=== PATIENT | female | born 1935 | race Caucasian/White ===

== ENCOUNTER 2020-01-06 08:08 | Inpatient (IN) | payer MEDICARE, SELFPAY ==
[2020-01-06] VITALS (49 sets, daily range): BP systolic 150–255; BP diastolic 37–85; PULSE 66–108; RESP 14–32; TEMP 36.5–36.7; O2SAT 84–100; BMI 30.9
--- NOTE | ~2020-01-06 | XR_ITS ---
EXAMINATION: XR chest 1V portable DATE: 01/07/2020 05:57 INDICATION: Congestive heart failure. TECHNIQUE: A single frontal view of the chest was obtained. COMPARISON: Chest single view 01/06/2020, CT abdomen and pelvis 01/06/2020 FINDINGS: There is a diffuse interstitial pattern in the lungs, consistent with mild pulmonary edema. There is mild atelectasis at the lung bases. There are small pleural effusions. No pneumothorax. Car diomegaly is noted. There is an old healed fracture deformity of proximal right humerus. IMPRESSION: 1. Mild pulmonary edema. 2. Stable small pleural effusions. 3. Cardiomegaly. Reviewed, dictated and finalized at location A. LE CUTTER
--- NOTE | ~2020-01-06 | CT_ITS ---
EXAMINATION: CT abdomen pelvis w con EXAM DATE: 01/06/2020 09:34 INDICATION: Generalized abdominal pain for 3 days. Headache. TECHNIQUE: Spiral CT of the abdomen and pelvis was performed following intravenous injection of 100 m L Omnipaque 350. Axial, coronal and sagittal images were reviewed. The dose-length product (DLP) fo r this examination was 765.71 mGy-cm. The exposure was tailored according to patient size (auto mA e xposure control), and iterative reconstruction (ASIR) was used as additional dose reduction technique . 2009 FINDINGS: The liver, spleen, adrenal glands and pancreas are unremarkable. There are cholecystectomy clips. Portal and splenic veins are patent. Kidneys enhance symmetrically. There is no hydronephr osis. Probable small renal cysts. The uterus is unremarkable. The bladder is unremarkable. There is no retroperitoneal or pelvic lymphadenopathy. There is mild scattered arteriosclerotic disease. The appendix is not positively visualized. There is no pericecal inflammatory change to suggest appe ndicitis. The stomach and small bowel are unremarkable. There is mild to moderate sigmoid colonic d iverticulosis. There is no adjacent inflammatory change to suggest diverticulitis. No free intraper itoneal gas. Moderate right, small to moderate left pleural effusions. There is subsegmental bibasi lar atelectasis, with some decreased attenuation in the left lower lobe medial airspace disease, poss ible superimposed infection. Mild cardiomegaly. There is a sclerotic focus in the T10 vertebral body measuring 10 mm in diameter, possible osteoblastic disease. Much smaller right femoral head bone isl and which is unchanged compared to prior study. There is left hip gamma nail. IMPRESSION: 1. Moderate right, small to moderate left pleural effusions with adjacent subsegmental atelectasis a nd possible right lower lobe pneumonia. 2. Mild to moderate sigmoid diverticulosis. 3. T10 sclerotic focus, may be new compared to 2009. Could be bone island or osteoblastic disease. 4. No acute intra-abdominal findings. Reviewed, dictated and finalized at location A. PLATER IMPRESSION: 1. Moderate right, small to moderate left pleural effusions with adjacent subs egmental atelectasis and possible right lower lobe pneumonia. 2. Mild to moderate sigmoid diverticulosis. 3. T10 sclerotic focus, may be new compared to 2009. Could be bone island or o steoblastic disease. 4. No acute intra-abdominal findings.
--- NOTE | ~2020-01-06 | XR_ITS ---
EXAMINATION: XR chest 1V EXAM DATE: 01/06/2020 09:41 INDICATION: Shortness of breath and wheezing. TECHNIQUE: Portable AP frontal chest x-ray was obtained. There is no prior study for comparison. FINDINGS: There is cardiomegaly and pulmonary vascular congestion. Small to moderate subpulmonic pleu ral effusions. There is indistinct reticulation with a bibasal predominance which may indicate pulmon theo edema. . There is no pneumothorax suspected. There is aortic arteriosclerosis. There are bony de generative changes. Right humeral neck fracture. IMPRESSION: Findings consistent with CHF exacerbation. Infection not excludable. Reviewed, dictated and finalized at location A. GENCY VEHICLE OPERATIONS INSTRUCTOR IMPRESSION: Findings consistent with CHF exacerbation. Infection not excludable .
--- NOTE | ~2020-01-06 | XR_ITS ---
EXAMINATION: XR chest 2V EXAM DATE: 01/09/2020 10:52 INDICATION: CHF, shortness of breath. TECHNIQUE: Frontal and lateral projections of the chest obtained and reviewed. Comparison is made to prior examination from 12/28/2019. FINDINGS: Moderate left, mild right pleural effusions. Adjacent left basilar segmental atelectasis. Lungs are otherwise clear. Mild cardiomegaly. There is no pneumothorax suspected. There is aortic art eriosclerosis. Old right humeral neck fractures. IMPRESSION: 1. Moderate left, small right pleural effusions. 2. Left lower lobe segmental atelectasis. 3. Cardiomegaly. Reviewed, dictated and finalized at location A. OR DEVOPS ENGINEER
--- NOTE | 2020-01-06 08:45 | PC.NURSE ---
Pt. O2 saturations drops below 90% upon exertion into the 80s. ERP notified. Pt. placed on 2L O2 via nasal cannula. O2 saturations improved. Pt. tolerates room air without exertion/ when patient is resting.
--- NOTE | 2020-01-06 08:54 | ECG_ITS ---
Measurements Intervals [place] Rate: 85 P: 60 NE: 175 QRS: -19 QRSD: 152 T: 81 QT: 408 QTc: 486 Interpretive Statements SINUS RHYTHM LEFT BUNDLE BRANCH BLOCK BASELINE ARTIFACT- I, II, III, AVR, AVF, V4-V6 ABNORMAL ECG Electronically Signed On 01-06-2020 11:18:52 [employer] by Aaron Valverde D.O.
[2020-01-06 09:03] LABS: Basophils Percent Auto 0.2 % (0.2-1.2); Eosinophils Absolute Auto 0.1 K/mm3 (0-0.3); Eosinophils Percent Auto 0.9 % (0-4.4); Hematocrit 36.1 % (37.0-47.0); Hemoglobin 12.3 g/dL (12.0-15.0); Immature Granulocyte Absolute 0.03 K/mm3 (0.00-0.031); Immature Granulocyte Percent A 0.3 % (0-0.5); Lymphocytes Percent Auto 14.3 % (18.3-44.2); Mean Corpuscular HGB Conc 34.1 g/dl (32-36); Mean Corpuscular Hemoglobin 32.7 pg (26-34); Mean Platelet Volume 9.1 fl (7.4-10.4); Monocytes Absolute Auto 0.8 K/mm3 (0.1-0.6); Monocytes Percent Auto 8.4 % (2.6-8.5); Neutrophils Absolute Auto 7.5 K/mm3 (1.3-6.7); Neutrophils Percent Auto 75.9 % (45.5-73.1); Platelet Count Result 304 k/mm3 (150-375); Red Blood Count 3.76 M/mm3 (4.2-5.4); Red Cell Distribution Width 13.2 % (11.5-14.5); White Blood Count 9.8 K/mm3 (4.5-10.0)
--- NOTE | 2020-01-06 09:03 | ED.GENADULT ---
HPI - General Adult General Chief complaint: Abdominal Pain Stated complaint: abd pain Time Seen by Provider: 01/06/20 08:17 Source: patient and family History of Present Illness HPI narrative: Patient is a 84 y/o female complaining of moderate generalized abdominal pain starting 3 days. She describes the pain as aching and it radiates to her chest. She is unable to rate the pain on a scale. There is no alleviating or exacerbating factor. She also has diarrhea, cough and SOB. She has no fever. Her son states that her new doctor took her off Lasix recently due to concern for kidney function. Related Data Home Medications Medication Instructions Recorded Confirmed calcium carbonate 500 mg (1,250 1 tablet PO DAILY 03/05/19 12/26/19 mg)-vitamin D3 200 unit tablet acetaminophen 650 mg 1,300 mg PO Q12H tablet 07/03/19 12/26/19 tablet,extended release multivitamin 2 tablet PO DAILY tablet 08/30/19 12/26/19 Allergies Allergy/AdvReac Type Severity Reaction Status Date / Time Sulfa (Sulfonamide Allergy Unknown unknown Verified 12/26/19 14:18 Antibiotics) sulfanilamide Allergy Unknown unknown Verified 08/30/19 08:16 Review of Systems Constitutional: Constitutional: Denies chills, Denies fever(s), Denies headache(s) and Denies weakness Eyes: Eyes: Denies blurry vision ENT: Denies headache(s) and Denies neck pain Cardiovascular: Cardiovascular: Reports chest pain and Reports dyspnea Respiratory: Respiratory: Reports cough and Reports dyspnea Gastrointestinal: Gastrointestinal: Reports abdominal pain, Reports diarrhea, Denies nausea and Denies vomiting Genitourinary: Genitourinary: Denies hematuria and Denies dysuria Musculoskeletal: Musculoskeletal: Denies back pain and Denies neck pain Neurologic: Denies headache(s) and Denies weakness [facility] Past Medical History Medical History Arthritis CKD (chronic kidney disease), stage III Depression Edema of both lower legs due to peripheral venous insufficiency GERD (gastroesophageal reflux disease) Hypertension Obesity Osteoarthritis Osteopenia Pre-diabetes Surgical History Surgical History H/O arthroscopy knee H/O total hysterectomy H/O tubal ligation History of arthroplasty of left hip History of breast biopsy (~1997) left History of cardiac cath History of tonsillectomy Hx of cholecystectomy Status post arthroscopy of hip Family History Family History Father Diabetes mellitus, Onset Age: 89 Hypertension, Onset Age: 89 Cerebrovascular accident, Onset Age: 89 Sibling Diabetes mellitus, Onset Age: 74 Family history of hypercholesterolemia, Onset Age: 74 Hypertension Acute myocardial infarction, Onset Age: 83 Family history of arthritis Family history of malignant neoplasm of urinary bladder, Onset Age: 74 Mother Hypertension, Onset Age: 85 Cerebrovascular accident, Onset Age: 85 Family history of arthritis, Onset Age: 85 Family history of congestive heart failure, Onset Age: 85 Social History Social History Smoking status: Never smoker Second hand tobacco smoke exposure: No Alcohol intake: never Additional living arrangements comments: lives with son Gender identity (if verbalized by the patient): Female Spiritual care concerns: No ([place]) Agree to blood products: Yes Exam Const: General: no acute distress and well developed Orientation/consciousness: oriented to person, oriented to place, oriented to time and patient oriented x3 HENMT: Head: normocephalic Ears: external ears normal General nose exam: Normal external nose present Eyes: General: appearance normal, both eyes and all related structures Conjunctivae: conjunctivae normal Neck: Neck: normal vi
[2020-01-06 09:19] LABS: Alanine Aminotransferase 27 U/L (4-35); Albumin Level 3.9 g/dL (3.5-5.1); Alkaline Phosphatase 80 U/L (38-126); Anion Gap 9 mmol/L (8-16); Aspartate Amino Transferase 33 U/L (14-36); Bilirubin,Total 1.1 mg/dL (0.2-1.3); Blood Urea Nitrogen 20 mg/dL (7-17); Carbon Dioxide 28 mmol/L (22-30); Chloride 97 mmol/L (98-107); Estimated CRCL calculation 41 ml/min; Estimated Glomerular Filt Rate 53; Glucose 161 mg/dL (65-105); Lipase 117 U/L (23-300); Potassium 3.9 mmol/L (3.4-5.0); Sodium 134 mmol/L (137-145)
[2020-01-06] MEDS: FUROSEMIDE INJ 40 MG/4 ML VIAL IV PUSH ×2 (09:23→17:43)
[2020-01-06 09:28] LABS: NT Pro B Type Natriuretic Pept 3780 PG/ML (5-100)
[2020-01-06 09:33] LABS: Add Urine Microscopic? YES; Appearance Urine Clear (Clear); Bilirubin Urine Negative (Negative); Blood Urine Negative (Negative); Color Urine Yellow (Yellow); Glucose Urine UA Negative (Negative); Ketones Urine Negative (Negative); Leukocyte Esterase Ur Negative LEU/UL (Negative); Mucus Urine Rare /lpf; Nitrate Urine Negative (Negative); Protein Urine 3+ mg/dL (Negative); Specific Grav Ur 1.015 (1.001-1.035); Squamous Epithelial Cell Urine Moderate /hpf (Few); Urobilinogen Urine Negative mg/dL (<2.0); WBC Urine 0-3 /hpf
[2020-01-06 09:34] LABS: Troponin I 0.094 ng/mL (0.000-0.034)
[2020-01-06] MEDS: amLODIPine BESYLATE 5 MG TABLET 10 MG PO (10:28)
[2020-01-06 12:51] LABS: INR 0.9; Prothrombin Time 12.8 Seconds (11.1-14.7)
[2020-01-06 12:52] LABS: Partial Thromboplastin Time 34.6 SECONDS (22.3-36.8)
[2020-01-06] MEDS: ASPIRIN 81 MG CHEWABLE TABLET 324 MG PO (12:57)
[2020-01-06] MEDS: HEPARIN SODIUM 5,000 UNITS/ML VIAL 4000 UNITS IV PUSH (13:32)
[2020-01-06] MEDS: HEPARIN SOD/D5W 100 UNITS/ML 25,000 UNITS/250 ML BAG 8 UNITS IV CONT (13:33)
--- NOTE | 2020-01-06 14:56 | ADMGEN ---
This patient, Azucena Mcdonald, was admitted to IMU Room 200-01. Patient/family oriented to hospital policies and general routines including ID bracelet, bed and alarms, visiting hours, pain management, procedures, bathroom and other care routines, personal items, smoking policy, room service/diet, and visiting hours. Information on how to activate the Rapid Response Team has been discussed. Patient/Family are encouraged to report perceived risks to care and to ask questions if they do not understand what they are told or what they should do.
--- NOTE | 2020-01-06 15:28 | PM.IMHP ---
H&P: HPI History of Present Illness Date/Time: 01/06/20 15:28 Chief complaint: CHF Narrative: Azucena Mcdonald is a 84 year old female with history of hypertension, CKD and severe hearing loss who presents with complaints of abdominal or chest pain. Obtaining a history is challenging due to her hearing loss. History is supplemented by the chart and by family members by phone. On December 24 patient was taken off of her ASA, Lasix and potassium. Her blood pressures were monitored closely at home with systolic BP running in the 140s. Since stopping these medications, patient's blood pressure has been climbing into the 170-180 range. Patient states over the past 3-4 days she has been feeling tired and weak. She has been having trouble sleeping with what sounds like orthopnea symptoms which have been going on for about 2 weeks. She also had been having abdominal swelling as well as a upper abdominal pain. She has been having chest pain over the past few days and it has been hard to breathe . The pain comes and goes. Seems to be worse with activity. No radiation of the pain. The pain is pleuritic in nature. Pain usually lasts about an hour. No nausea or vomiting. She did have a loose stool this morning and noted bright red blood on the toilet paper but she does have hemorrhoids. She also complains urinary frequency with some improvement being off the Lasix. No diabetes history. She voids small volumes. No dysuria or hematuria. No fever or chills but does state that she has episodes where she has diaphoresis and then cold; this is been going on for about a month. No palpitations. No history of seizures or strokes. She has had weight gain but unclear on how long it has been going on. She also has chronic pedal edema that has increased recently since being off the Lasix. She wears Anibal hose daily and they have noted that it has been hard to put the Anibal hose on. Because of the abdominal pain and chest pain, patient presented to the emergency room for evaluation. In the emergency room her blood pressure was 225/85. First troponin elevated and has climbed to 2.6. EKG reviewed showing normal sinus rhythm and left bundle branch block. Old EKGs from 2016 show that the bundle branch block is new. BNP was 3780. CT of the abdomen pelvis showed bilateral pleural effusions and possible right lower lobe pneumonia. Patient has a chronic cough at night. No acute intra-abdominal findings. Chest x-ray findings consistent with CHF. She was given aspirin, Norvasc and IV Lasix. She was started on heparin drip. She was admitted for further care. Cardiology consulted. Review of Systems Review of Systems: All systems reviewed & are unremarkable except as noted in HPI and below PMFSH Past Medical History Medical History (Updated 01/06/20 @ 17:41 by Navi Peters MD) Arthritis CKD (chronic kidney disease), stage III [place] Depression Edema of both lower legs due to peripheral venous insufficiency GERD (gastroesophageal reflux disease) Hypertension Obesity Osteoarthritis Osteopenia Pre-diabetes Pulmonary hypertension Surgical History Surgical History (Updated 01/06/20 @ 15:37 by Navi Peters MD) H/O arthroscopy knee H/O total hysterectomy H/O tubal ligation History of arthroplasty of left hip History of breast biopsy (~1997) left History of cardiac cath History of tonsillectomy Hx of cholecystectomy Hx of colonoscopy with IH and polypectomy Status post arthroscopy of hip Family History Family History Father Diabetes mellitus, Onset Age: 89 Hypertension, Onset Age: 89 Cerebrovascular accident, Onset Age: 89 Sibling Diabetes mellitus, Onset Age: 74 Family history of hypercholesterolemia, Onset Age: 74 Hypertension Acute myocardial infarction, Onset Age: 83 Family history of arthritis Family history of malignant neoplasm of uri
--- NOTE | 2020-01-06 16:35 | PM.CNCAR ---
Assessment and Plan Additional Plan 84-year-old lady with a somewhat complex presentation. She has symptoms of shortness of breath and evidence of bilateral pleural effusions appears to have an element of congestive heart failure. In addition to this there is some pain this morning which on the surface is very unusual for myocardial ischemia since it started with low in the mid abdomen and then progressed up into the chest with some shortness of breath. She is no longer having any active chest pain she does have a left bundle branch block with no recent electrocardiograms in the chart available for comparison. I do not believe she needs to be brought emergently to the cardiac analytical lab analyst today in this setting but she does need to be treated for volume overload and I will ask for an echocardiogram as well to assess if there has been any change in left ventricular systolic function in this setting. I will continue the beta-godfrey that she normally takes as well as lisinopril in place of her home dose of benazepril. Oral nitrates will be added to the regimen as well. We will follow her progress with you during this hospitalization and thank you for allowing me to see her in consultation Irving Hdz MD [facility] History of Present Illness History of Present Illness Consult date/time: 01/06/20 16:35 Consult reason: chest pain and congestive heart failure Reason For Visit: CHF Narrative: This is an 84-year-old woman who is unknown to me prior to the consulting on her case this afternoon. She is a reasonable historian but is hard of hearing and has a difficult time expressing her responses to questions. I am seeing her at the request of the ER staff/hospitalist because of findings of some abdominal/chest pain, left bundle branch block and elevated troponin. The patient states that she has been feeling poorly for 2 or 3 days with symptoms of increasing shortness of breath. She states that the symptoms began several days ago. She does recall having seen her PCP about 10 days ago at which time she was taken off of diuretic treatment. There is a note in the chart that corroborates this. Presumably there was some concern about chronic kidney disease and the need to be on chronic loop diuretics. According to the chart she is not known to have significant coronary artery disease in the past. This morning she told her son she was feeling unwell with some pain as well she describes a pain syndrome that is very unusual starting in the low mid abdomen tip periumbilical region then radiating up into the epigastric region and then up into the center of the chest. She stated is this got worse she had a harder time breathing and eventually did is directed her son to bring her to the emergency department. In the ED her electrocardiogram shows a sinus mechanism with a left bundle branch block. There are no recent electrocardiograms in the chart for comparison. The last 1 that I could find was about 10 years ago at which time she had a negative stress test being performed in the office. She did not have a left bundle branch block at that time. She has couple of echocardiograms in the record that were done in the last 2 years or so that were interpreted as showing normal left ventricular systolic function and no significant valvular disease. Upon entering the room to see her in the IMU she seems to be relatively comfortable she does not appear to be in any distress she is no longer reporting chest pain. After being seen in the emergency room she was placed on intravenous heparin she was a given an injection of furosemide and admitted to IMU. She is rather hypertensive she normally takes metoprolol as well as benazepril for this neither of those have been ordered. Her chest x-ray shows enlargement of the cardiac silhouette as well as bilateral pleural effusions. She does have chronic lower extremity edema which in the chart has been attributed to chronic venous insufficiency. She
[2020-01-06] MEDS: METOPROLOL SUCCINATE EXT REL 100 MG TABCR PO (17:42)
[2020-01-06] MEDS: ISOSORBIDE MONONITRATE 60 MG TAB.ER.24H PO (17:43)
[2020-01-06 17:56] LABS: Partial Thromboplastin Time 122.8 SECONDS (22.3-36.8)
[2020-01-07] VITALS (17 sets, daily range): BP systolic 144–202; BP diastolic 40–70; PULSE 64–96; RESP 14–20; TEMP 36.5–37.1; O2SAT 93–98
--- NOTE | 2020-01-07 | ECHO_ITS ---
Patient Info Name: Azucena Mcdonald Age: 84 years : 1935 Gender: Female Ht: 62 in Wt: 169 lbs BSA: 1.86 m2 HR: 65 bpm BP: 177 / 45 mmHg Heart Rhythm: Left Bundle Branch Block, Sinus Rhythm Technical Quality: Good Exam Date: 01/07/2020 9:50 AM Exam Location: [facility] Patient Status: Inpatient Admit Date: 01/07/2020 Staff Ordering Physician: Irving Hdz MD Insurance Claim Auditor: Lazaro Martinez RDCS Attending Provider: Navi Peters MD Referring Physician: Wilder BAPTISTE; Exam Type: CA echo dop color flow w con Study Info Indications I50.9 - Heart failure, unspecified I44.7 - Left bundle-branch block, unspecified Complete two-dimensional, color flow and Doppler transthoracic echocardiogram is performed with contrast to opacify the left ventricle and to improve the deliniation of the left ventricle endocardial borders. Contrast/Agitated Saline Contrast/Ag. Saline: Definity Amount: 2.00 ml Administered By: Isis Michaels RN Existing IV Access: Yes History/Risk Factors CHF; LBBB, CKD3, edema, HTN, pHTN, DM. Summary 1. Normal left ventricular size with mild concentric hypertrophy. Good overall systolic function, estimated ejection fraction 65-70%. Hypokinesis of the basal inferolateral wall. Grade 2 diastolic dysfunction is present. 2. Left atrial chamber dimension is moderately enlarged. 3. There is mild mitral valve regurgitation. 4. There is mild tricuspid valve regurgitation. 5. Severe pulmonary hypertension, estimated pulmonary arterial systolic pressure is 71 mmHg. 6. Atrial fibrillation with bundle branch block. Left Ventricle Left ventricular chamber dimension is normal. Left ventricular systolic function is normal, estimated at 65-70%. There is mildly increased left ventricular wall thickness. Left ventricular septal wall motion is normal. The left ventricular diastolic function is grade II diastolic dysfunction. Right Ventricle Right ventricular chamber dimension is normal. Right ventricular systolic function is normal. Left Atria Left atrial chamber dimension is moderately enlarged. Right Atria Right atrial chamber dimension is normal. Aortic Valve The aortic valve is trileaflet. There is no aortic valve sclerosis. There is no aortic valve stenosis. There is no aortic valve regurgitation. Pulmonic Valve The pulmonic valve is normal. There is no pulmonic valve stenosis. There is trace pulmonic regurgitation. Mitral Valve The mitral valve has normal leaflets. There is no mitral valve stenosis. There is mild mitral valve regurgitation. The mitral valve annulus is moderately calcified. Tricuspid Valve The tricuspid valve leaflets are normal. There is no significant tricuspid valve stenosis. There is mild tricuspid valve regurgitation. Severe pulmonary hypertension, estimated pulmonary arterial systolic pressure is 71 mmHg. Pericardium/Pleural The pericardium appears normal. There is no pericardial effusion. Inferior Vena Cava Normal inferior vena cava with >50% collapse upon inspiration consistent with Empty right atrial pressure, 10 mmHg. Aorta The aortic root size at the sinus of Valsalva is normal. The prox ascending aorta size is normal. Left Ventricular Outflow Tract Name Value Normal -
[2020-01-07 00:51] LABS: Partial Thromboplastin Time 60.5 SECONDS (22.3-36.8)
[2020-01-07] MEDS: HEPARIN SODIUM 5,000 UNITS/ML VIAL 2500 UNITS IV PUSH (01:43)
[2020-01-07 06:36] LABS: Basophils Percent Auto 0.2 % (0.2-1.2); Eosinophils Percent Auto 0.2 % (0-4.4); Hematocrit 31.8 % (37.0-47.0); Hemoglobin 10.8 g/dL (12.0-15.0); Immature Granulocyte Absolute 0.04 K/mm3 (0.00-0.031); Immature Granulocyte Percent A 0.4 % (0-0.5); Lymphocytes Absolute Auto 0.97 K/mm3 (0.9-3.2); Lymphocytes Percent Auto 8.9 % (18.3-44.2); Mean Corpuscular Hemoglobin 31.8 pg (26-34); Mean Corpuscular Volume 93.5 fl (80-100); Mean Platelet Volume 8.8 fl (7.4-10.4); Monocytes Absolute Auto 0.9 K/mm3 (0.1-0.6); Monocytes Percent Auto 8.4 % (2.6-8.5); Neutrophils Absolute Auto 8.9 K/mm3 (1.3-6.7); Neutrophils Percent Auto 81.9 % (45.5-73.1); Platelet Count Result 281 k/mm3 (150-375); White Blood Count 10.9 K/mm3 (4.5-10.0)
[2020-01-07 06:58] LABS: Alanine Aminotransferase 23 U/L (4-35); Albumin Level 3.4 g/dL (3.5-5.1); Alkaline Phosphatase 72 U/L (38-126); Anion Gap 5 mmol/L (8-16); Aspartate Amino Transferase 27 U/L (14-36); Bilirubin,Total 1.2 mg/dL (0.2-1.3); Blood Urea Nitrogen 21 mg/dL (7-17); Calcium 8.6 mg/dL (8.4-10.2); Carbon Dioxide 35 mmol/L (22-30); Chloride 94 mmol/L (98-107); Cholesterol 130 mg/dL (0-200); Estimated CRCL calculation 30 ml/min; Estimated Glomerular Filt Rate 43; Glucose 137 mg/dL (65-105); HDL Direct 41 mg/dL; Lipase 113 U/L (23-300); Magnesium 1.6 mg/dL (1.6-2.3); Partial Thromboplastin Time 59.2 SECONDS (22.3-36.8); Potassium 3.3 mmol/L (3.4-5.0); Sodium 134 mmol/L (137-145); Triglycerides 85 mg/dL (<150)
[2020-01-07 07:08] LABS: LDL Cholesterol Direct 68 mg/dL
[2020-01-07 07:10] LABS: Troponin I 0.971 ng/mL (0.000-0.034)
--- NOTE | 2020-01-07 08:00 | ECG_ITS ---
Measurements Intervals [place] Rate: 71 P: 80 ND: 168 QRS: 1 QRSD: 152 T: 67 QT: 459 QTc: 502 Interpretive Statements SINUS RHYTHM LEFT BUNDLE BRANCH BLOCK BASELINE ARTIFACT- I, II, III, V6 ABNORMAL ECG Electronically Signed On 01-07-2020 9:52:18 MARINE ENGINE MACHINIST APPRENTICE by Aaron Valverde D.O.
[2020-01-07] MEDS: ATORVASTATIN 40 MG TABLET PO (08:09)
[2020-01-07] MEDS: ASPIRIN 81 MG CHEWABLE TABLET PO (08:09)
[2020-01-07] MEDS: lisinopriL 20 MG TABLET 40 MG PO (08:10)
[2020-01-07] MEDS: FUROSEMIDE INJ 40 MG/4 ML VIAL IV PUSH (08:10)
[2020-01-07] MEDS: ISOSORBIDE MONONITRATE 60 MG TAB.ER.24H PO (08:10)
[2020-01-07] MEDS: METOPROLOL SUCCINATE EXT REL 100 MG TABCR PO (08:10)
[2020-01-07 08:17] LABS: Partial Thromboplastin Time 59.2 SECONDS (22.3-36.8)
[2020-01-07 08:34] LABS: Glucose Point of Care 131 (65-105)
--- NOTE | 2020-01-07 10:02 | PM.PNCARD ---
Progress Note: A&P Assessment and Plan (1) Non-ST elevation [place] (NSTEMI): Code(s): I21.4 - Non-ST elevation (NSTEMI) myocardial infarction Status: Acute Assessment and Plan: Admitted with NSTEMI, atypical abdominal/chest discomfort, troponin of 2.6. EKG today on my personal review shows NSR, LBBB. The slight ST depression in V6 has resolved. No further chest discomfort on heparin drip, aspirin, metoprolol, lisinopril, statin and isosorbide. Planning cardiac catheterization later this week ( or Monday?) if patient is agreeable, once her CHF has resolved, if renal function stable. Will provide pt w/ some written information re: CAD, CHF and cardiac cath. (2) CHF (congestive heart failure): Qualifiers: Heart failure chronicity: acute on chronic Heart failure type: unspecified Qualified Code(s): I50.9 - Heart failure, unspecified Code(s): I50.9 - Heart failure, unspecified Status: Acute Assessment and Plan: Diuresing. Echo completed this morning. Cont IV Lasix, BP control. Supplement Kcl for hypokalemia. (3) Hypertension: Qualifiers: Hypertension type: unspecified Qualified Code(s): I10 - Essential (primary) hypertension Code(s): I10 - Essential (primary) hypertension Status: Acute Assessment and Plan: Continuing her home doses of BB and ACEI. Add amlodipine. (4) Left bundle branch block: Code(s): I44.7 - Left bundle-branch block, unspecified Status: Acute Assessment and Plan: New since 2015. (5) Hypokalemia: Code(s): E87.6 - Hypokalemia Status: Acute Assessment and Plan: Supplement. (6) CKD (chronic kidney disease), stage III: Code(s): N18.30 - Chronic kidney disease, stage 3 unspecified Status: Acute Assessment and Plan: Remains stable. Cont to follow w/ daily BMP. Subjective Date/time seen: 01/07/20 10:02 follow-up for non-STEMI, new onset CHF and LBBB. Atypical presentation with abdominal pain which radiated to the chest. Peak trop 2.66. Extremely hard of hearing. Date of service: 01/07/2020 Denies further abdominal or CP. Some OLVERA w/ activity. RN says pt had a good night, no problems. Remains on a heparin drip. Diuresed 550 cc overnight, furosemide 40 mg IV push daily. Blood pressure still high, 170-190's/40-70 mmHg. Echo done this morning. Hypokalemia, K+ 3.3. Chest x-ray personally reviewed: cardiomegaly, CHF, small bilateral effusions. Small improvement compared to admission. Tele: NSR, occ PVCs Review of Systems Review of Systems: Narrative: Some of ROS obtained fr pt's nurse since she is so CHICK[place]. Constitutional: Constitutional: Reports weakness ENT: Denies epistaxis Cardiovascular: Cardiovascular: Denies chest pain, Reports pedal edema, Denies lightheadedness and Denies palpitations Respiratory: Respiratory: Reports dyspnea on exertion Gastrointestinal: Gastrointestinal: Denies abdominal pain Genitourinary: Genitourinary: Denies hematuria Musculoskeletal: Musculoskeletal: Denies back pain Neurologic: Reports system reviewed and no additional complaints, except as documented Psychiatric: Psychiatric: Reports no additional psychiatric complaints Exam Narrative: Exam Narrative: Pleasant older WF who is extremely [id number]. A lot of our conversation was written. Const: General: comfortable and no acute distress Eyes: EOM: EOMs intact bilaterally Neck: Neck: No no JVD (small amt JVD) Resp: Effort & Inspection: normal respiratory effort Auscultation: clear to auscultation bilaterally, rales (1/3 up bilat) and diminished lung sounds Cardio: Rate: regular rate Rhythm: regular rhythm Heart sounds: Murmur heart sound present (02/25 DALIA LS
[2020-01-07] MEDS: POTASSIUM CHLORIDE 20 MEQ TABLET 40 MEQ PO ×2 (13:31→20:01)
[2020-01-07] MEDS: amLODIPine BESYLATE 2.5 MG TABLET PO (13:32)
[2020-01-07 14:15] LABS: Partial Thromboplastin Time 53.6 SECONDS (22.3-36.8)
[2020-01-07] MEDS: HEPARIN SODIUM 5,000 UNITS/ML VIAL 4000 UNITS IV PUSH (15:06)
[2020-01-07] MEDS: HEPARIN SOD/D5W 100 UNITS/ML 25,000 UNITS/250 ML BAG 12 UNITS IV CONT (15:09)
--- NOTE | 2020-01-07 16:56 | PM.IMPN ---
Progress Note: A&P Assessment and Plan (1) Non-ST elevation NJ (NSTEMI): Code(s): I21.4 - Non-ST elevation (NSTEMI) myocardial infarction Status: Acute Assessment and Plan: Troponin elevated on admission and has climbed to 2.66. CXR consistent with CHF exacerbation. EKG showing Left BBB on unknown duration. She has been started on ASA. She has been started on Heparin drip. She has been continued on her Lisinopril, Metoprolol and Imdur. Will need ischemic evaluation once she is euvolemic. (2) CHF (congestive heart failure): Qualifiers: Heart failure chronicity: acute on chronic Heart failure type: unspecified Qualified Code(s): I50.9 - Heart failure, unspecified Code(s): I50.9 - Heart failure, unspecified Status: Acute Assessment and Plan: Patient does not have hx of CHF but does have chronic pedal edema related to venous insufficiency. Suspect patient now with new diagnosis of CHF with bilateral pleural effusions, generalized fluid overload, pulmonary edema and BNP 3780. Could be acute related to her NSTEMI but more likely chronic and unrecognized given that she was on lasix and only became uncovered when the Lasix was stopped. Echo EF 65% but grade 2 diastolic dysfunction and severe pulmonary hypertension at 70. Continue IV Lasix. Monitor renal function closely. Strict I/Os and daily weights. Fluid restriction with low sodium diet. (3) Left bundle branch block: Code(s): I44.7 - Left bundle-branch block, unspecified Status: Acute Assessment and Plan: Unclear if this is new or old since last EKG is 4 years old. Could be acute related to her NSTEMI. (4) Abdominal pain: Qualifiers: Abdominal location: generalized Qualified Code(s): R10.84 - Generalized abdominal pain Code(s): R10.9 - Unspecified abdominal pain Status: Acute Assessment and Plan: Patient with upper abdominal pain but CT scan showing no significant findings. LFTs and Lipase normal. Suspect this is related to her chest pain. Follow. (5) Hypertension: Qualifiers: Hypertension type: unspecified Qualified Code(s): I10 - Essential (primary) hypertension Code(s): I10 - Essential (primary) hypertension Status: Acute Assessment and Plan: BP well controlled on 12/26/19. BP elevated now and amlodipine had a daily. . Continue IV Lasix. Adjust medications to improve BP. (6) CKD (chronic kidney disease), stage III: Code(s): N18.30 - Chronic kidney disease, stage 3 unspecified Status: Acute Assessment and Plan: Renal function in November consistent with CKD III. She was taken off her Lasix for this reason. Her Cr better today but probably Cr is improved due to fluid overload and not improved renal function. Hold HCTZ. Continue TRAMAINE inhibitor today. Follow closely on IV Lasix. Creatinine 1.2 (7) Pre-diabetes: Code(s): R73.03 - Prediabetes Status: Acute Assessment and Plan: Patient has vague hx of pre-DM. Glucose on presentation elevated to 161. Last A1c 5.9 in November. Not on steroids so will just monitor with BMP values for now and hold off on AcuCheks. (8) DVT prophylaxis: Code(s): Z29.9 - Encounter for prophylactic measures, unspecified Status: Acute Assessment and Plan: Heparin drip Subjective Date/time seen: 01/07/20 16:56 Interval history: Date of visit 01/06. 84-year-old hypertensive female with known congestive failure and coronary artery disease presented with abdominal pain which progressed to chest pain with elevated troponin. Thought to have non ST elevation [place] with failure. Feels better this a.m. less short of breath. No pain Exam Narrative: Exam Narrative: Blood pressure 144/50 pulse is 80 afebrile saturating 96% on 2 L nasal cannula respirations 18 per minute Pupil equal reactive light sclera anicteric Lung
[2020-01-07] MEDS: hydrALAZINE HCL 20 MG/ML VIAL 10 MG IV PUSH (23:33)
[2020-01-08] VITALS (16 sets, daily range): BP systolic 132–180; BP diastolic 52–95; PULSE 67–88; RESP 18–24; TEMP 36.1–36.7; O2SAT 94–98
[2020-01-08 06:43] LABS: Basophils Percent Auto 0.3 % (0.2-1.2); Eosinophils Percent Auto 0.2 % (0-4.4); Hematocrit 32.5 % (37.0-47.0); Immature Granulocyte Absolute 0.03 K/mm3 (0.00-0.031); Immature Granulocyte Percent A 0.3 % (0-0.5); Lymphocytes Absolute Auto 0.93 K/mm3 (0.9-3.2); Lymphocytes Percent Auto 8.9 % (18.3-44.2); Mean Corpuscular HGB Conc 33.8 g/dl (32-36); Mean Corpuscular Hemoglobin 32.7 pg (26-34); Mean Corpuscular Volume 96.7 fl (80-100); Mean Platelet Volume 8.8 fl (7.4-10.4); Monocytes Percent Auto 9.8 % (2.6-8.5); Neutrophils Absolute Auto 8.4 K/mm3 (1.3-6.7); Neutrophils Percent Auto 80.5 % (45.5-73.1); Platelet Count Result 254 k/mm3 (150-375); Red Blood Count 3.36 M/mm3 (4.2-5.4); Red Cell Distribution Width 13.4 % (11.5-14.5); White Blood Count 10.4 K/mm3 (4.5-10.0)
[2020-01-08 06:58] LABS: Anion Gap 4 mmol/L (8-16); Blood Urea Nitrogen 25 mg/dL (7-17); Calcium 8.4 mg/dL (8.4-10.2); Carbon Dioxide 36 mmol/L (22-30); Chloride 91 mmol/L (98-107); Estimated CRCL calculation 30 ml/min; Estimated Glomerular Filt Rate 43; Glucose 142 mg/dL (65-105); Potassium 3.6 mmol/L (3.4-5.0); Sodium 131 mmol/L (137-145)
[2020-01-08 07:03] LABS: Partial Thromboplastin Time 104.2 SECONDS (22.3-36.8)
--- NOTE | 2020-01-08 08:04 | P.CDI_ITS ---
CDI Query Clarification Request -Acute on chronic CHF has been documented - Echo EF 65% but grade 2 diastolic dysfunction and severe pulmonary hypertension at 70 documented. -Coders cannot code type of CHF from echo report Please clarify type of CHF: * Systolic * Diastolic * Both systolic and diastolic * Unable to determine <Azucena Ramirez RN - Last Filed: 01/08/20 08:06>
[2020-01-08] MEDS: POTASSIUM CHLORIDE 20 MEQ TABLET 40 MEQ PO (08:29)
[2020-01-08] MEDS: amLODIPine BESYLATE 2.5 MG TABLET PO (08:30)
[2020-01-08] MEDS: ATORVASTATIN 40 MG TABLET PO (08:30)
[2020-01-08] MEDS: FUROSEMIDE INJ 40 MG/4 ML VIAL IV PUSH (08:30)
[2020-01-08] MEDS: ASPIRIN 81 MG CHEWABLE TABLET PO (08:30)
[2020-01-08] MEDS: METOPROLOL SUCCINATE EXT REL 100 MG TABCR PO (08:31)
[2020-01-08] MEDS: ISOSORBIDE MONONITRATE 60 MG TAB.ER.24H PO (08:31)
[2020-01-08] MEDS: lisinopriL 20 MG TABLET 40 MG PO (08:31)
--- NOTE | 2020-01-08 10:18 | PM.PNCARD ---
Progress Note: A&P Additional Plan 84-year-old lady presenting with AMI very atypical symptomatology in the emergency room. No longer having any chest pain. Echocardiogram demonstrates wall motion abnormalities suggesting an event in the distribution of the circumflex. No significant valvular pathology. Because of concerning wrecked rectal bleeding recently we will try to avoid bringing this lady to the [facility] unless she has recurrent ischemic chest pain. Continue metoprolol high-dose lisinopril. Continue furosemide. Will increase her amlodipine dosage today as she is still rather hypertensive. Irving Hdz MD [facility] Subjective Date/time seen: Date of service: 01/08/20 10:18 Interval history: Follow-up visit for this 84-year-old lady with recent myocardial infarction with atypical presentation and modest troponin rise. Echocardiogram demonstrated posterolateral wall motion abnormality suggesting an event in the distribution of the circumflex. Patient has a left bundle branch block of unknown chronicity. Family history yesterday of recent concerning lower GI bleeding. Patient reports generalized weakness and shortness of breath with modest activity in the room. No further chest pain. Exam Const: General: no acute distress Eyes: Sclera: sclerae normal Pupils: Equal, round and reactive pupils present Neck: Neck: no JVD Thyroid: thyroid normal Resp: Effort & Inspection: normal respiratory effort Other: Scant bibasilar crackles persist Cardio: Rate: regular rate Rhythm: regular rhythm GI: GI Palp: Yes Soft to palpation Auscultation: normal bowel sounds Skin: General skin exam: normal color Neuro: Cognition (Neuro): normal cognition Extrem: General: normal to inspection Other: Very mild peripheral edema Objective Data Vital Signs Vital Signs: Vital Signs - 24 hr 01/07/20 12:00 01/07/20 14:00 01/07/20 15:40 Temperature 36.9 C 37.1 C Pulse Rate 68 73 81 Respiratory Rate 14 16 Blood Pressure 144/40 H 176/57 H Pulse Oximetry 93 96 01/07/20 16:00 01/07/20 18:00 01/07/20 20:00 Temperature 36.5 C Pulse Rate 81 75 83 Respiratory Rate 16 18 Blood Pressure 176/51 H Pulse Oximetry 96 97 01/07/20 22:00 01/07/20 23:39 01/08/20 00:00 Temperature 36.6 C Pulse Rate 72 72 75 Respiratory Rate 20 18 Blood Pressure 202/62 H Pulse Oximetry 97 98 11/18/20 02:00 01/08/20 04:00 01/08/20 06:00 Temperature 36.6 C Pulse Rate 82 87 81 Respiratory Rate 22 H Blood Pressure 180/95 H Pulse Oximetry 96 01/08/20 08:00 01/08/20 08:31 01/08/20 08:35 Temperature 36.4 C Pulse Rate 82 78 80 Respiratory Rate 24 H Blood Pressure 169/73 H Pulse Oximetry 97 98 Intake/Output Intake/Output: Intake & Output 01/05/20 01/06/20 01/07/20 01/08/20 23:59 23:59 23:59 23:59 Intake Total 600 970 500 Output Total 1150 1000 1000 Balance -550 -30 -500 Meds/Results Medications: Active Medications Generic Name Dose Route Start Last Admin Trade Name Freq PRN Reason Stop Dose Admin Amlodipine Besylate 10 mg 01/09/20 09:00 Amlodipine Besylate 5 Mg Tablet PO QAM [facility] Aspirin 81 mg 01/07/20 08:00 01/08/20 08:30 Aspirin 81 Mg Chewable Tablet PO 81 mg DAILY@0800 ERYN Administration Atorvastatin Calcium 40 mg 01/07/20 09:00 01/08/20 08:30 Atorvastatin 40 Mg Tablet PO 40 mg DAILY ERYN Administration Furosemide 40 mg 01/07/20 09:00 01/08/20 08:30 Furosemide Inj 40 Mg/4 Ml Vial IV PUSH 40 mg DAILY ERYN Administration Heparin Sodium (Porcine) 4,000 units 01/06/20 13:05 01/07/20 15:06 Heparin Sodium 5,000 Units/Ml Vial IV PUSH 4,000 units PRN PRN Administration aPTT less than 55 seconds Heparin Sodium (Porcine) 2,500 units 01/06/20 13:05 01/07/20 01:43 Heparin Sodium 5,000 Units/Ml Vial IV PUSH 2,500 units PRN PRN Administration aPTT 55 - 70 seconds Hydralazine HCl 10 mg 01/06/20 15:27 01/07/20 23:
[2020-01-08] MEDS: amLODIPine BESYLATE 5 MG TABLET PO (11:20)
[2020-01-08 15:25] LABS: Partial Thromboplastin Time 84.3 SECONDS (22.3-36.8)
[2020-01-08] MEDS: HEPARIN SOD/D5W 100 UNITS/ML 25,000 UNITS/250 ML BAG 10 UNITS IV CONT (15:44)
--- NOTE | 2020-01-08 17:22 | PM.IMPN ---
Progress Note: A&P Assessment and Plan (1) Non-ST elevation [place] (NSTEMI): Code(s): I21.4 - Non-ST elevation (NSTEMI) myocardial infarction Status: Acute Assessment and Plan: Troponin elevated on admission and has climbed to 2.66. CXR consistent with CHF exacerbation. EKG showing Left BBB on unknown duration. She has been started on ASA. She has been started on Heparin drip. She has been continued on her Lisinopril, Metoprolol and Imdur. . (2) CHF (congestive heart failure): Qualifiers: Heart failure chronicity: acute on chronic Heart failure type: unspecified Qualified Code(s): I50.9 - Heart failure, unspecified Code(s): I50.9 - Heart failure, unspecified Status: Acute Assessment and Plan: Patient does not have hx of CHF but does have chronic pedal edema related to venous insufficiency. Suspect patient now with new diagnosis of CHF with bilateral pleural effusions, generalized fluid overload, pulmonary edema and BNP 3780. Could be acute related to her NSTEMI but more likely chronic and unrecognized given that she was on lasix and only became uncovered when the Lasix was stopped. Echo EF 65% but grade 2 diastolic dysfunction and severe pulmonary hypertension at 70. Continue IV Lasix. Monitor renal function closely. Probable acute on chronic diastolic HF with pul htn with echo . (3) Left bundle branch block: Code(s): I44.7 - Left bundle-branch block, unspecified Status: Acute Assessment and Plan: Unclear if this is new or old since last EKG is 4 years old. Could be acute related to her NSTEMI. (4) Abdominal pain: Qualifiers: Abdominal location: generalized Qualified Code(s): R10.84 - Generalized abdominal pain Code(s): R10.9 - Unspecified abdominal pain Status: Acute Assessment and Plan: Patient with upper abdominal pain but CT scan showing no significant findings. LFTs and Lipase normal. Suspect this is related to her chest pain. Follow. (5) Hypertension: Qualifiers: Hypertension type: unspecified Qualified Code(s): I10 - Essential (primary) hypertension Code(s): I10 - Essential (primary) hypertension Status: Acute Assessment and Plan: BP well controlled on 12/26/19. BP elevated now and amlodipine added 01/06 but will accelerate dose.(10 mg qd) . Continue IV Lasix. (6) CKD (chronic kidney disease), stage III: Code(s): N18.30 - Chronic kidney disease, stage 3 unspecified Status: Acute Assessment and Plan: Renal function in November consistent with CKD III. She was taken off her Lasix for this reason. Her Cr better today but probably Cr is improved due to fluid overload and not improved renal function. Hold HCTZ. Continue TRAMAINE inhibitor . Follow closely on IV Lasix. Creatinine 1.2 still (7) Pre-diabetes: Code(s): R73.03 - Prediabetes Status: Acute Assessment and Plan: Patient has vague hx of pre-DM. Glucose on presentation elevated to 161. Last A1c 5.9 in November. Not on steroids so will just monitor with BMP values for now and hold off on AcuCheks. (8) DVT prophylaxis: Code(s): Z29.9 - Encounter for prophylactic measures, unspecified Status: Acute Assessment and Plan: Heparin drip Subjective Date/time seen: 01/08/20 17:22 Interval history: Date of visit 01/07. 84-year-old hypertensive female with known congestive failure and coronary artery disease presented with abdominal pain which progressed to chest pain with elevated troponin. Thought to have non ST elevation [place] with failure. Feels better this a.m. less short of breath. No pain and slept well Exam Narrative: Exam Narrative: Blood pressure 156/56 pulse is 78 afebrile saturating 94% on 1 L nasal cannula respirations 18 per minute Pupil equal reactive light sclera anicteric Lungs clear today CV regular rate rhythm Ab
[2020-01-09] VITALS (17 sets, daily range): BP systolic 125–216; BP diastolic 41–56; PULSE 68–90; RESP 16–22; TEMP 36.5–36.9; O2SAT 91–95
[2020-01-09] MEDS: hydrALAZINE HCL 20 MG/ML VIAL 10 MG IV PUSH (04:32)
[2020-01-09 05:01] LABS: Hematocrit 33.1 % (37.0-47.0); Hemoglobin 11.3 g/dL (12.0-15.0)
[2020-01-09 05:10] LABS: Partial Thromboplastin Time 78.7 SECONDS (22.3-36.8)
[2020-01-09 05:13] LABS: Anion Gap 7 mmol/L (8-16); Blood Urea Nitrogen 26 mg/dL (7-17); Calcium 8.7 mg/dL (8.4-10.2); Carbon Dioxide 34 mmol/L (22-30); Chloride 92 mmol/L (98-107); Estimated CRCL calculation 31 ml/min; Estimated Glomerular Filt Rate 43; Glucose 158 mg/dL (65-105); Sodium 133 mmol/L (137-145)
[2020-01-09] MEDS: METOPROLOL SUCCINATE EXT REL 100 MG TABCR PO (08:26)
[2020-01-09] MEDS: ISOSORBIDE MONONITRATE 60 MG TAB.ER.24H PO (08:26)
[2020-01-09] MEDS: ASPIRIN 81 MG CHEWABLE TABLET PO (08:26)
[2020-01-09] MEDS: amLODIPine BESYLATE 5 MG TABLET 10 MG PO (08:27)
[2020-01-09] MEDS: ATORVASTATIN 40 MG TABLET PO (08:27)
[2020-01-09] MEDS: lisinopriL 20 MG TABLET 40 MG PO (08:28)
[2020-01-09] MEDS: FUROSEMIDE INJ 40 MG/4 ML VIAL IV PUSH (08:30)
[2020-01-09 08:35] LABS: Glucose Point of Care 139 (65-105)
--- NOTE | 2020-01-09 09:51 | PM.PNCARD ---
Progress Note: A&P Assessment and Plan (1) Non-ST elevation [place] (NSTEMI): Code(s): I21.4 - Non-ST elevation (NSTEMI) myocardial infarction Status: Acute Assessment and Plan: Admitted with NSTEMI, atypical abdominal/chest discomfort, troponin of 2.6. EKG showed NSR, LBBB. The slight ST depression in V6 present on 01/06/2020 resolved on 01/07/2020 No further chest discomfort. Heparin drip has been on for greater than 48 hours. Will DC to heparin drip. Continue aspirin, metoprolol succinate 100 mg daily. Lisinopril 40 mg daily. Atorvastatin 40 mg daily. Isosorbide mononitrate 60 mg daily. Amlodipine increased to 10 mg daily for better blood pressure control. First dose 01/09/2020. Will monitor response to therapy. Dr. Hdz does not plan on taking her to the [facility] unless she has recurrence ischemic chest pain. Will check stool for occult blood. If negative will start her on clopidogrel 75 mg daily. (2) CHF (congestive heart failure): Qualifiers: Heart failure chronicity: acute on chronic Heart failure type: unspecified Qualified Code(s): I50.9 - Heart failure, unspecified Code(s): I50.9 - Heart failure, unspecified Status: Acute Assessment and Plan: Diuresing. Echocardiogram 01/07/2020: 1. Normal left ventricular size with mild concentric hypertrophy. Good overall systolic function, estimated ejection fraction 65-70% Hypokinesis of the basal inferolateral wall. Grade 2 diastolic dysfunction is present. 2. Left atrial chamber dimension is moderately enlarged. 3. There is mild mitral valve regurgitation. 4. There is mild tricuspid valve regurgitation. 5. Severe pulmonary hypertension, estimated pulmonary arterial systolic pressure is 71 mmHg. Continue IV Lasix, BP control. Supplement Kcl for hypokalemia. Chest x-ray PA and lateral. (3) Hypertension: Qualifiers: Hypertension type: unspecified Qualified Code(s): I10 - Essential (primary) hypertension Code(s): I10 - Essential (primary) hypertension Status: Acute Assessment and Plan: Medications as above. (4) Left bundle branch block: Code(s): I44.7 - Left bundle-branch block, unspecified Status: Acute Assessment and Plan: New since 2015. (5) Hypokalemia: Code(s): E87.6 - Hypokalemia Status: Acute Assessment and Plan: Supplement. (6) CKD (chronic kidney disease), stage III: Code(s): N18.30 - Chronic kidney disease, stage 3 unspecified Status: Acute Assessment and Plan: Remains stable. Cont to follow w/ daily BMP. Additional Plan Increase activity. Plan discussed with Dr Lisy Beasley 01/09/2020. Subjective Date/time seen: 01/09/20 09:51 Interval history: Follow-up for: recent myocardial infarction with atypical presentation and modest troponin rise. Echocardiogram demonstrated posterolateral wall motion abnormality suggesting an event in the distribution of the circumflex. Left bundle branch block of unknown chronicity. Family gives history of recent concerning lower GI bleeding. Date of service: 01/09/2020 Subjective: Extremely hard of hearing. Communicated through writing. Denied chest discomfort. Short of breath with exertional activity such as walking to the bathroom. Becomes extremely fatigued and lightheaded. No abdominal bloating. Review of Systems Constitutional: Constitutional: Reports fatigue, Reports weakness and Reports other (Not sleeping well. Bed is not comfortable.) Eyes: Eyes: Denies blind spots and Reports loss of vision ENT: Reports hearing loss (Normally would be reading lips.) and Denies epistaxis Cardiovascular: Cardiovascular: Denies chest pain, Reports
[2020-01-09 11:31] LABS: IFOB Positive Control Positive; Immunochemical Fecal Occult Bl Positive (N)
--- NOTE | 2020-01-09 15:26 | PM.IMPN ---
Progress Note: A&P Assessment and Plan (1) Non-ST elevation [place] (NSTEMI): Code(s): I21.4 - Non-ST elevation (NSTEMI) myocardial infarction Status: Acute Assessment and Plan: Troponin elevated on admission and has climbed to 2.66. CXR consistent with CHF exacerbation. EKG showing Left BBB on unknown duration. She has been started on ASA. She has been started on Heparin drip. She has been continued on her Lisinopril, Metoprolol and Imdur. . (2) CHF (congestive heart failure): Qualifiers: Heart failure chronicity: acute on chronic Heart failure type: unspecified Qualified Code(s): I50.9 - Heart failure, unspecified Code(s): I50.9 - Heart failure, unspecified Status: Acute Assessment and Plan: Patient does not have hx of CHF but does have chronic pedal edema related to venous insufficiency. Suspect patient now with new diagnosis of CHF with bilateral pleural effusions, generalized fluid overload, pulmonary edema and BNP 3780. Could be acute related to her NSTEMI but more likely chronic and unrecognized given that she was on lasix and only became uncovered when the Lasix was stopped. Echo EF 65% but grade 2 diastolic dysfunction and severe pulmonary hypertension at 70. Continue IV Lasix. Monitor renal function closely. Probable acute on chronic diastolic HF with pul htn with echo . (3) Left bundle branch block: Code(s): I44.7 - Left bundle-branch block, unspecified Status: Acute Assessment and Plan: Unclear if this is new or old since last EKG is 4 years old. Could be acute related to her NSTEMI. (4) Abdominal pain: Qualifiers: Abdominal location: generalized Qualified Code(s): R10.84 - Generalized abdominal pain Code(s): R10.9 - Unspecified abdominal pain Status: Acute Assessment and Plan: Patient with upper abdominal pain but CT scan showing no significant findings. LFTs and Lipase normal. Suspect this is related to her chest pain. Follow. (5) Hypertension: Qualifiers: Hypertension type: unspecified Qualified Code(s): I10 - Essential (primary) hypertension Code(s): I10 - Essential (primary) hypertension Status: Acute Assessment and Plan: BP well controlled on 12/26/19. BP elevated now and amlodipine added 01/06 but will accelerate dose.(10 mg qd) . Continue IV Lasix. (6) CKD (chronic kidney disease), stage III: Code(s): N18.30 - Chronic kidney disease, stage 3 unspecified Status: Acute Assessment and Plan: Renal function in November consistent with CKD III. She was taken off her Lasix for this reason. Her Cr better today but probably Cr is improved due to fluid overload and not improved renal function. Hold HCTZ. Continue TRAMAINE inhibitor . Follow closely on IV Lasix. Creatinine 1.2 still (7) Pre-diabetes: Code(s): R73.03 - Prediabetes Status: Acute Assessment and Plan: Patient has vague hx of pre-DM. Glucose on presentation elevated to 161. Last A1c 5.9 in November. Not on steroids so will just monitor with BMP values for now and hold off on AcuCheks. (8) DVT prophylaxis: Code(s): Z29.9 - Encounter for prophylactic measures, unspecified Status: Acute Assessment and Plan: Heparin stopped and will use lovenox Subjective Date/time seen: 01/09/20 15:26 Interval history: Date of visit 01/08. 84-year-old hypertensive female with known congestive failure and coronary artery disease presented with abdominal pain which progressed to chest pain with elevated troponin. Thought to have non ST elevation [place] with failure. Feels better this a.m. less short of breath. No pain and slept well, sitting up in chair Exam Narrative: Exam Narrative: Blood pressure 128/48 pulse is 70 afebrile saturating 93% on RA Pupil equal reactive light sclera anicteric Lungs clear today CV regular rate rhythm
[2020-01-09 15:43] LABS: Glucose Point of Care 126 (65-105)
[2020-01-09 16:42] LABS: Glucose Point of Care 113 (65-105)
--- NOTE | 2020-01-09 19:00 | PC.NURSE ---
Transfer received from IMU. Report received from DICKSON Ely.
--- NOTE | 2020-01-09 19:11 | PC.NURSE ---
Transfer to [address] [place] [address] /tele- report given Rosalina FORMAN- transferred via bed accompanied by staff to room 343- Son called and notified of transfer
[2020-01-09] MEDS: ENOXAPARIN 40 MG/0.4 ML SYRINGE SUB-Q (20:06)
[2020-01-10] VITALS: PULSE 72
[2020-01-10 04:52] VITALS: PULSE 86
[2020-01-10 05:37] VITALS: BP 188/53; PULSE 84; RESP 24; TEMP 36.7; O2SAT 94
[2020-01-10 06:05] LABS: Anion Gap 6 mmol/L (8-16); Blood Urea Nitrogen 27 mg/dL (7-17); Calcium 8.7 mg/dL (8.4-10.2); Carbon Dioxide 33 mmol/L (22-30); Chloride 91 mmol/L (98-107); Estimated CRCL calculation 34 ml/min; Estimated Glomerular Filt Rate 47; Glucose 132 mg/dL (65-105); Potassium 3.6 mmol/L (3.4-5.0); Sodium 130 mmol/L (137-145)
[2020-01-10 06:19] LABS: Basophils Percent Auto 0.4 % (0.2-1.2); Eosinophils Absolute Auto 0.1 K/mm3 (0-0.3); Eosinophils Percent Auto 1.1 % (0-4.4); Hematocrit 34.5 % (37.0-47.0); Hemoglobin 11.7 g/dL (12.0-15.0); Immature Granulocyte Absolute 0.04 K/mm3 (0.00-0.031); Immature Granulocyte Percent A 0.5 % (0-0.5); Lymphocytes Absolute Auto 1.29 K/mm3 (0.9-3.2); Lymphocytes Percent Auto 15.2 % (18.3-44.2); Mean Corpuscular HGB Conc 33.9 g/dl (32-36); Mean Corpuscular Hemoglobin 32.2 pg (26-34); Mean Platelet Volume 9.1 fl (7.4-10.4); Monocytes Absolute Auto 0.8 K/mm3 (0.1-0.6); Monocytes Percent Auto 9.2 % (2.6-8.5); Neutrophils Absolute Auto 6.3 K/mm3 (1.3-6.7); Neutrophils Percent Auto 73.6 % (45.5-73.1); Platelet Count Result 316 k/mm3 (150-375); Red Blood Count 3.63 M/mm3 (4.2-5.4); Red Cell Distribution Width 13.5 % (11.5-14.5); White Blood Count 8.5 K/mm3 (4.5-10.0)
[2020-01-10 08:00] VITALS: PULSE 75; PULSE 95; RESP 18; O2SAT 95
[2020-01-10] MEDS: ASPIRIN 81 MG CHEWABLE TABLET PO (08:58)
[2020-01-10] MEDS: ISOSORBIDE MONONITRATE 60 MG TAB.ER.24H PO (08:59)
[2020-01-10] MEDS: ATORVASTATIN 40 MG TABLET PO (08:59)
[2020-01-10] MEDS: lisinopriL 20 MG TABLET 40 MG PO (08:59)
[2020-01-10] MEDS: FUROSEMIDE INJ 40 MG/4 ML VIAL IV PUSH (09:07)
[2020-01-10] MEDS: amLODIPine BESYLATE 5 MG TABLET 10 MG PO (09:07)
[2020-01-10 09:08] VITALS: PULSE 75
[2020-01-10] MEDS: METOPROLOL SUCCINATE EXT REL 100 MG TABCR PO (09:08)
--- NOTE | 2020-01-10 11:09 | PM.PNCARD ---
Progress Note: A&P Assessment and Plan (1) Non-ST elevation [place] (NSTEMI): Code(s): I21.4 - Non-ST elevation (NSTEMI) myocardial infarction Status: Acute Assessment and Plan: Admitted with NSTEMI, atypical abdominal/chest discomfort, troponin of 2.6. EKG showed NSR, LBBB. The slight ST depression in V6 present on 01/06/2020 resolved on 01/07/2020 No further chest discomfort. Continue aspirin, metoprolol succinate 100 mg daily. Lisinopril 40 mg daily. Atorvastatin 40 mg daily. Isosorbide mononitrate 60 mg daily. Amlodipine 10 mg daily for better blood pressure control. Dr. 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 Stool checked for occult blood which was positive. Continue aspirin only. Follow CBC an outpatient. She will need to follow-up with her primary care provider for further workup of the blood in her stool. (2) CHF (congestive heart failure): Qualifiers: Heart failure chronicity: acute on chronic Heart failure type: unspecified Qualified Code(s): I50.9 - Heart failure, unspecified Code(s): I50.9 - Heart failure, unspecified Status: Acute Assessment and Plan: Kush. Echocardiogram 01/07/2020: 1. Normal left ventricular size with mild concentric hypertrophy. Good overall systolic function, estimated ejection fraction 65-70% Hypokinesis of the basal inferolateral wall. Grade 2 diastolic dysfunction is present. 2. Left atrial chamber dimension is moderately enlarged. 3. There is mild mitral valve regurgitation. 4. There is mild tricuspid valve regurgitation. 5. Severe pulmonary hypertension, estimated pulmonary arterial systolic pressure is 71 mmHg. Discharge on furosemide 20 mg daily. She has compression hose at home. She will apply those in the morning and take them off in the evening. (3) Hypertension: Qualifiers: Hypertension type: unspecified Qualified Code(s): I10 - Essential (primary) hypertension Code(s): I10 - Essential (primary) hypertension Status: Acute Assessment and Plan: Better controlled. Medications as above. (4) Left bundle branch block: Code(s): I44.7 - Left bundle-branch block, unspecified Status: Acute Assessment and Plan: New since 2015. (5) Hypokalemia: Code(s): E87.6 - Hypokalemia Status: Acute Assessment and Plan: Supplemented. (6) CKD (chronic kidney disease), stage III: Code(s): N18.30 - Chronic kidney disease, stage 3 unspecified Status: Acute Assessment and Plan: Remains stable. Will follow as an outpatient. Additional Plan OK to discharge from cardiac standpoint. See discharge instructions for follow-up. Plan discussed with Dr. Hdz [id number] 01/10/2020 Subjective Date/time seen: 01/10/20 11:09 Interval history: Follow-up for: recent myocardial infarction with atypical presentation and modest troponin rise. Echocardiogram demonstrated posterolateral wall motion abnormality suggesting an event in the distribution of the circumflex. Left bundle branch block of unknown chronicity. Family gives history of recent concerning lower GI bleeding. Stool is positive for occult blood. Date of service: 01/10/2020 Subjective: Denied chest discomfort. Lightheaded when gets up first thing in the morning but denied lightheadedness ambulating in the stauffer with physical therapy. No palpitations. Shortness of breath has improved. Review of Systems Constitutional: Constitutional: Reports weakness Eyes: Eyes: Denies blind spots and Reports loss of vision ENT: Reports hearing loss (Normally would be reading lips.), Denies epistaxis, Denies throat swelling an
[2020-01-10 12:00] VITALS: PULSE 74
--- NOTE | 2020-01-10 14:05 | PC.NURSE ---
Spoke at length with pt son Sonu. Went over DC packet with him. Son is aware that pt needs to be doing less strenuous activity for 2 weeks.
[2020-01-10 16:14] LABS: Alpha 1 Globulin 0.4 g/dL (0.2-0.3); Alpha 2 Globulin 0.8 g/dL (0.5-0.9); Beta 1 Globulin 0.4 g/dL (0.4-0.6); Gamma Globulin 0.7 g/dL (0.8-1.7); Protein, Total 5.4 g/dL (6.1-8.1)
--- NOTE | 2020-01-10 17:49 | PM.DS ---
DS: Admitting Diagnosis Admitting Diagnosis Admitting Diagnosis: CHF DS: Discharge Diagnosis Discharge Diagnosis (1) Non-ST elevation [place] (NSTEMI): Code(s): I21.4 - Non-ST elevation (NSTEMI) myocardial infarction Status: Acute Assessment and Plan: Troponin elevated on admission and has climbed to 2.66. CXR consistent with CHF exacerbation. EKG showing Left BBB on unknown duration. She was started on ASA. She was started on heparin drip while here until 24 hours prior to discharge. She has been continued on her Lisinopril, Metoprolol and Imdur. Follow-up with cardiology for possible ischemic evaluation later. (2) CHF (congestive heart failure): Qualifiers: Heart failure chronicity: acute on chronic Heart failure type: unspecified Qualified Code(s): I50.9 - Heart failure, unspecified Code(s): I50.9 - Heart failure, unspecified Status: Acute Assessment and Plan: Patient does not have hx of CHF but does have chronic pedal edema related to venous insufficiency. Suspect patient now with new diagnosis of CHF with bilateral pleural effusions, generalized fluid overload, pulmonary edema and BNP 3780. Could be acute related to her NSTEMI but more likely chronic and unrecognized given that she was on lasix and only became uncovered when the Lasix was stopped. Echo EF 65% but grade 2 diastolic dysfunction and severe pulmonary hypertension at 70. Continue Lasix 20 mg daily on discharge. Probable acute on chronic diastolic HF with pul htn with echo . (3) Left bundle branch block: Code(s): I44.7 - Left bundle-branch block, unspecified Status: Acute Assessment and Plan: Unclear if this is new or old since last EKG is 4 years old. Could be acute related to her NSTEMI. (4) Abdominal pain: Qualifiers: Abdominal location: generalized Qualified Code(s): R10.84 - Generalized abdominal pain Code(s): R10.9 - Unspecified abdominal pain Status: Acute Assessment and Plan: Patient with upper abdominal pain but CT scan showing no significant findings. LFTs and Lipase normal. Suspect this is related to her chest pain. Resulted did not recur (5) Hypertension: Qualifiers: Hypertension type: unspecified Qualified Code(s): I10 - Essential (primary) hypertension Code(s): I10 - Essential (primary) hypertension Status: Acute Assessment and Plan: BP well controlled on 12/26/19. BP elevated now and amlodipine added 01/06 but will accelerate dose.(10 mg qd) 01/08. On discharge will go back to her benazepril 40 b.i.d. with the amlodipine and Lasix (6) CKD (chronic kidney disease), stage III: Code(s): N18.30 - Chronic kidney disease, stage 3 unspecified Status: Acute Assessment and Plan: Renal function in November consistent with CKD III. She was taken off her Lasix for this reason. Her Cr better today but probably Cr is improved due to fluid overload and not improved renal function. Stopped hydrochlorothiazide in substituted Lasix on discharge. Continue TRAMAINE inhibitor . Creatinine 1.1 and discharge. Creatinine 1.2 still (7) Pre-diabetes: Code(s): R73.03 - Prediabetes Status: Acute Assessment and Plan: Patient has vague hx of pre-DM. Glucose on presentation elevated to 161. Last A1c 5.9 in November. FBS day of discharge 132 DS: Summary Hospital Course Hospital Course: 84-year-old white female admitted with abdominal pain and lower chest discomfort found to have non ST elevation myocardial infarction. Treated conservatively with nitrates, beta-blockers, statin, and aspirin. Given IV heparin initially also. Symptoms all resolved. While on heparin she did have a guaiac-positive stool but hemoglobin remained stable and 11.7 at discharge. She was encouraged to follow-up with primary care for possible repeat colonoscopy because it been some 8-9 years
[2020-01-11 23:40] LABS: Creatinine, Random Urine 57 mg/dL (20-275); Total Protein/Creatinine Ratio 649 mg/g creat (21-161)
== END 2020-01-10 14:15 | disposition home health service (06) | DRG 280 ==
LOC: ANHED 11:33 → ANHIMU 14:22 → ANH3MED 01-10 11:37 → ANHIMU 01-14 12:37
PROVIDERS: Family Medicine; Internal Medicine Cardiovascular Disease; Nurse Practitioner Adult Health; Specialist; Admitting Provider Internal Medicine; Emergency Provider Emergency Medicine; PCP Family Medicine; Visit Provider Internal Medicine
DX: I13.0 Hypertensive heart and chronic kidney disease with heart failure and stage 1 through stage 4 chronic kidney disease, or unspecified chronic kidney disease (principal); I21.4 Non-ST elevation (NSTEMI) myocardial infarction; I50.33 Acute on chronic diastolic (congestive) heart failure; N18.30 Chronic kidney disease, stage 3 unspecified; I44.7 Left bundle-branch block, unspecified; H91.90 Unspecified hearing loss, unspecified ear; E87.6 Hypokalemia; I27.20 Pulmonary hypertension, unspecified
CPT/HCPCS: 36415; 71045; 71046; 74177; 80048; 80053; 80061; 81001; 82274; 82570; 83690; 83735; 83880; 84100; 84155; 84156; 84165; 84166; 84443; 84484; 85014; 85018; 85025; 85610; 85730; 93005; 96365; 96366; 96375; 96376; 97110; 97116; 97161; 97165; 97530; 97535; 99285; A9270; C8929; G0378; J0360; J1644; J1650; J1940; Q9957; Q9967

== ENCOUNTER 2020-01-18 10:58 | Outpatient (CLI) | payer MEDICARE, SELFPAY ==
--- NOTE | ~2020-01-18 | XR_ITS ---
XR chest 2V DATE: 01/18/2020 11:27 INDICATION: Cough, shortness of breath. History of myocardial infarction 2 weeks ago. TECHNIQUE: PA and lateral views COMPARISON: 01/09/2020 AP and lateral chest FINDINGS: There is cardiomegaly and aortic arch calcification. There is pulmonary vascular congestion and redistribution. There are bibasilar infiltrates and/atelectasis, left greater than right and mild pleural effusions, also apparently larger on the left. No pneumothorax. Diffuse osteopenia. Old healed right humeral surgical neck fracture deformity. There is mild dorsal scoliosis and degenerative spurring of the thoracic spine. IMPRESSION: Cardiomegaly, congestive heart failure Bilateral lower lung infiltrates and pleural effusions, greater on the left Little interval change since 01/09/2020 Reviewed, dictated and finalized at location A. OR TECHNICAL SUPPORT ANALYST
== END 2020-01-18 10:59 | disposition home or self-care (01) ==
LOC: ANHIMG 11:01
PROVIDERS: PCP Family Medicine; Visit Provider Nurse Practitioner
DX: R05 Cough (principal); I51.7 Cardiomegaly; I50.9 Heart failure, unspecified; I70.0 Atherosclerosis of aorta; J90 Pleural effusion, not elsewhere classified; M41.80 Other forms of scoliosis, site unspecified; M47.894 Other spondylosis, thoracic region
CPT/HCPCS: 71046

== ENCOUNTER → 2020-03-28 00:22 | Outpatient (CLI) | payer MEDICARE, SELFPAY ==
[2020-03-28 20:39] LABS: SARS-CoV-2 RNA PCR Negative
== END ==
PROVIDERS: Family Provider Internal Medicine; PCP Family Medicine; Visit Provider Internal Medicine Gastroenterology
DX: Z01.812 Encounter for preprocedural laboratory examination (principal); Z20.822 Contact with and (suspected) exposure to COVID-19
CPT/HCPCS: C9803; U0003; U0005

== ENCOUNTER 2020-04-01 00:44 | Day surgery (SDC) | payer MEDICARE, SELFPAY ==
[2020-03-18 09:21] VITALS: BMI 32.0
[2020-04-01 11:12] VITALS: BP 156/59; PULSE 86; RESP 18; TEMP 36.6; O2SAT 97; BMI 32.2
[2020-04-01] MEDS: LACTATED RINGERS 1,000 ML 150 ML IV CONT (11:16)
--- NOTE | 2020-04-01 12:04 | WPDANESEPPF ---
Anes - Initial Pre Proc Eval Procedure: Operation Date: 04/01/20 11:30 Proposed Procedures p Colonoscopy, Possible Esophagogastroduodenoscopy - Roddy Huff MD Date/Time: 04/01/20 12:04 Surgeon: Roddy Huff MD Pre Op Diagnosis: occult GI bleeding Patient Data Age: 85 Gender: F Height: 5 ft 3 in Weight: 82.5 kg Last Vital Signs Temp 36.6 C 04/01/20 11:12 Pulse 86 04/01/20 11:12 Resp 18 04/01/20 11:12 BP 156/59 H 04/01/20 11:12 Pulse Ox 97 04/01/20 11:12 Allergies Allergy/AdvReac Type Severity Reaction Status Date / Time Sulfa (Sulfonamide Allergy Unknown unknown Verified 04/01/20 11:11 Antibiotics) Home Medications Medication Instructions Recorded Confirmed Type acetaminophen 650 mg 650 mg PO Q12H tablet 07/03/19 03/18/20 History tablet,extended release metoprolol succinate 100 mg 100 mg PO DAILY #90 tablet 07/03/19 04/01/20 Rx tablet,extended release 24 hr multivitamin 2 tablet PO DAILY tablet 08/30/19 03/18/20 History omeprazole 20 mg capsule,delayed 20 mg PO DAILY #90 cap 08/30/19 03/18/20 Rx release aspirin [Children's Aspirin] 81 mg PO DAILY@0800 #30 tablet 01/10/20 03/18/20 Rx atorvastatin 40 mg PO DAILY #30 tablet 01/10/20 03/18/20 Rx amlodipine 10 mg tablet 10 mg PO DAILY #90 tablet 02/03/20 03/18/20 Rx potassium chloride 10 mEq See Rx Instructions .ROUTE 02/10/20 03/18/20 Rx tablet,extended release .COMPLEX #90 tablet sodium,potassium,mag sulfates 17.5 See Rx Instructions PO .COMPLEX 03/17/20 Rx gram-3.13 gram-1.6 gram oral soln #354 ml furosemide 20 mg PO BID 03/18/20 03/18/20 History benazepril 40 mg tablet See Rx Instructions .ROUTE 03/30/20 Rx .COMPLEX #180 tablet Patient hx anesthesia problems: none Family hx anesthesia problems: none PMFSH Past Medical History Medical History Arthritis CKD (chronic kidney disease), stage III Deaf Depression Edema of both lower legs due to peripheral venous insufficiency GERD (gastroesophageal reflux disease) Hypertension Obesity Osteoarthritis Osteopenia Pre-diabetes Pulmonary hypertension Surgical History Surgical History H/O arthroscopy knee H/O total hysterectomy H/O tubal ligation History of arthroplasty of left hip History of breast biopsy (~1997) left History of cardiac cath History of tonsillectomy Hx of cholecystectomy Hx of colonoscopy with IH and polypectomy Status post arthroscopy of hip Family History Family History Father Diabetes mellitus, Onset Age: 89 Hypertension, Onset Age: 89 Cerebrovascular accident, Onset Age: 89 Sibling Diabetes mellitus, Onset Age: 74 Family history of hypercholesterolemia, Onset Age: 74 Hypertension Acute myocardial infarction, Onset Age: 83 Family history of arthritis Family history of malignant neoplasm of urinary bladder, Onset Age: 74 Mother Hypertension, Onset Age: 85 Cerebrovascular accident, Onset Age: 85 Family history of arthritis, Onset Age: 85 Family history of congestive heart failure, Onset Age: 85 Social History Social History Social History: Patient is . She denies tobacco alcohol or drug use. She lives with her son. She is a DNI. She nominated her son to be the individual would make medical decisions for her if she is not able. Smoking status: Never smoker Second hand tobacco smoke exposure: No Alcohol intake: never Substance use: never Substance use type: does not use Living arrangements: with family Additional living arrangements comments: lives with son Gender identity (if verbalized by the patient): Female Spiritual care concerns: No Agree to blood products: Yes Anes - Eval Final PreP
--- NOTE | 2020-04-01 12:07 | PM.HPGS ---
History of Present Illness History of Present Illness Consent: Risks, benefits, and alternatives have been discussed and questions answered. Patient agrees to proceed with procedure. Chief complaint: occult GI bleeding Narrative: Azucena Mcdonald is a 85 year old female with previous hospitalization 12/2019 after nstemi, abdominal pain that resolved and occult blood in stool, denies overt gib. she is hard of hearing. Review of Systems Constitutional: Constitutional: Denies headache(s) and Denies weakness Eyes: Eyes: Denies blurry vision ENT: Denies Normal hearing present, Denies headache(s) and Denies neck pain Cardiovascular: Cardiovascular: Denies chest pain and Denies dyspnea Respiratory: Respiratory: Denies dyspnea Gastrointestinal: Gastrointestinal: Reports no additional gastrointestinal complaints Genitourinary: Genitourinary: Denies dysuria Musculoskeletal: Musculoskeletal: Denies neck pain Integumentary/Breasts: Skin/Breast: Denies dry skin Neurologic: Reports Normal hearing present, Denies headache(s) and Denies weakness Psychiatric: Psychiatric: Denies anxiety Endocrine: Endocrine: Denies change in body appearance Hematologic/Lymphatic: Hematologic/Lymphatic: Denies easy bleeding Allergic/Immunologic: Allergic/Immunologic: Denies urticaria PMFSH Past Medical History Medical History Arthritis CKD (chronic kidney disease), stage III Deaf Depression Edema of both lower legs due to peripheral venous insufficiency GERD (gastroesophageal reflux disease) Hypertension Obesity Osteoarthritis Osteopenia Pre-diabetes Pulmonary hypertension Surgical History Surgical History H/O arthroscopy knee H/O total hysterectomy H/O tubal ligation History of arthroplasty of left hip History of breast biopsy (~1997) left History of cardiac cath History of tonsillectomy Hx of cholecystectomy Hx of colonoscopy with IH and polypectomy Status post arthroscopy of hip Family History Family History Father Diabetes mellitus, Onset Age: 89 Hypertension, Onset Age: 89 Cerebrovascular accident, Onset Age: 89 Sibling Diabetes mellitus, Onset Age: 74 Family history of hypercholesterolemia, Onset Age: 74 Hypertension Acute myocardial infarction, Onset Age: 83 Family history of arthritis Family history of malignant neoplasm of urinary bladder, Onset Age: 74 Mother Hypertension, Onset Age: 85 Cerebrovascular accident, Onset Age: 85 Family history of arthritis, Onset Age: 85 Family history of congestive heart failure, Onset Age: 85 Social History Social History Social History: Patient is . She denies tobacco alcohol or drug use. She lives with her son. She is a DNI. She nominated her son to be the individual would make medical decisions for her if she is not able. Smoking status: Never smoker Second hand tobacco smoke exposure: No Alcohol intake: never Substance use: never Substance use type: does not use Living arrangements: with family Additional living arrangements comments: lives with son Gender identity (if verbalized by the patient): Female Spiritual care concerns: No Agree to blood products: Yes Meds Home Medications and Allergies Home Medications Medication Instructions Recorded Confirmed Type acetaminophen 650 mg 650 mg PO Q12H tablet 07/03/19 03/18/20 History tablet,extended release metoprolol succinate 100 mg 100 mg PO DAILY #90 tablet 07/03/19 04/01/20 Rx tablet,extended release 24 hr multivitamin 2 tablet PO DAILY tablet 08/30/19 03/18/20 History omeprazole 20 mg capsule,delayed 20 mg PO DAILY #90 cap 08/30/19 03/18/20 Rx release aspirin [Children's Aspirin] 81 mg PO DAILY@0800 #3
[2020-04-01] MEDS: BENZOCAINE (*SP) 60 ML SPRAY CAN (HURRICAINE) 1 SPRAY MUCOUS MEM (12:17)
--- NOTE | 2020-04-01 12:21 | SUR.OPER ---
EGD COMPLETED AT 1221, COLONOSCOPY STARTED AT 1227
[2020-04-01 12:50] VITALS: BP 159/59; PULSE 76; RESP 27; O2SAT 96
[2020-04-01 13:00] VITALS: BP 163/64; PULSE 72; RESP 20; O2SAT 94
[2020-04-01 13:10] VITALS: BP 173/69; PULSE 80; RESP 21; O2SAT 95
== END 2020-04-01 13:31 | disposition home or self-care (01) ==
PROVIDERS: Family Provider Internal Medicine; PCP Family Medicine; Visit Provider Internal Medicine Gastroenterology
PROC: 0DJ08ZZ Inspection of Upper Intestinal Tract, Via Natural or Artificial Opening Endoscopic (ICD-10-PCS; CPT 43235; principal; 2020-04-01 11:30)
DX: R19.5 Other fecal abnormalities (principal); K57.30 Diverticulosis of large intestine without perforation or abscess without bleeding; D12.0 Benign neoplasm of cecum; K63.5 Polyp of colon; K64.4 Residual hemorrhoidal skin tags; K64.8 Other hemorrhoids; K29.50 Unspecified chronic gastritis without bleeding; K31.7 Polyp of stomach and duodenum; I12.9 Hypertensive chronic kidney disease with stage 1 through stage 4 chronic kidney disease, or unspecified chronic kidney disease; N18.30 Chronic kidney disease, stage 3 unspecified; I25.2 Old myocardial infarction; R73.03 Prediabetes; I87.2 Venous insufficiency (chronic) (peripheral); K21.9 Gastro-esophageal reflux disease without esophagitis; F32.9 Major depressive disorder, single episode, unspecified; I27.20 Pulmonary hypertension, unspecified; Z79.82 Long term (current) use of aspirin; E66.9 Obesity, unspecified; Z68.32 Body mass index [BMI] 32.0-32.9, adult
CPT/HCPCS: 45380; 45385; 43239; 88305; J2704; J7120

== ENCOUNTER → 2020-05-14 09:04 | Outpatient (CLI) | payer MEDICARE, SELFPAY ==
--- NOTE | ~2020-05-14 | XR_ITS ---
XR chest 2V 05/14/2020 09:33 Indication: Cough Procedure: 2 view chest Comparison: Comparison to multiple prior studies sequentially, with oldest reviewed study dated 12/21. Findings: There is pulmonary edema. Bilateral pleural effusions, left greater than right. No pneumoth orax. No acute osseous abnormality. Impression: 1: Mild interstitial edema with bilateral pleural effusions, left greater than right. Reviewed, dictated and finalized at location A. Impression: 1: Mild interstitial edema with bilateral pleural effusions, left greater than right.
== END ==
PROVIDERS: PCP Family Medicine; Visit Provider Nurse Practitioner
DX: J90 Pleural effusion, not elsewhere classified (principal); J81.1 Chronic pulmonary edema; R05 Cough
CPT/HCPCS: 71046

== ENCOUNTER → 2020-05-26 04:20 | Outpatient (CLI) | payer MEDICARE, SELFPAY ==
[2020-05-26 19:03] LABS: SARS-CoV-2 RNA PCR Negative
== END ==
PROVIDERS: PCP Family Medicine; Visit Provider Specialist
DX: Z01.812 Encounter for preprocedural laboratory examination (principal); Z20.822 Contact with and (suspected) exposure to COVID-19
CPT/HCPCS: C9803; U0003; U0005

== ENCOUNTER 2020-05-29 02:18 | Day surgery (SDC) | payer MEDICARE, SELFPAY ==
[2020-05-28 11:19] VITALS: BMI 33.5
[2020-05-29] VITALS (13 sets, daily range): BP systolic 134–178; BP diastolic 45–59; PULSE 57–67; RESP 12–22; TEMP 36.4; O2SAT 90–94
[2020-05-29 10:41] LABS: Basophils Percent Auto 0.4 % (0.2-1.2); Eosinophils Absolute Auto 0.2 K/mm3 (0-0.3); Eosinophils Percent Auto 2.4 % (0-4.4); Hematocrit 40.8 % (37.0-47.0); Hemoglobin 13.3 g/dL (12.0-15.0); Immature Granulocyte Absolute 0.01 K/mm3 (0.00-0.031); Immature Granulocyte Percent A 0.1 % (0-0.5); Lymphocytes Absolute Auto 1.35 K/mm3 (0.9-3.2); Lymphocytes Percent Auto 18.7 % (18.3-44.2); Mean Corpuscular HGB Conc 32.6 g/dl (32-36); Mean Corpuscular Hemoglobin 31.3 pg (26-34); Monocytes Absolute Auto 0.6 K/mm3 (0.1-0.6); Monocytes Percent Auto 7.8 % (2.6-8.5); Neutrophils Absolute Auto 5.1 K/mm3 (1.3-6.7); Neutrophils Percent Auto 70.6 % (45.5-73.1); Platelet Count Result 259 k/mm3 (150-375); Red Blood Count 4.25 M/mm3 (4.2-5.4); White Blood Count 7.2 K/mm3 (4.5-10.0)
[2020-05-29 10:52] LABS: Anion Gap 4 mmol/L (8-16); Blood Urea Nitrogen 33 mg/dL (7-17); Calcium 9.2 mg/dL (8.4-10.2); Carbon Dioxide 33 mmol/L (22-30); Chloride 103 mmol/L (98-107); Estimated CRCL calculation 29 ml/min; Estimated Glomerular Filt Rate 39; Glucose 116 mg/dL (65-105); Potassium 4.5 mmol/L (3.4-5.0); Sodium 140 mmol/L (137-145)
[2020-05-29 10:55] LABS: INR 0.8
--- NOTE | 2020-05-29 12:09 | WPDMODSED ---
Moderate Sedation Note-Pt Data Patient Data Diagnosis: Reason clinical diagnosis of non ST-elevation MO Left bundle branch block Recent GI bleed, endoscopic workup negative for malignancy Present Complaint: This is an 85-year-old woman who was seen recently in the hospital because of some chest pain and a modest troponin elevation. She was given the clinical diagnosis of non ST elevation MO. ECG demonstrated a left bundle branch block of unknown chronicity. Left ventricular systolic function was preserved. At the same time there was GI bleeding going on so she was treated conservatively with good results. She was seen in the office recently reporting some symptoms of OLVERA questioning ischemic equivalent. As a result of this angiography has now been recommended. Procedure to be performed/Plan: Left heart catheterization Allergies Allergy/AdvReac Type Severity Reaction Status Date / Time Sulfa (Sulfonamide Allergy Unknown unknown Verified 05/18/20 11:32 Antibiotics) tomato Allergy Hives Verified 05/28/20 11:16 Home Medications Medication Instructions Recorded Confirmed Type acetaminophen 650 mg 650 mg PO Q12H PRN tablet 07/03/19 05/28/20 History tablet,extended release metoprolol succinate 100 mg 100 mg PO DAILY #90 tablet 07/03/19 05/28/20 Rx tablet,extended release 24 hr multivitamin 2 tablet PO DAILY tablet 08/30/19 05/28/20 History aspirin [Children's Aspirin] 81 mg PO DAILY@0800 #30 tablet 01/10/20 05/28/20 Rx atorvastatin 40 mg PO DAILY #30 tablet 01/10/20 05/28/20 Rx amlodipine 10 mg tablet 10 mg PO DAILY #90 tablet 02/03/20 05/28/20 Rx potassium chloride 10 mEq See Rx Instructions .ROUTE 02/10/20 05/28/20 Rx tablet,extended release .COMPLEX #90 tablet benazepril 40 mg tablet See Rx Instructions .ROUTE 03/30/20 05/28/20 Rx .COMPLEX #180 tablet omeprazole 20 mg capsule,delayed 20 mg PO DAILY #90 cap 04/21/20 05/28/20 Rx release albuterol sulfate 90 mcg/actuation 1 inh INHALATION Q4H PRN #6.7 g 05/13/20 05/28/20 Rx aerosol inhaler furosemide 40 mg tablet 40 mg PO DAILY 05/13/20 05/28/20 History isosorbide mononitrate 60 mg PO DAILY 05/28/20 05/28/20 History Current Medications: Active Medications Sodium Chloride (Normal Saline Iv) 500 mls @ 100 mls/hr IV CONT .Q5H [facility] Sedation/Anesthesia: No previous sedation/anesthesia problems (including family history). [facility] Past Medical History Medical History Arthritis CKD (chronic kidney disease), stage III Deaf Depression Edema of both lower legs due to peripheral venous insufficiency GERD (gastroesophageal reflux disease) Hypertension Obesity Osteoarthritis Osteopenia Pre-diabetes Pulmonary hypertension Surgical History Surgical History H/O arthroscopy knee H/O total hysterectomy H/O tubal ligation History of arthroplasty of left hip History of breast biopsy (~1997) left History of cardiac cath History of tonsillectomy Hx of cholecystectomy Hx of colonoscopy with IH and polypectomy Status post arthroscopy of hip Family History Family History Father Diabetes mellitus, Onset Age: 89 Hypertension, Onset Age: 89 Cerebrovascular accident, Onset Age: 89 Sibling Diabetes mellitus, Onset Age: 74 Family history of hypercholesterolemia, Onset Age: 74 Hypertension Acute myocardial infarction, Onset Age: 83 Family history of arthritis Family history of malignant neoplasm of urinary bladder, Onset Age: 74 Mother Hypertension, Onset Age: 85 Cerebrovascular accident, Onset Age: 85 Family history of arthritis, Onset Age: 85 Family history of congestive heart failure, Onset Age: 85 Social History Social History Social History: Patient is . She denies tobacco alcohol or
--- NOTE | 2020-05-29 13:46 | WPDCARDPROC ---
Cardiac Cath Procedure Note Date of procedure:: 05/29/20 Performing physician:: Irving Hdz MD Indication:: recent hospitalization clinically felt to have non ST elevation SC by troponin criteria left bundle branch block recent GI bleeding with largely unrevealing endoscopic workup Brief clinical history:: this is an 85-year-old woman with no previous documented history of coronary disease. She was in the hospital recently and after having had some chest pain had a modest troponin rise and was diagnosed clinically with non ST elevation SC. Because of GI bleeding and advanced age she was treated medically and has done well. Endoscopic evaluation has been carried out and does not demonstrate any malignant pathology. Following this she was admitted today for elective left heart catheterization to assess suspected coronary artery disease. Procedure Procedure performed:: Left ventriculography coronary angiography Sedation/Medication given:: fentanyl 50 mg Versed 2 mg case start time 1:22 p.m. case end time 1:37 p.m. sedation provided by Ashli Clay RN, trained observer Access site:: right femoral artery Estimated blood loss:: 10-15 cc Procedure note:: patient was brought to the cardiac catheterization lab in the postabsorptive state where the right femoral triangle was prepared in the normal fashion. Anesthesia was provided with 1% lidocaine infiltrated locally. Using the modified Seldinger technique a 5 Marshallese sheath was placed into femoral artery after which left heart catheterization was carried out. I used a 5 Marshallese angled pigtail catheter to measure left-sided hemodynamics and to injected LV g in the DURBIN projection. After this I utilized standard 5 Marshallese FL4 catheter to engage inject the left coronary artery. The right coronary was injected using a standard 5 Marshallese JR4 catheter. The cine angiograms were then reviewed and the case was terminated. After performing an angiogram of the femoral artery I elected to have the sheath removed manually. She left the catheterization lab to the holding area for sheath removal with no evident procedural complications and there was no sign of groin hematoma upon leaving the slab depiler operator. Findings:: Hemodynamics: Central aortic pressure is 128/32 left ventricle 130/0 end-diastolic pressure of 6 there is no gradient upon pullback across the aortic valve. Left ventricle: The LV is normal in dimension all segments contract very well the global ejection fraction is visually estimated to be 60-65%. There were no regional wall motion abnormalities. Left main coronary artery is nicely patent the left anterior descending is a large caliber vessel extending down to around the apex providing a significant portion of the inferior wall as well. The LAD is smooth and angiographically free of disease. Circumflex is a moderate to large caliber vessel giving rise to the marginal branches is smooth and angiographically normal in appearance right coronary artery is medium in caliber and dominant to the posterior circulation the right coronary artery is angiographically free of disease. Conclusion:: 1. Right coronary dominant circulation with no evidence of coronary disease 2. normal left ventricular systolic contractility Irving Hdz MD FACC
--- NOTE | 2020-05-29 18:43 | SUR.PHASEII ---
1820 Patient ambulated to bathroom and then the recliner, no signs of bleeding or hematoma noted, will continue to monitor.
== END 2020-05-29 19:39 | disposition home or self-care (01) ==
PROVIDERS: PCP Family Medicine; Visit Provider Specialist
PROC: 4A023N7 Measurement of Cardiac Sampling and Pressure, Left Heart, Percutaneous Approach (ICD-10-PCS; CPT 93452; principal; 2020-05-29 11:30)
DX: R07.89 Other chest pain (principal); I44.7 Left bundle-branch block, unspecified; I25.2 Old myocardial infarction; Z87.19 Personal history of other diseases of the digestive system; Z79.82 Long term (current) use of aspirin; Z79.51 Long term (current) use of inhaled steroids
CPT/HCPCS: 36415; 80048; 85025; 85610; 93458; C1887; C1894; J0461; J1644; J2250; J3010; J7040

== ENCOUNTER 2020-06-15 08:21 | Outpatient (CLI) | payer MEDICARE, SELFPAY | END 2020-06-15 08:22 | disposition home or self-care (01) | LOC: ANHCOVIDVC 08:23 | PROVIDERS: PCP Family Medicine | DX: Z23 Encounter for immunization (principal) | CPT/HCPCS: 0001A; 91300 ==

== ENCOUNTER 2020-07-06 08:24 | Outpatient (CLI) | payer MEDICARE, SELFPAY | END 2020-07-06 08:25 | disposition home or self-care (01) | LOC: ANHCOVIDVC 08:24 | PROVIDERS: PCP Family Medicine | DX: Z23 Encounter for immunization (principal) | CPT/HCPCS: 0002A; 91300 ==

== ENCOUNTER 2020-10-27 02:40 | Inpatient (IN) | payer MEDICARE, SELFPAY ==
[2020-10-27] VITALS (54 sets, daily range): BP systolic 126–193; BP diastolic 35–85; PULSE 58–99; RESP 16–27; TEMP 36.6–36.8; O2SAT 91–98; BMI 35.4
--- NOTE | 2020-10-27 | ECG_ITS ---
Measurements Intervals [place] Rate: 81 P: 69 ND: 188 QRS: -26 QRSD: 163 T: 90 QT: 422 QTc: 492 Interpretive Statements SINUS RHYTHM LEFT BUNDLE BRANCH BLOCK BASELINE ARTIFACT- I, II, III, AVR, AVL, AVF, V2, V5-V6 ABNORMAL ECG Electronically Signed On 10-27-2020 7:09:11 CDT by Aaron Valverde D.O.
--- NOTE | ~2020-10-27 | XR_ITS ---
EXAMINATION: XR chest 1V portable DATE: 10/27/2020 03:20 INDICATION: Cough. TECHNIQUE: A single frontal view of the chest was obtained. COMPARISON: Chest 2 views 05/14/2020, CT abdomen and pelvis 01/06/2020 FINDINGS: There is small right and moderate-sized left pleural effusions. There is a diffuse intersti tial pattern in the lungs. There are airspace opacities in the perihilar regions and at the lung base s. No pneumothorax. Cardiomegaly is noted. IMPRESSION: 1. Diffuse lung disease, likely moderate pulmonary edema and basilar atelectasis. 2. Small right and moderate-sized left pleural effusions. 3. Cardiomegaly. Reviewed, dictated and finalized at location A. IMPRESSION: 1. Diffuse lung disease, likely moderate pulmonary edema and basilar atelectasi s. 2. Small right and moderate-sized left pleural effusions. 3. Cardiomegaly.
--- NOTE | ~2020-10-27 | XR_ITS ---
EXAMINATION: XR chest 2V DATE: 10/29/2020 08:18 INDICATION: Pleural effusion TECHNIQUE: AP and lateral views of the chest are obtained. COMPARISON: 10/27/2020 FINDINGS: Small pleural effusions persist without significant change. There is no pneumothorax. There are stable bibasilar airspace opacities. Previously described perihilar opacities have resolved. Car diomegaly is noted. There are bridging osteophytes at multiple levels in the spine, consistent with d iffuse idiopathic skeletal hyperostosis (DISH). There is calcified atherosclerosis. IMPRESSION: 1. Small pleural effusions, stable. 2. Cardiomegaly with improving pulmonary edema. 3. Stable bibasilar airspace opacities, likely atelectasis. Reviewed, dictated and finalized at location B.
--- NOTE | 2020-10-27 02:45 | ED.GENADULT ---
HPI - General Adult General Chief complaint: Shortness of Breath/Dyspnea Stated complaint: difficulty breathing Source: RN notes reviewed History of Present Illness HPI narrative: Patient presents emergency department from home via EMS for shortness of breath. History is per the patient and patient has a history of congestive heart failure and is followed by Dr. Hdz she woke up this evening feeling very short of breath and told her she come the emergency department when EMS arrived and noted oxygen saturation of 87% on room air and she is placed on a nonrebreather. Patient states she has been having intermittent shortness of breath the past couple days she has chronic swelling her bilateral lower extremities she is on Lasix she denies any fevers or chills chest pain or abdominal pain Related Data Home Medications Medication Instructions Recorded Confirmed acetaminophen 650 mg 650 mg PO Q12H PRN tablet 07/03/19 09/16/20 tablet,extended release multivitamin 2 tablet PO DAILY tablet 08/30/19 09/16/20 Allergies Allergy/AdvReac Type Severity Reaction Status Date / Time Sulfa (Sulfonamide Allergy Unknown unknown Verified 09/16/20 08:55 Antibiotics) tomato Allergy Hives Verified 09/16/20 08:55 Review of Systems Review of Systems: Gen.: Denies fevers or chills ENT: Denies congestion Respiratory: Reports shortness of breath CV: Denies chest pain or palpitations GI: Denies abdominal pain nausea, emesis or diarrhea Musculoskeletal: Denies back pain or muscle pain Neuro: Denies numbness, tingling, weakness or focal weakness Skin: Denies rash Except as documented, all other systems reviewed and negative [facility] Past Medical History Medical History CHF (congestive heart failure) CKD (chronic kidney disease), stage III Deaf Depression Edema of both lower legs due to peripheral venous insufficiency GERD (gastroesophageal reflux disease) Hypertension Left bundle branch block Obesity Osteoarthritis Osteopenia Pre-diabetes Pulmonary hypertension Surgical History Surgical History H/O arthroscopy (Unknown) knee H/O total hysterectomy (~1977) H/O tubal ligation (~1977) History of arthroplasty of left hip (Unknown) History of breast biopsy (~1997) left History of cardiac cath (~05/2020) History of cataract surgery 2016 - b/l History of tonsillectomy (Unknown) Hx of cholecystectomy (~1990) Hx of colonoscopy (Unknown) with IH and polypectomy Status post arthroscopy of hip (Unknown) Family History Family History Father Diabetes mellitus, Onset Age: 89 Hypertension, Onset Age: 89 Cerebrovascular accident, Onset Age: 89 Sibling Diabetes mellitus, Onset Age: 74 Family history of hypercholesterolemia, Onset Age: 74 Hypertension Acute myocardial infarction, Onset Age: 83 Family history of arthritis Family history of malignant neoplasm of urinary bladder, Onset Age: 74 Mother Hypertension, Onset Age: 85 Cerebrovascular accident, Onset Age: 85 Family history of arthritis, Onset Age: 85 Family history of congestive heart failure, Onset Age: 85 Social History Social History Social History: Patient is . She denies tobacco alcohol or drug use. She lives with her son. She is a DNI. She nominated her son to be the individual would make medical decisions for her if she is not able. Smoking status: Never smoker Second hand tobacco smoke exposure: No Alcohol intake: never Substance use: never Substance use type: does not use Additional living arrangements comments: lives with son Gender identity (if verbalized by the patient): Female Spiritual care concerns: No Agree to blood products: Yes
[2020-10-27] MEDS: ALBUTEROL SULFATE (*SP) INHALER 1 PUFF (02:50)
[2020-10-27] MEDS: FUROSEMIDE INJ 40 MG/4 ML VIAL IV PUSH ×3 (02:53→18:05)
[2020-10-27 03:14] LABS: Basophils Absolute Auto 0.1 K/mm3 (0.0-0.1); Basophils Percent Auto 0.5 % (0.2-1.2); Eosinophils Absolute Auto 0.3 K/mm3 (0-0.3); Hematocrit 41.8 % (37.0-47.0); Hemoglobin 13.6 g/dL (12.0-15.0); Immature Granulocyte Absolute 0.06 K/mm3 (0.00-0.031); Immature Granulocyte Percent A 0.5 % (0-0.5); Lymphocytes Absolute Auto 1.93 K/mm3 (0.9-3.2); Lymphocytes Percent Auto 14.7 % (18.3-44.2); Mean Corpuscular HGB Conc 32.5 g/dl (32-36); Mean Corpuscular Volume 98.4 fl (80-100); Mean Platelet Volume 9.3 fl (7.4-10.4); Monocytes Percent Auto 7.2 % (2.6-8.5); Neutrophils Absolute Auto 9.9 K/mm3 (1.3-6.7); Neutrophils Percent Auto 75.1 % (45.5-73.1); Platelet Count Result 280 k/mm3 (150-375); Red Blood Count 4.25 M/mm3 (4.2-5.4); Red Cell Distribution Width 13.7 % (11.5-14.5); White Blood Count 13.2 K/mm3 (4.5-10.0)
[2020-10-27] MEDS: NITROGLYCERIN OINTMENT 1 INCH DOSE 0.5 INCH TRANSDERM (03:17)
[2020-10-27 03:18] LABS: Device NASAL CANNULA; Fractional Inspired Oxygen 36 %; HCO3 ABG 28.8 mEq/l (22.0-26.0); Modified Allen's Test Pass; Oxyhemoglobin 92.2 % THb (90.0-100.0); PCO2 ABG 53.9 mmHg (35.0-45.0); PO2 ABG 70.2 mmHg (80.0-100.0); PO2 FiO2 Ratio Arterial Blood 1.95 %; Site Drawn RIGHT RADIAL; Total Hemoglobin 13.9 g/dL (12.0-18.0); pH ABG 7.346 (7.350-7.450)
[2020-10-27 03:25] LABS: Anion Gap 9 mmol/L (8-16); Blood Urea Nitrogen 30 mg/dL (7-17); Calcium 8.9 mg/dL (8.4-10.2); Carbon Dioxide 26 mmol/L (22-30); Chloride 104 mmol/L (98-107); Estimated CRCL calculation 31 ml/min; Estimated Glomerular Filt Rate 39; Glucose 172 mg/dL (65-110); INR 0.9; Potassium 3.5 mmol/L (3.4-5.0); Prothrombin Time 11.7 Seconds (11.1-14.7); Sodium 139 mmol/L (137-145)
[2020-10-27 03:26] LABS: Lactic Acid Reflex 0.8 mmol/L (0.7-2.1); Partial Thromboplastin Time 34.3 SECONDS (22.3-36.8)
[2020-10-27 03:37] LABS: NT Pro B Type Natriuretic Pept 2000 pg/mL (5-100); Troponin I < 0.012 ng/mL (0.000-0.034)
[2020-10-27 04:12] LABS: Add Urine Microscopic? YES; Appearance Urine Clear (Clear); Bacteria Urine Trace /hpf; Bilirubin Urine Negative (Negative); Blood Urine Negative (Negative); Color Urine Straw (Yellow); Glucose Urine UA Negative (Negative); Ketones Urine Negative (Negative); Leukocyte Esterase Ur Negative LEU/UL (Negative); Nitrate Urine Negative (Negative); Protein Urine 2+ mg/dL (Negative); Squamous Epithelial Cell Urine Rare /hpf (Few); Urobilinogen Urine Negative mg/dL (<2.0); WBC Urine 0-3 /hpf
--- NOTE | 2020-10-27 09:09 | PM.CNCAR ---
Assessment and Plan Assessment and plan (1) CHF (congestive heart failure): Code(s): I50.9 - Heart failure, unspecified <ARINA Donohue - Last Filed: 10/27/20 18:29> Status: Acute <ARINA Donohue - Last Filed: 10/27/20 18:29> Assessment and Plan: Presents with respiratory failure with reports of worsening orthopnea, dyspnea with exertion, and leg swelling over the past several weeks. Grade 2 diastolic dysfunction demonstrated by echo in December of 2019. Normal left ventricular systolic function at that time with ejection fraction of 65-70%. Presenting now with acute on chronic congestive heart chest x-ray demonstrated pulmonary edema and bilateral pleural effusions. Will start furosemide 40 mg IV b.i.d. Daily weights Strict I&O Compression stockings Trend BMP daily <ARINA Donohue - Last Filed: 10/27/20 18:29> (2) Acute respiratory failure with hypoxia: Code(s): J96.01 - Acute respiratory failure with hypoxia <ARINA Donohue - Last Filed: 10/27/20 18:29> Status: Acute <ARINA Donohue - Last Filed: 10/27/20 18:29> Assessment and Plan: Presented with acute respiratory failure with SpO2 noted to be 87% in he field and was placed on nonrebreather. Respiratory status now improved with supplemental oxygen and IV furosemide. <ARINA Donohue - Last Filed: 10/27/20 18:29> (3) Left bundle branch block: Code(s): I44.7 - Left bundle-branch block, unspecified <ARINA Donohue - Last Filed: 10/27/20 18:29> Status: Acute <ARINA Donohue - Last Filed: 10/27/20 18:29> Assessment and Plan: Chronic left bundle branch block. Left heart catheterization performed in May of this year not show any evidence of coronary disease. No anginal symptoms. <ARINA Donohue - Last Filed: 10/27/20 18:29> (4) Hypokalemia: Code(s): E87.6 - Hypokalemia <ARINA Donohue - Last Filed: 10/27/20 18:29> Status: Acute <ARINA Donohue - Last Filed: 10/27/20 18:29> Assessment and Plan: Potassium 3.5 on admission. Will give 20 mEq KCL now. <ARINA Donohue - Last Filed: 10/27/20 18:29> (5) Acute renal insufficiency: Code(s): N28.9 - Disorder of kidney and ureter, unspecified <ARINA Donohue - Last Filed: 10/27/20 18:29> Status: Acute <ARINA Donohue - Last Filed: 10/27/20 18:29> Assessment and Plan: BUN/Cr 30/1.30 which appears near her baseline. Diurese cautiously. Trend BMP daily. <ARINA Donohue - Last Filed: 10/27/20 18:29> Additional Plan Pt seen and examined, chart reviewed. Has been compliant w/ her furosemide 40 mg daily (not on home med list) and BP meds but has developed new onset diastolic CHF. BP high today but pt says she did not get her usual a.m. meds. Exam shows moderate CHF and LE edema, and CXR shows moderate effusions and moderte CHF. Agree w/ FISH PROCESSING SUPERVISOR Kena Kingsley's assessment and plan. <Kaela Tello MD - Last Filed: 10/27/20 19:10> History of Present Illness History of Present Illness Consult date/time: 10/27/20 09:09 <ARINA Donohue - Last Filed: 10/27/20 18:29> Requesting physician: Kai Cueva DO <ARINA Donohue - Last Filed: 10/27/20 18:29> Consult reason: congestive heart failure <ARINA Donohue - Last Filed: 10/27/20 18:29> Reason For Visit: Acute Respiratory Failure w/Hypoxia, CHF <ARINA Donohue - Last Filed: 10/27/20 18:29> Narrative: This a patient who I am seeing at the request of Dr. Cueva for congestive heart failure. She is a pleasant 85-year-old who is followed by Dr. Hdz for coronary disease. She is also known to have grade 2 diastolic dysfunction. She presented to the emergency department early this morning with complaints severe shortness of breat
[2020-10-27] MEDS: POTASSIUM CHLORIDE 20 MEQ TABLET PO (09:54)
[2020-10-27 13:04] LABS: Troponin I 0.059 ng/mL (0.000-0.034)
--- NOTE | 2020-10-27 16:00 | PC.NURSE ---
This patient, Azucena Mcdonald, was admitted to IMU Room 205-01. Patient/family oriented to hospital policies and general routines including ID bracelet, bed and alarms, visiting hours, pain management, procedures, bathroom and other care routines, personal items, smoking policy, room service/diet, and visiting hours. Information on how to activate the Rapid Response Team has been discussed. Patient/Family are encouraged to report perceived risks to care and to ask questions if they do not understand what they are told or what they should do.
--- NOTE | 2020-10-27 16:46 | PM.IMHP ---
H&P: HPI History of Present Illness Date/Time: 10/27/20 16:46 Chief Complaint: shortness of breath Narrative: Patient presents emergency department from home via EMS for shortness of breath. History is per the patient and patient has a history of congestive heart failure and is followed by Dr. Hdz. she woke up this evening feeling very short of breath and told her she come the emergency department when EMS arrived and noted oxygen saturation of 87% on room air and she is placed on a nonrebreather Mask. Patient states she has been having intermittent shortness of breath the past couple days she has chronic swelling her bilateral lower extremities she is on Lasix she denies any fevers or chills chest pain or abdominal pain. She had been started on Lasix and nitro paste in the ER her chest x-ray was consistent with congestive heart failure and was admitted for further evaluation and management. Review of Systems Review of Systems: - CONSTITUTIONAL: Denies weight loss, fever and chills. - HEENT: Denies changes in vision and hearing - RESPIRATORY: Reports SOB and cough. - CV: Denies palpitations and CP. - GI: Denies abdominal pain, nausea, vomiting and diarrhea. - : Denies dysuria and urinary frequency. - MSK: Denies myalgia and joint pain. - SKIN: Denies rash and pruritus. - NEUROLOGICAL: Denies headache and syncope. - PSYCHIATRIC: Denies recent changes in mood. Denies anxiety and depression. All systems reviewed & are unremarkable except as noted in HPI and below Constitutional: Constitutional: Reports fatigue and Reports weakness Neurologic: Reports weakness Endocrine: Endocrine: Reports fatigue [facility] Past Medical History Medical History CHF (congestive heart failure) CKD (chronic kidney disease), stage III Deaf Depression Edema of both lower legs due to peripheral venous insufficiency GERD (gastroesophageal reflux disease) Hypertension Left bundle branch block Obesity Osteoarthritis Osteopenia Pre-diabetes Pulmonary hypertension Surgical History Surgical History H/O arthroscopy (Unknown) knee H/O total hysterectomy (~1977) H/O tubal ligation (~1977) History of arthroplasty of left hip (Unknown) History of breast biopsy (~1997) left History of cardiac cath (~05/2020) History of cataract surgery 2016 - b/l History of tonsillectomy (Unknown) Hx of cholecystectomy (~1990) Hx of colonoscopy (Unknown) with IH and polypectomy Status post arthroscopy of hip (Unknown) Family History Family History Father Diabetes mellitus, Onset Age: 89 Hypertension, Onset Age: 89 Cerebrovascular accident, Onset Age: 89 Sibling Diabetes mellitus, Onset Age: 74 Family history of hypercholesterolemia, Onset Age: 74 Hypertension Acute myocardial infarction, Onset Age: 83 Family history of arthritis Family history of malignant neoplasm of urinary bladder, Onset Age: 74 Mother Hypertension, Onset Age: 85 Cerebrovascular accident, Onset Age: 85 Family history of arthritis, Onset Age: 85 Family history of congestive heart failure, Onset Age: 85 Social History Social History Social History: Patient is . She denies tobacco alcohol or drug use. She lives with her son. She is a DNI. She nominated her son to be the individual would make medical decisions for her if she is not able. Smoking status: Never smoker Second hand tobacco smoke exposure: No Alcohol intake: never Substance use: never Substance use type: does not use Additional living arrangements comments: lives with son Gender identity (if verbalized by the patient): Female Spiritual care concerns: No Agree to blood products: Yes
[2020-10-27] MEDS: ENOXAPARIN 30 MG/0.3 ML SYRINGE SUB-Q (18:05)
[2020-10-27 18:59] LABS: Anion Gap 5 mmol/L (8-16); Blood Urea Nitrogen 27 mg/dL (7-17); Calcium 9.2 mg/dL (8.4-10.2); Carbon Dioxide 33 mmol/L (22-30); Chloride 102 mmol/L (98-107); Estimated CRCL calculation 26 ml/min; Estimated Glomerular Filt Rate 33; Glucose 142 mg/dL (65-110); Potassium 3.9 mmol/L (3.4-5.0); Sodium 140 mmol/L (137-145)
[2020-10-27] MEDS: hydrALAZINE HCL 20 MG/ML VIAL 10 MG IV PUSH (20:37)
[2020-10-27] MEDS: lisinopriL 20 MG TABLET 40 MG PO (20:37)
[2020-10-28] VITALS (17 sets, daily range): BP systolic 139–179; BP diastolic 41–58; PULSE 67–107; RESP 16–24; TEMP 36.1–37; O2SAT 93–99
[2020-10-28 05:39] LABS: Anion Gap 5 mmol/L (8-16); Blood Urea Nitrogen 27 mg/dL (7-17); Calcium 8.7 mg/dL (8.4-10.2); Carbon Dioxide 31 mmol/L (22-30); Chloride 100 mmol/L (98-107); Estimated CRCL calculation 32 ml/min; Estimated Glomerular Filt Rate 43; Glucose 115 mg/dL (65-110); Potassium 3.5 mmol/L (3.4-5.0); Sodium 136 mmol/L (137-145)
[2020-10-28 06:07] LABS: Basophils Percent Auto 0.2 % (0.2-1.2); Eosinophils Percent Auto 0.1 % (0-4.4); Hematocrit 36.6 % (37.0-47.0); Hemoglobin 11.9 g/dL (12.0-15.0); Immature Granulocyte Absolute 0.02 K/mm3 (0.00-0.031); Immature Granulocyte Percent A 0.2 % (0-0.5); Lymphocytes Absolute Auto 1.13 K/mm3 (0.9-3.2); Lymphocytes Percent Auto 12.9 % (18.3-44.2); Mean Corpuscular HGB Conc 32.5 g/dl (32-36); Mean Corpuscular Volume 95.3 fl (80-100); Mean Platelet Volume 9.9 fl (7.4-10.4); Monocytes Absolute Auto 0.7 K/mm3 (0.1-0.6); Monocytes Percent Auto 7.7 % (2.6-8.5); Neutrophils Absolute Auto 6.9 K/mm3 (1.3-6.7); Neutrophils Percent Auto 78.9 % (45.5-73.1); Platelet Count Result 262 k/mm3 (150-375); Red Blood Count 3.84 M/mm3 (4.2-5.4); Red Cell Distribution Width 13.6 % (11.5-14.5); White Blood Count 8.7 K/mm3 (4.5-10.0)
[2020-10-28] MEDS: MULTIVITS W-FE,MIN CHEWABLE TABLET 2 TABLET PO (09:05)
[2020-10-28] MEDS: amLODIPine BESYLATE 5 MG TABLET 10 MG PO (09:05)
[2020-10-28] MEDS: ASPIRIN 81 MG CHEWABLE TABLET PO (09:05)
[2020-10-28] MEDS: lisinopriL 20 MG TABLET 40 MG PO ×2 (09:05→20:57)
[2020-10-28] MEDS: METOPROLOL SUCCINATE EXT REL 100 MG TABCR PO (09:05)
[2020-10-28] MEDS: PANTOPRAZOLE 40 MG TABLET PO (09:05)
[2020-10-28] MEDS: FUROSEMIDE INJ 40 MG/4 ML VIAL IV PUSH ×2 (09:06→17:50)
--- NOTE | 2020-10-28 09:33 | PM.IMPN ---
Progress Note: A&P Assessment and Plan (1) Acute respiratory failure with hypoxia: Code(s): J96.01 - Acute respiratory failure with hypoxia Status: Acute (2) CHF (congestive heart failure): Qualifiers: Heart failure type: diastolic Heart failure chronicity: acute on chronic Qualified Code(s): I50.33 - Acute on chronic diastolic (congestive) heart failure Code(s): I50.9 - Heart failure, unspecified Status: Acute (3) Acute renal insufficiency: Code(s): N28.9 - Disorder of kidney and ureter, unspecified Status: Acute (4) CHF (congestive heart failure): Qualifiers: Heart failure chronicity: acute on chronic Heart failure type: unspecified Qualified Code(s): I50.9 - Heart failure, unspecified Code(s): I50.9 - Heart failure, unspecified Status: Acute (5) CKD (chronic kidney disease), stage III: Qualifiers: Chronic kidney disease stage 3 subtype: stage 3a (GFR 45-59) Qualified Code(s): N18.31 - Chronic kidney disease, stage 3a Code(s): N18.30 - Chronic kidney disease, stage 3 unspecified Status: Acute (6) Edema of both lower legs due to peripheral venous insufficiency: Code(s): I87.2 - Venous insufficiency (chronic) (peripheral); R60.9 - Edema, unspecified Status: Acute (7) Hypokalemia: Code(s): E87.6 - Hypokalemia Status: Acute (8) Left bundle branch block: Code(s): I44.7 - Left bundle-branch block, unspecified Status: Acute (9) GERD (gastroesophageal reflux disease): Qualifiers: Esophagitis presence: without esophagitis Qualified Code(s): K21.9 - Gastro-esophageal reflux disease without esophagitis Code(s): K21.9 - Gastro-esophageal reflux disease without esophagitis Status: Acute Additional Plan 10/27/20 acute hypoxic respiratory failure continue oxygen supplementation . SpO2 noted to be 87% in the field and was placed on oxygen Acute on chronic congestive heart failure diastolic heart failure ejection fraction 65-70% in December of 2019. Continue diuresis as ordered strict I's and O's daily weights recheck echo. chronic left bundle branch block No history of coronary artery disease in the past CKD stage 3 continue to monitor with diuresis hypertension resume home medication DVT prophylaxis Lovenox Full code 10/28/20 Patient admitted with acute exacerbation of diastolic heart failure Patient diuresing well -2.8 L Creatinine actually improving There has been a rise of troponin since admission secondary to demand ischemia related to hypoxia will order 3rd troponin Continue current medical management Continue supportive care Recommendations from Cardiology appreciated Subjective Date/time seen: 10/28/20 09:33 Patient doing okay states that she has a hard time hearing and prefers to read lips. With by mask lowered we discussed congestive heart failure, fluid consumption, daily weights, compliance with medical therapy. Patient will continue to follow-up with cardiology and is overall feeling better. She would like to go home today but she is advised she remains O2 dependent on 2 L and is not ready to go home yet. Exam Narrative: APPEARANCE: no acute distress elderly frail, hard of hearing reads lips EYES: EOMI HEENT: Normocephalic, atraumatic, RESPIRATORY: No wheezes no rhonchi crackles throughout the bilateral lung rey not in acute respiratory distress CARDIOVASCULAR: Regular rate and rhythm without murmurs rubs or gallops. ABDOMINAL: Soft, nontender, nondistended, no rebound or guarding MUSCULOSKELETAL: Moves all extremities. No clubbing, cyanosis 2+ edema the bilateral lower extremities NEURO: Awake and alert. Following commands, speech normal, no focal deficits SKIN:: Warm, dry. No rashes lesions or abrasions PSYCHIATRIC: Normal affect/mood, Objective Data Vital Signs Vital Signs: Vital Signs - 24 hr 10/27/20 12:02 10/27/20 14:02 10/27/20 16:0
[2020-10-28 10:54] LABS: Troponin I 0.085 ng/mL (0.000-0.034)
--- NOTE | 2020-10-28 11:48 | PM.PNCARD ---
Progress Note: A&P Additional Plan 85-year-old lady with: Decompensated diastolic heart failure patient has picture of biventricular failure both peripheral edema and pleural effusions. She is responding reasonably well to IV furosemide. Patient has had extensive cardiac workup earlier this year does not need any additional evaluation at this time in my opinion. Patient is having more difficulty with volume overload than I would anticipate. As she is responding well to and will keep her on IV furosemide for another day or 2. Irving Hdz MD [facility] Subjective Date/time seen: 10/28/20 11:48 Interval history: Follow-up visit in this 85-year-old woman with: Diastolic congestive heart failure with peripheral edema and pleural effusions. Patient is well known to our practice and is known not to have coronary artery disease and has no significant valvular disease she also has well preserved left ventricular systolic contractility. This was observed by cardiac catheterization and by echocardiography earlier this year. She is having a good response to intravenous furosemide. She remains on a high dose of metoprolol, benazepril and amlodipine. Reports that her shortness of breath is noticeably improved compared with admission. Exam Const: General: comfortable and no acute distress Other: Pleasant elderly lady seated in the chair wearing nasal cannula oxygen HENMT: Mouth: Yes moist mucous membranes Eyes: Sclera: sclerae normal Pupils: Equal, round and reactive pupils present Neck: Neck: supple Other: JVD difficult to assess with her obese body habitus Resp: Effort & Inspection: normal respiratory effort Other: Dullness at the bases bilaterally Cardio: Rate: regular rate Rhythm: regular rhythm GI: GI Palp: Yes Soft to palpation Auscultation: normal bowel sounds Skin: General skin exam: normal color Neuro: Cognition (Neuro): normal cognition Extrem: Other: Patient continues with moderate symmetrical lower extremity edema. Objective Data Vital Signs Vital Signs: Vital Signs - 24 hr 10/27/20 12:02 10/27/20 14:02 10/27/20 16:00 Temperature 36.6 C Pulse Rate 77 71 91 Respiratory Rate 21 H 18 20 Blood Pressure 167/74 H 176/52 H 191/57 H Pulse Oximetry 97 98 91 10/27/20 16:05 10/27/20 18:00 10/27/20 20:00 Temperature 36.8 C 36.8 C Pulse Rate 58 L 95 73 Respiratory Rate 24 H 24 H Blood Pressure 136/55 L 193/57 H Pulse Oximetry 97 94 10/27/20 22:00 10/28/20 00:00 10/28/20 02:00 Temperature 36.4 C L Pulse Rate 73 88 85 Respiratory Rate 16 Blood Pressure 169/58 H Pulse Oximetry 98 10/28/20 04:00 10/28/20 06:00 10/28/20 08:00 Temperature 36.6 C 36.2 C L Pulse Rate 97 96 106 H Respiratory Rate 20 24 H Blood Pressure 159/54 H 177/56 H Pulse Oximetry 93 95 10/28/20 10:00 Temperature Pulse Rate 73 Respiratory Rate Blood Pressure Pulse Oximetry Intake/Output Intake/Output: Intake & Output 10/25/20 10/26/20 10/27/20 10/28/20 23:59 23:59 23:59 23:59 Intake Total 670 440 Output Total 2350 1550 Balance -1030 -3340 Meds/Results Medications: Active Medications Generic Name Dose Route Start Last Admin Trade Name Freq PRN Reason Stop Dose Admin Acetaminophen 650 mg 10/27/20 16:52 Acetaminophen 325 Mg Tablet PO Q12H PRN Pain (Scale Score 4-6) Amlodipine Besylate 10 mg 10/28/20 09:00 10/28/20 09:05 Amlodipine Besylate 5 Mg Tablet PO 10 mg DAILY ERYN Administration Aspirin 81 mg 10/28/20 08:00 10/28/20 09:05 Aspirin 81 Mg Chewable Tablet PO 81 mg DAILY@0800 ERYN Administration Enoxaparin Sodium 30 mg 10/27/20 18:00 10/27/20 18:05 Enoxaparin 30 Mg/0.3 Ml Syringe SUB-Q 30 mg QPM ERYN Administration Furosemide 40 mg 10/27/20 09:35 10/28/20 09:06 Furosemide Inj 40 Mg/4 Ml Vial IV PUSH 40 mg BID ERYN Administration Hydralazine HCl 10 mg 10/27/20 16:53 10/27/20 20:37 Hydralazine Hcl 20 Mg/Ml
[2020-10-28] MEDS: ENOXAPARIN 30 MG/0.3 ML SYRINGE SUB-Q (17:50)
[2020-10-28] MEDS: hydrALAZINE HCL 20 MG/ML VIAL 10 MG IV PUSH (17:50)
[2020-10-29] VITALS (12 sets, daily range): BP systolic 130–185; BP diastolic 44–59; PULSE 56–82; RESP 12–20; TEMP 36.1–37.2; O2SAT 94–100
[2020-10-29 05:24] LABS: Basophils Percent Auto 0.4 % (0.2-1.2); Eosinophils Absolute Auto 0.2 K/mm3 (0-0.3); Eosinophils Percent Auto 2.7 % (0-4.4); Hematocrit 38.6 % (37.0-47.0); Hemoglobin 12.7 g/dL (12.0-15.0); Immature Granulocyte Absolute 0.02 K/mm3 (0.00-0.031); Immature Granulocyte Percent A 0.3 % (0-0.5); Lymphocytes Absolute Auto 1.11 K/mm3 (0.9-3.2); Lymphocytes Percent Auto 15.5 % (18.3-44.2); Mean Corpuscular HGB Conc 32.9 g/dl (32-36); Mean Corpuscular Hemoglobin 31.3 pg (26-34); Mean Corpuscular Volume 95.1 fl (80-100); Mean Platelet Volume 9.4 fl (7.4-10.4); Monocytes Absolute Auto 0.8 K/mm3 (0.1-0.6); Monocytes Percent Auto 10.9 % (2.6-8.5); Neutrophils Percent Auto 70.2 % (45.5-73.1); Platelet Count Result 240 k/mm3 (150-375); Red Blood Count 4.06 M/mm3 (4.2-5.4); Red Cell Distribution Width 13.4 % (11.5-14.5); White Blood Count 7.2 K/mm3 (4.5-10.0)
[2020-10-29 05:37] LABS: Anion Gap 5 mmol/L (8-16); Blood Urea Nitrogen 29 mg/dL (7-17); Carbon Dioxide 34 mmol/L (22-30); Chloride 98 mmol/L (98-107); Estimated CRCL calculation 28 ml/min; Estimated Glomerular Filt Rate 36; Glucose 110 mg/dL (65-110); Magnesium 1.7 mg/dL (1.6-2.3); Potassium 3.5 mmol/L (3.4-5.0); Sodium 137 mmol/L (137-145)
[2020-10-29] MEDS: amLODIPine BESYLATE 5 MG TABLET 10 MG PO (10:17)
[2020-10-29] MEDS: lisinopriL 20 MG TABLET 40 MG PO ×2 (10:18→20:51)
[2020-10-29] MEDS: FUROSEMIDE INJ 40 MG/4 ML VIAL IV PUSH (10:18)
[2020-10-29] MEDS: MULTIVITS W-FE,MIN CHEWABLE TABLET 2 TABLET PO (10:18)
[2020-10-29] MEDS: ASPIRIN 81 MG CHEWABLE TABLET PO (10:18)
[2020-10-29] MEDS: PANTOPRAZOLE 40 MG TABLET PO (12:51)
[2020-10-29] MEDS: METOPROLOL SUCCINATE EXT REL 100 MG TABCR PO (12:51)
--- NOTE | 2020-10-29 14:08 | PM.PNCARD ---
Progress Note: A&P Assessment and Plan (1) CHF (congestive heart failure): Qualifiers: Heart failure chronicity: acute on chronic Heart failure type: diastolic Qualified Code(s): I50.33 - Acute on chronic diastolic (congestive) heart failure Code(s): I50.9 - Heart failure, unspecified Status: Acute Assessment and Plan: Presents with respiratory failure with reports of worsening orthopnea, dyspnea with exertion, and leg swelling over the past several weeks. Grade 2 diastolic dysfunction demonstrated by echo in December of 2019. Normal left ventricular systolic function at that time with ejection fraction of 65-70%. Presenting now with acute on chronic congestive heart chest x-ray demonstrated pulmonary edema and bilateral pleural effusions. Continue furosemide 40 mg IV b.i.d. Pulmonary edema improving by CXR Daily weights Strict I&O Compression stockings Trend BMP daily (2) Acute respiratory failure with hypoxia: Code(s): J96.01 - Acute respiratory failure with hypoxia Status: Acute Assessment and Plan: Presented with acute respiratory failure with SpO2 noted to be 87% in he field and was placed on nonrebreather. Respiratory status now improved with supplemental oxygen and IV furosemide. (3) Left bundle branch block: Code(s): I44.7 - Left bundle-branch block, unspecified Status: Acute Assessment and Plan: Chronic left bundle branch block. Left heart catheterization performed in May of this year not show any evidence of coronary disease. No anginal symptoms. (4) Hypokalemia: Code(s): E87.6 - Hypokalemia Status: Acute Assessment and Plan: Check BMP daily while on IV diuretic. K+ goal 4.0 (5) Acute renal insufficiency: Code(s): N28.9 - Disorder of kidney and ureter, unspecified Status: Acute Assessment and Plan: BUN/Cr 30/1.30 which appears near her baseline. Kidney function stable with diuresis. Continue to trend BMP daily Subjective Date/time seen: 10/29/20 14:08 Interval history: Follow-up visit in this 85-year-old woman with: Diastolic congestive heart failure with peripheral edema and pleural effusions. Patient is well known to our practice and is known not to have coronary artery disease and has no significant valvular disease she also has well preserved left ventricular systolic contractility. This was observed by cardiac catheterization and by echocardiography earlier this year. She is having a good response to intravenous furosemide. She remains on a high dose of metoprolol, benazepril and amlodipine. Reports that her shortness of breath is noticeably improved compared with admission. Date of service 10/29/2020: Reports that her breathing is better today. Lower extremity edema is resolving. Denies chest pain, palpitations. PVCs and bigeminy noted on telemetry over the last 24 hours. Okay to downgrade to [employer] status. Review of Systems Review of Systems: All systems reviewed & are unremarkable except as noted in HPI and below Constitutional: Constitutional: Denies excessive sweating, Denies fatigue, Denies headache(s) and Denies weakness Eyes: Eyes: Denies change in vision ENT: Denies Normal hearing present, Denies headache(s) and Reports sore throat Cardiovascular: Cardiovascular: Denies diaphoresis, Reports pedal edema, Reports leg edema, Denies lightheadedness, Denies palpitations, Reports dyspnea and Reports dyspnea on exertion Respiratory: Respiratory: Reports dyspnea and Reports dyspnea on exertion Gastrointestinal: Gastrointestinal: Denies abdominal pain, Denies diarrhea, Denies nausea and Denies vomiting Genitourinary: Genitourinary: Reports no additional female genitourinary complaints Musculoskeletal: Musculoskeletal: Reports back pain and Reports arthralgias Integumentary/Breasts: Skin/Breast: Denies unusual bruising Neurologic: Denies Normal hearing present,
[2020-10-29] MEDS: POTASSIUM CHLORIDE 20 MEQ TABLET PO (15:52)
--- NOTE | 2020-10-29 18:03 | PM.IMPN ---
Progress Note: A&P Assessment and Plan (1) Acute respiratory failure with hypoxia: Code(s): J96.01 - Acute respiratory failure with hypoxia Status: Acute (2) CHF (congestive heart failure): Qualifiers: Heart failure chronicity: acute on chronic Heart failure type: diastolic Qualified Code(s): I50.33 - Acute on chronic diastolic (congestive) heart failure Code(s): I50.9 - Heart failure, unspecified Status: Acute (3) Acute renal insufficiency: Code(s): N28.9 - Disorder of kidney and ureter, unspecified Status: Acute (4) CKD (chronic kidney disease), stage III: Qualifiers: Chronic kidney disease stage 3 subtype: stage 3a (GFR 45-59) Qualified Code(s): N18.31 - Chronic kidney disease, stage 3a Code(s): N18.30 - Chronic kidney disease, stage 3 unspecified Status: Acute (5) Edema of both lower legs due to peripheral venous insufficiency: Code(s): I87.2 - Venous insufficiency (chronic) (peripheral); R60.9 - Edema, unspecified Status: Acute (6) Hypokalemia: Code(s): E87.6 - Hypokalemia Status: Acute (7) Left bundle branch block: Code(s): I44.7 - Left bundle-branch block, unspecified Status: Acute (8) GERD (gastroesophageal reflux disease): Qualifiers: Esophagitis presence: without esophagitis Qualified Code(s): K21.9 - Gastro-esophageal reflux disease without esophagitis Code(s): K21.9 - Gastro-esophageal reflux disease without esophagitis Status: Acute Additional Plan 10/27/20 acute hypoxic respiratory failure continue oxygen supplementation . SpO2 noted to be 87% in the field and was placed on oxygen Acute on chronic congestive heart failure diastolic heart failure ejection fraction 65-70% in December of 2019. Continue diuresis as ordered strict I's and O's daily weights recheck echo. chronic left bundle branch block No history of coronary artery disease in the past CKD stage 3 continue to monitor with diuresis hypertension resume home medication DVT prophylaxis Lovenox Full code 10/28/20 Patient admitted with acute exacerbation of diastolic heart failure Patient diuresing well -2.8 L Creatinine actually improving There has been a rise of troponin since admission secondary to demand ischemia related to hypoxia will order 3rd troponin Continue current medical management Continue supportive care Recommendations from Cardiology appreciated 10/29/2020 CHF exacerbation abating with appropriate response to diuresis and medical therapy Continue current care Weaning from oxygen as tolerated Transfer to [facility] Anticipate discharge in 24-48 hours Subjective Date/time seen: 10/29/20 18:03 Seen by cardiology doing very well. She remains on 2 L of oxygen patient is not oxygen dependent at home. RN notified will wean oxygen as tolerated for possible discharge tomorrow Exam Narrative: GEN: NAD, AAOx3, cooperative hard of hearing HEENT: NCAT, MMM, EOMI Neck: no JVD Heart: S1S2 RRR Lungs: CTA B/l Abd: soft, NT, ND, bowel sounds normoactive Ext: moves all, no cyanosis, no clubbing, no edema Neuro: Normal cognition, moves all extremities equally Psych: Mood and affect congruent Objective Data Vital Signs Vital Signs: Vital Signs - 24 hr 10/28/20 20:00 10/28/20 22:00 10/28/20 23:13 Temperature 98.1 F Pulse Rate 73 73 Respiratory Rate 22 H Blood Pressure 139/41 L Pulse Oximetry 98 97 10/28/20 23:49 10/29/20 00:00 10/29/20 02:00 Temperature 98.6 F Pulse Rate 83 80 77 Respiratory Rate 20 Blood Pressure 150/46 H Pulse Oximetry 96 10/29/20 04:00 10/29/20 06:00 10/29/20 08:00 Temperature 97.7 F 99 F Pulse Rate 81 80 75 Respiratory Rate 20 12 Blood Pressure 134/59 L 185/52 H Pulse Oximetry 98 97 10/29/20 10:00 10/29/20 12:00 10/29/20 12:51 Temperature 98.8 F Pulse Rate 76 73 70 Respiratory Rate 12 Blood Pressure 142/44 H P
[2020-10-29] MEDS: ENOXAPARIN 30 MG/0.3 ML SYRINGE SUB-Q (18:17)
--- NOTE | 2020-10-29 18:45 | PC.NURSE ---
This patient, Azucena Mcdonald, was transferred to [facility] on 10/29/20 at 1845. Personal belongings sent with patient. Report given to DICKSON Beltrán. Appropriate documentation sent with patient.
--- NOTE | 2020-10-29 19:03 | PC.NURSE ---
1846 patient received from IMU. Patient oriented to the room.
[2020-10-30] VITALS (11 sets, daily range): BP systolic 132–179; BP diastolic 42–50; PULSE 66–83; RESP 16–20; TEMP 36.3–36.8; O2SAT 93–97
[2020-10-30 05:38] LABS: Basophils Percent Auto 0.2 % (0.2-1.2); Eosinophils Absolute Auto 0.2 K/mm3 (0-0.3); Hematocrit 37.3 % (37.0-47.0); Hemoglobin 12.2 g/dL (12.0-15.0); Immature Granulocyte Absolute 0.02 K/mm3 (0.00-0.031); Immature Granulocyte Percent A 0.2 % (0-0.5); Lymphocytes Absolute Auto 1.37 K/mm3 (0.9-3.2); Mean Corpuscular HGB Conc 32.7 g/dl (32-36); Mean Corpuscular Hemoglobin 31.4 pg (26-34); Mean Corpuscular Volume 95.9 fl (80-100); Mean Platelet Volume 9.5 fl (7.4-10.4); Monocytes Absolute Auto 0.9 K/mm3 (0.1-0.6); Monocytes Percent Auto 11.3 % (2.6-8.5); Neutrophils Absolute Auto 5.5 K/mm3 (1.3-6.7); Neutrophils Percent Auto 68.3 % (45.5-73.1); Platelet Count Result 242 k/mm3 (150-375); Red Blood Count 3.89 M/mm3 (4.2-5.4); Red Cell Distribution Width 13.3 % (11.5-14.5)
[2020-10-30 05:48] LABS: Anion Gap 2 mmol/L (8-16); Blood Urea Nitrogen 37 mg/dL (7-17); Calcium 8.8 mg/dL (8.4-10.2); Carbon Dioxide 34 mmol/L (22-30); Chloride 100 mmol/L (98-107); Estimated CRCL calculation 28 ml/min; Estimated Glomerular Filt Rate 36; Glucose 118 mg/dL (65-110); Magnesium 1.9 mg/dL (1.6-2.3); Potassium 4.5 mmol/L (3.4-5.0); Sodium 136 mmol/L (137-145)
--- NOTE | 2020-10-30 08:05 | PM.IMPN ---
Progress Note: A&P Assessment and Plan (1) Acute respiratory failure with hypoxia: Code(s): J96.01 - Acute respiratory failure with hypoxia Status: Acute (2) CHF (congestive heart failure): Qualifiers: Heart failure chronicity: acute on chronic Heart failure type: diastolic Qualified Code(s): I50.33 - Acute on chronic diastolic (congestive) heart failure Code(s): I50.9 - Heart failure, unspecified Status: Acute (3) Acute renal insufficiency: Code(s): N28.9 - Disorder of kidney and ureter, unspecified Status: Acute (4) CKD (chronic kidney disease), stage III: Qualifiers: Chronic kidney disease stage 3 subtype: stage 3a (GFR 45-59) Qualified Code(s): N18.31 - Chronic kidney disease, stage 3a Code(s): N18.30 - Chronic kidney disease, stage 3 unspecified Status: Acute (5) Edema of both lower legs due to peripheral venous insufficiency: Code(s): I87.2 - Venous insufficiency (chronic) (peripheral); R60.9 - Edema, unspecified Status: Acute (6) Hypokalemia: Code(s): E87.6 - Hypokalemia Status: Acute (7) Left bundle branch block: Code(s): I44.7 - Left bundle-branch block, unspecified Status: Acute (8) GERD (gastroesophageal reflux disease): Qualifiers: Esophagitis presence: without esophagitis Qualified Code(s): K21.9 - Gastro-esophageal reflux disease without esophagitis Code(s): K21.9 - Gastro-esophageal reflux disease without esophagitis Status: Acute Additional Plan 10/27/20 acute hypoxic respiratory failure continue oxygen supplementation . SpO2 noted to be 87% in the field and was placed on oxygen Acute on chronic congestive heart failure diastolic heart failure ejection fraction 65-70% in December of 2019. Continue diuresis as ordered strict I's and O's daily weights recheck echo. chronic left bundle branch block No history of coronary artery disease in the past CKD stage 3 continue to monitor with diuresis hypertension resume home medication DVT prophylaxis Lovenox Full code 10/28/20 Patient admitted with acute exacerbation of diastolic heart failure Patient diuresing well -2.8 L Creatinine actually improving There has been a rise of troponin since admission secondary to demand ischemia related to hypoxia will order 3rd troponin Continue current medical management Continue supportive care Recommendations from Cardiology appreciated 10/29/2020 CHF exacerbation abating with appropriate response to diuresis and medical therapy Continue current care Weaning from oxygen as tolerated Transfer to [facility] Anticipate discharge in 24-48 hours 10/30/20 Blood pressure not at goal Discontinue amlodipine initiate 30 mg of nifedipine and decrease lisinopril by 50% hydralazine 25mg PO TID anticipate dc tomorrow home Subjective Date/time seen: 10/30/20 08:05 Patient doing better would like to go home blood pressure noted still be elevated. This has been discussed with RN at bedside. Additional adjustments blood pressure medications have been made in anticipate patient discharging home tomorrow. Exam Narrative: GEN: NAD, AAOx3, cooperative hard of hearing HEENT: NCAT, MMM, EOMI Neck: no JVD Heart: S1S2 RRR Lungs: CTA B/l Abd: soft, NT, ND, bowel sounds normoactive Ext: moves all, no cyanosis, no clubbing, no edema Neuro: Normal cognition, moves all extremities equally, CN intact Psych: Mood and affect congruent Objective Data Vital Signs Vital Signs: Vital Signs - 24 hr 10/29/20 10:00 10/29/20 12:00 10/29/20 12:51 Temperature 98.8 F Pulse Rate 76 73 70 Respiratory Rate 12 Blood Pressure 142/44 H Pulse Oximetry 100 10/29/20 14:00 10/29/20 16:00 10/29/20 20:00 Temperature 98.7 F Pulse Rate 63 64 70 Respiratory Rate 12 Blood Pressure 130/51 L Pulse Oximetry 98 94 10/29/20 21:05 10/30/20 00:00 10/30/20 02:00 Temperature 96.9 F L
[2020-10-30] MEDS: PANTOPRAZOLE 40 MG TABLET PO (08:12)
[2020-10-30] MEDS: MULTIVITS W-FE,MIN CHEWABLE TABLET 2 TABLET PO (08:12)
[2020-10-30] MEDS: FUROSEMIDE 40 MG TABLET PO (08:13)
[2020-10-30] MEDS: lisinopriL 20 MG TABLET 40 MG PO (08:13)
[2020-10-30] MEDS: ASPIRIN 81 MG CHEWABLE TABLET PO (08:13)
[2020-10-30] MEDS: METOPROLOL SUCCINATE EXT REL 100 MG TABCR PO (10:10)
[2020-10-30] MEDS: NIFEdipine 30 MG TAB.ER.24 PO (10:10)
--- NOTE | 2020-10-30 11:39 | PM.PNCARD ---
Progress Note: A&P Assessment and Plan (1) CHF (congestive heart failure): Qualifiers: Heart failure chronicity: acute on chronic Heart failure type: diastolic Qualified Code(s): I50.33 - Acute on chronic diastolic (congestive) heart failure Code(s): I50.9 - Heart failure, unspecified Status: Acute Assessment and Plan: Presents with respiratory failure with reports of worsening orthopnea, dyspnea with exertion, and leg swelling over the past several weeks. Grade 2 diastolic dysfunction demonstrated by echo in December of 2019. Normal left ventricular systolic function at that time with ejection fraction of 65-70%. Presenting now with acute on chronic congestive heart chest x-ray demonstrated pulmonary edema and bilateral pleural effusions. Continue furosemide 40 mg p.o. b.i.d. Pulmonary edema improving by CXR Daily weights Strict I&O Compression stockings Trend BMP daily (2) Acute respiratory failure with hypoxia: Code(s): J96.01 - Acute respiratory failure with hypoxia Status: Acute Assessment and Plan: Presented with acute respiratory failure with SpO2 noted to be 87% in he field and was placed on nonrebreather. Respiratory status now improved with supplemental oxygen and IV furosemide. (3) Left bundle branch block: Code(s): I44.7 - Left bundle-branch block, unspecified Status: Acute Assessment and Plan: Chronic left bundle branch block. Left heart catheterization performed in May of this year not show any evidence of coronary disease. No anginal symptoms. (4) Hypokalemia: Code(s): E87.6 - Hypokalemia Status: Acute Assessment and Plan: Check BMP daily while on IV diuretic. K+ goal 4.0 (5) Acute renal insufficiency: Code(s): N28.9 - Disorder of kidney and ureter, unspecified Status: Acute Assessment and Plan: BUN/Cr 30/1.30 which appears near her baseline. Kidney function stable with diuresis. Continue to trend BMP daily Subjective Date/time seen: 10/30/20 11:39 Interval history: Follow-up visit in this 85-year-old woman with: Diastolic congestive heart failure with peripheral edema and pleural effusions. Patient is well known to our practice and is known not to have coronary artery disease and has no significant valvular disease she also has well preserved left ventricular systolic contractility. This was observed by cardiac catheterization and by echocardiography earlier this year. She is having a good response to intravenous furosemide. She remains on a high dose of metoprolol, benazepril and amlodipine. Reports that her shortness of breath is noticeably improved compared with admission. Date of service 10/29/2020: Reports that her breathing is better today. Lower extremity edema is resolving. Denies chest pain, palpitations. PVCs and bigeminy noted on telemetry over the last 24 hours. Okay to downgrade to med tele status. Date of service 10/30/2020: Doing well today. Her O2 has been weaned off and she is on room air. No shortness of breath, no chest pain. Still has some lower extremity edema. Review of Systems Review of Systems: All systems reviewed & are unremarkable except as noted in HPI and below Constitutional: Constitutional: Denies excessive sweating, Denies fatigue, Denies headache(s) and Denies weakness Eyes: Eyes: Denies change in vision ENT: Denies Normal hearing present, Denies headache(s) and Reports sore throat Cardiovascular: Cardiovascular: Denies diaphoresis, Reports pedal edema, Reports leg edema, Denies lightheadedness, Denies palpitations, Reports dyspnea and Reports dyspnea on exertion Respiratory: Respiratory: Reports dyspnea and Reports dyspnea on exertion Gastrointestinal: Gastrointestinal: Denies abdominal pain, Denies diarrhea, Denies nausea and Denies vomiting Genitourinary: Genitourinary: Reports no additional female genitourinary complaints Musc
[2020-10-30] MEDS: polyethylene glycoL 3350 17 GM POWD.PACK PO (16:30)
[2020-10-30] MEDS: hydrALAZINE HCL 25 MG TABLET PO (16:30)
[2020-10-30] MEDS: ENOXAPARIN 30 MG/0.3 ML SYRINGE SUB-Q (17:15)
[2020-10-31] VITALS (8 sets, daily range): BP systolic 139–155; BP diastolic 42–64; PULSE 66–104; RESP 16–20; TEMP 36.1–37; O2SAT 93–97
[2020-10-31] MEDS: ASPIRIN 81 MG CHEWABLE TABLET PO (08:56)
[2020-10-31] MEDS: lisinopriL 20 MG TABLET 40 MG PO (08:56)
[2020-10-31] MEDS: MULTIVITS W-FE,MIN CHEWABLE TABLET 2 TABLET PO (08:56)
[2020-10-31] MEDS: NIFEdipine 30 MG TAB.ER.24 PO ×2 (08:57→11:01)
[2020-10-31] MEDS: polyethylene glycoL 3350 17 GM POWD.PACK PO (08:57)
[2020-10-31] MEDS: PANTOPRAZOLE 40 MG TABLET PO (08:57)
[2020-10-31] MEDS: METOPROLOL SUCCINATE EXT REL 100 MG TABCR PO (08:58)
[2020-10-31] MEDS: hydrALAZINE HCL 25 MG TABLET PO (08:58)
[2020-10-31] MEDS: FUROSEMIDE 40 MG TABLET PO (08:58)
--- NOTE | 2020-10-31 09:54 | PM.DS ---
DS: Admitting Diagnosis Discharge Date 10/31/20 Admitting Diagnosis (1) Acute respiratory failure with hypoxia: Code(s): J96.01 - Acute respiratory failure with hypoxia Status: Acute (2) CHF (congestive heart failure): Code(s): I50.9 - Heart failure, unspecified Status: Acute (3) Left bundle branch block: Code(s): I44.7 - Left bundle-branch block, unspecified Status: Acute (4) CKD (chronic kidney disease), stage III: Qualifiers: Chronic kidney disease stage 3 subtype: stage 3a (GFR 45-59) Qualified Code(s): N18.31 - Chronic kidney disease, stage 3a Code(s): N18.30 - Chronic kidney disease, stage 3 unspecified Status: Acute (5) Pre-diabetes: Code(s): R73.03 - Prediabetes Status: Acute (6) Hypertension: Qualifiers: Hypertension type: essential hypertension Qualified Code(s): I10 - Essential (primary) hypertension Code(s): I10 - Essential (primary) hypertension Status: Acute (7) GERD (gastroesophageal reflux disease): Qualifiers: Esophagitis presence: without esophagitis Qualified Code(s): K21.9 - Gastro-esophageal reflux disease without esophagitis Code(s): K21.9 - Gastro-esophageal reflux disease without esophagitis Status: Acute DS: Discharge Diagnosis Discharge Diagnosis (1) Acute respiratory failure with hypoxia: Code(s): J96.01 - Acute respiratory failure with hypoxia Status: Acute (2) Acute renal insufficiency: Code(s): N28.9 - Disorder of kidney and ureter, unspecified Status: Acute (3) Chronic knee pain: Qualifiers: Laterality: bilateral Qualified Code(s): M25.561 - Pain in right knee; M25.562 - Pain in left knee; G89.29 - Other chronic pain Code(s): M25.569 - Pain in unspecified knee; G89.29 - Other chronic pain Status: Acute (4) Left bundle branch block: Code(s): I44.7 - Left bundle-branch block, unspecified Status: Acute (5) CKD (chronic kidney disease), stage III: Qualifiers: Chronic kidney disease stage 3 subtype: stage 3a (GFR 45-59) Qualified Code(s): N18.31 - Chronic kidney disease, stage 3a Code(s): N18.30 - Chronic kidney disease, stage 3 unspecified Status: Acute (6) GERD (gastroesophageal reflux disease): Qualifiers: Esophagitis presence: without esophagitis Qualified Code(s): K21.9 - Gastro-esophageal reflux disease without esophagitis Code(s): K21.9 - Gastro-esophageal reflux disease without esophagitis Status: Acute (7) Acute on chronic diastolic (congestive) heart failure: Code(s): I50.33 - Acute on chronic diastolic (congestive) heart failure Status: Acute (8) Hypertension: Qualifiers: Hypertension type: essential hypertension Qualified Code(s): I10 - Essential (primary) hypertension Code(s): I10 - Essential (primary) hypertension Status: Acute DS: Summary Hospital Course Reason for hospitalization: acute resp failure Hospital Course: 85-year-old female admitted to the hospital with acute hypoxemic respiratory failure requiring supplemental oxygen. Her O2 was noted to be 87% prior to administration of oxygen. She was found to be volume overloaded in acute exacerbation of congestive heart failure and was started with strict I's and O's, diuresis with Lasix, daily weights, were ordered and again demonstrated diastolic heart failure, patient's home medications were continued for her hypertension, GERD, and heart failure. Cardiology was consulted for her heart failure felt that this was biventricular failure in light of her pleural effusions and peripheral edema she responded reasonably well to Lasix and IV. Overall she had a benign clinical course and was successfully weaned from oxygen back to room air prior to her discharge home in stable condition with indications to follow up with her primary care physician and with
== END 2020-10-31 13:35 | disposition home or self-care (01) | DRG 291 ==
LOC: ANHED 02:50 → ANHICU 04:30 → ANH2MED 10-31 09:53 → ANHICU 11-02 13:21 → ANHIMU 11-02 13:21
PROVIDERS: Nurse Practitioner; Admitting Provider Internal Medicine; Emergency Provider Emergency Medicine; PCP Family Medicine; Visit Provider Hospitalist
DX: I13.0 Hypertensive heart and chronic kidney disease with heart failure and stage 1 through stage 4 chronic kidney disease, or unspecified chronic kidney disease (principal); J96.01 Acute respiratory failure with hypoxia; I50.33 Acute on chronic diastolic (congestive) heart failure; I24.8 Other forms of acute ischemic heart disease; N18.31 Chronic kidney disease, stage 3a; K21.9 Gastro-esophageal reflux disease without esophagitis; M19.90 Unspecified osteoarthritis, unspecified site; M85.80 Other specified disorders of bone density and structure, unspecified site; F32.9 Major depressive disorder, single episode, unspecified; I44.7 Left bundle-branch block, unspecified; R73.03 Prediabetes; I87.2 Venous insufficiency (chronic) (peripheral); E66.9 Obesity, unspecified; Z96.642 Presence of left artificial hip joint; Z68.35 Body mass index [BMI] 35.0-35.9, adult; Z90.710 Acquired absence of both cervix and uterus; Z90.49 Acquired absence of other specified parts of digestive tract
CPT/HCPCS: 36415; 36600; 71045; 71046; 80048; 81001; 82805; 83605; 83735; 83880; 84484; 85025; 85610; 85730; 87040; 93005; 94640; 96374; 97110; 97116; 97161; 97165; 97535; 99285; A9270; G0378; J0360; J1650; J1940

== ENCOUNTER 2022-01-14 11:04 | Outpatient (CLI) | payer MEDICARE, SELFPAY ==
--- NOTE | ~2022-01-14 | US_ITS ---
US renal BI 01/14/2022 11:32 Procedure: Realtime transabdominal ultrasound of the kidneys and bladder. Indication: Chronic kidney disease stage III B Comparison: No prior studies for comparison. Findings: Renal echotexture is normal bilaterally without hydronephrosis, contour deforming mass or r enal calculus. The right kidney measures 10 cm and left kidney measures 9.9 cm. Bladder within ximena l limits. Impression: 1: Unremarkable renal ultrasound. No stones, masses or hydronephrosis. Reviewed, dictated and finalized at location A. ONNEL TECHNICIAN Impression: 1: Unremarkable renal ultrasound. No stones, masses or hydronephrosis.
== END 2022-01-14 11:05 | disposition home or self-care (01) ==
PROVIDERS: PCP Family Medicine; Visit Provider Internal Medicine Nephrology
DX: N18.32 Chronic kidney disease, stage 3b (principal); I12.9 Hypertensive chronic kidney disease with stage 1 through stage 4 chronic kidney disease, or unspecified chronic kidney disease
CPT/HCPCS: 76775

== ENCOUNTER 2022-04-07 09:59 | Outpatient (CLI) | payer MEDICARE, SELFPAY ==
[2022-04-07 20:00] LABS: Alanine Aminotransferase 18 U/L (6-35); Albumin Level 4.2 g/dL (3.5-5.1); Alkaline Phosphatase 84 U/L (38-126); Anion Gap 3 mmol/L (8-16); Aspartate Amino Transferase 25 U/L (14-36); Bilirubin,Total 0.6 mg/dL (0.2-1.3); Blood Urea Nitrogen 36 mg/dL (7-17); Calcium 8.8 mg/dL (8.4-10.2); Carbon Dioxide 34 mmol/L (22-30); Chloride 102 mmol/L (98-107); Estimated Glomerular Filt Rate 39; Glucose 101 mg/dL (65-110); Potassium 4.3 mmol/L (3.4-5.0); Sodium 139 mmol/L (137-145)
[2022-04-07 21:29] LABS: Hemoglobin A1C 5.4 % (<5.7)
== END 2022-04-07 10:00 | disposition home or self-care (01) ==
LOC: ANHGOSHLAB 10:01
PROVIDERS: PCP Family Medicine; Visit Provider Family Medicine
DX: R73.03 Prediabetes (principal); I10 Essential (primary) hypertension
CPT/HCPCS: 36415; 80053; 83036

== ENCOUNTER 2023-03-30 10:11 | Outpatient (CLI) | payer MEDICARE, SELFPAY ==
[2023-03-30 19:45] LABS: NT Pro B Type Natriuretic Pept 5570 pg/mL (19.9-100)
[2023-03-30 19:46] LABS: Alanine Aminotransferase 43 U/L (6-35); Albumin Level 3.6 g/dL (3.5-5.1); Alkaline Phosphatase 86 U/L (38-126); Anion Gap 6 mmol/L (8-16); Aspartate Amino Transferase 32 U/L (14-36); Bilirubin,Total 1.2 mg/dL (0.2-1.3); Blood Urea Nitrogen 34 mg/dL (7-17); Calcium 8.7 mg/dL (8.4-10.2); Carbon Dioxide 30 mmol/L (22-30); Chloride 105 mmol/L (98-107); Estimated Glomerular Filt Rate 36; Glucose 114 mg/dL (65-110); Potassium 3.3 mmol/L (3.4-5.0); Sodium 141 mmol/L (137-145)
[2023-03-30 22:37] LABS: Hemoglobin A1C 5.7 % (<5.7)
== END 2023-03-30 10:12 | disposition home or self-care (01) ==
LOC: ANHGOSHLAB 10:12
PROVIDERS: PCP Family Medicine; Visit Provider Family Medicine
DX: I50.9 Heart failure, unspecified (principal); I10 Essential (primary) hypertension; R73.03 Prediabetes
CPT/HCPCS: 36415; 80053; 83036; 83880

== ENCOUNTER 2023-04-06 10:00 | Inpatient (IN) | payer MEDICARE, SELFPAY ==
[2023-04-06] VITALS (14 sets, daily range): BP systolic 135–180; BP diastolic 44–93; PULSE 60–98; RESP 20–30; TEMP 35.9–36.8; O2SAT 89–98; BMI 38.0
--- NOTE | ~2023-04-06 | XR_ITS ---
EXAMINATION: XR chest 1V portable INDICATION: Pleural effusion TECHNIQUE: Portable AP chest at 1401 hours COMPARISON: 04/09/2023 FINDINGS: There is a small right pleural effusion with interval decrease in size. A small stable left pleural effusion is noted. There are stable bibasilar airspace opacities. No pneumothorax is identif ied. There is an old healed fracture of the proximal right humerus. Cardiomegaly is noted. IMPRESSION: 1. Small pleural effusions with improvement on the right. 2. Bibasilar airspace opacities, consistent with atelectasis versus pneumonia. 3. Cardiomegaly. Reviewed, dictated and finalized at location L. ER COSMETOLOGIST
--- NOTE | ~2023-04-06 | XR_ITS ---
Portable chest x-ray Comparison: 04/11/2023 Clinical History: Seizure Findings: Moderate left pleural effusion and small right pleural effusion present. There is probable central congestive change and mild bibasilar pulmonary edema. Cardiomediastinal silhouette is stabl e. Bones and soft tissues are unremarkable. Impression: Moderate left pleural effusion, increased from prior exam. Small right pleural effusion, essentially unchanged. Central congestive change and bibasilar pulmonary edema. Reviewed, dictated and finalized at location M. RONMENTAL ADVISER Impression: Moderate left pleural effusion, increased from prior exam. Small right pleural effusion, essentially unchanged. Central congestive change and bibasilar pulmonary edema.
--- NOTE | ~2023-04-06 | XR_ITS ---
EXAMINATION: XR_[id number]_CR DATE: 04/13/2023 15:32 INDICATION: Left pleural effusion post thoracentesis TECHNIQUE: frontal view of the chest was obtained. COMPARISON: Chest radiograph dated 04/13/2023 FINDINGS: Improved aeration at the left mid and lower lung zone with decrease in size of a now minimal left ple ural effusion. Horizontal region of increased opacity at the cephalad to the left hemidiaphragm which could represent residual atelectasis and/or pneumonia. Gradient of hazy airspace opacities at the ri ght lower lung zone consistent with small right pleural effusion and associated atelectasis and/or pn eumonia. No pneumothorax. Cardiomegaly. Old healed fracture deformity right humeral head. IMPRESSION: 1. Decrease in size of a now minimal left pleural effusion and no pneumothorax post thoracentesis. 2. Opacities in the bilateral lower lung zones consistent with atelectasis and/or pneumonia and likel y associated small right pleural effusion. Reviewed, dictated and finalized at location A. T FITTER IMPRESSION: 1. Decrease in size of a now minimal left pleural effusion and no pneumothorax post thoracentesis. 2. Opacities in the bilateral lower lung zones consistent with atelectasis and/ or pneumonia and likely associated small right pleural effusion.
--- NOTE | ~2023-04-06 | US_ITS ---
EXAMINATION: US thoracentesis DATE: 04/13/2023 15:32 INDICATION: Left pleural effusion TECHNIQUE: The procedure and its risks and benefits were discussed with the patient. Potential risks discussed included bleeding, infection, and pneumothorax. The patient understood the risks and agreed to proceed. The skin was prepped and draped in sterile fashion. 1% lidocaine was used for local anes thesia. Under ultrasound guidance, a 5 Fr catheter with trochar was advanced into the left pleural ef fusion. Fluid was aspirated. The catheter was removed, and a dressing was applied. There were no imme diate complications. FINDINGS: Ultrasound images demonstrate a small left pleural effusion and the catheter within the fluid. IMPRESSION: 1. Successful ultrasound-guided thoracentesis yielding 500 mL of reddish eloy-colored fluid. Reviewed, dictated and finalized at location A. ARE VISITOR IMPRESSION: 1. Successful ultrasound-guided thoracentesis yielding 500 mL of reddish eloy -colored fluid.
--- NOTE | ~2023-04-06 | US_ITS ---
EXAMINATION: US thoracentesis DATE: 04/09/2023 12:32 INDICATION: Bilateral pleural effusions TECHNIQUE: The procedure and its risks and benefits were discussed with the patient. Potential risks discussed included bleeding, infection, and pneumothorax. Prior CT imaging was reviewed which demonst rate relatively equivalent sized bilateral pleural effusion. There did however appear to be a greater degree of atelectasis in the left lung with partial collapse of the left lower lobe and was therefor e elected to proceed with a left-sided thoracentesis. The patient understood the risks and agreed to proceed. The skin was prepped and draped in sterile fashion. 1% lidocaine was used for local anesthes ia. Under ultrasound guidance, a 5 Fr catheter with trochar was advanced into the left pleural effusi on. Fluid was aspirated. The catheter was removed, and a dressing was applied. There were no immediat e complications. FINDINGS: Ultrasound images demonstrate a small left pleural effusion and the catheter within the fluid. IMPRESSION: 1. Successful ultrasound-guided thoracentesis yielding 650 mL of reddish eloy-colored fluid. Reviewed, dictated and finalized at location A. INSPECTOR IMPRESSION: 1. Successful ultrasound-guided thoracentesis yielding 650 mL of reddish eloy -colored fluid.
--- NOTE | ~2023-04-06 | XR_ITS ---
EXAMINATION: XR chest 1V portable DATE: 04/06/2023 10:46 INDICATION: Shortness of breath. Congestive heart failure. TECHNIQUE: A single frontal view of the chest was obtained. COMPARISON: Chest 2 views 10/29/2020, CT abdomen and pelvis 01/06/2020 FINDINGS: There are small right and moderate-sized left pleural effusions. There is a diffuse interst itial pattern in the lungs, consistent with pulmonary edema. No pneumothorax. Cardiomegaly is noted. There is an old healed fracture of proximal right humerus. IMPRESSION: 1. Mild pulmonary edema. 2. Small right and moderate-sized left pleural effusions. 3. Cardiomegaly. Reviewed, dictated and finalized at location A. ER SAMPLE MAKER
--- NOTE | ~2023-04-06 | XR_ITS ---
EXAMINATION: XR_CXR1VTHORA_CR DATE: 04/09/2023 12:12 INDICATION: Status post left thoracentesis TECHNIQUE: frontal view of the chest was obtained. COMPARISON: 04/08/[address] dated 04/06/2023 FINDINGS: Interval complete or near complete resolution of the prior left pleural effusion. There is a persiste nt small to moderate-sized right pleural effusion. Bandlike opacity projecting over the heart in the left mid to lower lung zone which could represent atelectasis, pneumonia. No pneumothorax. Cardiomega ly. Old healed proximal humeral fracture deformity. Cholecystectomy clips in right upper quadrant. IMPRESSION: 1. Interval complete or near complete resolution of a prior left pleural effusion with no pneumothora x. 2. Residual bandlike opacity in the left mid to lower lung zone consistent with residual atelectasis or pneumonia. 3. Unchanged small to moderate right pleural effusion with associated basilar atelectasis and/or pneu monia. 4. Cardiomegaly. Reviewed, dictated and finalized at location A. KER BOSS IMPRESSION: 1. Interval complete or near complete resolution of a prior left pleural effusi on with no pneumothorax. 2. Residual bandlike opacity in the left mid to lower lung zone consistent with residual atelectasis or pneumonia. 3. Unchanged small to moderate right pleural effusion with associated basilar a telectasis and/or pneumonia. 4. Cardiomegaly.
--- NOTE | ~2023-04-06 | XR_ITS ---
EXAMINATION: XR chest 1V portable INDICATION: Pleural effusion TECHNIQUE: Portable AP chest at 1425 hours COMPARISON: 04/13/2023 FINDINGS: There are small to moderate-sized pleural effusions with slight increase on the left since the comparison examination. Bibasilar airspace opacities are stable. There is no pneumothorax. The ca rdiomediastinal silhouette is unchanged. Cardiomegaly is noted. An old healed fracture deformity of t he right humeral head is again noted. IMPRESSION: 1. Lndbb-ap-laammkvc size pleural effusions with slight increase on the left. 2. Stable bibasilar airspace opacities, consistent with atelectasis versus pneumonia. Reviewed, dictated and finalized at location B. MOBILE BODY CUSTOMIZER IMPRESSION: 1. Homdb-bu-chfdyhpm size pleural effusions with slight increase on the left. 2. Stable bibasilar airspace opacities, consistent with atelectasis versus pneu monia.
--- NOTE | ~2023-04-06 | CT_ITS ---
EXAMINATION: CTA chest PE protocol DATE: 04/06/2023 15:18 INDICATION: Shortness of breath. Atrial fibrillation. Elevated d-dimer. TECHNIQUE: Computed tomography (CT) pulmonary angiogram of the chest was performed with 100 mL Omnipa que-350 intravenous contrast. Additional 3D reconstructions utilizing coronal maximum intensity proje ction (MIP) were performed. Automated exposure control and iterative reconstruction technique were em ployed. The dose-length product was 844.26 mGy-cm. COMPARISON: None FINDINGS: There is mild respiratory motion which decreases sensitivity in some of the smaller subsegmental pulm onary arteries at the lung bases. No pulmonary embolism. There are diffuse groundglass opacities and some smooth septal line thickening consistent with mild pulmonary edema. Small bilateral pleural effu sions with collapse of the basilar segments of the left lower lobe and dependent passive atelectasis in the bilateral upper lobes, lingula and right lower lobe. Cardiomegaly with biatrial enlargement. N o pericardial effusion. There is reflux of contrast into the inferior vena cava and hepatic veins con sistent with tricuspid regurgitation. Thoracic aorta is normal in caliber with no dissection. Atheros clerotic calcific a cyst along the aortic arch and the great vessels arising from the arch. No pathol ogically enlarged thoracic lymphadenopathy. Cholecystectomy clips at the gallbladder fossa. There are bridging osteophytes at multiple levels consistent with diffuse idiopathic skeletal hyperostosis (DI SH). Sclerotic likely bone island at T10. IMPRESSION: 1. No pulmonary embolism with sensitivity decreased in some of the smaller basilar subsegmental pulmo nary arteries due to some motion artifact. 2. Cardiomegaly with biatrial enlargement. 3. Mild pulmonary edema and small to moderate-sized posterior layering bilateral pleural effusions wi th associated compressive atelectasis in the dependent lungs. Reviewed, dictated and finalized at location A. ULATOR OPERATOR IMPRESSION: 1. No pulmonary embolism with sensitivity decreased in some of the smaller basi lar subsegmental pulmonary arteries due to some motion artifact. 2. Cardiomegaly with biatrial enlargement. 3. Mild pulmonary edema and small to moderate-sized posterior layering bilatera l pleural effusions with associated compressive atelectasis in the dependent clementina ngs.
--- NOTE | ~2023-04-06 | XR_ITS ---
EXAMINATION: XR chest 1V portable DATE: 04/08/2023 10:24 INDICATION: Bilateral pleural effusions TECHNIQUE: frontal view of the chest was obtained. COMPARISON: Chest radiograph and CT dated 04/06/2023 FINDINGS: No significant interval change accounting for positioning in opacities in the bilateral mid and lower lung zones consistent with moderate-sized bilateral pleural effusions and associated atelectasis and /or pneumonia. No pneumothorax or evident pleural effusion. Cardiomegaly. Old healed proximal right h umeral fracture deformity. IMPRESSION: 1. No significant change in a moderate-sized bilateral pleural effusions with associated atelectasis and/or pneumonia. 2. Cardiomegaly. Reviewed, dictated and finalized at location A. LIFTER BACON IMPRESSION: 1. No significant change in a moderate-sized bilateral pleural effusions with a ssociated atelectasis and/or pneumonia. 2. Cardiomegaly.
--- NOTE | 2023-04-06 09:57 | ED.SOB ---
HPI - SOB/Dyspnea General Chief Complaint: Shortness of Breath/Dyspnea <Leonel Galeana APRN - Last Filed: 04/06/23 17:48> Stated Complaint: diff breathing, chronic AFib <Leonel Galeana APRN - Last Filed: 04/06/23 17:48> Time Seen by Provider: 04/06/23 10:00 <Leonel Galeana APRN - Last Filed: 04/06/23 17:48> Source: patient and EMS <Leonel Galeana APRN - Last Filed: 04/06/23 17:48> Mode of arrival: ambulatory <Leonel Galeana APRN - Last Filed: 04/06/23 17:48> Limitations: no limitations <Leonel Galeana APRN - Last Filed: 04/06/23 17:48> History of Present Illness HPI Narrative: Azucena is an 88-year-old female patient presenting to the clinic today with complaints of shortness of breath and history of chronic AFib per EMS. She reports that her symptoms have been going on approximately 1 week. She saw her primary care provider on March 30 and her BN peptide was 5570 at that time. She takes 40 mg of Lasix b.i.d.. Also takes apixaban, nifedipine, lisinopril, and metoprolol for AFib/hypertension. History of stage III kidney disease. States shortness of breath is increasingly getting worse so she was sent here by residential staff. SpO2 was initially 89% on room air upon arrival. Patient was placed on 4 L of O2. Patient does not wear home oxygen. <Leonel Galeana APRN - Last Filed: 04/06/23 17:48> Related Data Home Medications: Home Medications Medication Instructions Recorded Confirmed acetaminophen 500 mg tablet 500 mg PO Q6H PRN Breakthrough Pain 12/11/20 04/06/23 apixaban 5 mg tablet (Eliquis) 5 mg PO BID 03/30/23 04/06/23 <Leonel Galeana APRN - Last Filed: 04/06/23 17:48> Allergies/Adverse Reactions: Allergies Allergy/AdvReac Type Severity Reaction Status Date / Time Sulfa (Sulfonamide Allergy Unknown unknown Verified 04/06/23 10:18 Antibiotics) tomato Allergy Hives Verified 04/06/23 10:18 <Leonel Galeana APRN - Last Filed: 04/06/23 17:48> Review of Systems Review of Systems: Pertinent positives per HPI. Patient denies any fever, chills, rash, headache, visual changes, dizziness, runny nose, sore throat, chest pain, palpitations, nausea, vomiting, diarrhea, constipation, abdominal pain, or any urinary issues. <Leonel Galeana APRN - Last Filed: 04/06/23 17:48> [facility] Past Medical History Medical History: Medical History Atrial fibrillation CKD (chronic kidney disease), stage III Deaf Depression Edema of both lower legs due to peripheral venous insufficiency GERD (gastroesophageal reflux disease) Hypertension Left bundle branch block Left knee DJD Lymphedema of both lower extremities Obesity Osteoarthritis Osteopenia Paroxysmal atrial fibrillation Pre-diabetes Pulmonary hypertension Right knee DJD <Leonel Galeana APRN - Last Filed: 04/06/23 17:48> Surgical History Surgical History: Surgical History H/O arthroscopy (Unknown) knee H/O total hysterectomy (~1977) H/O tubal ligation (~1977) History of arthroplasty of left hip (Unknown) History of breast biopsy (~1997) left History of cardiac cath (~05/2020) History of cataract surgery 2016 - b/l History of tonsillectomy (Unknown) Hx of cholecystectomy (~1990) Hx of colonoscopy (Unknown) with IH and polypectomy Status post arthroscopy of hip (Unknown) <Leonel Galeana APRN - Last Filed: 04/06/23 17:48> Family History Family History: Family History Father Diabetes mellitus, Onset Age: 89 Hypertension, Onset Age: 89 Cerebrovascular accident, Onset Age: 89 Sibling Diabetes mellitus, Onset Age: 74 Family history of hypercholesterolemia, Onset Age: 74 Hypertension Acute myocardial infarction, Onset Age:
--- NOTE | 2023-04-06 10:03 | ECG_ITS ---
Measurements Intervals [place] Rate: 84 P: NH: 0 QRS: 65 QRSD: 94 T: -31 QT: 380 QTc: 450 Interpretive Statements ATRIAL FIBRILLATION NONSPECIFIC ST & T-WAVE ABNORMALITY ABNORMAL ECG COMPARED TO ECG 10/27/2020 02:44:47 ATRIAL FIBRILLATION NOW PRESENT T-WAVE ABNORMALITY NOW PRESENT Electronically Signed On 04-06-2023 12:41:59 HANDYMAN by Pepe Phillip M.D.
[2023-04-06 11:10] LABS: Add Urine Microscopic? YES; Appearance Urine Clear (Clear); Bacteria Urine None Seen /hpf; Bilirubin Urine Negative (Negative); Blood Urine 2+ (Negative); Color Urine Yellow (Yellow); Glucose Urine UA Negative (Negative); Hyaline Casts Urine Present /lpf; Ketones Urine Negative (Negative); Leukocyte Esterase Ur Negative LEU/UL (Negative); Need Manual Microscopic Reviewed; Nitrate Urine Negative (Negative); Protein Urine Negative (Negative); Specific Grav Ur 1.015 (1.001-1.035); Squamous Epithelial Cell Urine None seen /hpf (Few); Urobilinogen Urine 0.2 mg/dL (<2.0); WBC Urine 0-5 /hpf
[2023-04-06 11:35] LABS: Basophils Percent Auto 0.3 % (0.2-1.2); Eosinophils Percent Auto 0.6 % (0-4.4); Hematocrit 39.5 % (37.0-47.0); Hemoglobin 12.1 g/dL (12.0-15.0); Immature Granulocyte Absolute 0.02 K/mm3 (0.00-0.031); Immature Granulocyte Percent A 0.3 % (0-0.5); Lymphocytes Absolute Auto 0.86 K/mm3 (0.9-3.2); Lymphocytes Percent Auto 12.2 % (18.3-44.2); Mean Corpuscular HGB Conc 30.6 g/dl (32-36); Mean Corpuscular Hemoglobin 31.4 pg (26-34); Mean Corpuscular Volume 102.6 fl (80-100); Mean Platelet Volume 9.7 fl (7.4-10.4); Monocytes Absolute Auto 0.6 K/mm3 (0.1-0.6); Monocytes Percent Auto 8.5 % (2.6-8.5); Neutrophils Absolute Auto 5.5 K/mm3 (1.3-6.7); Neutrophils Percent Auto 78.1 % (45.5-73.1); Platelet Count Result 251 k/mm3 (150-375); Red Blood Count 3.85 M/mm3 (4.2-5.4); Red Cell Distribution Width 15.4 % (11.5-14.5)
[2023-04-06 11:49] LABS: INR 1.4; Prothrombin Time 17.7 Seconds (11.1-14.7)
[2023-04-06 12:00] LABS: D Dimer 1.51 ug/mL (<0.48)
[2023-04-06 12:11] LABS: NT Pro B Type Natriuretic Pept 5740 pg/mL (19.9-100); Troponin I < 0.012 ng/mL (0.000-0.034)
[2023-04-06 12:18] LABS: Influenza A QL RT-PCR Negative (Negative); Influenza B QL RT-PCR Negative (Negative); RSV RNA, RT-PCR Negative (Negative); SARS-CoV-2 RNA PCR Negative (Negative)
[2023-04-06 12:32] LABS: Alanine Aminotransferase 59 U/L (6-35); Albumin Level 3.6 g/dL (3.5-5.1); Alkaline Phosphatase 96 U/L (38-126); Anion Gap 3 mmol/L (8-16); Aspartate Amino Transferase 38 U/L (14-36); Bilirubin,Total 1.1 mg/dL (0.2-1.3); Blood Urea Nitrogen 35 mg/dL (7-17); Calcium 9.3 mg/dL (8.4-10.2); Carbon Dioxide 30 mmol/L (22-30); Chloride 107 mmol/L (98-107); Estimated CRCL calculation 29 ml/min; Estimated Glomerular Filt Rate 39; Glucose 123 mg/dL (65-110); Sodium 140 mmol/L (137-145)
[2023-04-06] MEDS: FUROSEMIDE INJ 40 MG/4 ML VIAL IV PUSH (14:22)
[2023-04-06] MEDS: FUROSEMIDE INJ 40 MG/4 ML VIAL 20 MG IV PUSH (14:22)
--- NOTE | 2023-04-06 16:10 | ADMGEN ---
This patient, Azucena Mcdonald, was admitted to Medical Room 249-01. Patient/family oriented to hospital policies and general routines including ID bracelet, bed and alarms, visiting hours, pain management, procedures, bathroom and other care routines, personal items, smoking policy, room service/diet, and visiting hours. Information on how to activate the Rapid Response Team has been discussed. Patient/Family are encouraged to report perceived risks to care and to ask questions if they do not understand what they are told or what they should do.
--- NOTE | 2023-04-06 19:11 | PM.IMHP ---
H&P: HPI History of Present Illness Date/Time: 04/06/23 18:00 Chief Complaint: Shortness of breath. Narrative: This is a very pleasant 88-year-old female with hypertension, chronic kidney disease stage 3, paroxysmal atrial fibrillation, pulmonary hypertension, and heart failure with preserved ejection fraction presented to the emergency department for evaluation of shortness of breath. The patient provides the following history. She gives a 1 week history of progressive shortness of breath for which she was evaluated by her primary care provider. Labs drawn on 03/30/2023 showed that her BNP was 5570 in her furosemide dose was increased although her symptoms have not been any better. In fact she is becoming increasingly short of breath on lesser and lesser exertion. She endorses mild lower extremity edema and significant orthopnea, she has been getting up and down quite a bit at nighttime and seems to favor sleeping in the recliner the last several days. She denies fever, chest pain, pleuritic pain, nausea, cough, vomiting, and sweats. Upon arrival to triage her SpO2 was 89% on room air and she is currently on 4 L nasal cannula with an SpO2 in the mid 90s. She was afebrile on arrival. D-dimer was mildly elevated and a chest CTA was negative for pulmonary embolism but did show mild pulmonary edema and small to moderate size bilateral pleural effusions with associated compressive atelectasis. ProBNP was 5740. Troponin level was normal. She was given 60 mg IV furosemide and she is being admitted in this setting for further diuresis. Review of Systems Review of Systems: Twelve systems were reviewed and are negative except for as per HPI. [facility] Past Medical History Medical History Chronic anticoagulation Chronic kidney disease, stage 3 Deaf Depression Gastroesophageal reflux disease Heart failure with preserved ejection fraction Echocardiogram in December 2019 showed normal LV size, mild concentric hypertrophy, EF estimated at 65 to 70%, hypokinesis of basal inferolateral wall, and grade 2 diastolic dysfunction as well severe pulmonary hypertension. Hypertension Left bundle branch block Lymphedema of both lower extremities Obesity Osteoarthritis Osteopenia Paroxysmal atrial fibrillation Pre-diabetes Pulmonary hypertension Surgical History Surgical History History of arthroplasty of left hip History of arthroscopic knee surgery History of arthroscopy of hip History of bilateral cataract extraction (2015) History of cardiac cath (05/2020) History of cholecystectomy (1990) History of hysterectomy (1977) History of left breast biopsy (1997) History of tonsillectomy History of tubal ligation (1977) Hx of cholecystectomy (~1990) Hx of colonoscopy Internal hemorrhoids and benign polyp. Family History Family History Father Diabetes mellitus, Onset Age: 89 Hypertension, Onset Age: 89 Cerebrovascular accident, Onset Age: 89 Sibling Diabetes mellitus, Onset Age: 74 Family history of hypercholesterolemia, Onset Age: 74 Hypertension Acute myocardial infarction, Onset Age: 83 Family history of arthritis Family history of malignant neoplasm of urinary bladder, Onset Age: 74 Mother Hypertension, Onset Age: 85 Cerebrovascular accident, Onset Age: 85 Family history of arthritis, Onset Age: 85 Family history of congestive heart failure, Onset Age: 85 Social History Social History Social History: Cdisl-fu-jylbxter: Sonu Mcdonald, son. Code status: Modified code, no intubation. Smoking status: Never smoker Second hand tobacco smoke exposure: No Alcohol intake: never Substance use: never Substance use type: does not use Do You Feel Safe in your Home?
[2023-04-06] MEDS: ALBUTEROL SULFATE (*SP) AEROSOL 1 PUFF INHALATION (22:47)
[2023-04-07] VITALS (15 sets, daily range): BP systolic 144–177; BP diastolic 54–82; PULSE 76–107; RESP 14–26; TEMP 36.4–36.7; O2SAT 90–93
--- NOTE | 2023-04-07 | ECHO_ITS ---
Patient Info Name: Azucena Mcdonald Age: 88 years : 1935 Gender: Female Ht: 62 in Wt: 207 lbs BSA: 2.07 m2 HR: 88 bpm BP: 146 / 60 mmHg Heart Rhythm: Atrial Fibrillation Technical Quality: Fair Exam Date: 04/07/2023 3:55 PM Exam Location: Echo Lab Exam Room: 249 Patient Status: Inpatient Admit Date: 04/07/2023 Staff Ordering Physician: Shaila Kam APRN Milk Wagon Driver: Neena Juarez RDCS Attending Provider: Sole Mckay MD Referring Physician: Eddy GALLEGOS; Exam Type: CA echo dop color flow w con Study Info Indications - chf Complete two-dimensional, color flow and Doppler transthoracic echocardiogram is performed with contrast to opacify the left ventricle and to improve the deliniation of the left ventricle endocardial borders. Contrast/Agitated Saline Contrast/Ag. Saline: Definity Amount: 2.00 ml Administered By: Neena Juarez [facility] Existing IV Access: Yes IV Access Condition: patent with no signs of infiltration New IV Access: Antecubital Space Summary 1. Normal left ventricular size and systolic contractility. 2. Right ventricular enlargement. 3. Biatrial dilation. 4. Sclerotic aortic valve with good leaflet separation. 5. Mild mitral regurgitation. 6. Moderate tricuspid regurgitation, velocity suggests PA pressures are severely elevated, 78 mm Hg. Left Ventricle Left ventricular chamber dimension is normal. Left ventricular systolic function is normal, estimated at 55-60%. There is mild concentric increased left ventricular wall thickness. Right Ventricle Right ventricular chamber dimension is mildly enlarged. Left Atria Left atrial chamber dimension is moderately enlarged. Right Atria Right atrial chamber dimension is moderately enlarged. Aortic Valve The aortic valve is trileaflet. There is mild aortic valve sclerosis. Pulmonic Valve The pulmonic valve is not well visualized. Mitral Valve The mitral valve has normal leaflets. There is mild mitral valve regurgitation. The mitral valve annulus is severely calcified. Tricuspid Valve The tricuspid valve leaflets are normal. There is mild to moderate tricuspid valve regurgitation. Severe pulmonary hypertension, estimated pulmonary arterial systolic pressure is 79 mmHg. Pericardium/Pleural The pericardium appears normal. Aorta The aortic root size at the sinus of Valsalva is normal. Left Ventricular Outflow Tract Name Value Normal LVOT 2D LVOT Diameter 2.03 cm LVOT Doppler LVOT Peak Gradient 6 mmHg LVOT Mean Gradient 3 mmHg LVOT VTI 23.31 cm LVOT VTI/AV VTI Ratio 0.89 LVOT Stroke Volume 75.48 ml LVOT CO 17.37 l/min LVOT CI 8.38 L/min/m2 Pulmonic Valve Name Value Normal PV Doppler PV
[2023-04-07 05:58] LABS: Hematocrit 39.6 % (37.0-47.0); Hemoglobin 12.5 g/dL (12.0-15.0); Mean Corpuscular HGB Conc 31.6 g/dl (32-36); Mean Corpuscular Hemoglobin 32.1 pg (26-34); Mean Corpuscular Volume 101.8 fl (80-100); Mean Platelet Volume 9.8 fl (7.4-10.4); Platelet Count Result 270 k/mm3 (150-375); Red Blood Count 3.89 M/mm3 (4.2-5.4); Red Cell Distribution Width 15.3 % (11.5-14.5)
[2023-04-07 06:11] LABS: Anion Gap 5 mmol/L (8-16); Blood Urea Nitrogen 36 mg/dL (7-17); Calcium 9.2 mg/dL (8.4-10.2); Carbon Dioxide 31 mmol/L (22-30); Chloride 103 mmol/L (98-107); Estimated CRCL calculation 29 ml/min; Estimated Glomerular Filt Rate 39; Glucose 127 mg/dL (65-110); Magnesium 2.1 mg/dL (1.6-2.3); Potassium 4.1 mmol/L (3.4-5.0); Sodium 139 mmol/L (137-145)
[2023-04-07] MEDS: FUROSEMIDE INJ 40 MG/4 ML VIAL IV PUSH ×2 (09:41→17:38)
[2023-04-07] MEDS: METOPROLOL SUCCINATE EXT REL 100 MG TABCR PO (09:42)
[2023-04-07] MEDS: lisinopriL 20 MG TABLET 40 MG PO (09:42)
[2023-04-07] MEDS: APIXABAN 5 MG TABLET PO ×2 (09:42→20:27)
[2023-04-07] MEDS: NIFEdipine 30 MG TAB.ER.24 60 MG PO (09:42)
[2023-04-07] MEDS: PANTOPRAZOLE 40 MG TABLET PO (09:42)
[2023-04-07 10:10] LABS: Cholesterol 125 mg/dL (0-200); HDL Direct 43 mg/dL; Triglycerides 89 mg/dL (<150)
[2023-04-07 10:21] LABS: LDL Cholesterol Direct 66 mg/dL
--- NOTE | 2023-04-07 12:49 | PM.IMPN ---
Progress Note: A&P Assessment and Plan (1) Acute exacerbation of congestive heart failure: Code(s): I50.9 - Heart failure, unspecified Status: Acute (2) Pleural effusion: Code(s): J90 - Pleural effusion, not elsewhere classified Status: Acute (3) Chronic kidney disease, stage 3: Code(s): N18.30 - Chronic kidney disease, stage 3 unspecified Status: Acute (4) Acute respiratory failure with hypoxia: Code(s): J96.01 - Acute respiratory failure with hypoxia Status: Inactive (5) Hypertension: Qualifiers: Hypertension type: unspecified Qualified Code(s): I10 - Essential (primary) hypertension Code(s): I10 - Essential (primary) hypertension Status: Inactive (6) Paroxysmal atrial fibrillation: Code(s): I48.0 - Paroxysmal atrial fibrillation Status: Acute (7) Chronic anticoagulation: Code(s): Z79.01 - terminal gauger (current) use of anticoagulants Status: Acute Plan Acute respiratory failure with hypoxia -secondary to CHF exacerbation -Supplemental O2 wean as tolerated -BL small RT to moderate LT pleural effusion -pulmonary edema -Diuretics -May need Thoracentesis if no improvement CHF -BNP -cardiology consulted -IV Lasix b.i.d. -monitor renal function during diuresis -echocardiogram pending -EKG AFIB -chest x-ray Pulmonary edema -Lipid panel, TSH, liver function test. -Optimize Andrew inhibitors, beta-blockers, ARNI -Daily weights. -fluid restriction -Strict I&O's -elevate/Andrew wrap legs if needed -Antiplatelet therapy, statin therapy, loop diuretics as indicated,. -Optimize blood pressure less than 130/80. -Fall risk assessment. Pleural effusion -Small RT and moderate LT -IV diuretics -incentive spirometer -May need thoracentesis if no improvement chronic renal failure -Stage 3 -monitor closely during diuresis -Avoid nephrotoxic drugs. -Monitor antihypertensive drug therapy. -Avoid NSAIDs. -Routine CMP monitoring GFR. -Monitor electrolytes especially potassium. -Antibiotic doses depending on creatinine clearance. -Pharmacy does medications. -Cr stable 1.3 appears at baseline -Routine follow-up with Nephrology as an outpatient. 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 Continue with IV diuresis may require thoracentesis with no improvement. PT/OT pending however son at bedside who reports patient will return home with him but would like home health. Time Spent With Patient Time with patient: 25 - 35 minutes Subjective Date/time seen: 04/07/23 12:49 Interval history: H&P (Medical Record) This is a very pleasant 88-year-old female with hypertension, chronic kidney disease stage 3, paroxysmal atrial fibrillation, pulmonary hypertension, and heart failure with preserved ejection fraction presented to the emergency department for evaluation of shortness of breath. The patient provides the following history. She gives a 1 week history of progressive shortness of breath for which she was evaluated by her primary care provider. Labs drawn on 03/30/2023 showed that her BNP was 5570 in her furosemide dose was increased although her symptoms have not been any better. In fact she is becoming increasingly short of breath on lesser and lesser exertion. She endorses mild lower extremity edema and significant orthopnea, she has been getting up and down quite a bit at nighttime and seems to favor sleeping in the recliner the last several days. She denies fever, chest pain, pleuritic pain, nausea, cough, vomiting, and sweats
--- NOTE | 2023-04-07 13:53 | PM.CNCAR ---
Assessment and Plan Assessment and plan (1) Heart failure with preserved ejection fraction: Code(s): I50.30 - Unspecified diastolic (congestive) heart failure Status: Acute Assessment and Plan: Acute on chronic diastolic heart failure presenting with progressive dyspnea, orthopnea, and edema. CXR showing mild pulmonary edema and bilateral pleural effusions. Continue diuresis with IV furosemide 40mg b.i.d. Strict I&O Daily weights Compression stockings BP control Will add spironolactone to her regimen Can also consider adding jardiance At some point could consider shifting lisinopril to Entresto Echo has been ordered and is pending (2) Pleural effusion: Code(s): J90 - Pleural effusion, not elsewhere classified Status: Acute Assessment and Plan: Secondary to above. Continue diuresis. (3) Atrial fibrillation: Code(s): I48.91 - Unspecified atrial fibrillation Status: Acute Assessment and Plan: Recent diagnosis. Rate control an anticoagulation with apixaban 5mg b.i.d. Hx GI bleed -monitor for s/s bleeding History of Present Illness History of Present Illness Consult date/time: 04/07/23 13:53 Requesting physician: Shaila Kam, POLY OPERATOR Consult reason: congestive heart failure Reason For Visit: chf/hypoxia Narrative: Azucena Mcdonald is an 88 year old female with chronic diastolic heart failure atrial fibrillation, and chronic left bundle branch block. This is a patient who is followed in our office by Dr. Hdz. She was just seen in the office a couple of weeks ago where she was found to be in atrial fibrillation and she was placed on anticoagulation at that time. She had also been experiencing some progressive dyspnea and an echocardiogram had been ordered but was not yet performed. She presents to the hospital now with worsening dyspnea, orthopnea, and lower extremity edema. She does have chronic bilateral lower extremity edema but she reports worsening of this in recent weeks. She denies chest pain, palpitations. At the time of my evaluation she is sitting comfortably in the chair with nasal cannula oxygen in place and does have some conversational dyspnea but is not in any distress. Review of Systems Review of Systems: All systems reviewed & are unremarkable except as noted in HPI and below PMFSH Past Medical History Medical History Chronic anticoagulation Chronic kidney disease, stage 3 Deaf Depression Gastroesophageal reflux disease Heart failure with preserved ejection fraction Echocardiogram in December 2019 showed normal LV size, mild concentric hypertrophy, EF estimated at 65 to 70%, hypokinesis of basal inferolateral wall, and grade 2 diastolic dysfunction as well severe pulmonary hypertension. Hypertension Left bundle branch block Lymphedema of both lower extremities Obesity Osteoarthritis Osteopenia Paroxysmal atrial fibrillation Pre-diabetes Pulmonary hypertension Surgical History Surgical History History of arthroplasty of left hip History of arthroscopic knee surgery History of arthroscopy of hip History of bilateral cataract extraction (2015) History of cardiac cath (05/2020) History of cholecystectomy (1990) History of hysterectomy (1977) History of left breast biopsy (1997) History of tonsillectomy History of tubal ligation (1977) Hx of cholecystectomy (~1990) Hx of colonoscopy Internal hemorrhoids and benign polyp. Family History Family History Father Diabetes mellitus, Onset Age: 89 Hypertension, Onset Age: 89 Cerebrovascular accident, Onset Age: 89 Sibling Diabetes mellitus, Onset Age: 74 Family history of hypercholesterolemia, Onset Age: 74 Hypertension Acute myocardial infarction, Onset Age: 83 Family history o
[2023-04-07] MEDS: PERFLUTREN LIPID MICROSPHERES 1.5 ML VIAL DILUTED TO 10 ML TOTAL VOLUME IV PUSH (16:15)
--- NOTE | 2023-04-07 16:41 | IVDEFINITY ---
Prior to administration of IV Definity the patient was educated on the risks and benefits of the imaging enhancing agent including potential adverse side effects. The patient verbalized understanding. Allergies were verified. No exclusion criteria were identified and at least one of the following inclusion criteria were met: 1) physician request, 2) patient technically difficult to image (per the [place] [employer] guidelines of two or more segments not discernable within the apical view), or 3) questionable left ventricular function. ?
[2023-04-08] VITALS (10 sets, daily range): BP systolic 123–164; BP diastolic 42–83; PULSE 60–94; RESP 18–22; TEMP 36.3–36.6; O2SAT 90–97
[2023-04-08 05:42] LABS: Hematocrit 42.5 % (37.0-47.0); Mean Corpuscular HGB Conc 30.6 g/dl (32-36); Mean Corpuscular Hemoglobin 31.7 pg (26-34); Mean Corpuscular Volume 103.7 fl (80-100); Mean Platelet Volume 9.8 fl (7.4-10.4); Platelet Count Result 300 k/mm3 (150-375); Red Cell Distribution Width 15.1 % (11.5-14.5); White Blood Count 12.8 K/mm3 (4.5-10.0)
[2023-04-08 05:50] LABS: Alanine Aminotransferase 48 U/L (6-35); Albumin Level 3.9 g/dL (3.5-5.1); Alkaline Phosphatase 89 U/L (38-126); Anion Gap 10 mmol/L (8-16); Aspartate Amino Transferase 32 U/L (14-36); Blood Urea Nitrogen 40 mg/dL (7-17); Calcium 9.5 mg/dL (8.4-10.2); Carbon Dioxide 29 mmol/L (22-30); Chloride 102 mmol/L (98-107); Estimated CRCL calculation 26 ml/min; Estimated Glomerular Filt Rate 33; Glucose 139 mg/dL (65-110); Potassium 4.5 mmol/L (3.4-5.0); Sodium 141 mmol/L (137-145)
[2023-04-08] MEDS: METOPROLOL SUCCINATE EXT REL 100 MG TABCR PO (08:43)
[2023-04-08] MEDS: PANTOPRAZOLE 40 MG TABLET PO (08:43)
[2023-04-08] MEDS: APIXABAN 5 MG TABLET PO (08:43)
[2023-04-08] MEDS: FUROSEMIDE INJ 40 MG/4 ML VIAL IV PUSH (08:43)
[2023-04-08] MEDS: NIFEdipine 30 MG TAB.ER.24 60 MG PO (08:43)
[2023-04-08] MEDS: SPIRONOLACTONE 25 MG TABLET PO (08:43)
[2023-04-08] MEDS: lisinopriL 20 MG TABLET 40 MG PO (08:43)
--- NOTE | 2023-04-08 10:22 | PCOTNOTE ---
Pt with MEDICINE TECH then radiology, pt reports she is too tired to participate in therapy right now. Will check back this afternoon.
--- NOTE | 2023-04-08 12:14 | PM.IMPN ---
Progress Note: A&P Assessment and Plan (1) Acute exacerbation of congestive heart failure: Code(s): I50.9 - Heart failure, unspecified Status: Acute (2) Pleural effusion: Code(s): J90 - Pleural effusion, not elsewhere classified Status: Acute (3) Chronic kidney disease, stage 3: Code(s): N18.30 - Chronic kidney disease, stage 3 unspecified Status: Acute (4) Acute respiratory failure with hypoxia: Code(s): J96.01 - Acute respiratory failure with hypoxia Status: Inactive (5) Hypertension: Qualifiers: Hypertension type: unspecified Qualified Code(s): I10 - Essential (primary) hypertension Code(s): I10 - Essential (primary) hypertension Status: Inactive (6) Paroxysmal atrial fibrillation: Code(s): I48.0 - Paroxysmal atrial fibrillation Status: Acute (7) Chronic anticoagulation: 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 -monitor renal function during diuresis -echocardiogram pending -EKG AFIB -chest x-ray Pulmonary edema -Lipid panel, TSH, liver function test. -Optimize Andrew inhibitors, beta-blockers, ARNI -Daily weights. -fluid restriction -Strict I&O's -elevate/Andrew wrap legs if needed -Antiplatelet therapy, statin therapy, loop diuretics as indicated,. -Optimize blood pressure less than 130/80. -Fall risk assessment. Pleural effusion -Small RT and moderate LT -IV diuretics -spironolactone -incentive spirometer -F/U CXR 04/08 no improvement bilateral moderate pleural effusions -thoracentesis ordered chronic renal failure -Stage 3 -monitor closely during diuresis -Avoid nephrotoxic drugs. -Monitor antihypertensive drug therapy. -Avoid NSAIDs. -Routine CMP monitoring GFR. -Monitor electrolytes especially potassium. -Antibiotic doses depending on creatinine clearance. -Pharmacy does medications. -Cr stable 1.3/1.5 appears at baseline -Routine follow-up with Nephrology as an outpatient. Atrial fibrillation -resumed BB and Apixaban -Controlled -continues color television console monitor HTN -mildly elevated -resumed home medications -BP per unit protocol Code status: Modified Code DVT prophylaxis: eliquis Stress ulcer prophylaxis: Protonix 40 daily PT/OT notes: PT/OT Pending Disposition: Patient continues admission to medical-surgical unit on continuous cardiac monitoring for CHF exacerbation. Continue with IV diuresis no improvement Thoracentesis ordered. PT/OT pending however son at bedside who reports patient will return home with him but would like home health. Time Spent With Patient Time with patient: 25 - 35 minutes Subjective Date/time seen: 04/08/23 12:14 Interval history: H&P (Medical Record) This is a very pleasant 88-year-old female with hypertension, chronic kidney disease stage 3, paroxysmal atrial fibrillation, pulmonary hypertension, and heart failure with preserved ejection fraction presented to the emergency department for evaluation of shortness of breath. The patient provides the following history. She gives a 1 week history of progressive shortness of breath for which she was evaluated by her primary care provider. Labs drawn on 03/30/2023 showed that her BNP was 5570 in her furosemide dose was increased although her symptoms have not been any better. In fact she is becoming increasingly short of breath on lesser and lesser exertion. She endorses mild lower extremity edema and significant orthopnea, she has been getting up and down quite a bit at nighttime and seems to favor sleeping in the recl
--- NOTE | 2023-04-08 12:34 | PCOTNOTE ---
Attempted OT eval at 11:31, pt refused stating she was tired and just got to the chair. Will follow.
[2023-04-08 13:35] LABS: INR 1.7; Prothrombin Time 20.6 Seconds (11.1-14.7)
--- NOTE | 2023-04-08 14:22 | PM.PNCARD ---
Progress Note: A&P Assessment and Plan (1) Atrial fibrillation: Code(s): I48.91 - Unspecified atrial fibrillation Status: Acute (2) Pleural effusion: Code(s): J90 - Pleural effusion, not elsewhere classified Status: Acute Plan 88-year-old lady with: Longstanding hypertension with diastolic noncompliance and left bundle branch block she recently was found to have atrial fibrillation. Admitted and is being treated with intravenous furosemide. So far clinically not much improvement. Echocardiogram demonstrates evidence of severe pulmonary hypertension as well. I will hopefully for the short term advance her furosemide to 80 mg twice daily at this point and continue to follow her clinically. It may be necessary to consider home oxygen requirements when it is time to discharge this lady given her severe PA hypertension. Undoubtedly this is secondary pulmonary hypertension due to hypertensive heart disease and atrial fibrillation. Explained to the patient and the family that will not be able to resolve her edema with diuretics as it has been a chronic problem for her and with her high PA pressures we have to balance her volume status, shortness of breath along with a desire not to result in excessive azotemia Irving Hdz MD [facility] Subjective Date/time seen: Date of service: 04/08/23 14:22 Interval history: Follow-up visit in this 88-year-old woman with: Longstanding hypertension with diastolic noncompliance and longstanding left bundle branch block. Patient was recently found in the office to have atrial fibrillation and was started on anticoagulation with apixaban. Presented to the hospital now with worsening shortness of breath and found to have bilateral pleural effusions. Patient's heart rate is well controlled as is her blood pressure. Now receiving IV furosemide with possibly some improvement in her dyspnea she is also receiving of course nasal cannula oxygen. Exam Const: General: comfortable, no acute distress, alert and awake Orientation/consciousness: patient oriented x3 HENMT: Head: normal to inspection Eyes: General: appearance normal, both eyes and all related structures Pupils: Equal, round and reactive pupils present Neck: Neck: normal visual inspection and supple Carotids: normal carotid upstroke Resp: Effort & Inspection: abnormal respiratory effort Auscultation: not clear to auscultation bilaterally and rales Cardio: Rate: regular rate Rhythm: abnormal rhythm irregularly irregular Heart sounds: S1 normal heart sound present, S2 normal heart sound present and no murmurs GI: Auscultation: normal bowel sounds Skin: General skin exam: normal color Neuro: General: patient oriented x3 Cranial nerves: Yes Equal, round and reactive pupils present Extrem: General: normal to inspection Other: 1-2+ bilateral pretibial and pedal edema Psych: Appearance: grossly normal Mental Status: mental status grossly normal Objective Data Vital Signs Vital Signs: Vital Signs - 24 hr 04/07/23 14:27 04/07/23 15:03 04/07/23 16:00 Temperature 36.5 C Pulse Rate 85 107 H Respiratory Rate 26 H Blood Pressure 153/54 H Pulse Oximetry 91 Oxygen Delivery Nasal Cannula Oxygen Flow Rate 5 04/07/23 17:37 04/07/23 19:47 04/07/23 20:36 Temperature 36.4 C Pulse Rate 91 93 Respiratory Rate 20 20 Blood Pressure 144/56 H 177/82 H Pulse Oximetry 91 90 93 Oxygen Delivery High Flow Nasal Cannula Oxygen Flow Rate 4 04/07/23 20:00 04/08/23 00:00 04/08/23 04:00 Temperature Pulse Rate 100 78 93 Respiratory Rate Blood Pressure Pulse Oximetry Oxygen Delivery Oxygen Flow Rate 04/08/23 04:32 04/08/23 09:11 04/08/23 08:50 Temperature 36.6 C Pulse Rate 60 83 Respiratory Rate 22 H Blood Pressure 164/83 H Pulse Oximetry 90 94 Oxygen Delivery Nasal Cannula Oxygen Flow Rate 4 04/08/23 08:50 04/08/23 12:00 04/08/23 13
[2023-04-08] MEDS: FUROSEMIDE INJ 40 MG/4 ML VIAL 80 MG IV PUSH (16:25)
[2023-04-09] VITALS (10 sets, daily range): BP systolic 115–151; BP diastolic 57–66; PULSE 70–95; RESP 18; TEMP 36.7–36.8; O2SAT 95–98
[2023-04-09 05:57] LABS: Mean Corpuscular HGB Conc 30.8 g/dl (32-36); Mean Corpuscular Hemoglobin 31.8 pg (26-34); Mean Corpuscular Volume 103.4 fl (80-100); Mean Platelet Volume 10.1 fl (7.4-10.4); Platelet Count Result 247 k/mm3 (150-375); Red Blood Count 3.77 M/mm3 (4.2-5.4); Red Cell Distribution Width 14.9 % (11.5-14.5); White Blood Count 8.7 K/mm3 (4.5-10.0)
[2023-04-09 06:43] LABS: Alanine Aminotransferase 39 U/L (6-35); Albumin Level 3.5 g/dL (3.5-5.1); Alkaline Phosphatase 82 U/L (38-126); Anion Gap 4 mmol/L (8-16); Aspartate Amino Transferase 31 U/L (14-36); Bilirubin,Total 2.1 mg/dL (0.2-1.3); Blood Urea Nitrogen 45 mg/dL (7-17); Calcium 9.2 mg/dL (8.4-10.2); Carbon Dioxide 34 mmol/L (22-30); Chloride 102 mmol/L (98-107); Estimated CRCL calculation 27 ml/min; Estimated Glomerular Filt Rate 36; Glucose 112 mg/dL (65-110); Potassium 3.7 mmol/L (3.4-5.0); Sodium 140 mmol/L (137-145)
[2023-04-09] MEDS: NIFEdipine 30 MG TAB.ER.24 60 MG PO (08:07)
[2023-04-09] MEDS: PANTOPRAZOLE 40 MG TABLET PO (08:07)
[2023-04-09] MEDS: FUROSEMIDE INJ 40 MG/4 ML VIAL 80 MG IV PUSH ×2 (08:07→16:44)
[2023-04-09] MEDS: METOPROLOL SUCCINATE EXT REL 100 MG TABCR PO (08:07)
[2023-04-09] MEDS: lisinopriL 20 MG TABLET 40 MG PO (08:07)
[2023-04-09] MEDS: TAMSULOSIN HCL 0.4 MG CAPSULE PO (08:08)
[2023-04-09] MEDS: SPIRONOLACTONE 25 MG TABLET PO (08:08)
--- NOTE | 2023-04-09 08:09 | PM.IMPN ---
Progress Note: A&P Assessment and Plan (1) Acute respiratory failure with hypoxia: Code(s): J96.01 - Acute respiratory failure with hypoxia Status: Inactive Assessment and Plan: 04/09/23: Currently on 9L NC post thoracentesis Continue IS 10/hr while awake Continue to wean for oxygen saturation of 92% (2) Acute exacerbation of congestive heart failure: Code(s): I50.9 - Heart failure, unspecified Status: Acute Assessment and Plan: 04/09/23: Cardiology following Echo resulted with normal LV systolic function with an EF of 55-60%, severe pulmonary hypertension with pulmonary arterial systolic pressure of 79mmHg. Lipid panel normal, TSH 1.330 Continue daily weights Continue IV lasix Continue fluid restriction (3) Pleural effusion: Code(s): J90 - Pleural effusion, not elsewhere classified Status: Acute Assessment and Plan: 04/09/23: Plan for thoracentesis today Pleural fluid sent for culture, gram stain, cytology and pathology Continue IV Lasix BID (4) Chronic kidney disease, stage 3: Code(s): N18.30 - Chronic kidney disease, stage 3 unspecified Status: Acute Assessment and Plan: 04/09/23: BUN 45, Creatinine 1.40 Continue to avoid nephrotoxic medications (5) Hypertension: Qualifiers: Hypertension type: unspecified Qualified Code(s): I10 - Essential (primary) hypertension Code(s): I10 - Essential (primary) hypertension Status: Chronic Assessment and Plan: 04/09/23: Blood pressure stable Continue with home medications (6) Paroxysmal atrial fibrillation: Code(s): I48.0 - Paroxysmal atrial fibrillation Status: Chronic Assessment and Plan: 04/09/23: Continue home medications of Metoprolol and Eliquis (7) Chronic anticoagulation: 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 Work up in the hospital included CXR showing mild pulmonary edema, small right and moderate sized left pleural effusions. Chest CTA was negative for PE, mild pulmonary edema, and small to moderate sized posterior layering bilateral pleural effusions. Labs initially reveled proBNP 5740, Troponin negative, BUN 35, Creatinine 1.30. Lipid panel was normal. Respiratory panel negative. UA shown 2+ urine blood, 11-20 urine RBC's. Patient was started on OV Lasix BID. On examination today patient is alert and oriented x3, sitting in the chair. VSS, she is afebrile, currently on 9L NC post thoracentesis. Patient denies any feet fever, chills, nausea, vomiting, abdominal pain, chest pain, shortness a breath. Lungs are slightly coarse and patient has 3+ bilateral lower extremity edema. Labs today reveal WBC 8.7, BUN 45, Creatinine 1.40, total Bili 2.1, ALT 39. Plan for thoracentesis today with culture, cytology, and pathology labs. Review of Systems Review of Systems: Twelve systems were reviewed and are negative except for as per HPI. All systems reviewed & are unremarkable except as noted in HPI and below Constitutional: Constitutional: Reports as per HPI and Reports no additional constitutional complaints Eyes: Eyes: Reports as per HPI and Reports no additional eye complaints ENT: Reports system reviewed and no additional complaints, except as documented and Reports as per HPI Cardiovascular: Cardiovascular: Reports as per HPI and Reports no additional cardiovascular complaints Respiratory: Respiratory: Reports as per HPI and Reports no additional respiratory complaints Gastrointestinal: Gastrointestinal: Reports as per HPI and Reports no additional gastrointestinal complaints Ge
--- NOTE | 2023-04-09 13:37 | PM.PNCARD ---
Progress Note: A&P Assessment and Plan (1) Atrial fibrillation: Code(s): I48.91 - Unspecified atrial fibrillation Status: Acute (2) Pleural effusion: Code(s): J90 - Pleural effusion, not elsewhere classified Status: Acute (3) Heart failure with preserved ejection fraction: Code(s): I50.30 - Unspecified diastolic (congestive) heart failure Status: Acute (4) Pulmonary hypertension: Code(s): I27.20 - Pulmonary hypertension, unspecified Status: Acute Plan 88-year-old lady with volume overload because of problems involving diastolic dysfunction, recent development of atrial fibrillation as well as significant pulmonary hypertension as noted by echo. We will continue intravenous furosemide as she seems to be benefiting from this clinically and thus far renal function seems to be tolerating this. Hopefully can discharge and another day or 2 as she is desiring discharge and otherwise appears to be stable. She and her family understand that given the reasons for the edema this will not be resolved with medical therapy. It is important following discharge that sodium restriction and lower extremity elevation are practiced regularly and continue a Irving Hdz MD [facility] Subjective Date/time seen: Date of service: 04/09/23 13:37 Interval history: Follow-up visit in this 88-year-old woman with: Longstanding hypertension with diastolic noncompliance and longstanding left bundle branch block. Patient was recently found in the office to have atrial fibrillation and was started on anticoagulation with apixaban. Presented to the hospital now with worsening shortness of breath and found to have bilateral pleural effusions. Patient's heart rate is well controlled as is her blood pressure. Now receiving IV furosemide with possibly some improvement in her dyspnea she is also receiving of course nasal cannula oxygen. Date of service 04/09/2023: The patient is clinically stable she a went for a thoracentesis this morning and had pleural fluid effusion tapped. She appears to be relatively comfortable in her room. Lab dated this morning demonstrates no increase in azotemia. High dose furosemide now being given for volume overload. Patient is asking how long she has to stay in the hospital she would like to go home sooner than later Exam Const: General: comfortable, no acute distress, alert and awake Orientation/consciousness: patient oriented x3 HENMT: Head: normal to inspection Eyes: General: appearance normal, both eyes and all related structures Pupils: Equal, round and reactive pupils present Neck: Neck: normal visual inspection and supple Carotids: normal carotid upstroke Resp: Effort & Inspection: abnormal respiratory effort Auscultation: not clear to auscultation bilaterally and rales Cardio: Rate: regular rate Rhythm: abnormal rhythm irregularly irregular Heart sounds: S1 normal heart sound present, S2 normal heart sound present and no murmurs GI: Auscultation: normal bowel sounds Skin: General skin exam: normal color Neuro: General: patient oriented x3 Cranial nerves: Yes Equal, round and reactive pupils present Extrem: General: normal to inspection Other: Lower extremities have compression hose on. Not unwrapped for exam but edema does appear to be notably improved Psych: Appearance: grossly normal Mental Status: mental status grossly normal Objective Data Vital Signs Vital Signs: Vital Signs - 24 hr 04/08/23 13:56 04/08/23 16:00 04/08/23 21:13 Temperature 36.4 C L 36.3 C L Pulse Rate 94 87 88 Respiratory Rate 20 18 Blood Pressure 123/55 L 149/42 H Pulse Oximetry 97 90 Oxygen Delivery Oxygen Flow Rate 04/08/23 20:00 04/08/23 20:00 04/09/23 00:00 Temperature Pulse Rate 89 83 Respiratory Rate Blood Pressure Pulse Oximetry 94 Oxygen Delivery Nasal Cannula Oxygen Flow Rate 4 04/09/23 04:00 04/09/23 06:00
[2023-04-09 13:50] LABS: pH Pleural Fluid > 7.500 (7.210-7.500)
[2023-04-09 18:51] LABS: Pleural fluid source Pleural fluid
[2023-04-09 18:52] LABS: Appearance Pleural Fluid Bloody (Clear); Color Pleural Fluid Red (Colorless)
[2023-04-09 18:54] LABS: Lymphocytes Pleural Fluid 60 %; Macrophages Pleural Fluid 14 %; Neutrophils Pleural Fluid 23 % (0-25); Nucleated Cell Pleural Fluid 871 /uL (0-1000); RBC Pleural Fluid 45000 /uL (0-0)
[2023-04-09 18:55] LABS: Mesothelial Cells Pleural Flui 3 %
[2023-04-10] VITALS (13 sets, daily range): BP systolic 92–136; BP diastolic 52–65; PULSE 59–86; RESP 16–18; TEMP 36.3–36.6; O2SAT 95–99
[2023-04-10 05:08] LABS: Hematocrit 38.9 % (37.0-47.0); Mean Corpuscular HGB Conc 30.8 g/dl (32-36); Mean Corpuscular Hemoglobin 31.3 pg (26-34); Mean Corpuscular Volume 101.3 fl (80-100); Mean Platelet Volume 9.9 fl (7.4-10.4); Platelet Count Result 231 k/mm3 (150-375); Red Blood Count 3.84 M/mm3 (4.2-5.4); Red Cell Distribution Width 14.6 % (11.5-14.5); White Blood Count 7.9 K/mm3 (4.5-10.0)
[2023-04-10 05:23] LABS: Alanine Aminotransferase 34 U/L (6-35); Albumin Level 3.3 g/dL (3.5-5.1); Alkaline Phosphatase 85 U/L (38-126); Anion Gap 2 mmol/L (8-16); Aspartate Amino Transferase 22 U/L (14-36); Bilirubin,Total 1.7 mg/dL (0.2-1.3); Blood Urea Nitrogen 48 mg/dL (7-17); Calcium 8.9 mg/dL (8.4-10.2); Carbon Dioxide 35 mmol/L (22-30); Chloride 99 mmol/L (98-107); Estimated CRCL calculation 24 ml/min; Estimated Glomerular Filt Rate 30; Glucose 115 mg/dL (65-110); Potassium 3.5 mmol/L (3.4-5.0); Sodium 136 mmol/L (137-145)
--- NOTE | 2023-04-10 07:50 | P.PNIM_ITS ---
Progress Note: A&P Assessment and Plan (1) Acute respiratory failure with hypoxia: Code(s): J96.01 - Acute respiratory failure with hypoxia Status: Inactive Assessment and Plan: 04/09/23: * Currently on 9L NC post thoracentesis * Continue IS 10/hr while awake * Continue to wean for oxygen saturation of 92% 04/10/23: * Currently on 3 L nasal cannula * Continue IS while awake * Continue to wean 4 and O2 sat greater than 92% (2) Acute exacerbation of congestive heart failure: Code(s): I50.9 - Heart failure, unspecified Status: Acute Assessment and Plan: 04/09/23: * Cardiology following * Echo resulted with normal LV systolic function with an EF of 55-60%, severe pulmonary hypertension with pulmonary arterial systolic pressure of 79mmHg. * Lipid panel normal, TSH 1.330 * Continue daily weights * Continue IV lasix * Continue fluid restriction 04/10/23: * No change to current treatment plan (3) Pleural effusion: Code(s): J90 - Pleural effusion, not elsewhere classified Status: Acute Assessment and Plan: 04/09/23: * Plan for thoracentesis today * Pleural fluid sent for culture, gram stain, cytology and pathology * Continue IV Lasix BID 04/10/23: * Patient had 650 mL removed with thoracentesis yesterday * Labs are still pending * Continue IV Lasix b.i.d. (4) Chronic kidney disease, stage 3: Code(s): N18.30 - Chronic kidney disease, stage 3 unspecified Status: Acute Assessment and Plan: 04/09/23: * BUN 45, Creatinine 1.40 * Continue to avoid nephrotoxic medications 04/10/23: * BUN 48, creatinine 1.6 * Continue to trend labs (5) Hypertension: Qualifiers: Hypertension type: unspecified Qualified Code(s): I10 - Essential (primary) hypertension Code(s): I10 - Essential (primary) hypertension Status: Chronic Assessment and Plan: 04/09/23: * Blood pressure stable * Continue with home medications 04/10/23: * No change to current treatment plan (6) Paroxysmal atrial fibrillation: Code(s): I48.0 - Paroxysmal atrial fibrillation Status: Chronic Assessment and Plan: 04/09/23: * Continue home medications of Metoprolol and Eliquis 04/10/23: * No change to current treatment plan (7) Chronic anticoagulation: 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 Work up in the hospital included CXR showing mild pulmonary edema, small right and moderate sized left pleural effusions. Chest CTA was negative for PE, mild pulmonary edema, and small to moderate sized posterior layering bilateral pleural effusions. Labs initially reveled proBNP 5740, Troponin negative, BUN 35, Creatinine 1.30. Lipid panel was normal. Respiratory panel negative. UA shown 2+ urine blood, 11-20 urine RBC's. Patient was started on OV Lasix BID. On examination today patient is alert and oriented x3, sitting in the chair. VSS, she is afebrile, currently on 9L NC post thoracentesis. Patient denies any feet fever, chills, nausea, vomiting, abdominal pain, chest pain, shortness a breath. Lungs are slightly coarse and pat
--- NOTE | 2023-04-10 07:50 | PM.IMPN ---
Progress Note: A&P Assessment and Plan (1) Acute respiratory failure with hypoxia: Code(s): J96.01 - Acute respiratory failure with hypoxia Status: Inactive Assessment and Plan: 04/09/23: Currently on 9L NC post thoracentesis Continue IS 10/hr while awake Continue to wean for oxygen saturation of 92% 04/10/23: Currently on 3 L nasal cannula Continue IS while awake Continue to wean 4 and O2 sat greater than 92% (2) Acute exacerbation of congestive heart failure: Code(s): I50.9 - Heart failure, unspecified Status: Acute Assessment and Plan: 04/09/23: Cardiology following Echo resulted with normal LV systolic function with an EF of 55-60%, severe pulmonary hypertension with pulmonary arterial systolic pressure of 79mmHg. Lipid panel normal, TSH 1.330 Continue daily weights Continue IV lasix Continue fluid restriction 04/10/23: No change to current treatment plan (3) Pleural effusion: Code(s): J90 - Pleural effusion, not elsewhere classified Status: Acute Assessment and Plan: 04/09/23: Plan for thoracentesis today Pleural fluid sent for culture, gram stain, cytology and pathology Continue IV Lasix BID 04/10/23: Patient had 650 mL removed with thoracentesis yesterday Labs are still pending Continue IV Lasix b.i.d. (4) Chronic kidney disease, stage 3: Code(s): N18.30 - Chronic kidney disease, stage 3 unspecified Status: Acute Assessment and Plan: 04/09/23: BUN 45, Creatinine 1.40 Continue to avoid nephrotoxic medications 04/10/23: BUN 48, creatinine 1.6 Continue to trend labs (5) Hypertension: Qualifiers: Hypertension type: unspecified Qualified Code(s): I10 - Essential (primary) hypertension Code(s): I10 - Essential (primary) hypertension Status: Chronic Assessment and Plan: 04/09/23: Blood pressure stable Continue with home medications 04/10/23: No change to current treatment plan (6) Paroxysmal atrial fibrillation: Code(s): I48.0 - Paroxysmal atrial fibrillation Status: Chronic Assessment and Plan: 04/09/23: Continue home medications of Metoprolol and Eliquis 04/10/23: No change to current treatment plan (7) Chronic anticoagulation: Code(s): 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 Work up in the hospital included CXR showing mild pulmonary edema, small right and moderate sized left pleural effusions. Chest CTA was negative for PE, mild pulmonary edema, and small to moderate sized posterior layering bilateral pleural effusions. Labs initially reveled proBNP 5740, Troponin negative, BUN 35, Creatinine 1.30. Lipid panel was normal. Respiratory panel negative. UA shown 2+ urine blood, 11-20 urine RBC's. Patient was started on OV Lasix BID. On examination today patient is alert and oriented x3, sitting in the chair. VSS, she is afebrile, currently on 9L NC post thoracentesis. Patient denies any feet fever, chills, nausea, vomiting, abdominal pain, chest pain, shortness a breath. Lungs are slightly coarse and patient has 3+ bilateral lower extremity edema. Labs today reveal WBC 8.7, BUN 45, Creatinine 1.40, total Bili 2.1, ALT 39. Plan for thoracentesis today with culture, cytology, and pathology labs. 04/10/23: Currently on 3L NC, VSS, she is afebrile. Labs today revealed sodium 136, BUN 48, creatinine 1.6, EGFR 30, total bili down to 1.7, liver enzymes are normal, total protein 6.0, albumin 3.3. Patient had 650 mL removed with ultrasound-guided thoracentesis yesterday.
[2023-04-10] MEDS: NIFEdipine 30 MG TAB.ER.24 60 MG PO (08:20)
[2023-04-10] MEDS: PANTOPRAZOLE 40 MG TABLET PO (08:20)
[2023-04-10] MEDS: FUROSEMIDE INJ 40 MG/4 ML VIAL 80 MG IV PUSH ×2 (08:20→16:43)
[2023-04-10] MEDS: TAMSULOSIN HCL 0.4 MG CAPSULE PO (08:20)
[2023-04-10] MEDS: METOPROLOL SUCCINATE EXT REL 100 MG TABCR PO (08:20)
[2023-04-10] MEDS: SPIRONOLACTONE 25 MG TABLET PO (08:20)
[2023-04-10] MEDS: lisinopriL 20 MG TABLET 40 MG PO (08:20)
[2023-04-10] MEDS: SENNOSIDES 8.6 MG TABLET PO (12:53)
--- NOTE | 2023-04-10 15:30 | PM.PNCARD ---
Progress Note: A&P Assessment and Plan (1) Atrial fibrillation: Code(s): I48.91 - Unspecified atrial fibrillation Status: Acute (2) Pleural effusion: Code(s): J90 - Pleural effusion, not elsewhere classified Status: Acute (3) Heart failure with preserved ejection fraction: Code(s): I50.30 - Unspecified diastolic (congestive) heart failure Status: Acute (4) Pulmonary hypertension: Code(s): I27.20 - Pulmonary hypertension, unspecified Status: Acute (5) CHF (congestive heart failure): Qualifiers: Heart failure chronicity: acute on chronic Heart failure type: diastolic Qualified Code(s): I50.33 - Acute on chronic diastolic (congestive) heart failure Code(s): I50.9 - Heart failure, unspecified Status: Deleted Assessment and Plan: Acute on chronic diastolic heart failure presenting with progressive dyspnea, orthopnea, and edema. CXR showing mild pulmonary edema and bilateral pleural effusions. Now s/p thoracentesis removing 1L fluid. Still has rales on exam. Continue diuresis with IV furosemide but will reduce to 40mg IV Daily BMP while diuresing Strict I&O Daily weights Compression stockings BP control Wean O2 as tolerated Continue spironolactone Can also consider adding jardiance At some point could consider shifting lisinopril to Entresto Echo shows preserved LV systolic function with severe pHTN (6) Acute respiratory failure with hypoxia: Code(s): J96.01 - Acute respiratory failure with hypoxia Status: Inactive Assessment and Plan: Secondary to above. Improving. (7) Left bundle branch block: Code(s): I44.7 - Left bundle-branch block, unspecified Status: Acute Assessment and Plan: Chronic left bundle branch block. Left heart catheterization performed in May of this year not show any evidence of coronary disease. No anginal symptoms. (8) Hypokalemia: Code(s): E87.6 - Hypokalemia Status: Resolved Assessment and Plan: Check BMP daily while on IV diuretic. K+ goal 4.0 (9) Acute renal insufficiency: Code(s): N28.9 - Disorder of kidney and ureter, unspecified Status: Resolved Assessment and Plan: BUN/Cr 30/1.30 which appears near her baseline. Kidney function stable with diuresis. Continue to trend BMP daily Subjective Date/time seen: 04/10/23 15:30 Interval history: Follow-up visit in this 88-year-old woman with: Longstanding hypertension with diastolic noncompliance and longstanding left bundle branch block. Patient was recently found in the office to have atrial fibrillation and was started on anticoagulation with apixaban. Presented to the hospital now with worsening shortness of breath and found to have bilateral pleural effusions. Patient's heart rate is well controlled as is her blood pressure. Now receiving IV furosemide with possibly some improvement in her dyspnea she is also receiving of course nasal cannula oxygen. Date of service 04/09/2023: The patient is clinically stable she a went for a thoracentesis this morning and had pleural fluid effusion tapped. She appears to be relatively comfortable in her room. Lab dated this morning demonstrates no increase in azotemia. High dose furosemide now being given for volume overload. Patient is asking how long she has to stay in the hospital she would like to go home sooner than later Date of service 04/10/2023: Feeling better following thoracentesis yesterday but she is still requiring oxygen. Edema persists but improving. Review of Systems Review of Systems: All systems reviewed & are unremarkable except as noted in HPI and below Exam Const: General: comfortable, no acute distress, alert and awake Orientation/consciousness: patient oriented x3 HENMT: Head: normal to inspection Eyes: General: appearance normal, both eyes and all related structures Pupils: Equal, roun
[2023-04-11] VITALS (14 sets, daily range): BP systolic 108–116; BP diastolic 48–56; PULSE 64–97; RESP 16; TEMP 36.2–36.6; O2SAT 91–99
[2023-04-11 06:03] LABS: Hematocrit 36.2 % (37.0-47.0); Hemoglobin 11.2 g/dL (12.0-15.0); Mean Corpuscular HGB Conc 30.9 g/dl (32-36); Mean Corpuscular Hemoglobin 31.6 pg (26-34); Mean Corpuscular Volume 102.3 fl (80-100); Mean Platelet Volume 10.1 fl (7.4-10.4); Platelet Count Result 210 k/mm3 (150-375); Red Blood Count 3.54 M/mm3 (4.2-5.4); Red Cell Distribution Width 14.4 % (11.5-14.5); White Blood Count 7.9 K/mm3 (4.5-10.0)
[2023-04-11 06:12] LABS: Alanine Aminotransferase 24 U/L (6-35); Albumin Level 3.1 g/dL (3.5-5.1); Alkaline Phosphatase 78 U/L (38-126); Anion Gap 2 mmol/L (8-16); Aspartate Amino Transferase 16 U/L (14-36); Bilirubin,Total 1.3 mg/dL (0.2-1.3); Blood Urea Nitrogen 58 mg/dL (7-17); Calcium 8.5 mg/dL (8.4-10.2); Carbon Dioxide 34 mmol/L (22-30); Chloride 99 mmol/L (98-107); Estimated CRCL calculation 19 ml/min; Estimated Glomerular Filt Rate 24; Glucose 117 mg/dL (65-110); Potassium 3.7 mmol/L (3.4-5.0); Sodium 135 mmol/L (137-145)
--- NOTE | 2023-04-11 08:46 | PM.PNCARD ---
Progress Note: A&P Assessment and Plan (1) Atrial fibrillation: Qualifiers: Atrial fibrillation type: paroxysmal Qualified Code(s): I48.0 - Paroxysmal atrial fibrillation Code(s): I48.91 - Unspecified atrial fibrillation Status: Acute Assessment and Plan: Recent diagnosis. Rate control an anticoagulation with apixaban 5mg b.i.d. Hx GI bleed -monitor for s/s bleeding (2) Pleural effusion: Code(s): J90 - Pleural effusion, not elsewhere classified Status: Acute Assessment and Plan: S/p thoracentesis on 04/09. Resume Xarelto. (3) Heart failure with preserved ejection fraction: Qualifiers: Heart failure chronicity: acute on chronic Qualified Code(s): I50.33 - Acute on chronic diastolic (congestive) heart failure Code(s): I50.30 - Unspecified diastolic (congestive) heart failure Status: Acute Assessment and Plan: Acute on chronic diastolic heart failure presenting with progressive dyspnea, orthopnea, and edema. CXR showing mild pulmonary edema and bilateral pleural effusions. Now s/p thoracentesis removing 1L fluid. Still has rales on exam. Echo shows preserved LV systolic function with severe pHTN Furosemide on hold today because of KAY. Hopefully can resume at lower dose tomorrow Daily BMP while diuresing Strict I&O Daily weights Compression stockings BP control Wean O2 as tolerated Continue spironolactone Can also consider adding jardiance At some point could consider shifting lisinopril to Entrest (4) Pulmonary hypertension: Code(s): I27.20 - Pulmonary hypertension, unspecified Status: Acute (5) CHF (congestive heart failure): Qualifiers: Heart failure chronicity: acute on chronic Heart failure type: diastolic Qualified Code(s): I50.33 - Acute on chronic diastolic (congestive) heart failure Code(s): I50.9 - Heart failure, unspecified Status: Deleted Assessment and Plan: Acute on chronic diastolic heart failure presenting with progressive dyspnea, orthopnea, and edema. CXR showing mild pulmonary edema and bilateral pleural effusions. Now s/p thoracentesis removing 1L fluid. Still has rales on exam. Continue diuresis with IV furosemide but will reduce to 40mg IV Daily BMP while diuresing Strict I&O Daily weights Compression stockings BP control Wean O2 as tolerated Continue spironolactone Can also consider adding jardiance At some point could consider shifting lisinopril to Entresto Echo shows preserved LV systolic function with severe pHTN (6) Acute respiratory failure with hypoxia: Code(s): J96.01 - Acute respiratory failure with hypoxia Status: Inactive Assessment and Plan: Secondary to above. Improving. (7) Left bundle branch block: Code(s): I44.7 - Left bundle-branch block, unspecified Status: Acute Assessment and Plan: Chronic left bundle branch block. Left heart catheterization performed in May of this year not show any evidence of coronary disease. No anginal symptoms. (8) Hypokalemia: Code(s): E87.6 - Hypokalemia Status: Resolved Assessment and Plan: Check BMP daily while on IV diuretic. K+ goal 4.0 (9) Acute renal insufficiency: Code(s): N28.9 - Disorder of kidney and ureter, unspecified Status: Resolved Assessment and Plan: BUN/Cr 30/1.30 which appears near her baseline. Kidney function stable with diuresis. Continue to trend BMP daily Subjective Date/time seen: 04/11/23 08:46 Interval history: Follow-up visit in this 88-year-old woman with: Longstanding hypertension with diastolic noncompliance and longstanding left bundle branch block. Patient was recently found in the office to have atrial fibrillation and was started on anticoagulation with apixaban. Presented to the hospital now with worsening shortness of breath and found to have bilateral pleural
[2023-04-11] MEDS: NIFEdipine 30 MG TAB.ER.24 60 MG PO (09:37)
[2023-04-11] MEDS: TAMSULOSIN HCL 0.4 MG CAPSULE PO (09:37)
[2023-04-11] MEDS: PANTOPRAZOLE 40 MG TABLET PO (09:38)
[2023-04-11] MEDS: SPIRONOLACTONE 25 MG TABLET PO (09:38)
[2023-04-11] MEDS: lisinopriL 20 MG TABLET 40 MG PO (09:38)
[2023-04-11] MEDS: SENNOSIDES 8.6 MG TABLET PO (09:38)
[2023-04-11] MEDS: METOPROLOL SUCCINATE EXT REL 100 MG TABCR PO (09:44)
--- NOTE | 2023-04-11 13:12 | P.PNIM_ITS ---
Progress Note: A&P Assessment and Plan (1) Acute respiratory failure with hypoxia: Code(s): J96.01 - Acute respiratory failure with hypoxia Status: Inactive Assessment and Plan: 04/09/23: * Currently on 9L NC post thoracentesis * Continue IS 10/hr while awake * Continue to wean for oxygen saturation of 92% 04/10/23: * Currently on 3 L nasal cannula * Continue IS while awake * Continue to wean 4 and O2 sat greater than 92% 04/11/2023: * currently on 2 L nasal cannula, nursing had patient down to room air when resting however requiring 2 L with exertion. * continue IS * wean O2 to keep oxygen saturation greater than 92% * will repeat chest x-ray today * May consider home O2 eval tomorrow (2) Acute exacerbation of congestive heart failure: Code(s): I50.9 - Heart failure, unspecified Status: Acute Assessment and Plan: 04/09/23: * Cardiology following * Echo resulted with normal LV systolic function with an EF of 55-60%, severe pulmonary hypertension with pulmonary arterial systolic pressure of 79mmHg. * Lipid panel normal, TSH 1.330 * Continue daily weights * Continue IV lasix * Continue fluid restriction 04/10/23: * No change to current treatment plan 04/11/2023: * cardiology following * Lasix on hold * patient was placed on spironolactone per Cardiology * continue daily weights * continue with fluid restriction (3) Pleural effusion: Code(s): J90 - Pleural effusion, not elsewhere classified Status: Acute Assessment and Plan: 04/09/23: * Plan for thoracentesis today * Pleural fluid sent for culture, gram stain, cytology and pathology * Continue IV Lasix BID 04/10/23: * Patient had 650 mL removed with thoracentesis yesterday * Labs are still pending * Continue IV Lasix b.i.d. 04/11/2023: * will check chest x-ray again today * Lasix currently on hold per Cardiology * spironolactone ordered per Cardiology * pleural fluid labs and cultures are still pending (4) Chronic kidney disease, stage 3: Code(s): N18.30 - Chronic kidney disease, stage 3 unspecified Status: Acute Assessment and Plan: 04/09/23: * BUN 45, Creatinine 1.40 * Continue to avoid nephrotoxic medications 04/10/23: * BUN 48, creatinine 1.6 * Continue to trend labs 04/11/2023: * BUN 58, creatinine 2.0 * Lasix currently on hold * continue to hold nephrotoxic medication * will defer to Cardiology team on whether not to hold spironolactone (5) Hypertension: Qualifiers: Hypertension type: unspecified Qualified Code(s): I10 - Essential (primary) hypertension Code(s): I10 - Essential (primary) hypertension Status: Chronic Assessment and Plan: 04/09/23: * Blood pressure stable * Continue with home medications 04/10/23: * No change to current treatment plan (6) Paroxysmal atrial fibrillation: Code(s): I48.0 - Paroxysmal atrial fibrillation Status: Chronic Assessment and Plan: 04/09/23: * Continue home medications of Metoprolol and Eliquis 04/10/23: * No change to current treatment plan (7) Chronic anticoagulation: Code(s): Z79.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
--- NOTE | 2023-04-11 13:12 | PM.IMPN ---
Progress Note: A&P Assessment and Plan (1) Acute respiratory failure with hypoxia: Code(s): J96.01 - Acute respiratory failure with hypoxia Status: Inactive Assessment and Plan: 04/09/23: Currently on 9L NC post thoracentesis Continue IS 10/hr while awake Continue to wean for oxygen saturation of 92% 04/10/23: Currently on 3 L nasal cannula Continue IS while awake Continue to wean 4 and O2 sat greater than 92% 04/11/2023: currently on 2 L nasal cannula, nursing had patient down to room air when resting however requiring 2 L with exertion. continue IS wean O2 to keep oxygen saturation greater than 92% will repeat chest x-ray today May consider home O2 eval tomorrow (2) Acute exacerbation of congestive heart failure: Code(s): I50.9 - Heart failure, unspecified Status: Acute Assessment and Plan: 04/09/23: Cardiology following Echo resulted with normal LV systolic function with an EF of 55-60%, severe pulmonary hypertension with pulmonary arterial systolic pressure of 79mmHg. Lipid panel normal, TSH 1.330 Continue daily weights Continue IV lasix Continue fluid restriction 04/10/23: No change to current treatment plan 04/11/2023: cardiology following Lasix on hold patient was placed on spironolactone per Cardiology continue daily weights continue with fluid restriction (3) Pleural effusion: Code(s): J90 - Pleural effusion, not elsewhere classified Status: Acute Assessment and Plan: 04/09/23: Plan for thoracentesis today Pleural fluid sent for culture, gram stain, cytology and pathology Continue IV Lasix BID 04/10/23: Patient had 650 mL removed with thoracentesis yesterday Labs are still pending Continue IV Lasix b.i.d. 04/11/2023: will check chest x-ray again today Lasix currently on hold per Cardiology spironolactone ordered per Cardiology pleural fluid labs and cultures are still pending (4) Chronic kidney disease, stage 3: Code(s): N18.30 - Chronic kidney disease, stage 3 unspecified Status: Acute Assessment and Plan: 04/09/23: BUN 45, Creatinine 1.40 Continue to avoid nephrotoxic medications 04/10/23: BUN 48, creatinine 1.6 Continue to trend labs 04/11/2023: BUN 58, creatinine 2.0 Lasix currently on hold continue to hold nephrotoxic medication will defer to Cardiology team on whether not to hold spironolactone (5) Hypertension: Qualifiers: Hypertension type: unspecified Qualified Code(s): I10 - Essential (primary) hypertension Code(s): I10 - Essential (primary) hypertension Status: Chronic Assessment and Plan: 04/09/23: Blood pressure stable Continue with home medications 04/10/23: No change to current treatment plan (6) Paroxysmal atrial fibrillation: Code(s): I48.0 - Paroxysmal atrial fibrillation Status: Chronic Assessment and Plan: 04/09/23: Continue home medications of Metoprolol and Eliquis 04/10/23: No change to current treatment plan (7) Chronic anticoagulation: Code(s): 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 Work up in the hospital included CXR showing mild pulmonary edema, small right and moderate sized left pleural effusions. Chest CTA was negative for PE, mild pulmonary edema, and small to moderate sized posterior layering bilateral pleural effusions. Labs initially reveled proBNP 5740, Troponin negative, BUN 35, Creatinine 1.30. Lipid panel was normal. Respiratory panel negative. UA shown 2+ urine blood, 11
[2023-04-12] VITALS (13 sets, daily range): BP systolic 97–127; BP diastolic 45–58; PULSE 75–104; RESP 18; TEMP 36.3–36.7; O2SAT 77–97
[2023-04-12 05:18] LABS: Hematocrit 38.2 % (37.0-47.0); Hemoglobin 11.8 g/dL (12.0-15.0); Mean Corpuscular HGB Conc 30.9 g/dl (32-36); Mean Corpuscular Hemoglobin 31.4 pg (26-34); Mean Corpuscular Volume 101.6 fl (80-100); Platelet Count Result 227 k/mm3 (150-375); Red Blood Count 3.76 M/mm3 (4.2-5.4); Red Cell Distribution Width 14.4 % (11.5-14.5); White Blood Count 7.6 K/mm3 (4.5-10.0)
[2023-04-12 05:38] LABS: Alanine Aminotransferase 23 U/L (6-35); Albumin Level 3.3 g/dL (3.5-5.1); Alkaline Phosphatase 82 U/L (38-126); Anion Gap 4 mmol/L (8-16); Aspartate Amino Transferase 20 U/L (14-36); Bilirubin,Total 1.3 mg/dL (0.2-1.3); Blood Urea Nitrogen 60 mg/dL (7-17); Calcium 8.8 mg/dL (8.4-10.2); Carbon Dioxide 32 mmol/L (22-30); Chloride 99 mmol/L (98-107); Estimated CRCL calculation 20 ml/min; Estimated Glomerular Filt Rate 25; Glucose 128 mg/dL (65-110); Sodium 135 mmol/L (137-145)
[2023-04-12 05:53] LABS: Potassium 3.6 mmol/L (3.4-5.0)
[2023-04-12] MEDS: TAMSULOSIN HCL 0.4 MG CAPSULE PO (08:47)
[2023-04-12] MEDS: SENNOSIDES 8.6 MG TABLET PO (08:48)
[2023-04-12] MEDS: METOPROLOL SUCCINATE EXT REL 100 MG TABCR PO (08:48)
[2023-04-12] MEDS: PANTOPRAZOLE 40 MG TABLET PO (08:48)
[2023-04-12] MEDS: NIFEdipine 30 MG TAB.ER.24 60 MG PO (08:48)
[2023-04-12] MEDS: SPIRONOLACTONE 25 MG TABLET PO (08:48)
[2023-04-12] MEDS: lisinopriL 20 MG TABLET 40 MG PO (08:48)
[2023-04-12 11:59] LABS: LDH Pleural Fluid 156 U/L; Total Protein Pleural Fluid <3.0 g/dL
[2023-04-12 11:59] LABS: Glucose Pleural Fluid 121 mg/dL
--- NOTE | 2023-04-12 14:51 | PM.PNCARD ---
Progress Note: A&P Assessment and Plan (1) Atrial fibrillation: Qualifiers: Atrial fibrillation type: paroxysmal Qualified Code(s): I48.0 - Paroxysmal atrial fibrillation Code(s): I48.91 - Unspecified atrial fibrillation Status: Acute Assessment and Plan: AFib with RVR is a recent diagnosis. Heart rate much better controlled on Toprol XL 100 mg daily. Resume systemic anticoagulation with apixaban 5mg b.i.d. for stroke risk reduction. Given history of GI bleed closely monitor for s/s bleeding and follow H&H daily. (2) Heart failure with preserved ejection fraction: Qualifiers: Heart failure chronicity: acute on chronic Qualified Code(s): I50.33 - Acute on chronic diastolic (congestive) heart failure Code(s): I50.30 - Unspecified diastolic (congestive) heart failure Status: Acute Assessment and Plan: Preserved LV systolic function, EF 55-60%. Acute on chronic diastolic heart failure presenting with progressive dyspnea, orthopnea, and edema. CXR showing mild pulmonary edema and bilateral pleural effusions. Now s/p thoracentesis removing 1L fluid. Still has rales on exam. Echo shows preserved LV systolic function with severe pHTN Resume furosemide 40 mg IV q.12 hours. Monitor blood pressure closely. Daily BMP while diuresing Strict I&O Daily weights Compression stockings Monitor BP. BP borderline low intermittently. Reduce lisinopril to 20 mg daily. Repeat BMP in a.m.. Resume Lasix if renal function and BP stable. Wean O2 as tolerated Continue spironolactone 25 mg daily. Consider adding jardiance (3) Acute renal insufficiency: Code(s): N28.9 - Disorder of kidney and ureter, unspecified Status: Resolved Assessment and Plan: BUN/Cr 30/1.30 which appears near her baseline. Kidney function stable with diuresis. Continue to trend BMP daily (4) Pulmonary hypertension: Code(s): I27.20 - Pulmonary hypertension, unspecified Status: Acute Assessment and Plan: Severe pulmonary hypertension RVSP 78 mm Hg with moderate TR. (5) Acute respiratory failure with hypoxia: Code(s): J96.01 - Acute respiratory failure with hypoxia Status: Inactive Assessment and Plan: Secondary to above, CHF. Improving. (6) Pleural effusion: Code(s): J90 - Pleural effusion, not elsewhere classified Status: Acute Assessment and Plan: S/p thoracentesis on 04/09. Resume systemic anticoagulation for stroke risk reduction with Eliquis.. (7) Left bundle branch block: Code(s): I44.7 - Left bundle-branch block, unspecified Status: Acute Assessment and Plan: Chronic left bundle branch block. Left heart catheterization performed in May of this year not show any evidence of coronary disease. No anginal symptoms. (8) Hypokalemia: Code(s): E87.6 - Hypokalemia Status: Resolved Assessment and Plan: Check BMP daily. K+ goal 4.0, stable at this time. Subjective Date/time seen: Date of service: 04/12/23 14:51 Interval history: Follow-up visit in this 88-year-old woman with: Longstanding hypertension with diastolic noncompliance and longstanding left bundle branch block. Patient was recently found in the office to have atrial fibrillation and was started on anticoagulation with apixaban. Presented to the hospital now with worsening shortness of breath and found to have bilateral pleural effusions. Patient's heart rate is well controlled as is her blood pressure. Now receiving IV furosemide with possibly some improvement in her dyspnea she is also receiving of course nasal cannula oxygen. Date of service 04/09/2023: The patient is clinically stable she a went for a thoracentesis this morning and had pleural fluid effusion tapped. She appears to be relatively comfortable in her room. Lab dated this morning demonstrates no increase in azotemia. High dose furosemide now
--- NOTE | 2023-04-12 15:54 | P.PNIM_ITS ---
Progress Note: A&P Assessment and Plan (1) Acute respiratory failure with hypoxia: Code(s): J96.01 - Acute respiratory failure with hypoxia Status: Inactive Assessment and Plan: 04/09/23: * Currently on 9L NC post thoracentesis * Continue IS 10/hr while awake * Continue to wean for oxygen saturation of 92% 04/10/23: * Currently on 3 L nasal cannula * Continue IS while awake * Continue to wean 4 and O2 sat greater than 92% 04/11/2023: * currently on 2 L nasal cannula, nursing had patient down to room air when resting however requiring 2 L with exertion. * continue IS * wean O2 to keep oxygen saturation greater than 92% * will repeat chest x-ray today * May consider home O2 eval tomorrow 04/12/2023: * Currently on 2 L nasal cannula * Continue IS * Start PAP therapy * Will get a home O2 eval tomorrow * Likely will discharge tomorrow (2) Acute exacerbation of congestive heart failure: Code(s): I50.9 - Heart failure, unspecified Status: Acute Assessment and Plan: 04/09/23: * Cardiology following * Echo resulted with normal LV systolic function with an EF of 55-60%, severe pulmonary hypertension with pulmonary arterial systolic pressure of 79mmHg. * Lipid panel normal, TSH 1.330 * Continue daily weights * Continue IV lasix * Continue fluid restriction 04/10/23: * No change to current treatment plan 04/11/2023: * cardiology following * Lasix on hold * patient was placed on spironolactone per Cardiology * continue daily weights * continue with fluid restriction 04/12/2023: * Cardiology following * Lasix is on hold * Continue spironolactone * Continue daily weights (3) Pleural effusion: Code(s): J90 - Pleural effusion, not elsewhere classified Status: Acute Assessment and Plan: 04/09/23: * Plan for thoracentesis today * Pleural fluid sent for culture, gram stain, cytology and pathology * Continue IV Lasix BID 04/10/23: * Patient had 650 mL removed with thoracentesis yesterday * Labs are still pending * Continue IV Lasix b.i.d. 04/11/2023: * will check chest x-ray again today * Lasix currently on hold per Cardiology * spironolactone ordered per Cardiology * pleural fluid labs and cultures are still pending 04/12/2023: * No change to current treatment plan (4) Chronic kidney disease, stage 3: Code(s): N18.30 - Chronic kidney disease, stage 3 unspecified Status: Acute Assessment and Plan: 04/09/23: * BUN 45, Creatinine 1.40 * Continue to avoid nephrotoxic medications 04/10/23: * BUN 48, creatinine 1.6 * Continue to trend labs 04/11/2023: * BUN 58, creatinine 2.0 * Lasix currently on hold * continue to hold nephrotoxic medication * will defer to Cardiology team on whether not to hold spironolactone 04/12/2023: * Lasix still on hold * Continue to hold nephrotoxic medication * Continue spironolactone * BUN 60, creatinine 1.9 * Continue to trend (5) Hypertension: Qualifiers: Hypertension type: unspecified Qualified Code(s): I10 - Essential (primary) hypertension Code(s): I10 - Essential (primary) hypertension Status: Chronic Assessment and Plan: 04/09/23: * Blood pressure stable * Continue with home medications 04/10/23: * No change to current treatment plan (6) Paroxysmal atrial fibrillation: Code(s): I48.0 - Paroxysmal atrial fibrillation Status: Chronic Assessmen
--- NOTE | 2023-04-12 15:54 | PM.IMPN ---
Progress Note: A&P Assessment and Plan (1) Acute respiratory failure with hypoxia: Code(s): J96.01 - Acute respiratory failure with hypoxia Status: Inactive Assessment and Plan: 04/09/23: Currently on 9L NC post thoracentesis Continue IS 10/hr while awake Continue to wean for oxygen saturation of 92% 04/10/23: Currently on 3 L nasal cannula Continue IS while awake Continue to wean 4 and O2 sat greater than 92% 04/11/2023: currently on 2 L nasal cannula, nursing had patient down to room air when resting however requiring 2 L with exertion. continue IS wean O2 to keep oxygen saturation greater than 92% will repeat chest x-ray today May consider home O2 eval tomorrow 04/12/2023: Currently on 2 L nasal cannula Continue IS Start PAP therapy Will get a home O2 eval tomorrow Likely will discharge tomorrow (2) Acute exacerbation of congestive heart failure: Code(s): I50.9 - Heart failure, unspecified Status: Acute Assessment and Plan: 04/09/23: Cardiology following Echo resulted with normal LV systolic function with an EF of 55-60%, severe pulmonary hypertension with pulmonary arterial systolic pressure of 79mmHg. Lipid panel normal, TSH 1.330 Continue daily weights Continue IV lasix Continue fluid restriction 04/10/23: No change to current treatment plan 04/11/2023: cardiology following Lasix on hold patient was placed on spironolactone per Cardiology continue daily weights continue with fluid restriction 04/12/2023: Cardiology following Lasix is on hold Continue spironolactone Continue daily weights (3) Pleural effusion: Code(s): J90 - Pleural effusion, not elsewhere classified Status: Acute Assessment and Plan: 04/09/23: Plan for thoracentesis today Pleural fluid sent for culture, gram stain, cytology and pathology Continue IV Lasix BID 04/10/23: Patient had 650 mL removed with thoracentesis yesterday Labs are still pending Continue IV Lasix b.i.d. 04/11/2023: will check chest x-ray again today Lasix currently on hold per Cardiology spironolactone ordered per Cardiology pleural fluid labs and cultures are still pending 04/12/2023: No change to current treatment plan (4) Chronic kidney disease, stage 3: Code(s): N18.30 - Chronic kidney disease, stage 3 unspecified Status: Acute Assessment and Plan: 04/09/23: BUN 45, Creatinine 1.40 Continue to avoid nephrotoxic medications 04/10/23: BUN 48, creatinine 1.6 Continue to trend labs 04/11/2023: BUN 58, creatinine 2.0 Lasix currently on hold continue to hold nephrotoxic medication will defer to Cardiology team on whether not to hold spironolactone 04/12/2023: Lasix still on hold Continue to hold nephrotoxic medication Continue spironolactone BUN 60, creatinine 1.9 Continue to trend (5) Hypertension: Qualifiers: Hypertension type: unspecified Qualified Code(s): I10 - Essential (primary) hypertension Code(s): I10 - Essential (primary) hypertension Status: Chronic Assessment and Plan: 04/09/23: Blood pressure stable Continue with home medications 04/10/23: No change to current treatment plan (6) Paroxysmal atrial fibrillation: Code(s): I48.0 - Paroxysmal atrial fibrillation Status: Chronic Assessment and Plan: 04/09/23: Continue home medications of Metoprolol and Eliquis 04/10/23: No change to current treatment plan (7) Chronic anticoagulation: Code(s): 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
--- NOTE | 2023-04-12 16:35 | PCRCNOTE ---
Pt was napping and asked to do 2 min walk later.
[2023-04-12] MEDS: ACETAMINOPHEN 500 MG TABLET PO (19:41)
[2023-04-12] MEDS: APIXABAN 5 MG TABLET PO (19:42)
[2023-04-13] VITALS (16 sets, daily range): BP systolic 117–153; BP diastolic 45–61; PULSE 66–102; RESP 18; TEMP 36.1–36.6; O2SAT 94–98
[2023-04-13 05:21] LABS: Hematocrit 37.3 % (37.0-47.0); Hemoglobin 11.8 g/dL (12.0-15.0); Mean Corpuscular HGB Conc 31.6 g/dl (32-36); Mean Corpuscular Hemoglobin 31.9 pg (26-34); Mean Corpuscular Volume 100.8 fl (80-100); Mean Platelet Volume 9.9 fl (7.4-10.4); Platelet Count Result 236 k/mm3 (150-375); White Blood Count 6.2 K/mm3 (4.5-10.0)
[2023-04-13 05:38] LABS: Alanine Aminotransferase 20 U/L (6-35); Albumin Level 3.2 g/dL (3.5-5.1); Alkaline Phosphatase 81 U/L (38-126); Anion Gap 3 mmol/L (8-16); Aspartate Amino Transferase 18 U/L (14-36); Blood Urea Nitrogen 55 mg/dL (7-17); Calcium 8.7 mg/dL (8.4-10.2); Carbon Dioxide 33 mmol/L (22-30); Chloride 99 mmol/L (98-107); Estimated CRCL calculation 23 ml/min; Estimated Glomerular Filt Rate 28; Glucose 118 mg/dL (65-110); Potassium 3.7 mmol/L (3.4-5.0); Sodium 135 mmol/L (137-145)
--- NOTE | 2023-04-13 07:18 | PM.DS ---
DS: Admitting Diagnosis Discharge Date 04/13/23 Admitting Diagnosis Acute exacerbation of congestive heart failure Pleural effusion CKD stage 3 Acute respiratory failure with hypoxia hypertension Paroxysmal atrial fibrillation Chronic anticoagulation DS: Discharge Diagnosis Discharge Diagnosis (1) Acute respiratory failure with hypoxia: Code(s): J96.01 - Acute respiratory failure with hypoxia Status: Inactive (2) Acute exacerbation of congestive heart failure: Code(s): I50.9 - Heart failure, unspecified Status: Acute (3) Pleural effusion: Code(s): J90 - Pleural effusion, not elsewhere classified Status: Acute (4) Chronic kidney disease, stage 3: Code(s): N18.30 - Chronic kidney disease, stage 3 unspecified Status: Acute (5) Hypertension: Qualifiers: Hypertension type: unspecified Qualified Code(s): I10 - Essential (primary) hypertension Code(s): I10 - Essential (primary) hypertension Status: Chronic (6) Paroxysmal atrial fibrillation: Code(s): I48.0 - Paroxysmal atrial fibrillation Status: Chronic (7) Chronic anticoagulation: Code(s): Z79.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 Work up in the hospital included CXR showing mild pulmonary edema, small right and moderate sized left pleural effusions. Chest CTA was negative for PE, mild pulmonary edema, and small to moderate sized posterior layering bilateral pleural effusions.? Labs initially reveled proBNP 5740, Troponin negative, BUN 35, Creatinine 1.30. Lipid panel was normal. Respiratory panel negative. UA shown 2+ urine blood, 11-20 urine RBC's. Patient was started on OV Lasix BID. On examination today patient is alert and oriented x3, sitting in the chair.? VSS, she is afebrile, currently on 9L NC post thoracentesis. Patient denies any feet fever, chills, nausea, vomiting, abdominal pain, chest pain, shortness a breath.? Lungs are slightly coarse and patient has 3+ bilateral lower extremity edema.? Labs today reveal WBC 8.7, BUN 45, Creatinine 1.40, total Bili 2.1, ALT 39. Plan for thoracentesis today with culture, cytology, and pathology labs. 04/10/23: Currently on 3L NC, VSS, she is afebrile. Labs today revealed sodium 136, BUN 48, creatinine 1.6, EGFR 30, total bili down to 1.7, liver enzymes are normal, total protein 6.0, albumin 3.3.? Patient had 650 mL removed with ultrasound-guided thoracentesis yesterday.? Patient reports that she has not had a bowel movement in 5 days otherwise no other complaints.? Encourage patient to continue with IS 10 times an hour while awake and work with PT and OT to wean oxygen. 04/11/23: ? Currently on 2 L nasal cannula, vital signs are stable, she is afebrile.? Labs today revealed hemoglobin 11.2, hematocrit 36.2, sodium 135, BUN 58, creatinine 2.0, blood sugars ranging 112-117, liver enzymes are normal, total bili is down to 1.3 today, albumin 3.1, total protein 6.0.? We will go ahead and repeat chest x-ray showing small pleural effusion with improvement on the right, bibasilar airspace opacities consistent with atelectasis versus pneumonia.? Patient currently on 2 L nasal cannula the nurse had her wean down to room air while resting however whenever she exerts herself she is requiring the 2 L still.? Continue with aggressive pulmonary toilet. 04/12/2023: Currently patient is remains on 2 L nasal cannula, vital signs are stable, she is afebrile.? Labs today reveal sodium of 135, BUN 60, creatinine 1.9, blood sugars ranging 117-128, albumin 3.3.? Will order
[2023-04-13] MEDS: PANTOPRAZOLE 40 MG TABLET PO (09:06)
[2023-04-13] MEDS: SENNOSIDES 8.6 MG TABLET PO (09:06)
[2023-04-13] MEDS: METOPROLOL SUCCINATE EXT REL 100 MG TABCR PO (09:06)
[2023-04-13] MEDS: lisinopriL 20 MG TABLET PO (09:06)
[2023-04-13] MEDS: NIFEdipine 30 MG TAB.ER.24 60 MG PO (09:06)
[2023-04-13] MEDS: TAMSULOSIN HCL 0.4 MG CAPSULE PO (09:06)
[2023-04-13] MEDS: SPIRONOLACTONE 25 MG TABLET PO (09:07)
[2023-04-13 09:10] LABS: INR 1.2; Prothrombin Time 15.7 Seconds (11.1-14.7)
[2023-04-13 09:12] LABS: Partial Thromboplastin Time 41.6 SECONDS (22.3-36.8)
--- NOTE | 2023-04-13 11:06 | PM.PNCARD ---
Progress Note: A&P Assessment and Plan (1) Heart failure with preserved ejection fraction: Qualifiers: Heart failure chronicity: acute on chronic Qualified Code(s): I50.33 - Acute on chronic diastolic (congestive) heart failure Code(s): I50.30 - Unspecified diastolic (congestive) heart failure Status: Acute Assessment and Plan: Preserved LV systolic function, EF 55-60%. Acute on chronic diastolic heart failure presenting with progressive dyspnea, orthopnea, and edema. CXR showing mild pulmonary edema and bilateral pleural effusions. Now s/p thoracentesis removing 1L fluid. Still has rales on exam. Echo shows preserved LV systolic function with severe pHTN Resume furosemide 40 mg IV q.12 hours. Monitor blood pressure closely. Daily BMP while diuresing Strict I&O Daily weights Compression stockings Monitor BP. BP borderline low intermittently. Reduce lisinopril to 20 mg daily. Renal function improving slowly, Lasix resumed as above. Wean O2 as tolerated Continue spironolactone 25 mg daily. Consider adding Jardiance as BP and renal function permit. (2) Atrial fibrillation: Qualifiers: Atrial fibrillation type: paroxysmal Qualified Code(s): I48.0 - Paroxysmal atrial fibrillation Code(s): I48.91 - Unspecified atrial fibrillation Status: Acute Assessment and Plan: AFib with RVR is a recent diagnosis. Heart rate much better controlled on Toprol XL 100 mg daily. Resume systemic anticoagulation with apixaban 5mg b.i.d. for stroke risk reduction depending on timing with thoracentesis. Given history of GI bleed closely monitor for s/s bleeding and follow H&H daily. Heart rate remains stable with infrequent elevations heart rate likely related to activity. (3) Acute renal insufficiency: Code(s): N28.9 - Disorder of kidney and ureter, unspecified Status: Resolved Assessment and Plan: Acute on chronic kidney injury, baseline 1.3, peak 1.9 improving to 1.7 this morning. Resume lower dose Lasix 40 mg IV q.12 hours. Continue to trend BMP daily (4) Pleural effusion: Code(s): J90 - Pleural effusion, not elsewhere classified Status: Acute Assessment and Plan: S/p thoracentesis on 04/09. Resume systemic anticoagulation for stroke risk reduction with Eliquis. However, Eliquis held this morning for possible left thoracentesis due to increased size of pleural effusion on x-ray from this morning. (5) Acute respiratory failure with hypoxia: Code(s): J96.01 - Acute respiratory failure with hypoxia Status: Inactive Assessment and Plan: Secondary to above, CHF. Improving. She remains on supplemental O2 however. (6) Left bundle branch block: Code(s): I44.7 - Left bundle-branch block, unspecified Status: Acute Assessment and Plan: Chronic left bundle branch block. Left heart catheterization performed in May of this year not show any evidence of coronary disease. No anginal symptoms. (7) Pulmonary hypertension: Code(s): I27.20 - Pulmonary hypertension, unspecified Status: Acute Assessment and Plan: Severe pulmonary hypertension RVSP 78 mm Hg with moderate TR. (8) Hypokalemia: Code(s): E87.6 - Hypokalemia Status: Resolved Assessment and Plan: Check BMP daily. K+ goal 4.0, stable at this time. Subjective Date/time seen: Date of service: 04/13/23 11:06 Interval history: Follow-up visit in this 88-year-old woman with: Longstanding hypertension with diastolic noncompliance and longstanding left bundle branch block. Patient was recently found in the office to have atrial fibrillation and was started on anticoagulation with apixaban. Presented to the hospital now with worsening shortness of breath and found to have bilateral pleural effusions. Patient's heart rate is well controlled as is her blood pressure. Now receiving IV furosemide with possibly some
--- NOTE | 2023-04-13 13:39 | P.PNIM_ITS ---
Progress Note: A&P Assessment and Plan (1) Acute respiratory failure with hypoxia: Code(s): J96.01 - Acute respiratory failure with hypoxia Status: Inactive Assessment and Plan: 04/09/23: * Currently on 9L NC post thoracentesis * Continue IS 10/hr while awake * Continue to wean for oxygen saturation of 92% 04/10/23: * Currently on 3 L nasal cannula * Continue IS while awake * Continue to wean 4 and O2 sat greater than 92% 04/11/2023: * currently on 2 L nasal cannula, nursing had patient down to room air when resting however requiring 2 L with exertion. * continue IS * wean O2 to keep oxygen saturation greater than 92% * will repeat chest x-ray today * May consider home O2 eval tomorrow 04/12/2023: * Currently on 2 L nasal cannula * Continue IS * Start PAP therapy * Will get a home O2 eval tomorrow * Likely will discharge tomorrow 04/13/2023: * remains on 2 L nasal cannula * continue aggressive pulmonary toilet * chest x-ray today showing a moderate left pleural effusion which is changed from previous * patient was made NPO and Eliquis was held. We plan to get an ultrasound- guided thoracentesis today. * We will hold off on discharge. (2) Acute exacerbation of congestive heart failure: Code(s): I50.9 - Heart failure, unspecified Status: Acute Assessment and Plan: 04/09/23: * Cardiology following * Echo resulted with normal LV systolic function with an EF of 55-60%, severe pulmonary hypertension with pulmonary arterial systolic pressure of 79mmHg. * Lipid panel normal, TSH 1.330 * Continue daily weights * Continue IV lasix * Continue fluid restriction 04/10/23: * No change to current treatment plan 04/11/2023: * cardiology following * Lasix on hold * patient was placed on spironolactone per Cardiology * continue daily weights * continue with fluid restriction 04/12/2023: * Cardiology following * Lasix is on hold * Continue spironolactone * Continue daily weights 04/13/2023: * no change to current treatment plan (3) Pleural effusion: Code(s): J90 - Pleural effusion, not elsewhere classified Status: Acute Assessment and Plan: 04/09/23: * Plan for thoracentesis today * Pleural fluid sent for culture, gram stain, cytology and pathology * Continue IV Lasix BID 04/10/23: * Patient had 650 mL removed with thoracentesis yesterday * Labs are still pending * Continue IV Lasix b.i.d. 04/11/2023: * will check chest x-ray again today * Lasix currently on hold per Cardiology * spironolactone ordered per Cardiology * pleural fluid labs and cultures are still pending 04/12/2023: * No change to current treatment plan 04/13/2023: * see above treatment plan as she has a new developed left moderate pleural effusion on chest x-ray today, will get ultrasound guided thoracentesis today. (4) Chronic kidney disease, stage 3: Code(s): N18.30 - Chronic kidney disease, stage 3 unspecified Status: Acute Assessment and Plan: 04/09/23: * BUN 45, Creatinine 1.40 * Continue to avoid nephrotoxic medications 04/10/23: * BUN 48, creatinine 1.6 * Continue to trend labs 04/11/2023: * BUN 58, creatinine 2.0 * Lasix currently on hold * continue to hold nephrotoxic medication * will defer to Cardiology team on whether not to hold spironolactone 04/12/2023: * Lasix still on hold * Continue to hold nephrotoxic medication * Continue spironolactone
--- NOTE | 2023-04-13 13:39 | PM.IMPN ---
Progress Note: A&P Assessment and Plan (1) Acute respiratory failure with hypoxia: Code(s): J96.01 - Acute respiratory failure with hypoxia Status: Inactive Assessment and Plan: 04/09/23: Currently on 9L NC post thoracentesis Continue IS 10/hr while awake Continue to wean for oxygen saturation of 92% 04/10/23: Currently on 3 L nasal cannula Continue IS while awake Continue to wean 4 and O2 sat greater than 92% 04/11/2023: currently on 2 L nasal cannula, nursing had patient down to room air when resting however requiring 2 L with exertion. continue IS wean O2 to keep oxygen saturation greater than 92% will repeat chest x-ray today May consider home O2 eval tomorrow 04/12/2023: Currently on 2 L nasal cannula Continue IS Start PAP therapy Will get a home O2 eval tomorrow Likely will discharge tomorrow 04/13/2023: remains on 2 L nasal cannula continue aggressive pulmonary toilet chest x-ray today showing a moderate left pleural effusion which is changed from previous patient was made NPO and Eliquis was held. We plan to get an ultrasound-guided thoracentesis today. We will hold off on discharge. (2) Acute exacerbation of congestive heart failure: Code(s): I50.9 - Heart failure, unspecified Status: Acute Assessment and Plan: 04/09/23: Cardiology following Echo resulted with normal LV systolic function with an EF of 55-60%, severe pulmonary hypertension with pulmonary arterial systolic pressure of 79mmHg. Lipid panel normal, TSH 1.330 Continue daily weights Continue IV lasix Continue fluid restriction 04/10/23: No change to current treatment plan 04/11/2023: cardiology following Lasix on hold patient was placed on spironolactone per Cardiology continue daily weights continue with fluid restriction 04/12/2023: Cardiology following Lasix is on hold Continue spironolactone Continue daily weights 04/13/2023: no change to current treatment plan (3) Pleural effusion: Code(s): J90 - Pleural effusion, not elsewhere classified Status: Acute Assessment and Plan: 04/09/23: Plan for thoracentesis today Pleural fluid sent for culture, gram stain, cytology and pathology Continue IV Lasix BID 04/10/23: Patient had 650 mL removed with thoracentesis yesterday Labs are still pending Continue IV Lasix b.i.d. 04/11/2023: will check chest x-ray again today Lasix currently on hold per Cardiology spironolactone ordered per Cardiology pleural fluid labs and cultures are still pending 04/12/2023: No change to current treatment plan 04/13/2023: see above treatment plan as she has a new developed left moderate pleural effusion on chest x-ray today, will get ultrasound guided thoracentesis today. (4) Chronic kidney disease, stage 3: Code(s): N18.30 - Chronic kidney disease, stage 3 unspecified Status: Acute Assessment and Plan: 04/09/23: BUN 45, Creatinine 1.40 Continue to avoid nephrotoxic medications 04/10/23: BUN 48, creatinine 1.6 Continue to trend labs 04/11/2023: BUN 58, creatinine 2.0 Lasix currently on hold continue to hold nephrotoxic medication will defer to Cardiology team on whether not to hold spironolactone 04/12/2023: Lasix still on hold Continue to hold nephrotoxic medication Continue spironolactone BUN 60, creatinine 1.9 Continue to trend 04/13/2023: BUN 55, creatinine 1.7 slightly above baseline continue to trend continue with current treatment plan (5) Hypertension: Qualifiers: Hypertension type: unspecified Qualified Code(s): I10 - Essential (primary) hypertension Code(s): I10 - Essential (primary) hypertension Status: Chronic Assessment and Plan: 04/09/23: Blood pressure stable Continue with home medications 04/10/23: No change to current treatment plan (6) Paroxysmal atri
[2023-04-13 14:18] LABS: Amylase, Pleural Fluid 14 U/L
--- NOTE | 2023-04-13 14:59 | PC.NURSE ---
On 04/13/23, the student, [Rick Maier], provided care and completed [facility] documentation on this patient. I have reviewed the student's documentation and agree with the findings.
[2023-04-13] MEDS: APIXABAN 5 MG TABLET PO (20:40)
[2023-04-14] VITALS (12 sets, daily range): BP systolic 131–138; BP diastolic 42–58; PULSE 66–99; RESP 17–20; TEMP 36.3–36.4; O2SAT 87–97
[2023-04-14 05:12] LABS: Hematocrit 38.2 % (37.0-47.0); Hemoglobin 11.7 g/dL (12.0-15.0); Mean Corpuscular HGB Conc 30.6 g/dl (32-36); Mean Corpuscular Hemoglobin 31.3 pg (26-34); Mean Corpuscular Volume 102.1 fl (80-100); Mean Platelet Volume 10.1 fl (7.4-10.4); Platelet Count Result 240 k/mm3 (150-375); Red Blood Count 3.74 M/mm3 (4.2-5.4); White Blood Count 6.4 K/mm3 (4.5-10.0)
[2023-04-14 05:26] LABS: Alanine Aminotransferase 18 U/L (6-35); Albumin Level 3.3 g/dL (3.5-5.1); Alkaline Phosphatase 81 U/L (38-126); Anion Gap 3 mmol/L (8-16); Aspartate Amino Transferase 18 U/L (14-36); Bilirubin,Total 1.3 mg/dL (0.2-1.3); Blood Urea Nitrogen 49 mg/dL (7-17); Calcium 8.9 mg/dL (8.4-10.2); Carbon Dioxide 32 mmol/L (22-30); Chloride 100 mmol/L (98-107); Estimated CRCL calculation 23 ml/min; Estimated Glomerular Filt Rate 30; Glucose 113 mg/dL (65-110); Potassium 3.9 mmol/L (3.4-5.0); Sodium 135 mmol/L (137-145)
[2023-04-14] MEDS: NIFEdipine 30 MG TAB.ER.24 60 MG PO (08:24)
[2023-04-14] MEDS: PANTOPRAZOLE 40 MG TABLET PO (08:24)
[2023-04-14] MEDS: lisinopriL 20 MG TABLET PO (08:24)
[2023-04-14] MEDS: SPIRONOLACTONE 25 MG TABLET PO (08:24)
[2023-04-14] MEDS: SENNOSIDES 8.6 MG TABLET PO (08:24)
[2023-04-14] MEDS: METOPROLOL SUCCINATE EXT REL 100 MG TABCR PO (08:24)
[2023-04-14] MEDS: APIXABAN 5 MG TABLET PO (08:24)
[2023-04-14] MEDS: TAMSULOSIN HCL 0.4 MG CAPSULE PO (08:24)
--- NOTE | 2023-04-14 08:35 | PM.PNCARD ---
Progress Note: A&P Assessment and Plan (1) Atrial fibrillation: Qualifiers: Atrial fibrillation type: paroxysmal Qualified Code(s): I48.0 - Paroxysmal atrial fibrillation Code(s): I48.91 - Unspecified atrial fibrillation Status: Acute (2) Congestive heart failure: Qualifiers: Heart failure chronicity: acute on chronic Heart failure type: unspecified Qualified Code(s): I50.9 - Heart failure, unspecified Code(s): I50.9 - Heart failure, unspecified Status: Acute Plan 88-year-old lady with: Challenging and difficult situation with volume overload with comorbidities as described above. Because of the severity of her pulmonary hypertension the edema will not be able to be diuresed away completely. Earlier this week her furosemide had to be placed on hold because of the significant jump in her creatinine. That has now returned to baseline. I will resume oral furosemide 80 mg once daily as of this morning. We have diuresed away all of the edema that we can without causing too much harm in renal function. As such she has achieved maximum hospital benefit and will have to be recognized by the patient, family and her physicians that she is always going to have significant lower extremity edema however it is significantly improved compared to what we were seeing at the time of admission. She has follow-up with me in the office in about 3 weeks. I will see her at that time. Irving Hdz MD [facility] Subjective Date/time seen: Date of service: 04/14/23 08:35 Interval history: Follow-up visit in this 88-year-old lady with: Volume overload/CHF. Patient has significant edema primarily related to left-sided dysfunction and secondary pulmonary hypertension which by echo appears to be quite severe. In addition she has developed atrial fibrillation is rate controlled and anticoagulated. Today she is feeling well. Her edema is still present but she be believes it is significantly improved. Hoping to go home she would like to be discharged if possible Exam Const: General: comfortable and no acute distress Other: Pleasant elderly lady sitting in the bedside chair no distress HENMT: Mouth: Yes moist mucous membranes Eyes: Sclera: sclerae normal Neck: Neck: supple and no JVD Resp: Effort & Inspection: normal respiratory effort Auscultation: clear to auscultation bilaterally Cardio: Rate: regular rate Rhythm: abnormal rhythm irregularly irregular GI: GI Palp: Yes Soft to palpation Auscultation: normal bowel sounds Skin: General skin exam: normal color Neuro: Other: Alert and oriented x3 Extrem: Other: Continues to have moderate bilateral edema which is softer and pitting Objective Data Vital Signs Vital Signs: Vital Signs - 24 hr 04/13/23 09:06 04/13/23 09:10 04/13/23 10:10 Temperature Pulse Rate 76 Respiratory Rate Blood Pressure Pulse Oximetry 95 94 Oxygen Delivery Nasal Cannula Nasal Cannula Oxygen Flow Rate 2 2 04/13/23 13:45 04/13/23 09:00 04/13/23 12:00 Temperature 36.1 C L Pulse Rate 82 77 Respiratory Rate 18 Blood Pressure 130/53 L Pulse Oximetry 95 95 Oxygen Delivery Nasal Cannula Oxygen Flow Rate 2 04/13/23 15:27 04/13/23 15:05 04/13/23 16:00 Temperature Pulse Rate 88 94 84 Respiratory Rate Blood Pressure 131/46 L 153/61 H Pulse Oximetry 96 96 Oxygen Delivery Oxygen Flow Rate 04/13/23 20:15 04/13/23 20:00 04/13/23 20:00 Temperature Pulse Rate 73 Respiratory Rate Blood Pressure Pulse Oximetry 94 98 Oxygen Delivery Nasal Cannula Nasal Cannula Oxygen Flow Rate 2 2 04/13/23 21:49 04/14/23 00:00 04/14/23 03:38 Temperature 36.6 C 36.3 C L Pulse Rate 79 66 83 Respiratory Rate 18 20 Blood Pressure 117/60 131/58 L Pulse Oximetry 98 97 Oxygen Delivery Oxygen Flow Rate 04/14/23 04:00 Temperature Pulse Rate 76 Respiratory Rate B
[2023-04-14] MEDS: FUROSEMIDE 80 MG TABLET PO (08:45)
[2023-04-14 10:26] LABS: Albumin Pleural Fluid 1.2 g/dL
--- NOTE | 2023-04-14 10:39 | PCNWS ---
Weekly nutritional screen. Patient is tolerating current diet with adequate intake. No weight loss reported. No nutritional needs at this time.
--- NOTE | 2023-04-14 10:55 | HOMEO2EVAL ---
Evaluation was performed at [facility] Home Oxygen Evaluation RC: Home Oxygen (O2) Evaluation Start: 04/12/23 15:54 Freq: ONCE Status: Active Protocol: RPE Activity Type Activity Date Activity User E-sign Co-sign Detail Recorded Client Recorded Date Recorded By Document 04/14/23 10:15 DJO [email or web address] 04/14/23 10:55 DJO Document 04/14/23 10:20 [email or web address] [email or web address] 04/14/23 10:55 DJO Document 04/14/23 10:25 [email or web address] [email or web address] 04/14/23 10:55 DJO Document 04/14/23 10:30 [email or web address] [email or web address] 04/14/23 10:55 DJO Document 04/14/23 10:45 [email or web address] [email or web address] 04/14/23 10:55 DJO 04/14/23 04/14/23 04/14/23 10:15 10:20 10:25 Home O2 Evaluation [Oxygen] -Test Phase Resting Exercise Exercise -Oxygen Delivery Room Air Room Air Nasal Cannula -Oxygen Flow Rate (L/min) 1 [Pulse Oximetry] -Pulse Oximetry (90-100 %) 90 87 L 88 L [Pulse Rate] -Pulse Rate (60-100 beats/min) 82 96 97 [Evaluation] -Activity Tolerance [Charges] -Evaluation Charges O2 Evaluation by Pulmonary 04/14/23 04/14/23 10:30 10:45 Home O2 Evaluation [Oxygen] -Test Phase Exercise Resting -Oxygen Delivery Nasal Cannula Room Air -Oxygen Flow Rate (L/min) 2 [Pulse Oximetry] -Pulse Oximetry (90-100 %) 90 90 [Pulse Rate] -Pulse Rate (60-100 beats/min) 99 84 [Evaluation] -Activity Tolerance Fair [Charges] -Evaluation Charges
== END 2023-04-14 17:00 | disposition home or self-care (01) | DRG 291 ==
LOC: ANHED 14:13 → ANH2MED 15:08
PROVIDERS: Nurse Practitioner Family; Physician Assistant; Admitting Provider Hospitalist; Emergency Provider Nurse Practitioner Family; PCP Family Medicine; Visit Provider Nurse Practitioner Acute Care
DX: I13.0 Hypertensive heart and chronic kidney disease with heart failure and stage 1 through stage 4 chronic kidney disease, or unspecified chronic kidney disease (principal); I50.33 Acute on chronic diastolic (congestive) heart failure; J96.01 Acute respiratory failure with hypoxia; J91.8 Pleural effusion in other conditions classified elsewhere; N18.30 Chronic kidney disease, stage 3 unspecified; Z20.822 Contact with and (suspected) exposure to COVID-19; I48.0 Paroxysmal atrial fibrillation; M19.90 Unspecified osteoarthritis, unspecified site; M85.80 Other specified disorders of bone density and structure, unspecified site; I44.7 Left bundle-branch block, unspecified; E66.9 Obesity, unspecified; Z96.642 Presence of left artificial hip joint; Z68.36 Body mass index [BMI] 36.0-36.9, adult; Z79.01 Long term (current) use of anticoagulants; Z98.42 Cataract extraction status, left eye; Z98.41 Cataract extraction status, right eye; Z90.49 Acquired absence of other specified parts of digestive tract; Z90.710 Acquired absence of both cervix and uterus
CPT/HCPCS: 32555; 36415; 71045; 71275; 80048; 80053; 80061; 81001; 82042; 82150; 82945; 83615; 83735; 83880; 83986; 84157; 84311; 84443; 84478; 84484; 85025; 85027; 85380; 85610; 85730; 87015; 87070; 87075; 87102; 87116; 87205; 87206; 87637; 88108; 88184; 88305; 89051; 93005; 94618; 94640; 94667; 96374; 97110; 97116; 97162; 97165; 97530; 97535; 99285; A9270; C8929; G0378; J1940; Q9957; Q9967

== ENCOUNTER 2023-04-24 09:33 | Outpatient (CLI) | payer MEDICARE, SELFPAY ==
[2023-04-24 20:46] LABS: Anion Gap 6 mmol/L (8-16); Blood Urea Nitrogen 25 mg/dL (7-17); Calcium 9.6 mg/dL (8.4-10.2); Carbon Dioxide 33 mmol/L (22-30); Chloride 100 mmol/L (98-107); Estimated Glomerular Filt Rate 36; Glucose 112 mg/dL (65-110); Potassium 4.6 mmol/L (3.4-5.0); Sodium 139 mmol/L (137-145)
== END 2023-04-24 09:34 | disposition home or self-care (01) ==
LOC: ANHGOSHLAB 09:35
PROVIDERS: PCP Family Medicine; Visit Provider Nurse Practitioner
DX: I50.30 Unspecified diastolic (congestive) heart failure (principal)
CPT/HCPCS: 36415; 80048

== ENCOUNTER → 2023-04-24 09:43 | Outpatient (CLI) | payer MEDICARE, SELFPAY ==
--- NOTE | ~2023-04-24 | XR_ITS ---
EXAMINATION: XR chest 2V DATE: 04/24/2023 10:00 INDICATION: Pleural effusion TECHNIQUE: Frontal and lateral views of the chest are obtained COMPARISON: 04/14/2023 FINDINGS: There are stable moderate-sized left and small right pleural effusions. There are stable as sociated airspace opacities. No pneumothorax is identified. There is a mild diffuse interstitial tonio abigail. Cardiomegaly is noted. There are bridging osteophytes at multiple levels in the spine, consisten t with diffuse idiopathic skeletal hyperostosis (DISH). IMPRESSION: 1. Stable pleural effusions, moderate-sized on the left and small on the right. 2. Stable associated bibasilar airspace opacities, consistent with atelectasis versus pneumonia. 3. Mild diffuse interstitial opacities which could reflect pulmonary edema. Reviewed, dictated and finalized at location B. [facility]
== END ==
PROVIDERS: PCP Family Medicine; Visit Provider Family Medicine
DX: J90 Pleural effusion, not elsewhere classified (principal)
CPT/HCPCS: 71046

== ENCOUNTER 2023-05-26 01:06 | Day surgery (SDC) | payer MEDICARE, SELFPAY ==
[2023-05-25 12:19] VITALS: BMI 32.8
[2023-05-26 11:30] VITALS: BP 155/64; PULSE 96; RESP 15; TEMP 36.4; O2SAT 95; BMI 33.9
--- NOTE | 2023-05-26 11:30 | ECG_ITS ---
Measurements Intervals [place] Rate: 54 P: 63 IA: 183 QRS: 31 QRSD: 114 T: 36 QT: 424 QTc: 404 Interpretive Statements SINUS BRADYCARDIA WITH OCCASIONAL VENTRICULAR PREMATURE COMPLEXES LOW QRS VOLTAGE IN EXTREMITY LEADS [QRS DEFLECTION < 0.5 mV IN LIMB LEADS] LEFT BUNDLE BRANCH BLOCK COMPARED TO ECG 05/26/2023 11:48:53 SINUS BRADYCARDIA NOW PRESENT Electronically Signed On 05-27-2023 13:18:24 CDT by Santino Duff M.D.
--- NOTE | 2023-05-26 12:22 | WPDANESEPPF ---
Anes - Initial Pre Proc Eval Procedure: Operation Date: 05/26/23 13:00 Proposed Procedures p Electrical Cardioversion - Irving Hdz MD Date/Time: 05/26/23 12:22 Surgeon: Irving Hdz MD Pre Op Diagnosis: a-fib Patient Data Age: 88 Gender: F Height: 1.57 m Weight: 84.09 kg Last Vital Signs Temp 36.4 C 05/26/23 11:30 Pulse 96 05/26/23 11:30 Resp 15 05/26/23 11:30 BP 155/64 H 05/26/23 11:30 Pulse Ox 95 05/26/23 11:30 O2 Del Method Nasal Cannula 05/26/23 11:30 O2 Flow Rate 1 05/26/23 11:30 Allergies Allergy/AdvReac Type Severity Reaction Status Date / Time Sulfa (Sulfonamide Allergy Unknown unknown Verified 05/25/23 12:45 Antibiotics) tomato Allergy Hives Verified 05/25/23 12:45 Home Medications Medication Instructions Recorded Confirmed Type acetaminophen 500 mg tablet 500 mg PO Q6H PRN Breakthrough Pain 12/11/20 05/25/23 History albuterol sulfate 90 mcg/actuation 1 inh inhalation Q4H PRN shortness 03/17/22 05/25/23 Rx aerosol inhaler of breath or wheezing #6.7 grams metoprolol succinate 100 mg 100 mg PO DAILY #90 tabs 09/28/22 05/25/23 Rx tablet,extended release 24 hr apixaban 5 mg tablet (Eliquis) 5 mg PO BID 03/30/23 05/25/23 History furosemide 40 mg tablet 40 mg PO BID #60 tabs 04/03/23 05/25/23 Rx lisinopril 20 mg tablet 20 mg PO DAILY #30 tabs 04/13/23 05/25/23 Rx spironolactone 25 mg tablet 25 mg PO QAM #30 tabs 04/13/23 05/25/23 Rx nifedipine 60 mg tablet,extended 60 mg PO DAILY #90 tabs 05/24/23 05/25/23 Rx release 24 hr (Procardia XL) omeprazole 20 mg capsule,delayed 20 mg PO DAILY PRN Acid Reflux 05/25/23 05/25/23 History release amiodarone 200 mg tablet (Pacerone) 200 mg PO DAILY@0800 30 days #30 05/26/23 Rx tabs Laboratory Tests 05/26/23 05/26/23 11:54 11:54 Sodium Pending Potassium Pending Chloride Pending Carbon Dioxide Pending Anion Gap Pending BUN Pending Creatinine Pending Estim Creat Clear Calc Pending Estimated GFR Pending Glucose Pending Calcium Pending Magnesium Cancelled Pending Patient hx anesthesia problems: none Family hx anesthesia problems: none Results Review: All pre-operative results and documents have been reviewed as part of the pre-operative evaluation. [facility] Past Medical History Medical History Chronic anticoagulation Chronic kidney disease, stage 3 Deaf Depression Gastroesophageal reflux disease Heart failure with preserved ejection fraction Echocardiogram in December 2019 showed normal LV size, mild concentric hypertrophy, EF estimated at 65 to 70%, hypokinesis of basal inferolateral wall, and grade 2 diastolic dysfunction as well severe pulmonary hypertension. Hypertension Left bundle branch block Lymphedema of both lower extremities Obesity Osteoarthritis Osteopenia Paroxysmal atrial fibrillation Pre-diabetes Pulmonary hypertension Surgical History Surgical History History of arthroplasty of left hip History of arthroscopic knee surgery History of arthroscopy of hip History of bilateral cataract extraction (2015) History of cardiac cath (05/2020) History of cholecystectomy (1990) History of hysterectomy (1977) History of left breast biopsy (1997) History of tonsillectomy History of tubal ligation (1977) Hx of cholecystectomy (~1990) Hx of colonoscopy Internal hemorrhoids and benign polyp. Family History Family History Father Diabetes mellitus, Onset Age: 89 Hypertension, Onset Age: 89 Cerebrovascular accident, Onset Age: 89 Sibling Diabetes mellitus, Onset Age: 74 Family history of hypercholesterolemia, Onset Age: 74 Hypertension Acute myocardial infarction, Onset Age
[2023-05-26 12:23] LABS: Anion Gap 5 mmol/L (4-12); Blood Urea Nitrogen 48 mg/dL (7-17); Calcium 9.3 mg/dL (8.4-10.2); Carbon Dioxide 32 mmol/L (22-30); Chloride 104 mmol/L (98-107); Estimated CRCL calculation 23 ml/min; Estimated Glomerular Filt Rate 30; Glucose 121 mg/dL (65-110); Magnesium 2.1 mg/dL (1.6-2.3); Potassium 4.3 mmol/L (3.4-5.0); Sodium 141 mmol/L (137-145)
--- NOTE | 2023-05-26 13:02 | P.PCNCC_ITS ---
Cardiac Cath Procedure Note Date of procedure:: 05/26/23 Performing physician:: Irving Hdz MD Indication:: Persistent atrial fibrillation Brief clinical history:: This is an 88-year-old woman with chronic left bundle branch block, no coronary artery disease and intermittent atrial fibrillation. Her AFib has become persistent for approximately the last 2 months resulting in symptomatic shortness of breath. An attempt at restoring sinus rhythm electrically has been scheduled for today. The patient is systemically anticoagulated with apixaban. Procedure Procedure performed:: DC cardioversion Sedation/Medication given:: Per Anesthesia, see their dictated note Estimated blood loss:: 0 Procedure note:: Patient was brought to the postanesthesia care unit in the cardiac cathodic protection technician area where she was sedated by the anesthesia service. She had defibrillator patches placed in the AP position. When and she was appropriately sedated she received 1 countershock at 200 joules in a synchronized fashion which restored normal sinus rhythm. Findings:: As above Conclusion:: Successful uncomplicated DC cardioversion terminating atrial fib restoring sinus rhythm with 200 joules x1 shock Irving Hdz MD [facility]
[2023-05-26 13:10] VITALS: BP 107/45; PULSE 55; RESP 17; TEMP 36.1; O2SAT 99
[2023-05-26 13:15] VITALS: BP 117/46; PULSE 50; RESP 16; O2SAT 97
--- NOTE | 2023-05-26 13:15 | ECG_ITS ---
Measurements Intervals [place] Rate: 82 P: MO: 0 QRS: -49 QRSD: 147 T: 108 QT: 398 QTc: 466 Interpretive Statements ATRIAL FIBRILLATION LEFT BUNDLE BRANCH BLOCK ABNORMAL ECG COMPARED TO ECG 04/06/2023 10:13:35 LEFT BUNDLE BRANCH BLOCK IS NOW SEEN Electronically Signed On 05-26-2023 12:37:24 CDT by Irving Hdz M.D.
[2023-05-26 13:30] VITALS: BP 129/47; PULSE 57; RESP 15; O2SAT 94
[2023-05-26 13:45] VITALS: BP 121/47; PULSE 60; RESP 19; O2SAT 95
--- NOTE | 2023-05-26 13:56 | SUR.PHASEII ---
pt had short run of 7 beat, 3 beat, then two beat of accelerated ventricular rhythm. hr in 60-70s. pt asymptomatic and unaware of episode. Dr Hdz notified. no new orders received. will monitor.
[2023-05-26 14:00] VITALS: BP 137/48; PULSE 60; RESP 19; O2SAT 94
== END 2023-05-26 14:10 | disposition home or self-care (01) ==
PROVIDERS: PCP Family Medicine; Visit Provider Specialist
PROC: 5A2204Z Restoration of Cardiac Rhythm, Single (ICD-10-PCS; principal; 2023-05-26 13:00)
DX: I48.19 Other persistent atrial fibrillation (principal); I13.0 Hypertensive heart and chronic kidney disease with heart failure and stage 1 through stage 4 chronic kidney disease, or unspecified chronic kidney disease; I50.9 Heart failure, unspecified; N18.30 Chronic kidney disease, stage 3 unspecified; K21.9 Gastro-esophageal reflux disease without esophagitis; R73.03 Prediabetes; F32.A Depression, unspecified; E66.9 Obesity, unspecified; Z68.33 Body mass index [BMI] 33.0-33.9, adult; Z79.51 Long term (current) use of inhaled steroids; Z79.01 Long term (current) use of anticoagulants
CPT/HCPCS: 36415; 80048; 83735; 92960; J7030

== ENCOUNTER 2023-06-01 12:20 | Outpatient (CLI) | payer MEDICARE, SELFPAY ==
[2023-06-01 13:00] VITALS: PULSE 60; O2SAT 94
[2023-06-01 13:05] VITALS: PULSE 69; O2SAT 86
[2023-06-01 13:06] VITALS: O2SAT 87
[2023-06-01 13:07] VITALS: PULSE 72; O2SAT 92
[2023-06-01 13:15] VITALS: PULSE 63; O2SAT 93
--- NOTE | 2023-06-01 14:18 | PCRCNOTE ---
Home O2 eval done. Pt needs 2 L with activity only. Faxed eval to [facility] office.
--- NOTE | 2023-06-01 14:18 | HOMEO2EVAL ---
Evaluation was performed at [facility] Home Oxygen Evaluation RC: Home Oxygen (O2) Evaluation Start: 06/01/23 14:14 Freq: Status: Active Protocol: RPE Activity Type Activity Date Activity User E-sign Co-sign Detail Recorded Client Recorded Date Recorded By Document 06/01/23 13:00 KIKE [email or web address] 06/01/23 14:17 KIKE Document 06/01/23 13:05 KIKE [email or web address] 06/01/23 14:17 KIKE Document 06/01/23 13:06 KIKE [email or web address] 06/01/23 14:17 KIKE Document 06/01/23 13:07 KIKE [email or web address] 06/01/23 14:17 KIKE Document 06/01/23 13:15 KIKE [email or web address] 06/01/23 14:17 KIKE 06/01/23 06/01/23 06/01/23 13:00 13:05 13:06 Home O2 Evaluation [Oxygen] -Test Phase Resting Exercise Exercise -Oxygen Delivery Room Air Room Air Nasal Cannula -Oxygen Flow Rate (L/min) 1 [Pulse Oximetry] -Pulse Oximetry (90-100 %) 94 86 L 87 L [Pulse Rate] -Pulse Rate (60-100 beats/min) 60 69 [Comments] -Home Oxygen Evaluation Comments [Charges] -Evaluation Charges O2 Evaluation by Pulmonary 06/01/23 06/01/23 13:07 13:15 Home O2 Evaluation [Oxygen] -Test Phase Exercise Resting -Oxygen Delivery Nasal Cannula Room Air -Oxygen Flow Rate (L/min) 2 [Pulse Oximetry] -Pulse Oximetry (90-100 %) 92 93 [Pulse Rate] -Pulse Rate (60-100 beats/min) 72 63 [Comments] -Home Oxygen Evaluation Comments Home O2 needed at 2 liters with activity [Charges] -Evaluation Charges
== END 2023-06-01 12:21 | disposition home or self-care (01) ==
LOC: ANHPFT 12:21
PROVIDERS: PCP Family Medicine; Visit Provider Internal Medicine Critical Care Medicine
DX: R09.02 Hypoxemia (principal)
CPT/HCPCS: 94618

== ENCOUNTER 2023-10-10 11:14 | Outpatient (CLI) | payer MEDICARE, SELFPAY ==
--- NOTE | ~2023-10-10 | XR_ITS ---
XR finger 2nd RT min 2V Ordering provider: Ricky Adams MD History: . LACERATION WITH FOREIGN BODY OF RIGHT DISTAL INDEX FINGER . Comparison: Was FINDINGS: BONES: No acute fracture or dislocation. JOINT SPACES: Normal. SOFT TISSUES: Normal. IMPRESSION: No acute osseous abnormality. Reviewed, dictated and finalized at location A.
== END 2023-10-10 11:15 | disposition home or self-care (01) ==
LOC: ANHIMG 11:17
PROVIDERS: PCP Family Medicine; Visit Provider Plastic Surgery
DX: S61.220A Laceration with foreign body of right index finger without damage to nail, initial encounter (principal); X58.XXXA Exposure to other specified factors, initial encounter
CPT/HCPCS: 73140

== ENCOUNTER 2023-10-24 10:40 | Outpatient (CLI) | payer MEDICARE, SELFPAY ==
--- NOTE | ~2023-10-24 | US_ITS ---
EXAMINATION: US soft tissue UE RT DATE: 10/24/2023 11:07 INDICATION: Right index finger foreign body and swelling and erythema. TECHNIQUE: Multiple grayscale and Doppler ultrasound images of the right upper limb were obtained. COMPARISON: Radiographs 10/10/2023 FINDINGS: In the patient's area concern in the right index finger, there is a 3 mm echogenic shadowin g foreign body. IMPRESSION: 1. 3 mm foreign body in right index finger in the patient's area of concern. Reviewed, dictated and finalized at location A.
== END 2023-10-24 10:41 | disposition home or self-care (01) ==
LOC: MICIMG 10:41
PROVIDERS: PCP Family Medicine; Visit Provider Plastic Surgery
DX: M79.5 Residual foreign body in soft tissue (principal)
CPT/HCPCS: 76882

== ENCOUNTER → 2023-12-18 09:06 | Outpatient (REF) | payer MEDICARE, SELFPAY | LOC: ANHLAB 09:06 | PROVIDERS: PCP Family Medicine; Visit Provider Plastic Surgery | DX: R22.31 Localized swelling, mass and lump, right upper limb (principal) | CPT/HCPCS: 88305 ==

== ENCOUNTER 2024-01-28 19:36 | Inpatient (IN) | payer MEDICARE, SELFPAY ==
--- NOTE | ~2024-01-28 | XR_ITS ---
Portable chest x-ray Comparison: 01/31/2024 Clinical History: Wheezing Findings: Dvanm-ct-wshdyhsa left pleural effusion and small right pleural effusion present. There is moderate to severe pulmonary edema pattern. Cardiomediastinal silhouette is stable. Bones stable fr acture of the proximal right humerus. Impression: Moderate to severe pulmonary edema pattern with bilateral pleural effusions, as above. Fracture the proximal right humerus, unchanged. Reviewed, dictated and finalized at location . ER PLANT OPERATOR Impression: Moderate to severe pulmonary edema pattern with bilateral pleural effusions, as above. Fracture the proximal right humerus, unchanged.
--- NOTE | ~2024-01-28 | US_ITS ---
EXAMINATION: US thoracentesis DATE: 01/31/2024 15:19 INDICATION: Left pleural effusion TECHNIQUE: The procedure and its risks and benefits were discussed with the patient. Potential risks discussed included bleeding, infection, and pneumothorax. The patient understood the risks and agreed to proceed. The skin was prepped and draped in sterile fashion. 1% lidocaine was used for local anes thesia. Under ultrasound guidance, a 5 Fr catheter with trochar was advanced into the left pleural ef fusion. Fluid was aspirated. The catheter was removed, and a dressing was applied. There were no imme diate complications. FINDINGS: Ultrasound images demonstrate a small left pleural effusion and the catheter within the fluid. IMPRESSION: 1. Successful ultrasound-guided thoracentesis yielding 600 mL of dark reddish fluid. Reviewed, dictated and finalized at location A. MACEUTICAL ASSISTANT
--- NOTE | ~2024-01-28 | XR_ITS ---
XR chest 1V portable Ordering provider: Irving Green MD History: 88 years Female with . CHF, left effusion . Comparison: January 28, 2024 FINDINGS: MEDIASTINUM: The cardiac silhouette is moderately enlarged. Congestive navarro. LUNGS: No pneumothorax. Opacification in the left lower lobe is seen suggestive of atelectasis versus pneumonia with pleural effusion. Bilateral alveolar and interstitial opacification is seen suggestiv e of pulmonary edema. Superimposed pneumonia is not excluded. OTHER: No free air under the diaphragm. IMPRESSION: Left lower lobe atelectasis versus pneumonia with pleural effusion. Cardiac decompensation with pulmonary edema. Superimposed pneumonia is not excluded. Reviewed, dictated and finalized at location A. TOR HELPER IMPRESSION: Left lower lobe atelectasis versus pneumonia with pleural effusion. Cardiac decompensation with pulmonary edema. Superimposed pneumonia is not excl uded.
--- NOTE | ~2024-01-28 | XR_ITS ---
EXAMINATION: [id number] DATE: 01/31/2024 15:25 INDICATION: Left pleural effusion status post thoracentesis. TECHNIQUE: A single frontal view of the chest was obtained. COMPARISON: Chest single view at 8:04 AM, chest CT 01/29/2024 FINDINGS: The patient is rotated to her left. There is a diffuse interstitial pattern in the lungs. T here are patchy airspace opacities in all right lung zones and in left lower lung zone. There are sma ll pleural effusions. No pneumothorax. Cardiomegaly is noted. There is an old healed fracture proxima l right humerus. IMPRESSION: 1. Small bilateral pleural effusions with improvement on the left. 2. Diffuse lung disease with mild worsening on the right, likely a combination of pulmonary edema pne umonia. 3. Cardiomegaly. Reviewed, dictated and finalized at location A. D EDUCATION DIRECTOR IMPRESSION: 1. Small bilateral pleural effusions with improvement on the left. 2. Diffuse lung disease with mild worsening on the right, likely a combination of pulmonary edema pneumonia. 3. Cardiomegaly.
--- NOTE | ~2024-01-28 | CT_ITS ---
CT Scan of the Chest without Contrast: Clinical Indication: Shortness of breath, hypoxia Technique: Contiguous sections were acquired throughout the chest without intravenous contrast. Dose reduction technique was used on this scan by utilizing automated exposure control and iterative recon struction technique. The dose-length product (DLP) was 608.06 mGy-cm. COMPARISON: 04/06/2023 Findings: There is no evidence of any significant mediastinal, hilar or axillary lymphadenopathy. There are mil d atherosclerotic calcifications of the aorta and coronary arteries. There is cardiomegaly. No perica rdial effusion present. Moderate bilateral pleural effusions are present, with near complete left lower lobe atelectasis, and partial right lower lobe atelectasis. There is patchy groundglass opacity and slightly more confluen t areas of airspace consolidation aerated lungs, most compatible with pulmonary edema. There is addit ional partial lingular atelectasis. Images through the upper abdomen reveal no abnormalities. Impression: Moderate bilateral pleural effusions with moderate pulmonary edema pattern and extensive bibasilar at electasis, left worse than right, as detailed above. Correlate clinically for pneumonia. Reviewed, dictated and finalized at [facility]. SOMNOGRAPHY TECHNICIAN Impression: Moderate bilateral pleural effusions with moderate pulmonary edema pattern and extensive bibasilar atelectasis, left worse than right, as detailed above. Jeanne elate clinically for pneumonia.
--- NOTE | ~2024-01-28 | XR_ITS ---
EXAMINATION: XR chest 1V portable DATE: 02/03/2024 06:02 INDICATION: Left pleural effusion TECHNIQUE: frontal view of the chest was obtained. COMPARISON: Chest radiograph dated 02/02/2024 FINDINGS: No significant interval change in interstitial and patchy airspace opacities throughout the right savanna g and in the left mid and lower lung zones. Unchanged small right and vwfkb-zg-imnllift sized left pl eural effusions. Cardiomegaly with dense mitral annular calcification. Chronic impacted fracture of t he right humeral head. IMPRESSION: 1. No significant change in interstitial and airspace opacities throughout the right lung and in the left mid and lower lung zones which could represent pulmonary edema and/or pneumonia. 2. Unchanged small right and notjm-cd-euywjyob left pleural effusions. 3. Cardiomegaly. Reviewed, dictated and finalized at location A. GRADER IMPRESSION: 1. No significant change in interstitial and airspace opacities throughout the right lung and in the left mid and lower lung zones which could represent pulmo nary edema and/or pneumonia. 2. Unchanged small right and mkqbh-er-bmyfkhyn left pleural effusions. 3. Cardiomegaly.
--- NOTE | ~2024-01-28 | XR_ITS ---
EXAMINATION: XR chest 1V portable DATE: 02/02/2024 06:15 INDICATION: Left pleural effusion TECHNIQUE: frontal view of the chest was obtained. COMPARISON: Chest radiograph dated 02/01/2024 FINDINGS: Unchanged small to moderate left and small right pleural effusions. Interval increase in diffuse inte rstitial and airspace opacities most notably in the left midlung zone. No pneumothorax. Cardiomegaly with dense mitral annular calcification. Chronic impacted fracture of the right humeral head. IMPRESSION: 1. Increasing diffuse bilateral interstitial and airspace opacities consistent with worsening pulmona ry edema and/or pneumonia. 2. Unchanged small to moderate left and small right pleural effusions. 3. Cardiomegaly. Reviewed, dictated and finalized at location A. E PATCHER IMPRESSION: 1. Increasing diffuse bilateral interstitial and airspace opacities consistent with worsening pulmonary edema and/or pneumonia. 2. Unchanged small to moderate left and small right pleural effusions. 3. Cardiomegaly.
--- NOTE | ~2024-01-28 | XR_ITS ---
XR chest 1V portable DATE: 01/28/2024 20:54 INDICATION: Shortness of breath. Hypoxia. TECHNIQUE: Portable upright AP chest on 01/28/2024 2053 hours COMPARISON: 04/24/2023 2 view chest FINDINGS: Cardiac magna. Aortic arch calcification. There is pulmonary vascular congestion and redist ribution. There is prominent emphysematous and/or consolidation opacifying the lower half of the left hemithora x. There is patchy infiltrate throughout much of the right lung. There is blunting of the right costo phrenic angle and opacification of left costophrenic angle suggesting pleural effusions. Prominent diffuse osteopenia. Old right humeral surgical neck fracture. IMPRESSION: Cirrhosis and central consolidation in the left lower lung Patchy diffuse right lung infiltrate which may be due to pulmonary edema or pneumonia Cardiomegaly, congestive heart failure Reviewed, dictated and finalized at location A. TRICIAN THIRD IMPRESSION: Cirrhosis and central consolidation in the left lower lung Patchy diffuse right lung infiltrate which may be due to pulmonary edema or pne umonia Cardiomegaly, congestive heart failure
[2024-01-28 19:41] VITALS: BP 158/68; PULSE 68; RESP 30; O2SAT 96
--- NOTE | 2024-01-28 19:43 | ECG_ITS ---
Test Date: 2024-01-28 20:02:31 Measurements Intervals [place] Rate: 67 P: 52 NC: 186 QRS: -40 QRSD: 178 T: 106 QT: 477 QTc: 504 Interpretive Statements SINUS RHYTHM LEFT AXIS DEVIATION [QRS AXIS < -30] LEFT BUNDLE BRANCH BLOCK [120+ ms QRS DURATION, 80+ ms Q/S IN V1/V2, 85+ ms R IN I/aVL/V5/V6] No previous ECG available for comparison Electronically Signed On 01-29-2024 12:47:08 PHLEBOTOMY TECHNOLOGIST by Tenzin Rowan M.D.
[2024-01-28 20:15] LABS: Basophils Percent Auto 0.3 % (0.2-1.2); Eosinophils Absolute Auto 0.1 K/mm3 (0-0.3); Eosinophils Percent Auto 0.6 % (0-4.4); Hematocrit 34.3 % (37.0-47.0); Hemoglobin 10.9 g/dL (12.0-15.0); Immature Granulocyte Absolute 0.08 K/mm3 (0.00-0.031); Immature Granulocyte Percent A 0.6 % (0-0.5); Lymphocytes Absolute Auto 0.79 K/mm3 (0.9-3.2); Lymphocytes Percent Auto 6.3 % (18.3-44.2); Mean Corpuscular HGB Conc 31.8 g/dl (32-36); Mean Corpuscular Hemoglobin 31.6 pg (26-34); Mean Corpuscular Volume 99.4 fl (80-100); Mean Platelet Volume 9.6 fl (7.4-10.4); Monocytes Absolute Auto 0.9 K/mm3 (0.1-0.6); Monocytes Percent Auto 7.1 % (2.6-8.5); Neutrophils Absolute Auto 10.8 K/mm3 (1.3-6.7); Neutrophils Percent Auto 85.1 % (45.5-73.1); Platelet Count Result 330 k/mm3 (150-375); Red Blood Count 3.45 M/mm3 (4.2-5.4); Red Cell Distribution Width 14.1 % (11.5-14.5); White Blood Count 12.6 K/mm3 (4.5-10.0)
[2024-01-28 20:21] VITALS: O2SAT 97
[2024-01-28 20:25] LABS: Lactic Acid Reflex 1.3 mmol/L (0.7-2.0)
[2024-01-28 20:26] LABS: Alanine Aminotransferase 18 U/L (6-35); Albumin Level 3.7 g/dL (3.5-5.1); Alkaline Phosphatase 98 U/L (38-126); Anion Gap 8 mmol/L (4-12); Aspartate Amino Transferase 23 U/L (14-36); Bilirubin,Total 0.9 mg/dL (0.2-1.3); Blood Urea Nitrogen 57 mg/dL (7-17); Calcium 9.3 mg/dL (8.4-10.2); Carbon Dioxide 28 mmol/L (22-30); Chloride 103 mmol/L (98-107); Estimated CRCL calculation 15 ml/min; Estimated Glomerular Filt Rate 18; Glucose 131 mg/dL (65-110); Magnesium 2.1 mg/dL (1.6-2.3); Potassium 4.3 mmol/L (3.4-5.0); Sodium 139 mmol/L (137-145)
[2024-01-28 20:30] LABS: INR 2.2; Prothrombin Time 25.3 Seconds (11.1-14.7)
[2024-01-28 20:31] LABS: Partial Thromboplastin Time 55.6 Seconds (22.3-36.8)
--- NOTE | 2024-01-28 20:32 | ED.SOB ---
HPI - SOB/Dyspnea General Chief Complaint: Shortness of Breath/Dyspnea Stated Complaint: difficulty breathing Time Seen by Provider: 01/28/24 19:43 Source: patient and old records reviewed Mode of arrival: EMS Limitations: no limitations History of Present Illness HPI Narrative: Patient is an 88-year-old female, with past medical history of paroxysmal AFib on Eliquis, diastolic CHF, left bundle-branch block, pulmonary hypertension, GERD, chronic hypoxic respiratory failure on 4L NC at all times, who presents the ED via EMS from home with report of SOB. Patient reports having increased shortness breath over the last several days. EMS noted that patient was hypoxic on her 4 L down into the 70s upon arrival. She does also report having cough and congestion. Denies chest pain. Denies known fevers. Related Data Home Medications Medication Instructions Recorded Confirmed apixaban 5 mg tablet (Eliquis) 5 mg PO BID 03/30/23 01/29/24 Allergies Allergy/AdvReac Type Severity Reaction Status Date / Time Sulfa (Sulfonamide Allergy Unknown unknown Verified 01/29/24 00:16 Antibiotics) tomato Allergy Hives Verified 01/29/24 00:16 Review of Systems Review of Systems: All systems reviewed & are unremarkable except as noted in HPI. All systems reviewed & are unremarkable except as noted in HPI and below PMFSH Past Medical History Medical History Chronic anticoagulation Chronic kidney disease, stage 3 Deaf Depression Gastroesophageal reflux disease Heart failure with preserved ejection fraction Echocardiogram in December 2019 showed normal LV size, mild concentric hypertrophy, EF estimated at 65 to 70%, hypokinesis of basal inferolateral wall, and grade 2 diastolic dysfunction as well severe pulmonary hypertension. Hypertension Left bundle branch block Lymphedema of both lower extremities Obesity Osteoarthritis Osteopenia Paroxysmal atrial fibrillation Pre-diabetes Pulmonary hypertension Surgical History Surgical History History of arthroplasty of left hip History of arthroscopic knee surgery History of arthroscopy of hip History of bilateral cataract extraction (2015) History of cardiac cath (05/2020) History of cardioversion (~05/2023) History of cholecystectomy (1990) History of hysterectomy (1977) History of left breast biopsy (1997) History of tonsillectomy History of tubal ligation (1977) Hx of cholecystectomy (~1990) Hx of colonoscopy Internal hemorrhoids and benign polyp. Family History Family History Father Diabetes mellitus, Onset Age: 89 Hypertension, Onset Age: 89 Cerebrovascular accident, Onset Age: 89 Sibling Diabetes mellitus, Onset Age: 74 Family history of hypercholesterolemia, Onset Age: 74 Hypertension Acute myocardial infarction, Onset Age: 83 Family history of arthritis Family history of malignant neoplasm of urinary bladder, Onset Age: 74 Mother Hypertension, Onset Age: 85 Cerebrovascular accident, Onset Age: 85 Family history of arthritis, Onset Age: 85 Family history of congestive heart failure, Onset Age: 85 Social History Social History Social History: [id number]-[id number]-[id number]: Sonu Mcdonald, son. Code status: Modified code, no intubation. Smoking status: Never smoker Second hand tobacco smoke exposure: No Alcohol intake: never Substance use: unknown Substance use type: does not use Current Housing: Decline to Answer Concerned About Future Housing: Decline to Answer Difficulty Paying Gas/Electric Bills: Decline to Answer Difficulty Paying for Meds: Decline to Answer Currently Unemployed: Decline to Answer Education: Decline to Answer Difficulty w/ Childcare or Family Care: Decline to Answer Living arrangements: alone Additional living arrangements comments: . Lives with son in [place]. Gender identity (if verbalized by the patient): Female Spiritual care concerns: No Agree to blood products: Yes Exam Narrative: GENERAL: Elderly, mildly ill appearing, obese with BMI of 36.3, non-toxic, in no acute distress. HEAD: Normocephalic, atraumatic. RESPIRATORY: Airway patent, respirations labored with accessory muscle use, tachypnea, decreased air movement throughout. Occasional wheezing heard best throughout L lung. Decreased lung sounds in bases pancho CARDIOVASCULAR: Regular rate and rhythm without murmurs, rubs, or gallops. ABDOMINAL: Soft, nontender, nondistended. Normoactive BS. MUSCULOSKELETAL: Moves all extremities. No gross deformities. 1-2+ pitting edema BLE. No calf tenderness. SKIN: Warm, dry, normal color. NEURO: A&O X3. TULALIP. Speech clear. No ataxic movements. PSYCHIATRIC: Appropriate mood and affect. Normal interaction. Course Vital Signs Vital signs: Vital Signs Pulse Rate 68 01/28/24 19:41 Respiratory Rate 30 H 01/28/24 19:41 Blood Pressure 158/68 H 01/28/24 19:41 Pulse Oximetry 96 01/28/24 19:41 Oxygen Delivery Non-Rebreather Mask 01/28/24 19:41 Oxygen Flow Rate 10 01/28/24 19:41 Pulse Rate 63 01/29/24 00:52 Respiratory Rate 26 H 01/29/24 00:52 Blood Pressure 149/54 H 01/29/24 00:52 Pulse Oximetry 98 01/29/24 00:52 Oxygen Delivery BiPAP 01/28/24 22:38 Oxygen Flow Rate 10 01/28/24 20:21 MDM - SOB/Dyspnea MDM Narrative Medical decision making narrative: Patient presented to ED with acute on hypoxic respiratory failure, increased shortness of breath over the last few days, also reporting cough/congestion. Patient typically on 4 L nasal cannula. Was increased to 6 L by EMS. Placed on non-rebreather upon arrival into the ED with improvement of sats into the mid 90s. Will obtain ABG and order nebulizer Tx as patient with wheezing on exam. EKG showing sinus rhythm, left bundle-branch block, which is chronic. Appears consistent with previous records. Baseline troponin is 0.019. Will continue to trend. Patient denied chest pain to me. BNP is markedly elevated to 9000. Chest x-ray consistent with pulmonary edema, cardiomegaly, consolidation left lower lung. Possible pneumonia. Comparison to images of cxr earlier this year appear somewhat similar, commented on pleural effusions at that time. Patient does report recent productive cough. Will cover for PNA. Blood cx obtained. Rocephin and azithromycin started in the ED. CBC is with blood blood cell count of 12.6. Stable H& H. CMP with creatinine of 2.5. Consistent with KAY. Baseline around 1.4-1.6. Patient does appear somewhat fluid overloaded. Will need cautious hydration vs diuresis. Lactic acid is within normal limits at 1.3. Viral swabs are negative. Suspect majority of patient's current respiratory distress is related to fluid overload. Patient given dose of IV Lasix in the ED. patient was given hour long nebulizer treatment in the ED. On re-evaluation, she is still working fairly hard to breathe. Unable to get off nonrebreather. Decision was made to place patient on BiPAP. On secondary reeval, patient is doing much better. Work of breathing significantly improved. Patient will be admitted for further evaluation. Discussed case with Dr. Wyatt, hospitalist, accepted patient for admission. Recommended to d/c antibiotics for now, will obtain CT chest imaging to get better picture of lung findings, fluid vs consolidation. Procalcitonin was added on and minimally elevated at 0.4. Also recommended to increase BiPAP settings rate to 14. This was performed. Patient and family in agreement with plan and need for admission. Medical Records Attestation: I reviewed the patient's medical records. Lab Data Attestation: I reviewed the patient's lab results. 01/28/24 20:07 01/28/24 20:07 Labs: Lab Results 01/28/24 01/28/24 01/28/24 Range/Units 20:07 20:07 21:52 WBC 12.6 H (4.5-10.0) K/mm3 RBC 3.45 L (4.2-5.4) M/mm3 Hgb 10.9 L (12.0-15.0) g/dL Hct 34.3 L (37.0-47.0) % MCV 99.4 (80-100) fl MCH 31.6 (26-34) pg MCHC 31.8 L (32-36) g/dl RDW 14.1 (11.5-14.5) % Plt Count 330 (150-375) k/mm3 MPV 9.6 (7.4-10.4) fl Immature Gran % (Auto) 0.6 H (0-0.5) % Neut % (Auto) 85.1 H (45.5-73.1) % Lymph % (Auto) 6.3 L (18.3-44.2) % [place] % (Auto) 7.1 (2.6-8.5) % Eos % (Auto) 0.6 (0-4.4) % Baso % (Auto) 0.3 (0.2-1.2) % Lymph # (Auto) 0.79 L (0.9-3.2) K/mm3 [place] # (Auto) 0.9 H (0.1-0.6) K/mm3 Eos # (Auto) 0.1 (0-0.3) K/mm3 Baso # (Auto) 0.0 (0.0-0.1) K/mm3 Abs Immat Gran (auto) 0.08 H (0.00-0.031) K/mm3 Absolute Neuts (auto) 10.8 H (1.3-6.7) K/mm3 Absolute Nucleated RBC 0.000 (0.0-0.012) K/mm3 Nucleated RBC % 0.0 (0.0-0.2) % PT 25.3 H (11.1-14.7) Seconds INR 2.2 APTT 55.6 H (22.3-36.8) Seconds Sodium 139 (137-145) mmol/L Potassium 4.3 (3.4-5.0) mmol/L Chloride 103 (98-107) mmol/L Carbon Dioxide 28 (22-30) mmol/L Anion Gap 8 (4-12) mmol/L BUN 57 H (7-17) mg/dL Creatinine 2.50 H (0.7-1.0) mg/dL Estim Creat Clear Calc 15 ml/min Estimated GFR 18 L (59 - ) Glucose 131 H (65-110) mg/dL Lactic Acid 1.3 (0.7-2.0) mmol/L Calcium 9.3 (8.4-10.2) mg/dL Magnesium 2.1 (1.6-2.3) mg/dL Total Bilirubin 0.9 (0.2-1.3) mg/dL AST 23 (14-36) U/L ALT 18 (6-35) U/L Alkaline Phosphatase 98 (38-126) U/L Troponin I 0.019 (0.000-0.034) ng/mL NT-Pro-B Natriuret Pep Cancelled 9000 H Total Protein 8.0 (6.3-8.2) g/dL Albumin 3.7 (3.5-5.1) g/dL Influenza A (RT-PCR) Negative (Negative) Influenza B (RT-PCR) Negative (Negative) RSV (RT-PCR) Negative (Negative) SARS-CoV-2 RNA (RT-PCR) Negative (Negative) 01/28/24 Range/Units 23:09 WBC (4.5-10.0) K/mm3 RBC (4.2-5.4) M/mm3 Hgb (12.0-15.0) g/dL Hct (37.0-47.0) % MCV (80-100) fl MCH (26-34) pg MCHC (32-36) g/dl RDW (11.5-14.5) % Plt Count (150-375) k/mm3 MPV (7.4-10.4) fl Immature Gran % (Auto) (0-0.5) % Neut % (Auto) (45.5-73.1) % Lymph % (Auto) (18.3-44.2) % [place] % (Auto) (2.6-8.5) % Eos % (Auto) (0-4.4) % Baso % (Auto) (0.2-1.2) % Lymph # (Auto) (0.9-3.2) K/mm3 [place] # (Auto) (0.1-0.6) K/mm3 Eos # (Auto) (0-0.3) K/mm3 Baso # (Auto) (0.0-0.1) K/mm3 Abs Immat Gran (auto) (0.00-0.031) K/mm3 Absolute Neuts (auto) (1.3-6.7) K/mm3 Absolute Nucleated RBC (0.0-0.012) K/mm3 Nucleated RBC % (0.0-0.2) % PT (11.1-14.7) Seconds INR APTT (22.3-36.8) Seconds Sodium (137-145) mmol/L Potassium (3.4-5.0) mmol/L Chloride (98-107) mmol/L Carbon Dioxide (22-30) mmol/L Anion Gap (4-12) mmol/L BUN (7-17) mg/dL Creatinine (0.7-1.0) mg/dL Estim Creat Clear Calc ml/min Estimated GFR (59 - ) Glucose (65-110) mg/dL Lactic Acid (0.7-2.0) mmol/L Calcium (8.4-10.2) mg/dL Magnesium (1.6-2.3) mg/dL Total Bilirubin (0.2-1.3) mg/dL AST (14-36) U/L ALT (6-35) U/L Alkaline Phosphatase (38-126) U/L Troponin I 0.017 (0.000-0.034) ng/mL NT-Pro-B Natriuret Pep Total Protein (6.3-8.2) g/dL Albumin (3.5-5.1) g/dL Influenza A (RT-PCR) (Negative) Influenza B (RT-PCR) (Negative) RSV (RT-PCR) (Negative) SARS-CoV-2 RNA (RT-PCR) (Negative) ABG Data ABG results: 01/28/24 21:09 Puncture Site Right radial ABG pH 7.375 ABG pCO2 49.0 H ABG pO2 60.0 L ABG PO2/FiO2 Ratio 0.75 ABG HCO3 28.0 H ABG O2 Saturation 90.2 L ABG O2 Content 17.8 ABG Base Excess 2.0 A-a Gradient 459.0 Oxyhemoglobin 89.3 L Total Hemoglobin 14.2 O2 Delivery Device Non-rebreather mask O2 Liters/Min 10.0 FiO2 80 Attestation: I personally reviewed and interpreted this ABG as follows: Imaging Data Attestation: I personally reviewed and interpreted this imaging study as follows: Radiologist's impression: ITS Impressions Chest X-Ray 01/28/24 20:59 IMPRESSION: Cirrhosis and central consolidation in the left lower lung Patchy diffuse right lung infiltrate which may be due to pulmonary edema or pneumonia Cardiomegaly, congestive heart failure ECG Data EKG #1: Attestation: I personally reviewed and interpreted this ECG as follows: ECG completion date: 01/28/24 ECG completion time: 20:02 Prior ECG tracings: available for review (LBBB chronic) EKG Interpretation: normal rate (67), sinus rhythm, non-specific ST changes and LBBB Discharge Plan Discharge Clinical Impression: Acute on chronic hypoxic respiratory failure, KAY (acute kidney injury) Acute exacerbation of CHF (congestive heart failure) Qualifiers: Heart failure type: unspecified Qualified Code(s): I50.9 - Heart failure, unspecified Patient Disposition: Still a Patient Condition: Stable
[2024-01-28 20:37] LABS: NT Pro B Type Natriuretic Pept 9000 pg/mL (19.9-100); Troponin I 0.019 ng/mL (0.000-0.034)
[2024-01-28] MEDS: FUROSEMIDE INJ 40 MG/4 ML VIAL IV PUSH (21:00)
--- NOTE | 2024-01-28 21:10 | PC.NURSE ---
RN informed respiratory about this patient. they are in room at this time.
[2024-01-28] MEDS: LEVALBUTEROL NEB 1.25 MG/3 ML 2.5 MG INHALATION (21:19)
[2024-01-28] MEDS: IPRATROPIUM BR 0.02% INH SOLN 0.5 MG/2.5 ML VIAL 1.5 MG INHALATION (21:19)
[2024-01-28] MEDS: AZITHROMYCIN 500 MG/NS 250 ML 500 MG/250 ML BAG 250 MG IVPB (21:19)
[2024-01-28 21:20] VITALS: PULSE 64; RESP 25
[2024-01-28 21:24] LABS: Fractional Inspired Oxygen 80 %; Oxygen Content ABG 17.8 %vol (16.0-22.0); Oxygen Saturation ABG 90.2 % (95.0-100.0); Oxyhemoglobin 89.3 % THb (90.0-100.0); PO2 FiO2 Ratio Arterial Blood 0.75 %; Total Hemoglobin 14.2 g/dL (12.0-18.0); pH ABG 7.375 (7.350-7.450)
[2024-01-28 21:25] LABS: Modified Allen's Test Pass; Site Drawn RIGHT RADIAL
[2024-01-28 21:26] LABS: Device NON-REBREATHER MASK
[2024-01-28 22:17] VITALS: BP 156/70; PULSE 70; RESP 28; O2SAT 96
--- NOTE | 2024-01-28 22:19 | PC.NURSE ---
breathing treatment is complete.
--- NOTE | 2024-01-28 22:19 | PC.NURSE ---
patients saturations have improved.
[2024-01-28 22:38] VITALS: RESP 29; O2SAT 96
[2024-01-28 22:54] LABS: Influenza A QL RT-PCR Negative (Negative); Influenza B QL RT-PCR Negative (Negative); RSV RNA, RT-PCR Negative (Negative); SARS-CoV-2 RNA PCR Negative (Negative)
--- NOTE | 2024-01-28 23:12 | PC.NURSE ---
Trop sent at this time.
[2024-01-28 23:51] LABS: Troponin I 0.017 ng/mL (0.000-0.034)
[2024-01-29] VITALS (30 sets, daily range): BP systolic 131–158; BP diastolic 45–71; PULSE 60–76; RESP 20–33; TEMP 36.4–37; O2SAT 90–98; BMI 36.1
--- NOTE | 2024-01-29 | ECHO_ITS ---
Patient Info Name: Azucena Mcdonald Age: 88 years : 1935 Gender: Female Ht: 62 in Wt: 197 lbs BSA: 2.02 m2 HR: 61 bpm BP: 149 / 51 mmHg Heart Rhythm: Sinus Rhythm Technical Quality: Fair Exam Date: 01/29/2024 10:48 AM Exam Location: Echo Lab Patient Status: Inpatient Admit Date: 01/29/2024 Staff Ordering Physician: Sukhwinder Talamantes MD Guide Escort: Danay Sears RDCS Attending Provider: Leigh Ann Wyatt DO Exam Type: CA echo dop color flow w con Study Info Indications - chf Complete two-dimensional, color flow and Doppler transthoracic echocardiogram is performed with contrast to opacify the left ventricle and to improve the deliniation of the left ventricle endocardial borders. Contrast/Agitated Saline Contrast/Ag. Saline: Definity Amount: 2.00 ml Administered By: Danay Sears RDCS Existing IV Access: Yes IV Access Condition: patent with no signs of infiltration Summary 1. The left ventricle is moderately dilated with normal systolic function. There is severe eccentric left ventricular hypertrophy. The left ventricular ejection fraction is visually estimated to be 60-65%. 2. There is normal wall motion. 3. There is severe pulmonary hypertension. 4. Pulmonary arterial systolic pressure is estimated at 77 mmHg. 5. Large left pleural effusion. Left Ventricle The left ventricle is moderately dilated with normal systolic function. There is severe eccentric left ventricular hypertrophy. The left ventricular ejection fraction is visually estimated to be 60-65%. There is normal wall motion. Right Ventricle The right ventricle is normal in size and systolic function. Left Atria The left atrium is severely dilated. Right Atria The right atrium is dilated. Atrial Septum The atrial septum is not well visualized. Aortic Valve The aortic root is trileaflet and opens well. It is sclerotic with no stenosis. There is no aortic regurgitation. Pulmonic Valve The pulmonic valve is not well visualized. There is trace pulmonic valve regurgitation. Mitral Valve The mitral valve leaflets are normal. There is significant posterior mitral annular calcification. There is mild mitral regurgitation. Tricuspid Valve The tricuspid valve is normal. There is mild tricuspid regurgitation. Pulmonary Arteries Pulmonary arterial systolic pressure is estimated at 77 mmHg. Pericardium/Pleural Pericardium is normal in appearance with no evidence for significant pericardial effusion. Large left pleural effusion. Inferior Vena Cava Normal inferior vena cava with <50% collapse upon inspiration consistent with elevated right atrial pressure, 10 mmHg. Aorta The aortic root the level of the sinus of Valsalva measures 2.3 cm in diameter. Left Ventricular Outflow Tract Name Value Normal LVOT 2D LVOT Diameter 2.00 cm LVOT Doppler LVOT Peak Gradient 3 mmHg LVOT Mean Gradient 2 mmHg LVOT VTI 19.86 cm LVOT VTI/AV VTI Ratio 0.49 LVOT Stroke Volume 62.46 ml LVOT CO 3.75 l/min LVOT CI 1.86 L/min/m2 Pulmonic Valve Name Value Normal RVOT Doppler RVOT Peak Gradient 5 mmHg PV Doppler PV Peak Gradient 6 mmHg Mitral Valve Name Value Normal MV Doppler MV Peak Gradient 11 mmHg MV Mean Gradient 3 mmHg MV Decel Stone 1,008.78 cm/s2 MV PHT 0 s MV Area (PHT) 4.42 cm2 4.00-5.00 MV Area (Cont Eq VTI) 1.21 cm2 MV Regurgitation Doppler MR Peak Gradient 102 mmHg MV Diastolic Function MV E Peak Velocity 173.15 cm/s MV A Peak Velocity 93.03 cm/s MV E/A 1.86 MV Decel Time 0 s MV Annular TDI MV E/e' (Septal) 36.34 <=8.00 MV E/e' (Lateral) 29.67 <=8.00 MV E/e' (Average) 33.01 Tricuspid Valve Name Value Normal TV Regurgitation Doppler TR Peak Velocity 409.74 cm/s TR Peak Gradient 67 mmHg Estimated PAP/RSVP RA Pressure 10 mmHg <=5 PA Systolic Pressure 77 mmHg <36 RV Systolic Pressure 77 mmHg <36 Aorta Name Value Normal Ascending Aorta Ao Root Diameter (MM) 2.59 cm Ao Root Diam Index (MM) 1.28 cm/m2 Aortic Valve Name Value Normal AV Doppler AV Peak Velocity 172.53 cm/s AV Peak Gradient 12 mmHg AV Mean Gradient 5 mmHg AV VTI 40.66 cm AV Area (Cont Eq VTI) 1.54 cm2 >=3.00 AV Area (Cont Eq Justo) 1.68 cm2 AV Regurgitation 2D LVOT Area 3.14 cm2 Ventricles Name Value Normal LV Dimensions 2D/MM IVS Diastolic Thickness (2D) 1.11 cm 0.60-1.00 LVID Diastole (2D) 5.76 cm 3.80-5.20 LVIW Diastolic Thickness (2D) 0.99 cm 0.60-0.90 LVID Systole (2D) 3.32 cm 2.20-3.50 LVOT Diameter 2.00 cm LV Mass (2D Cubed) 245.85 g 67.00-162.00 LV Mass Index (2D Cubed) 0.01 g/cm2 0.00-0.01 Relative Wall Thickness (2D) 0.34 LV Fractional Shortening/Ejection Fraction 2D/MM LV Fractional Shortening (2D) 42 % 27-45 LV EF (2D Teicholz) 73 % 54-74 LV Diastolic Volume (4C MOD) 79.85 ml LV EF (4C MOD) 63 % LV Diastolic Volume (2C MOD) 85.09 ml LV EF (2C MOD) 70 % LV Diastolic Volume (BP MOD) 84.90 ml 46.00-106.00 LV Diastolic Volume Index (BP MOD) 0.04 l/m2 0.03-0.06 LV Systolic Volume (BP MOD) 27.95 ml 14.00-42.00 LV Systolic Volume Index (BP MOD) 0.01 l/m2 0.01-0.02 LV EF (BP MOD) 67 % 54-74 LV Diastolic Length (4C) 7.05 cm LV Systolic Length (4C) 6.33 cm LV Stroke Volume (4C MOD) 50.20 ml Atria Name Value Normal LA Dimensions LA Dimension (MM) 5.75 cm 2.70-3.80 LA Volume (4C A-L) 106.62 ml LA Volume (BP A-L) 116.93 ml RA Dimensions RA Area (4C) 25.78 cm2 <=18.00 Report Signatures
--- NOTE | 2024-01-29 00:39 | PC.NURSE ---
report called for this patient. respiratory called at this time to help transfer patient.
--- NOTE | 2024-01-29 00:51 | PC.NURSE ---
Admission report provided to DICKSON Siegel.
[2024-01-29 01:14] LABS: Procalcitonin 0.4 ng/mL
--- NOTE | 2024-01-29 01:33 | ADMGEN ---
This patient, Azucena Mcdonald, was admitted to IMU Room 231-01. Patient/family oriented to hospital policies and general routines including ID bracelet, bed and alarms, visiting hours, pain management, procedures, bathroom and other care routines, personal items, smoking policy, room service/diet, and visiting hours. Information on how to activate the Rapid Response Team has been discussed. Patient/Family are encouraged to report perceived risks to care and to ask questions if they do not understand what they are told or what they should do.
[2024-01-29 02:41] LABS: Troponin I 0.015 ng/mL (0.000-0.034)
--- NOTE | 2024-01-29 06:52 | PM.IMHP ---
H&P: HPI History of Present Illness Date/Time: 01/29/24 06:20 Chief Complaint: Shortness of breath Narrative: 88-year-old female with past medical history of paroxysmal AFib, status post cardioversion 05/2023, essential hypertension, chronic kidney disease stage 3, pulmonary hypertension and heart failure with preserved ejection fraction who presented ER from home via EMS with shortness of breath. Patient reports she has been short of breath for about 3 days. She wears 4 L of home O2 at all times. When EMS arrived the patient's home she was satting 78% on her home O2. They increased her oxygen is 6 L and oxygen saturations improved to 80 8/89. Patient received DuoNeb in route to the hospital and on arrival to the hospital she was still hypoxic. She was placed on 10 L non-rebreather and was satting 95%. She denies any fevers or chills. She has been having some cough productive of frothy liquid. She also noticed that her eyes were watering and her nose as well. She denies any ill contacts. She has been having some lower extremity swelling it is not been getting better with elevating her legs. She denies any chest pain or palpitations. She was in sinus rhythm on presentation the hospital. She has been compliant with her cardiac medications and her diuretics. According to review of records the patient's weight is up 4 kg compared to Healthcare recent visit. The patient reports that she does not like are BiPAP because it rubs her nose more than her machine at home. Review of Systems Review of Systems: Review of systems limited due to patient being on BiPAP in difficult to understand her speech. 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 Family History Family History Father Diabetes mellitus, Onset Age: 89 Hypertension, Onset Age: 89 Cerebrovascular accident, Onset Age: 89 Sibling Diabetes mellitus, Onset Age: 74 Family history of hypercholesterolemia, Onset Age: 74 Hypertension Acute myocardial infarction, Onset Age: 83 Family history of arthritis Family history of malignant neoplasm of urinary bladder, Onset Age: 74 Mother Hypertension, Onset Age: 85 Cerebrovascular accident, Onset Age: 85 Family history of arthritis, Onset Age: 85 Family history of congestive heart failure, Onset Age: 85 Social History Social History Social History: [id number]: Sonu Mcdonald, son. Code status: Modified code, no intubation. Smoking status: Never smoker Second hand tobacco smoke exposure: No Alcohol intake: never Substance use: unknown Substance use type: does not use Do You Feel Safe in your Home?: Yes Lack of Transportation: No Lack of Food: Never True Current Housing: I Have Housing Concerned About Future Housing: No Difficulty Paying Gas/Electric Bills: No Difficulty Paying for Meds: No Currently Unemployed: No Education: High School Diploma/GED Difficulty w/ Childcare or Family Care: No Living arrangements: alone Additional living arrangements comments: . Lives with son in [place]. Gender identity (if verbalized by the patient): Female Spiritual care concerns: No Agree to blood products: Yes Meds Home Medications and Allergies Home Medications Medication Instructions Recorded Confirmed Type albuterol sulfate 90 mcg/actuation 1 inh inhalation Q4H PRN shortness 03/17/22 01/29/24 Rx aerosol inhaler of breath or wheezing #6.7 grams apixaban 5 mg tablet (Eliquis) 5 mg PO BID 03/30/23 01/29/24 History lisinopril 20 mg tablet 20 mg PO DAILY #30 tabs 04/13/23 01/29/24 Rx spironolactone 25 mg tablet 25 mg PO QAM #30 tabs 04/13/23 01/29/24 Rx nifedipine 60 mg tablet,extended 60 mg PO DAILY #90 tabs 05/24/23 01/29/24 Rx release 24 hr (Procardia XL) amiodarone 200 mg tablet (Pacerone) 200 mg PO DAILY@0800 30 days #30 05/26/23 01/29/24 Rx tabs furosemide 40 mg tablet 40 mg PO BID #60 tabs 10/02/23 01/29/24 Rx cholecalciferol (vitamin D3) 50 50 mcg PO DAILY #90 tabs 10/24/23 01/29/24 Rx mcg (2,000 unit) tablet metoprolol succinate 100 mg 100 mg PO DAILY #90 tabs 01/01/24 01/29/24 Rx tablet,extended release 24 hr Allergies Allergy/AdvReac Type Severity Reaction Status Date / Time Sulfa (Sulfonamide Allergy Unknown unknown Verified 01/29/24 00:16 Antibiotics) tomato Allergy Hives Verified 01/29/24 00:16 Vital Signs Vital Signs - 24 hr 01/28/24 19:41 01/28/24 20:21 01/28/24 21:20 Temperature Pulse Rate 68 64 Respiratory Rate 30 H 25 H Blood Pressure 158/68 H Pulse Oximetry 96 97 Oxygen Delivery Non-Rebreather Mask Non-Rebreather Mask Oxygen Flow Rate 10 10 Fraction of Inspired Oxygen 01/28/24 22:17 01/28/24 22:38 01/29/24 00:52 Temperature Pulse Rate 70 63 Respiratory Rate 28 H 29 H 26 H Blood Pressure 156/70 H 149/54 H Pulse Oximetry 96 96 98 Oxygen Delivery BiPAP Oxygen Flow Rate Fraction of Inspired Oxygen 01/29/24 01:29 01/29/24 01:42 01/29/24 01:15 Temperature 98.1 F Pulse Rate 63 65 Respiratory Rate 29 H 29 H 31 H Blood Pressure 146/45 H Pulse Oximetry 95 95 97 Oxygen Delivery BiPAP BiPAP Oxygen Flow Rate Fraction of Inspired Oxygen 01/29/24 02:21 01/29/24 03:48 01/29/24 04:16 Temperature 98.6 F Pulse Rate 60 60 69 Respiratory Rate 29 H 28 H Blood Pressure 149/51 H Pulse Oximetry 95 95 Oxygen Delivery BiPAP Oxygen Flow Rate Fraction of Inspired Oxygen 60 01/29/24 04:00 01/29/24 04:52 01/29/24 06:00 Temperature Pulse Rate 61 61 Respiratory Rate 22 H Blood Pressure Pulse Oximetry 98 Oxygen Delivery BiPAP Oxygen Flow Rate Fraction of Inspired Oxygen Exam Narrative: Weight 89.5 kg BMI 36.1 Const: Other: BiPAP in place, lying in bed with head of bed at 40?, no acute distress, appears stated age HENMT: Other: Head is normocephalic atraumatic, pupils are equal and reactive, positive conjunctival pallor, mucous membranes are tacky, BiPAP in place which limits exam Eyes: Other: See above Neck: Other: No JVD, supple, no lymphadenopathy Resp: Other: Crackles at the bases bilaterally, no tachypnea or increased work of breathing on BiPAP Cardio: Other: Occasionally irregular rate, 2+ bilateral radial pedal pulses, mild JVD GI: Other: Soft, distended, nontender Back/Spine/Pelvis: Other: Moderate thoracic kyphosis Skin: Other: Chronic venous stasis changes of bilateral lower extremities, normal cap refill, marked varicose veins of lower extremities across the tops of the feet and calves Neuro: Other: Alert oriented person, place and month and day but confused as to the year she stated the year was 2024, patient is markedly hard of hearing and the BiPAP and ambient noise exam or difficult, patient was moving all extremities equally and had no obvious localizing neurologic deficits cranial nerve exam was further limited by presence of BiPAP mask Extrem: Other: non pitting edema to lower extremities, no cyanosis, no clubbing Psych: Other: Pleasant, cooperative H&P: Results Labs Labs: Laboratory Tests 01/28/24 20:07 01/28/24 20:07 01/28/24 01/28/24 01/28/24 20:07 20:07 21:09 WBC 12.6 H RBC 3.45 L Hgb 10.9 L Hct 34.3 L MCV 99.4 MCH 31.6 MCHC 31.8 L RDW 14.1 Plt Count 330 MPV 9.6 Immature Gran % (Auto) 0.6 H Neut % (Auto) 85.1 H Lymph % (Auto) 6.3 L Hill % (Auto) 7.1 Eos % (Auto) 0.6 Baso % (Auto) 0.3 Lymph # (Auto) 0.79 L Hill # (Auto) 0.9 H Eos # (Auto) 0.1 Baso # (Auto) 0.0 Abs Immat Gran (auto) 0.08 H Absolute Neuts (auto) 10.8 H Absolute Nucleated RBC 0.000 Nucleated RBC % 0.0 PT 25.3 H INR 2.2 APTT 55.6 H Puncture Site Right radial ABG pH 7.375 ABG pCO2 49.0 H ABG pO2 60.0 L ABG PO2/FiO2 Ratio 0.75 ABG HCO3 28.0 H ABG O2 Saturation 90.2 L ABG O2 Content 17.8 ABG Base Excess 2.0 A-a Gradient 459.0 Oxyhemoglobin 89.3 L Total Hemoglobin 14.2 O2 Delivery Device Non-rebreather mask O2 Liters/Min 10.0 FiO2 80 Sodium 139 Potassium 4.3 Chloride 103 Carbon Dioxide 28 Anion Gap 8 BUN 57 H Creatinine 2.50 H Estim Creat Clear Calc 15 Estimated GFR 18 L Glucose 131 H Lactic Acid 1.3 Calcium 9.3 Magnesium 2.1 Total Bilirubin 0.9 AST 23 ALT 18 Alkaline Phosphatase 98 Troponin I 0.019 NT-Pro-B Natriuret Pep Cancelled 9000 H Total Protein 8.0 Albumin 3.7 Procalcitonin Influenza A (RT-PCR) Influenza B (RT-PCR) RSV (RT-PCR) SARS-CoV-2 RNA (RT-PCR) 01/28/24 01/28/24 01/29/24 21:52 23:09 00:28 WBC RBC Hgb Hct MCV MCH MCHC RDW Plt Count MPV Immature Gran % (Auto) Neut % (Auto) Lymph % (Auto) Hill % (Auto) Eos % (Auto) Baso % (Auto) Lymph # (Auto) Hill # (Auto) Eos # (Auto) Baso # (Auto) Abs Immat Gran (auto) Absolute Neuts (auto) Absolute Nucleated RBC Nucleated RBC % PT INR APTT Puncture Site ABG pH ABG pCO2 ABG pO2 ABG PO2/FiO2 Ratio ABG HCO3 ABG O2 Saturation ABG O2 Content ABG Base Excess A-a Gradient Oxyhemoglobin Total Hemoglobin O2 Delivery Device O2 Liters/Min FiO2 Sodium Potassium Chloride Carbon Dioxide Anion Gap BUN Creatinine Estim Creat Clear Calc Estimated GFR Glucose Lactic Acid Calcium Magnesium Total Bilirubin AST ALT Alkaline Phosphatase Troponin I 0.017 NT-Pro-B Natriuret Pep Total Protein Albumin Procalcitonin 0.4 Influenza A (RT-PCR) Negative Influenza B (RT-PCR) Negative RSV (RT-PCR) Negative SARS-CoV-2 RNA (RT-PCR) Negative 01/29/24 02:11 WBC RBC Hgb Hct MCV MCH MCHC RDW Plt Count MPV Immature Gran % (Auto) Neut % (Auto) Lymph % (Auto) Hill % (Auto) Eos % (Auto) Baso % (Auto) Lymph # (Auto) Hill # (Auto) Eos # (Auto) Baso # (Auto) Abs Immat Gran (auto) Absolute Neuts (auto) Absolute Nucleated RBC Nucleated RBC % PT INR APTT Puncture Site ABG pH ABG pCO2 ABG pO2 ABG PO2/FiO2 Ratio ABG HCO3 ABG O2 Saturation ABG O2 Content ABG Base Excess A-a Gradient Oxyhemoglobin Total Hemoglobin O2 Delivery Device O2 Liters/Min FiO2 Sodium Potassium Chloride Carbon Dioxide Anion Gap BUN Creatinine Estim Creat Clear Calc Estimated GFR Glucose Lactic Acid Calcium Magnesium Total Bilirubin AST ALT Alkaline Phosphatase Troponin I 0.015 NT-Pro-B Natriuret Pep Total Protein Albumin Procalcitonin Influenza A (RT-PCR) Influenza B (RT-PCR) RSV (RT-PCR) SARS-CoV-2 RNA (RT-PCR) Impressions Chest X-Ray 01/28/24 20:59 (personally reviewed agree with radiologic interpretation) IMPRESSION: Cirrhosis and central consolidation in the left lower lung Patchy diffuse right lung infiltrate which may be due to pulmonary edema or pneumonia Cardiomegaly, congestive heart failure Chest CT 01/29/24 06:13 Impression: Moderate bilateral pleural effusions with moderate pulmonary edema pattern and extensive bibasilar atelectasis, left worse than right, as detailed above. Correlate clinically for pneumonia. EKG: Personally reviewed and interpreted cardiology interpretation pending sinus rhythm left axis deviation left bundle-branch block QTC 504 rate 67 Assessment and Plan Assessment and plan (1) Acute on chronic hypoxic respiratory failure: Code(s): J96.21 - Acute and chronic respiratory failure with hypoxia Status: Acute (2) Acute exacerbation of CHF (congestive heart failure): Qualifiers: Heart failure type: unspecified Qualified Code(s): I50.9 - Heart failure, unspecified Code(s): I50.9 - Heart failure, unspecified Status: Acute (3) GERD (gastroesophageal reflux disease): Qualifiers: Esophagitis presence: without esophagitis Qualified Code(s): K21.9 - Gastro-esophageal reflux disease without esophagitis Code(s): K21.9 - Gastro-esophageal reflux disease without esophagitis Status: Acute (4) Hypertension: Qualifiers: Hypertension type: essential hypertension Qualified Code(s): I10 - Essential (primary) hypertension Code(s): I10 - Essential (primary) hypertension Status: Acute (5) Pulmonary hypertension: Code(s): I27.20 - Pulmonary hypertension, unspecified Status: Acute (6) Chronic anticoagulation: Code(s): Z79.01 - 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 Patient has been admitted and placed on BiPAP settings of 10/5 with backup rate of 14 with 50% FiO2. Patient reports significant improvement in his symptoms on BiPAP and after Lasix. Nursing staff report they tried to give the patient a break from the BiPAP in place her on her home O2 of 4 L but she became hypoxic with sats down in to the mid 80s. Will continue diuresis with Lasix 40 mg IV b.i.d.. Will repeat electrolyte panel and monitor strict I&O's. The patient does have some mild leukocytosis but no evidence of pneumonia on CT scan and she has been afebrile. Leukocytosis likely due to acute stress reaction. Will repeat CBC and monitor. Will obtain echocardiogram to further evaluate cardiac structure and function. Will place patient on scheduled nebulizer treatments for history of COPD although acute exacerbation seems less likely given history. Patient does have acute kidney injury on chronic kidney disease. Will repeat electrolyte panel. Will monitor closely in the setting of acute diuresis. It may be that a part of the patient's fluid overloaded due to decreased renal function. Will monitor diuresis and renal function and re-evaluate. Due to patient's age and renal function will decrease patient's Eliquis dose to 2.5 mg twice daily. Quality VTE Prophylaxis VTE prophylaxis: pharmacologic ordered (Continue home Eliquis but will decrease dose due to patient's renal function and age) Hospitalist MIPS Advance Care Plan I have confirmed that the patient's Advanced Care Plan is present, code status is documented, or surrogate decision maker is listed in patient medical record.: Yes Medication Reconciliation I have utilized all available resources to obtain, update and review the patients current medications (includes all prescriptions, OTC, herbals, cannabis, and nutritional supplements).: Yes
--- NOTE | 2024-01-29 07:30 | PM.IMPN ---
Progress Note: A&P Assessment and Plan (1) Acute on chronic hypoxic respiratory failure: Code(s): J96.21 - Acute and chronic respiratory failure with hypoxia Status: Acute (2) Acute exacerbation of CHF (congestive heart failure): Qualifiers: Heart failure type: unspecified Qualified Code(s): I50.9 - Heart failure, unspecified Code(s): I50.9 - Heart failure, unspecified Status: Acute (3) GERD (gastroesophageal reflux disease): Qualifiers: Esophagitis presence: without esophagitis Qualified Code(s): K21.9 - Gastro-esophageal reflux disease without esophagitis Code(s): K21.9 - Gastro-esophageal reflux disease without esophagitis Status: Acute (4) Hypertension: Qualifiers: Hypertension type: essential hypertension Qualified Code(s): I10 - Essential (primary) hypertension Code(s): I10 - Essential (primary) hypertension Status: Acute (5) Pulmonary hypertension: Code(s): I27.20 - Pulmonary hypertension, unspecified Status: Acute (6) Chronic anticoagulation: Code(s): 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 -continue ceftriaxone and doxycycline -pulmonology consulted -May need Thoracentesis if no improvement CHF -BNP -cardiology consulted -IV Lasix 80 mg b.i.d. -monitor renal function during diuresis -Echocardiogram :The left ventricle is moderately dilated with normal systolic function. There is severe eccentric left ventricular hypertrophy. The left ventricular ejection fraction is visually estimated to be 60-65% -EKG sinus rhythm, LAD, LBB -chest x-ray Pulmonary edema -Daily weights. -Strict I&O's AFib -continue Eliquis 2.5 mg p.o. b.i.d. -amiodarone 200 mg p.o. q.d. -Toprol 100 mg p.o. q.d. Pleural effusion -bilateral pleural effusion -IV diuretics -incentive spirometer -May need thoracentesis if no improvement chronic renal failure Stage 4 -monitor closely during diuresis -Avoid nephrotoxic drugs. -holding lisinopril and spironolactone. -added hydralazine 12.5 q.i.d. and will increase as needed -Monitor antihypertensive drug therapy. -Avoid NSAIDs. -Routine CMP monitoring GFR. -Monitor electrolytes especially potassium. -Cr 2.50 ,base line 1.60 -possible cardiorenal syndrome -nephro consult HTN -holding home medication lisinopril and spironolactone due to KAY -ordered hydralazine 12.5 mg p.o. q.i.d. Code status: Modified Code DVT prophylaxis: eliquis Stress ulcer prophylaxis: Protonix 40 daily Subjective Date/time seen: 01/29/24 07:30 Interval history: 88-year-old female with past medical history of paroxysmal AFib, status post cardioversion 05/2023, essential hypertension, chronic kidney disease stage 3, pulmonary hypertension and heart failure with preserved ejection fraction who presented ER from home via EMS with shortness of breath. Patient reports she has been short of breath for about 3 days. She wears 4 L of home O2 at all times. When EMS arrived the patient's home she was satting 78% on her home O2. They increased her oxygen is 6 L and oxygen saturations improved to 80 8/89. Patient received DuoNeb in route to the hospital and on arrival to the hospital she was still hypoxic. She was placed on 10 L non-rebreather and was satting 95%. She denies any fevers or chills. She has been having some cough productive of frothy liquid. She also noticed that her eyes were watering and her nose as well. She denies any ill contacts. She has been having some lower extremity swelling it is not been getting better with elevating her legs. She denies any chest pain or palpitations. She was in sinus rhythm on presentation the hospital. She has been compliant with her cardiac medications and her diuretics. According to review of records the patient's weight is up 4 kg compared to Healthcare recent visit. The patient reports that she does not like are BiPAP because it rubs her nose more than her 1 at home. ED : WBC 12.6, hemoglobin 10.9, sodium 139, potassium 4.3, BUN 57, creatinine 2.5(baseline 1.6), GFR 18, lactic acid 1.3, BNP 9000 Negative for influenza, RSV, COVID CT chest:Moderate bilateral pleural effusions with moderate pulmonary edema pattern and extensive bibasilar atelectasis, left worse than right, as detailed above. Correlate clinically for pneumonia. CXR:Patchy diffuse right lung infiltrate which may be due to pulmonary edema or pneumonia Cardiomegaly, congestive heart failure UA: Ordered EKG: Sinus rhythm, left axis deviation, left bundle branch block, evidence of QTC prolongation Patient morning was saturating 94% on 10 L. Patient had episodes of desaturation and switch to trial of high-flow nasal cannula but unfortunately it was not successful. Patient currently on BiPAP. Patient reports of undergoing thoracentesis possibly in the month of April?. Review of Systems Review of Systems: Review of systems limited due to patient being on BiPAP in difficult to understand her speech. Exam Narrative: Weight 89.5 kg BMI 36.1 Const: Other: BiPAP in place, lying in bed with head of bed at 40?, no acute distress, appears stated age HENMT: Other: Head is normocephalic atraumatic, pupils are equal and reactive, positive conjunctival pallor, mucous membranes are tacky, BiPAP in place which limits exam Eyes: Other: See above Neck: Other: No JVD, supple, no lymphadenopathy Resp: Other: Crackles at the bases bilaterally, no tachypnea or increased work of breathing on BiPAP Cardio: Other: Occasionally irregular rate, 2+ bilateral radial pedal pulses, mild JVD GI: Other: Soft, distended, nontender Back/Spine/Pelvis: Other: Moderate thoracic kyphosis Skin: Other: Chronic venous stasis changes of bilateral lower extremities, normal cap refill, marked varicose veins of lower extremities across the tops of the feet and calves Neuro: Other: Alert oriented person, place and month and day but confused as to the year she stated the year was 2024, patient is markedly hard of hearing and the BiPAP and ambient noise exam or difficult, patient was moving all extremities equally and had no obvious localizing neurologic deficits cranial nerve exam was further limited by presence of BiPAP mask Extrem: Other: non pitting edema to lower extremities, no cyanosis, no clubbing Psych: Other: Pleasant, cooperative Objective Data Vital Signs Vital Signs: Vital Signs - 24 hr 01/28/24 19:41 01/28/24 20:21 01/28/24 21:20 Temperature Pulse Rate 68 64 Respiratory Rate 30 H 25 H Blood Pressure 158/68 H Pulse Oximetry 96 97 Oxygen Delivery Non-Rebreather Mask Non-Rebreather Mask Oxygen Flow Rate 10 10 Fraction of Inspired Oxygen 01/28/24 22:17 01/28/24 22:38 01/29/24 00:52 Temperature Pulse Rate 70 63 Respiratory Rate 28 H 29 H 26 H Blood Pressure 156/70 H 149/54 H Pulse Oximetry 96 96 98 Oxygen Delivery BiPAP Oxygen Flow Rate Fraction of Inspired Oxygen 01/29/24 01:29 01/29/24 01:42 01/29/24 01:15 Temperature 98.1 F Pulse Rate 63 65 Respiratory Rate 29 H 29 H 31 H Blood Pressure 146/45 H Pulse Oximetry 95 95 97 Oxygen Delivery BiPAP BiPAP Oxygen Flow Rate Fraction of Inspired Oxygen 01/29/24 02:21 01/29/24 03:48 01/29/24 04:16 Temperature 98.6 F Pulse Rate 60 60 69 Respiratory Rate 29 H 28 H Blood Pressure 149/51 H Pulse Oximetry 95 95 Oxygen Delivery BiPAP Oxygen Flow Rate Fraction of Inspired Oxygen 60 01/29/24 04:00 01/29/24 04:52 01/29/24 06:00 Temperature Pulse Rate 61 61 Respiratory Rate 22 H Blood Pressure Pulse Oximetry 98 Oxygen Delivery BiPAP Oxygen Flow Rate Fraction of Inspired Oxygen Intake/Output Intake/Output: Intake & Output 01/26/24 01/27/24 01/28/24 01/29/24 23:59 23:59 23:59 23:59 Intake Total 300 Output Total 250 Balance 300 -250 Meds/Results Medications: Active Medications Generic Name Dose Route Start Last Admin Trade Name Freq PRN Reason Stop Dose Admin Amiodarone HCl 200 mg 01/29/24 08:00 Amiodarone Hcl 200 Mg Tablet PO DAILY@0800 [facility] Apixaban 5 mg 01/29/24 09:00 Apixaban 5 Mg Tablet PO Q12HR [facility] Furosemide 40 mg 01/29/24 09:00 Furosemide Inj 40 Mg/4 Ml Vial IV PUSH Q12HR [facility] Lisinopril 20 mg 01/29/24 09:00 Lisinopril 20 Mg Tablet PO DAILY [facility] Metoprolol Succinate 100 mg 01/29/24 09:00 Metoprolol Succinate Ext Rel 100 Mg Tabcr PO DAILY [facility] Nifedipine 60 mg 01/29/24 09:00 Nifedipine 30 Mg Tab.Er.24 PO DAILY [facility] Spironolactone 25 mg 01/29/24 09:00 Spironolactone 25 Mg Tablet PO QAM [facility] Vitamin D 2,000 units 01/29/24 09:00 Cholecalciferol 1,000 Units Tablet PO DAILY [facility] Radiology Results: ITS Impressions Chest X-Ray 01/28/24 20:59 IMPRESSION: Cirrhosis and central consolidation in the left lower lung Patchy diffuse right lung infiltrate which may be due to pulmonary edema or pneumonia Cardiomegaly, congestive heart failure Chest CT 01/29/24 06:13 Impression: Moderate bilateral pleural effusions with moderate pulmonary edema pattern and extensive bibasilar atelectasis, left worse than right, as detailed above. Correlate clinically for pneumonia. Labs Labs: Laboratory Results - last 24 hr 01/28/24 01/28/24 01/28/24 20:07 20:07 21:09 WBC 12.6 H RBC 3.45 L Hgb 10.9 L Hct 34.3 L MCV 99.4 MCH 31.6 MCHC 31.8 L RDW 14.1 Plt Count 330 MPV 9.6 Immature Gran % (Auto) 0.6 H Neut % (Auto) 85.1 H Lymph % (Auto) 6.3 L [place] % (Auto) 7.1 Eos % (Auto) 0.6 Baso % (Auto) 0.3 Lymph # (Auto) 0.79 L [place] # (Auto) 0.9 H Eos # (Auto) 0.1 Baso # (Auto) 0.0 Abs Immat Gran (auto) 0.08 H Absolute Neuts (auto) 10.8 H Absolute Nucleated RBC 0.000 Nucleated RBC % 0.0 PT 25.3 H INR 2.2 APTT 55.6 H Puncture Site Right radial ABG pH 7.375 ABG pCO2 49.0 H ABG pO2 60.0 L ABG PO2/FiO2 Ratio 0.75 ABG HCO3 28.0 H ABG O2 Saturation 90.2 L ABG O2 Content 17.8 ABG Base Excess 2.0 A-a Gradient 459.0 Oxyhemoglobin 89.3 L Total Hemoglobin 14.2 O2 Delivery Device Non-rebreather mask O2 Liters/Min 10.0 FiO2 80 Sodium 139 Potassium 4.3 Chloride 103 Carbon Dioxide 28 Anion Gap 8 BUN 57 H Creatinine 2.50 H Estim Creat Clear Calc 15 Estimated GFR 18 L Glucose 131 H Lactic Acid 1.3 Calcium 9.3 Magnesium 2.1 Total Bilirubin 0.9 AST 23 ALT 18 Alkaline Phosphatase 98 Troponin I 0.019 NT-Pro-B Natriuret Pep Cancelled 9000 H Total Protein 8.0 Albumin 3.7 Procalcitonin Influenza A (RT-PCR) Influenza B (RT-PCR) RSV (RT-PCR) SARS-CoV-2 RNA (RT-PCR) 01/28/24 01/28/24 01/29/24 21:52 23:09 00:28 WBC RBC Hgb Hct MCV MCH MCHC RDW Plt Count MPV Immature Gran % (Auto) Neut % (Auto) Lymph % (Auto) [place] % (Auto) Eos % (Auto) Baso % (Auto) Lymph # (Auto) [place] # (Auto) Eos # (Auto) Baso # (Auto) Abs Immat Gran (auto) Absolute Neuts (auto) Absolute Nucleated RBC Nucleated RBC % PT INR APTT Puncture Site ABG pH ABG pCO2 ABG pO2 ABG PO2/FiO2 Ratio ABG HCO3 ABG O2 Saturation ABG O2 Content ABG Base Excess A-a Gradient Oxyhemoglobin Total Hemoglobin O2 Delivery Device O2 Liters/Min FiO2 Sodium Potassium Chloride Carbon Dioxide Anion Gap BUN Creatinine Estim Creat Clear Calc Estimated GFR Glucose Lactic Acid Calcium Magnesium Total Bilirubin AST ALT Alkaline Phosphatase Troponin I 0.017 NT-Pro-B Natriuret Pep Total Protein Albumin Procalcitonin 0.4 Influenza A (RT-PCR) Negative Influenza B (RT-PCR) Negative RSV (RT-PCR) Negative SARS-CoV-2 RNA (RT-PCR) Negative 01/29/24 02:11 WBC RBC Hgb Hct MCV MCH MCHC RDW Plt Count MPV Immature Gran % (Auto) Neut % (Auto) Lymph % (Auto) [place] % (Auto) Eos % (Auto) Baso % (Auto) Lymph # (Auto) [place] # (Auto) Eos # (Auto) Baso # (Auto) Abs Immat Gran (auto) Absolute Neuts (auto) Absolute Nucleated RBC Nucleated RBC % PT INR APTT Puncture Site ABG pH ABG pCO2 ABG pO2 ABG PO2/FiO2 Ratio ABG HCO3 ABG O2 Saturation ABG O2 Content ABG Base Excess A-a Gradient Oxyhemoglobin Total Hemoglobin O2 Delivery Device O2 Liters/Min FiO2 Sodium Potassium Chloride Carbon Dioxide Anion Gap BUN Creatinine Estim Creat Clear Calc Estimated GFR Glucose Lactic Acid Calcium Magnesium Total Bilirubin AST ALT Alkaline Phosphatase Troponin I 0.015 NT-Pro-B Natriuret Pep Total Protein Albumin Procalcitonin Influenza A (RT-PCR) Influenza B (RT-PCR) RSV (RT-PCR) SARS-CoV-2 RNA (RT-PCR) Hospitalist MIPS Advance Care Plan I have confirmed that the patient's Advanced Care Plan is present, code status is documented, or surrogate decision maker is listed in patient medical record.: Yes Medication Reconciliation I have utilized all available resources to obtain, update and review the patients current medications (includes all prescriptions, OTC, herbals, cannabis, and nutritional supplements).: Yes
[2024-01-29 08:18] LABS: Hematocrit 32.2 % (37.0-47.0); Hemoglobin 10.3 g/dL (12.0-15.0); Mean Corpuscular Hemoglobin 31.8 pg (26-34); Mean Corpuscular Volume 99.4 fl (80-100); Mean Platelet Volume 9.3 fl (7.4-10.4); Platelet Count Result 322 k/mm3 (150-375); Red Blood Count 3.24 M/mm3 (4.2-5.4); Red Cell Distribution Width 14.1 % (11.5-14.5); White Blood Count 11.8 K/mm3 (4.5-10.0)
[2024-01-29 08:19] LABS: Add Urine Microscopic? NO; Appearance Urine Clear (Clear); Bilirubin Urine Negative (Negative); Blood Urine Negative (Negative); Color Urine Yellow (Yellow); Glucose Urine UA Negative (Negative); Ketones Urine Negative (Negative); Leukocyte Esterase Ur Negative LEU/UL (Negative); Nitrate Urine Negative (Negative); Protein Urine Negative (Negative); Specific Grav Ur 1.012 (1.001-1.035); Urobilinogen Urine 0.2 mg/dL (<2.0)
[2024-01-29] MEDS: IPRATROPIUM 0.5 MG/ALBUTEROL SULFATE 2.5 MG AMPUL.NEB 3 ML INHALATION ×3 (08:21→20:27)
[2024-01-29 08:30] LABS: Anion Gap 7 mmol/L (4-12); Blood Urea Nitrogen 55 mg/dL (7-17); Calcium 9.2 mg/dL (8.4-10.2); Carbon Dioxide 28 mmol/L (22-30); Chloride 104 mmol/L (98-107); Estimated CRCL calculation 15 ml/min; Estimated Glomerular Filt Rate 18; Glucose 121 mg/dL (65-110); Magnesium 2.1 mg/dL (1.6-2.3); Potassium 4.4 mmol/L (3.4-5.0); Sodium 139 mmol/L (137-145)
[2024-01-29] MEDS: NIFEdipine 30 MG TAB.ER.24 60 MG PO (10:18)
[2024-01-29] MEDS: DOXYCYCLINE HYCLATE 100 MG TABLET PO ×2 (10:18→20:37)
[2024-01-29] MEDS: METOPROLOL SUCCINATE EXT REL 100 MG TABCR PO (10:18)
[2024-01-29] MEDS: CHOLECALCIFEROL 1,000 UNITS TABLET 2000 UNITS PO (10:19)
[2024-01-29] MEDS: cefTRIAXone 2 GM/NS 100 ML 2 GM/100 ML BAG IVPB (10:19)
[2024-01-29] MEDS: AMIODARONE HCL 200 MG TABLET PO (10:19)
[2024-01-29] MEDS: APIXABAN 2.5 MG TABLET PO (10:19)
[2024-01-29] MEDS: FUROSEMIDE INJ 40 MG/4 ML VIAL IV PUSH (10:22)
[2024-01-29] MEDS: PERFLUTREN LIPID MICROSPHERES 1.5 ML VIAL DILUTED TO 10 ML TOTAL VOLUME IV PUSH (11:24)
--- NOTE | 2024-01-29 11:37 | P.CONCA_ITS ---
Assessment and Plan Assessment and plan (1) Acute exacerbation of CHF (congestive heart failure): Qualifiers: Heart failure type: unspecified Qualified Code(s): I50.9 - Heart failure, unspecified Code(s): I50.9 - Heart failure, unspecified Status: Acute Plan 88-year-old woman with chronic diastolic heart failure, paroxysmal atrial fibrillation, pulmonary hypertension, hypertension, and chronic kidney disease stage 4 presents for shortness of breath whose presentation is consistent with acute on chronic diastolic heart failure Acute on chronic diastolic heart failure -Lasix 80 mg IV q.12h -spironolactone 25 mg p.o. daily Pleural effusion -left-sided pleural effusion may not diurese, consider thoracentesis Paroxysmal atrial fibrillation -Eliquis 2.5 mg q.12h, amiodarone 200 mg p.o. daily, and Toprol 100 mg p.o. daily Hypertension -currently on lisinopril 20 mg p.o. daily -would add hydralazine 25 mg p.o. t.i.d. -if renal function worsens, may need to stop TRAMAINE-inhibitor Save All Operator: Dr. Hdz History of Present Illness History of Present Illness Consult date/time: 01/29/24 11:37 Requesting physician: Leigh Ann Wyatt DO Reason For Visit: CHF, Acute on chronic hypoxic respiratory failure, Narrative: 88-year-old woman with chronic diastolic heart failure, paroxysmal atrial fibrillation, pulmonary hypertension, hypertension, and chronic kidney disease stage 4 presents for shortness of breath. History was obtained from her son is at bedside she also lives with. Her son has noted that she has been having kristen rtness of breath since . The shortness of breath has progressively worsened in the last few weeks. Since they had supplemental oxygen at home, they had put the supplemental oxygen on her with mild improvement. There was associated lower extremity swelling as well as abdominal swelling. She denies any chest discomfort or syncope. 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 Family History Family History Father Diabetes mellitus, Onset Age: 89 Hypertension, Onset Age: 89 Cerebrovascular accident, Onset Age: 89 Sibling Diabetes mellitus, Onset Age: 74 Family history of hypercholesterolemia, Onset Age: 74 Hypertension Acute myocardial infarction, Onset Age: 83 Family history of arthritis Family history of malignant neoplasm of urinary bladder, Onset Age: 74 Mother Hypertension, Onset Age: 85 Cerebrovascular accident, Onset Age: 85 Family history of arthritis, Onset Age: 85 Family history of congestive heart failure, Onset Age: 85 Social History Social History Social History: [id number]: Sonu Mcdonald, son. Code status: Modified code, no intubation. Smoking status: Never smoker Second hand tobacco smoke exposure: No Alcohol intake: never Substance use: unknown Substance use type: does not use Do You Feel Safe in your Home?: Yes Lack of Transportation: No Lack of Food: Never True Current Housing: I Have Housing Concerned About Future Housing: No Difficulty Paying Gas/Electric Bills: No Difficulty Paying for Meds: No Currently Unemployed: No Education: High School Diploma/GED Difficulty w/ Childcare or Family Care: No Living arrangements: alone Additional living arrangements comments: . Lives with son in [place]. Gender identity (if verbalized by the patient): Female Spiritual care concerns: No Agree to blood products: Yes Meds Home Medications and Allergies Home Medications Medication Instructions Recorded Confirmed Type albuterol sulfate 90 mcg/actuation 1 inh inhalation Q4H PRN shortness 03/17/22 01/29/24 Rx aerosol inhaler of breath or wheezing #6.7 grams apixaban 5 mg tablet (Eliquis) 5 mg PO BID 03/30/23 01/29/24 History lisinopril 20 mg tablet 20 mg PO DAILY #30 tabs 04/13/23 01/29/24 Rx spironolactone 25 mg tablet 25 mg PO QAM #30 tabs 04/13/23 01/29/24 Rx nifedipine 60 mg tablet,extended 60 mg PO DAILY #90 tabs 05/24/23 01/29/24 Rx release 24 hr (Procardia XL) amiodarone 200 mg tablet (P[place]one) 200 mg PO DAILY@0800 30 days #30 05/26/23 01/29/24 Rx tabs furosemide 40 mg tablet 40 mg PO BID #60 tabs 10/02/23 01/29/24 Rx cholecalciferol (vitamin D3) 50 50 mcg PO DAILY #90 tabs 10/24/23 01/29/24 Rx mcg (2,000 unit) tablet metoprolol succinate 100 mg 100 mg PO DAILY #90 tabs 01/01/24 01/29/24 Rx tablet,extended release 24 hr Allergies Allergy/AdvReac Type Severity Reaction Status Date / Time Sulfa (Sulfonamide Allergy Unknown unknown Verified 01/29/24 00:16 Antibiotics) tomato Allergy Hives Verified 01/29/24 00:16 Vital Signs Vital Signs - 24 hr 01/28/24 19:41 01/28/24 20:21 01/28/24 21:20 Temperature Pulse Rate 68 64 Respiratory Rate 30 H 25 H Blood Pressure 158/68 H Pulse Oximetry 96 97 Oxygen Delivery Non-Rebreather Mask Non-Rebreather Mask Oxygen Flow Rate 10 10 Fraction of Inspired Oxygen 01/28/24 22:17 01/28/24 22:38 01/29/24 00:52 Temperature Pulse Rate 70 63 Respiratory Rate 28 H 29 H 26 H Blood Pressure 156/70 H 149/54 H Pulse Oximetry 96 96 98 Oxygen Delivery BiPAP Oxygen Flow Rate Fraction of Inspired Oxygen 01/29/24 01:29 01/29/24 01:42 01/29/24 01:15 Temperature 36.7 C Pulse Rate 63 65 Respiratory Rate 29 H 29 H 31 H Blood Pressure 146/45 H Pulse Oximetry 95 95 97 Oxygen Delivery BiPAP BiPAP Oxygen Flow Rate Fraction of Inspired Oxygen 01/29/24 02:21 01/29/24 03:48 01/29/24 04:16 Temperature 37.0 C Pulse Rate 60 60 69 Respiratory Rate 29 H 28 H Blood Pressure 149/51 H Pulse Oximetry 95 95 Oxygen Delivery BiPAP Oxygen Flow Rate Fraction of Inspired Oxygen 60 01/29/24 04:00 01/29/24 04:52 01/29/24 06:00 Temperature Pulse Rate 61 61 Respiratory Rate 22 H Blood Pressure Pulse Oximetry 98 Oxygen Delivery BiPAP Oxygen Flow Rate Fraction of Inspired Oxygen 01/29/24 08:00 01/29/24 08:21 01/29/24 08:21 Temperature 36.7 C Pulse Rate 72 67 Respiratory Rate 28 H 20 Blood Pressure 147/71 H Pulse Oximetry 92 94 Oxygen Delivery High Flow Nasal Cannula Oxygen Flow Rate 15 Fraction of Inspired Oxygen 100 01/29/24 08:27 01/29/24 10:18 01/29/24 10:19 Temperature Pulse Rate 70 64 64 Respiratory Rate 20 Blood Pressure Pulse Oximetry Oxygen Delivery Oxygen Flow Rate Fraction of Inspired Oxygen Exam Const: General: comfortable HENMT: Mouth: Yes moist mucous membranes Eyes: EOM: EOMs intact bilaterally Neck: Neck: no JVD Resp: Auscultation: rales Cardio: Rate: regular rate Rhythm: regular rhythm GI: Inspection: distended Extrem: General: edema Results Labs and Meds 01/29/24 08:13 01/29/24 08:13 Lab results: Cardiac Enzymes 01/28/24 01/28/24 01/29/24 Range/Units 20:07 23:09 02:11 AST 23 (14-36) U/L Troponin I 0.019 0.017 0.015 (0.000-0.034) ng/mL Coagulation 01/28/24 Range/Units 20:07 PT 25.3 H (11.1-14.7) Seconds APTT 55.6 H (22.3-36.8) Seconds CBC 01/28/24 01/29/24 Range/Units 20:07 08:13 WBC 12.6 H 11.8 H (4.5-10.0) K/mm3 RBC 3.45 L 3.24 L (4.2-5.4) M/mm3 Hgb 10.9 L 10.3 L (12.0-15.0) g/dL Hct 34.3 L 32.2 L (37.0-47.0) % Plt Count 330 322 (150-375) k/mm3 Lymph # (Auto) 0.79 L (0.9-3.2) K/mm3 Hand # (Auto) 0.9 H (0.1-0.6) K/mm3 Eos # (Auto) 0.1 (0-0.3) K/mm3 Baso # (Auto) 0.0 (0.0-0.1) K/mm3 Comprehensive Metabolic Panel 01/28/24 01/29/24 Range/Units 20:07 08:13 Sodium 139 139 (137-145) mmol/L Potassium 4.3 4.4 (3.4-5.0) mmol/L Chloride 103 104 (98-107) mmol/L Carbon Dioxide 28 28 (22-30) mmol/L BUN 57 H 55 H (7-17) mg/dL Creatinine 2.50 H 2.50 H (0.7-1.0) mg/dL Glucose 131 H 121 H (65-110) mg/dL Calcium 9.3 9.2 (8.4-10.2) mg/dL AST 23 (14-36) U/L ALT 18 (6-35) U/L Alkaline Phosphatase 98 (38-126) U/L Total Protein 8.0 (6.3-8.2) g/dL Albumin 3.7 (3.5-5.1) g/dL Intake and Output 01/28/24 01/29/24 01/29/24 23:59 07:59 15:59 Intake Total 300 240 Output Total 250 400 Balance 300 -250 -160 Intake: IV 300 Azithromycin 500 mg/Ns 250 ml 250 500 mg In 250 ml @ 250 mls/hr IVPB ONCE STA Rx#:[id number] cefTRIAXone 1 GM/NS 50 ML 1 gm 50 In 50 ml @ 100 mls/hr IVPB ONCE STA Rx#:[id number] Oral 240 Output: Urine 250 400 Patient Weight 01/29/24 23:59 Weight 89.5 kg
--- NOTE | 2024-01-29 12:15 | IVDEFINITY ---
Prior to administration of IV Definity the patient was educated on the risks and benefits of the imaging enhancing agent including potential adverse side effects. The patient verbalized understanding. Allergies were verified. No exclusion criteria were identified and at least one of the following inclusion criteria were met: 1) physician request, 2) patient technically difficult to image (per the [place] [employer] guidelines of two or more segments not discernable within the apical view), or 3) questionable left ventricular function. ?
[2024-01-29] MEDS: hydrALAZINE 12.5 MG TABLET PO ×2 (16:42→20:37)
[2024-01-29] MEDS: FUROSEMIDE INJ 100 MG/10 ML VIAL 80 MG IV PUSH (20:35)
[2024-01-30] VITALS (24 sets, daily range): BP systolic 117–149; BP diastolic 38–66; PULSE 61–72; RESP 20–30; TEMP 36.3–37.1; O2SAT 91–97
[2024-01-30] MEDS: IPRATROPIUM 0.5 MG/ALBUTEROL SULFATE 2.5 MG AMPUL.NEB 3 ML INHALATION ×4 (01:52→21:18)
[2024-01-30 07:24] LABS: Hematocrit 33.6 % (37.0-47.0); Hemoglobin 10.3 g/dL (12.0-15.0); Mean Corpuscular HGB Conc 30.7 g/dl (32-36); Mean Corpuscular Hemoglobin 31.3 pg (26-34); Mean Corpuscular Volume 102.1 fl (80-100); Mean Platelet Volume 9.9 fl (7.4-10.4); Platelet Count Result 337 k/mm3 (150-375); Red Blood Count 3.29 M/mm3 (4.2-5.4); Red Cell Distribution Width 13.9 % (11.5-14.5)
[2024-01-30 07:47] LABS: Alanine Aminotransferase 18 U/L (6-35); Albumin Level 3.6 g/dL (3.5-5.1); Alkaline Phosphatase 87 U/L (38-126); Anion Gap 7 mmol/L (4-12); Aspartate Amino Transferase 25 U/L (14-36); Bilirubin,Total 0.8 mg/dL (0.2-1.3); Blood Urea Nitrogen 59 mg/dL (7-17); Calcium 9.5 mg/dL (8.4-10.2); Carbon Dioxide 28 mmol/L (22-30); Chloride 102 mmol/L (98-107); Estimated CRCL calculation 14 ml/min; Estimated Glomerular Filt Rate 17; Glucose 138 mg/dL (65-110); Potassium 4.3 mmol/L (3.4-5.0); Sodium 137 mmol/L (137-145)
--- NOTE | 2024-01-30 10:05 | P.CONNP_ITS ---
Assessment and Plan Assessment and plan (1) KAY (acute kidney injury): Code(s): N17.9 - Acute kidney failure, unspecified Status: Acute Assessment and Plan: * suspect due to the necessity of IV diuresis * checking urine studies or renal ultrasound not likely to change management expert at this time * holding diuretics at this time (but will likely need to restart eventually) * TRAMAINE-I on hold as well * complex situation.... * we may have to accept a higher creatinine to help optimize her respiratory status * follow trend of repeat labs and UOP (2) Chronic kidney disease, stage IV (severe): Code(s): N18.4 - Chronic kidney disease, stage 4 (severe) Status: Chronic Assessment and Plan: * baseline creatinine WAS running ~ 1.3 - 1.6mg/ld * however, since last May 2023, it has been now running closer to 2.0 - 2.5mg/dl * due to hypertension, vascular disease, pulmonary hypertension, and age-related change along with the need for more aggressive diuretic therapy to maintain her respiratory/volume status (3) Acute on chronic hypoxic respiratory failure: Code(s): J96.21 - Acute and chronic respiratory failure with hypoxia Status: Acute Assessment and Plan: * multifactorial etiology: * volume overload * acute CHF * pleural effusions * compressive atelectasis * pneumonia(?) * known severe pulmonary hypertension * viral testing for RSV/influenza/COVID negative * imaging to date noted * on antibiotics * diuresis as tolerated * noted plans for thoracentesis (given limited diuresis, hopefully this helps) * continue BIPAP support and supplemental oxygen * Pulmonary following (4) Acute exacerbation of CHF (congestive heart failure): Qualifiers: Heart failure type: unspecified Qualified Code(s): I50.9 - Heart failure, unspecified Code(s): I50.9 - Heart failure, unspecified Status: Acute Assessment and Plan: * as noted by clincal presentation, BNP, and imaging to date * felt to be acute on chronic diastolic heart failure * last Echo noted (on 01/28) * left ventricle is moderately dilated with normal systolic function * severe eccentric left ventricular hypertrophy * left ventricularejection fraction is visually estimated to be 60-65% * severe pulmonary hypertension -- pulmonary arterial systolic pressure is estimated at 77 mmHg * large left pleural effusion. * Cardiology following * limited diuresis noted despite therapy to date * follow daily weights, I/Os, and respiratory/volume status (5) Pleural effusion: Code(s): J90 - Pleural effusion, not elsewhere classified Status: Acute Assessment and Plan: * as noted by recent imaging * given respiratory status and limited diuresis, thoracentesis planned * follow-up on pleural fluid analysis (6) Atrial fibrillation: Qualifiers: Atrial fibrillation type: paroxysmal Qualified Code(s): I48.0 - Paroxysmal atrial fibrillation Code(s): I48.91 - Unspecified atrial fibrillation Status: Chronic Assessment and Plan: * rate control strategy * on metoprolol and amiodaraone * anticoagulation on hold for planned thoracentesis (7) Hypertension: Qualifiers: Hypertension type: unspecified Qualified Code(s): I10 - Essential (primary) hypertension Code(s): I10 - Essential (primary) hypertension Status: Chronic Assessment and Plan: * reasonable control at this time * TRAMAINE-I on hold given #1 I will continue to follow the patient with you while she remains hospitalized and make further recommendations as deemed necessary. Thank you for allowing me to participate in the care of this patient. History of Present Illness Reason for Consult Consult date: 01/30/24 Reason for consult: acute renal failure (on chronic kidney disease) Chief Complaint Chief complaint: CHF, Acute on chronic hypoxic respiratory failure, History of Present Illness Narrative: A great majority of the history that I have obtained is from review of the electronic medical record as well as discussion with the physician/nurses involved in the patient's care as well as family at bedside as is difficult to get a full and complete history from the patient due to her current respiratory status. The patient is an 88-year-old female with extensive past medical history as outlined below who presented to [facility] via EMS for complaints of shortness of breath. The patient states that she has been short of breath for last 3-4 days if not longer despite the fact she is on supplemental oxygen, specifically 4 L at all times. As her shortness of breath continued to worsen, her family called EMS for further assistance. At the time of EMS arrival, she was noted to be 70% on her 4 L of supplemental oxygen. They increased her oxygen to 6 L which only improved her oxygen saturations to 88 89%. During her transport to the emergency room, she received a nebulizer treatment but despite this, she remained hypoxic. On arrival to the emergency room, given her persistent hypoxia, she was placed on non-rebreather mask of 10 L which improved her oxygen saturations at 95%. On further questioning, she reported no fevers, chills, but did admit to a productive cough of frothy sputum. She also mentioned watering of her eyes and a constant rhinorrhea as well. Other associated symptoms included increasing lower extremity swelling / edema without any improvement despite leg elevation and current diuretic therapy. She denies any chest pain, palpitations, dizziness, lightheadedness nausea, vomiting, diarrhea, or dysuria. He does admit to noncompliance with her BiPAP due to discomfort that causes her with irritation on her nose. Routine blood test done demonstrated CBC with a mildly elevated white cell count 12.6, stable hemoglobin/ hematocrit, and a chemistry with an elevated creatinine consistent with her known history of chronic kidney disease. Her lactic acid was normal and viral swabs for RSV/ COVID/ influenza were negative. Her EKG showed sinus rhythm with left bundle branch block no evidence of ischemia and her baseline troponin was 0 point 1 9. Her BNP was elevated at 9000 and her chest x-ray was consistent pulmonary edema, cardiomegaly, a possible consolidation in the left lower lobe for pneumonia. After appropriate cultures were obtained, she was started on antibiotics presumed pneumonia initiated on diuretic therapy for evidence of volume overload/CHF. She as there was evidence of wheezing on exam, she received a hour long nebulizer treatment progress per 20 status was somewhat tenuous. She was placed on BiPAP therapy which seem to improve her overall respiratory status. She was subsequently admitted to the hospital for further evaluation and therapy. Since her admission, she has been seen in consultation by both Cardiology as well as pulmonology and she remains on antibiotics as well as IV diuretic therapy for presumed pneumonia and CHF exacerbation/volume overload. Unfortunately, her diuresis has been somewhat limited and the next tentative step is a thoracentesis but she was on anticoagulation on admission so this will not likely occur till tomorrow. More concerning is the fact that her renal function has declined since her admission as well. Renal consultation was requested due to her acute kidney injury/ acute renal failure on top of her baseline chronic kidney disease. The patient is somewhat familiar to me as I am follow her in the office for management of her chronic kidney disease. When I 1st met the patient, her baseline creatinine was normally running around 1.3-1.6 mg/dL and was thought to be due to a combination of her hypertension, vascular disease, pulmonary hypertension, and age-related change. However, more recently, her renal function has been running closer to 2.0-2.5 mg/dL since late May of 2023 due to the need for increased diuretics to maintain stability in her respiratory/volume status. When he lost saw the patient in October of this year, her creatinine was running around 2.64 mg/dL. I did try to back off on her diuretics an effort to optimize her renal function but the same time maintain stability in her fluid status. Currently, the patient remains on BiPAP therapy and her respiratory status remains somewhat tenuous. Review of Systems 2 Review of Systems: As per HPI. [facility] Past Medical History Medical History (Updated 02/04/24 @ 11:00 by Zach Bermeo MD) Chronic kidney disease, stage IV (severe) Osteoporosis Chronic anticoagulation Heart failure with preserved ejection fraction Echocardiogram in December 2019 showed normal LV size, mild concentric hypertrophy, EF estimated at 65 to 70%, hypokinesis of basal inferolateral wall, and grade 2 diastolic dysfunction as well severe pulmonary hypertension. 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 History of arthroplasty of left hip History of cardiac cath (05/2020) Hx of cholecystectomy (~1990) History of tonsillectomy Family History Family History Father Diabetes mellitus, Onset Age: 89 Hypertension, Onset Age: 89 Cerebrovascular accident, Onset Age: 89 Sibling Diabetes mellitus, Onset Age: 74 Family history of hypercholesterolemia, Onset Age: 74 Hypertension Acute myocardial infarction, Onset Age: 83 Family history of arthritis Family history of malignant neoplasm of urinary bladder, Onset Age: 74 Mother Hypertension, Onset Age: 85 Cerebrovascular accident, Onset Age: 85 Family history of arthritis, Onset Age: 85 Family history of congestive heart failure, Onset Age: 85 Social History Social History Social History: [id number]: Sonu Mcdonald, son. Code status: Modified code, no intubation. Smoking status: Never smoker Second hand tobacco smoke exposure: No Alcohol intake: never Substance use: unknown Substance use type: does not use Do You Feel Safe in your Home?: Yes Lack of Transportation: No Lack of Food: Never True Current Housing: I Have Housing Concerned About Future Housing: No Difficulty Paying Gas/Electric Bills: No Difficulty Paying for Meds: No Currently Unemployed: No Education: High School Diploma/GED Difficulty w/ Childcare or Family Care: No Living arrangements: alone Additional living arrangements comments: . Lives with son in [place]. Gender identity (if verbalized by the patient): Female Spiritual care concerns: No Agree to blood products: Yes Meds Home Medications and Allergies Home Medications ?Medication ?Instructions ?Recorded ?Confirmed ?Type albuterol sulfate 90 mcg/actuation 1 inh inhalation Q4H PRN shortness 03/17/22 01/29/24 Rx aerosol inhaler of breath or wheezing #6.7 grams apixaban 5 mg tablet (Eliquis) 5 mg PO BID 03/30/23 01/29/24 History lisinopril 20 mg tablet 20 mg PO DAILY #30 tabs 04/13/23 01/29/24 Rx spironolactone 25 mg tablet 25 mg PO QAM #30 tabs 04/13/23 01/29/24 Rx nifedipine 60 mg tablet,extended 60 mg PO DAILY #90 tabs 05/24/23 01/29/24 Rx release 24 hr (Procardia XL) amiodarone 200 mg tablet (Pacerone) 200 mg PO DAILY@0800 30 days #30 05/26/23 01/29/24 Rx tabs furosemide 40 mg tablet 40 mg PO BID #60 tabs 10/02/23 01/29/24 Rx cholecalciferol (vitamin D3) 50 50 mcg PO DAILY #90 tabs 10/24/23 01/29/24 Rx mcg (2,000 unit) tablet metoprolol succinate 100 mg 100 mg PO DAILY #90 tabs 01/01/24 01/29/24 Rx tablet,extended release 24 hr Allergies Allergy/AdvReac Type Severity Reaction Status Date / Time Sulfa (Sulfonamide Allergy Unknown unknown Verified 01/29/24 00:16 Antibiotics) tomato Allergy Hives Verified 01/29/24 00:16 Vital Signs Vital Signs Temp Pulse Resp BP Pulse Ox O2 Del Method O2 Flow Rate 01/30/24 10:00 70 01/30/24 08:00 68 01/30/24 08:00 97 High Flow Nasal Cannula 15 01/30/24 07:33 97.8 F 66 22 H 136/47 L 97 01/30/24 07:30 69 22 H 01/30/24 07:20 65 20 01/30/24 07:20 65 20 95 High Flow Nasal Cannula 14 01/30/24 01:58 70 30 H 01/30/24 01:56 68 01/30/24 01:53 72 30 H 94 BiPAP 01/30/24 01:52 69 30 H 01/30/24 00:03 98.8 F 68 30 H 149/66 H 94 01/30/24 00:00 70 01/30/24 00:00 68 30 H 94 BiPAP 01/29/24 22:00 74 01/29/24 20:35 66 32 H 01/29/24 20:27 63 30 H 01/29/24 20:27 63 30 H 93 BiPAP 01/29/24 20:09 98.3 F 64 31 H 131/55 L 94 01/29/24 20:00 63 01/29/24 20:00 66 32 H 93 BiPAP 01/29/24 18:00 63 Exam 2 Narrative: GENERAL APPEARANCE: elderly female in mild respiratory distress HEENT: normocephalic, atraumatic, normal conjunctiva and sclera, nares patient NECK: no lymphadenopathy, thyromegaly; + JVD MOUTH: normal lips, teeth, and gums; BiPAP in place CARDIOVASCULAR: IRRR at times, normal S1 and S2, no rub RESPIRATORY: bibasilar crackles noted ABDOMEN: soft, nontender, nondistended, positive bowel sounds present EXTREMITIES: no evidence of cyanosis, clubbing; 1+ edema NEUROLOGICAL: alert and oriented x 2; no focal deficits noted Results Lab Results 02/03/24 04:33 02/03/24 04:33 Lab results: Most recent lab results ABG pH 7.375 (7.350-7.450) 01/28/24 21:09 ABG pCO2 49.0 mmHg (35.0-45.0) H 01/28/24 21:09 ABG pO2 60.0 mmHg (80.0-100.0) L 01/28/24 21:09 ABG HCO3 28.0 mEq/l (22.0-26.0) H 01/28/24 21:09 ABG O2 Saturation 90.2 % (95.0-100.0) L 01/28/24 21:09 Calcium 9.5 mg/dL (8.4-10.2) 01/30/24 05:37 Magnesium 2.1 mg/dL (1.6-2.3) 01/29/24 08:13
[2024-01-30] MEDS: NIFEdipine 30 MG TAB.ER.24 60 MG PO (10:32)
[2024-01-30] MEDS: METOPROLOL SUCCINATE EXT REL 100 MG TABCR PO (10:32)
[2024-01-30] MEDS: hydrALAZINE 12.5 MG TABLET PO ×4 (10:32→20:34)
[2024-01-30] MEDS: CHOLECALCIFEROL 1,000 UNITS TABLET 2000 UNITS PO (10:32)
[2024-01-30] MEDS: AMIODARONE HCL 200 MG TABLET PO (10:32)
[2024-01-30] MEDS: DOXYCYCLINE HYCLATE 100 MG TABLET PO ×2 (10:33→20:34)
[2024-01-30] MEDS: cefTRIAXone 2 GM/NS 100 ML 2 GM/100 ML BAG IVPB (10:33)
[2024-01-30] MEDS: FUROSEMIDE INJ 100 MG/10 ML VIAL 80 MG IV PUSH ×2 (10:44→20:34)
[2024-01-30 11:12] LABS: INR 1.7; Prothrombin Time 19.8 Seconds (11.1-14.7)
--- NOTE | 2024-01-30 12:42 | P.CONPL_ITS ---
Assessment and Plan Assessment and plan (1) Acute on chronic hypoxic respiratory failure: Code(s): J96.21 - Acute and chronic respiratory failure with hypoxia Status: Acute Assessment and Plan: patient with chronic hypoxemic respiratory failure requiring 4 L nasal cannula at home which she wears 24-7. she is a never smoker with no history of asthma, COPD or recurrent infections. Patient presents now with worsening hypoxemic respiratory failure, fluid overload, BNP 9000, chest x-ray consistent with congestive heart failure, CT scan with congestion and left greater than right pleural effusion. Patient does have a white blood cell count 12.6, her procalcitonin is 0.4 which is low, she is afebrile with no pulmonary infectious complaints. Her COVID, influenza and RSV RT PCR study are negative. Etiology of patient's acute on chronic hypoxemic respiratory failure include fluid overload, bilateral pleural effusions with compressive atelectasis, possible pneumonia, and severe pulmonary hypertension. Plan: Currently the patient is on 15 L nasal cannula with saturations 93%. Goal saturation 90-94%. Agree with as aggressive diuresis as possible as tolerated by her cardiac and renal systems As per hospitalist and Cardiology teams.. currently the patient is on Lasix 80 IV q.12 hours. Recommended left thoracentesis since she is so symptomatic and requiring high oxygen levels. This has been a transudate in the past and suspected is a transudate but will send full set of chemistries, cell count, microbiology and cytology studies. Lows clinical suspicion for pneumonia but she does have a leukocytosis. She is afebrile with a low procalcitonin currently on ceftriaxone day 3 status post azithromycin 01/27 and 01/28 and switched to doxycycline on 01/29/2024. Discussed with Dr. Augustin and son at bedside. will follow with you. (2) Pleural effusion: Code(s): J90 - Pleural effusion, not elsewhere classified Status: Acute Assessment and Plan: Previously the patient had a left transudative pleural effusion related to fluid overload. 04/09/2023: Left thoracentesis with 650 mL of red fluid. PH greater than 7.50, white blood cells count 871 with neutrophils 23%, lymphocytes 60%, macrophages 14%, mesothelial cells 3%. Her total protein ratio was less than 0.5. Her total LDH in the pleural fluid was 156 and her serum to pleural albumin gradient was 2.0. Her BNP at that time was 5740. Cytology was negative. Bacterial, AFB cultures negative. This represents a transudative, noninfected, cytology negative pleural effusion. Plan: Recommended left thoracentesis since she is so symptomatic and requiring high oxygen levels. This has been a transudate in the past and suspected is a transudate but will send full set of chemistries, cell count, microbiology and cytology studies. Patient received her Eliquis on 01/29/2024 and radiologist will attempt to do procedure on 01/31/2024. History of Present Illness History of Present Illness Consult date: 01/30/24 Chief complaint: CHF, Acute on chronic hypoxic respiratory failure, Narrative: 12/02/2023: This is a new pulmonary consult for hypoxemic respiratory failure and pleural effusions. 88-year-old with a history of paroxysmal AFib on Eliquis, status post cardioversion May 2023, hypertension, CKD, pulmonary hypertension with heart failure with preserved ejection fraction and transudative left pleural effusion on 04/09/2023, Chronic hypoxemic respiratory failure requiring 4 L nasal cannula 24/7 since 09/2023. She was a never smoker and not on any inhaled medications. Patient is followed in the [facility] in last seen on 11/22/2023. At that time she was not walking much using a Rollator she had previously declined pulmonary rehabilitation. On 04/24/2023 chest x-ray demonstrated a chronic left pleural effusion occupying approximately 30% of the left team hemithorax. 04/09/2023: Left thoracentesis with 650 mL of red fluid. PH greater than 7.50, white blood cells count 871 with neutrophils 23%, lymphocytes 60%, macrophages 14%, mesothelial cells 3%. Her total protein ratio was less than 0.5. Her total LDH in the pleural fluid was 156 and her serum to pleural albumin gradient was 2.0. Her BNP at that time was 5740. Cytology was negative. Bacterial, AFB cultures negative. This represents a transudative, noninfected, cytology negative pleural effusion. Patient presented to the hospital ED on 01/28/2024 and the son who she lives with was in the room and provided additional history. EMS was called and her saturations were in the 70s on 4 L nasal cannula. For few weeks she had worsening swelling of the lower extremities and denied any fever. She does complain of intermittent chills and shakes. She had no hemoptysis and no phlegm production. In the emergency room her blood pressure is 158/68, heart rate 68, respiratory rate 30, saturations on 10 L nasal cannula is 96%. Her white blood cell count was 12.6, her creatinine was 2.50, her BNP was 9000, her chest x-ray showed congestive heart failure. COVID, influenza, RSV RT PCR studies negative. ABG on 10 L non-rebreather 7.38/49/60. Patient had increased work of breathing was placed on BiPAP. Patient was treated for fluid overload with IV Lasix and started on ceftriaxone and azithromycin for possible pneumonia. 01/29/24: Patient had an echocardiogram with the EF of 60-65%, severe pulmonary hypertension with the estimated PASP of 77, normal RV size and function, dilated right atrium, severely dilated left atrium, large left pleural effusion. Procalcitonin was 0.[address] scan of the chest showed left greater than right effusions with complete collapse of the left lower lobe and congestive heart failure. Patient received her morning dose of Eliquis. Azithromycin was changed to doxycycline. 01/30/24: The patient has a hard time describing her symptoms. The son tells me overall she looks as if she is breathing better in less respiratory distress. Currently she is on 415 L nasal cannula with saturations 93%. She says the BiPAP is uncomfortable. Her white blood cell count is 13.0, creatinine is 2.70, her BNP is 59. DATA: 01/29/24: CT Scan of the Chest without Contrast: Clinical Indication: Shortness of breath, hypoxia Technique: Contiguous sections were acquired throughout the chest without intravenous contrast. Dose reduction technique was used on this scan by utilizing automated exposure control and iterative reconstruction technique. The dose-length product (DLP) was 608.06 mGy-cm. COMPARISON: 04/06/2023 Findings: There is no evidence of any significant mediastinal, hilar or axillary lymphadenopathy. There are mild atherosclerotic calcifications of the aorta and coronary arteries. There is cardiomegaly. No pericardial effusion present. Moderate bilateral pleural effusions are present, with near complete left lower lobe atelectasis, and partial right lower lobe atelectasis. There is patchy groundglass opacity and slightly more confluent areas of airspace consolidation aerated lungs, most compatible with pulmonary edema. There is additional partial lingular atelectasis. Images through the upper abdomen reveal no abnormalities. Impression: Moderate bilateral pleural effusions with moderate pulmonary edema pattern and extensive bibasilar atelectasis, left worse than right, as detailed above. Correlate clinically for pneumonia. 01/29/24: Echo Summary 1. The left ventricle is moderately dilated with normal systolic function. There is severe eccentric left ventricular hypertrophy. The left ventricular ejection fraction is visually estimated to be 60-65%. 2. There is normal wall motion. 3. There is severe pulmonary hypertension. 4. Pulmonary arterial systolic pressure is estimated at 77 mmHg. 5. Large left pleural effusion. Left Ventricle The left ventricle is moderately dilated with normal systolic function. There is severe eccentric left ventricular hypertrophy. The left ventricular ejection fraction is visually estimated to be 60-65%. There is normal wall motion. Right Ventricle The right ventricle is normal in size and systolic function. Left Atria The left atrium is severely dilated. Right Atria The right atrium is dilated. 11/28/2023 WISAM on room air; caitlyn 75%, KANIKA 26; 1 hour 25 minutes spent below 88%; plan: please set up O2 3 L/min, WISAM in 2 weeks on 3 L/min. * 04/07/2023, echocardiogram; Summary ? 1. Normal left ventricular size and systolic contractility. ? 2. Right ventricular enlargement. ? 3. Biatrial dilation. ? 4. Sclerotic aortic valve with good leaflet separation. ? 5. Mild mitral regurgitation. ? 6. Moderate tricuspid regurgitation, velocity suggests PA pressures are severely elevated, 78 mm Hg. * 04/06/2023, chest CTA' There is mild respiratory motion which decreases sensitivity in some of the smaller subsegmental pulmonary arteries at the lung bases. No pulmonary embolism. There are diffuse groundglass opacities and some smooth septal line thickening consistent with mild pulmonary edema. Small bilateral pleural effusions with collapse of the basilar segments of the left lower lobe and dependent passive atelectasis in the bilateral upper lobes, lingula and right lower lobe. Cardiomegaly with biatrial enlargement. No pericardial effusion. There is reflux of contrast into the inferior vena cava and hepatic veins consistent with tricuspid regurgitation. Thoracic aorta is normal in caliber with no dissection. Atherosclerotic calcific a cyst along the aortic arch and the great vessels arising from the arch. No pathologically enlarged thoracic lymphadenopathy. Cholecystectomy clips at the gallbladder fossa. There are bridging osteophytes at multiple levels consistent with diffuse idiopathic skeletal hyperostosis (DISH). Sclerotic likely bone island at T10. IMPRESSION: 1. No pulmonary embolism with sensitivity decreased in some of the smaller basilar subsegmental pulmonary arteries due to some motion artifact. 2. Cardiomegaly with biatrial enlargement. 3. Mild pulmonary edema and small to moderate-sized posterior layering bilateral pleural effusions with associated compressive atelectasis in the dependent lungs. Review of Systems 2 Review of Systems: ROS unobtainable: Yes unobtainable due to mental status [facility] Past Medical History Medical History (Updated 01/29/24 @ 07:50 by Leigh Ann Wyatt DO) Osteoporosis Chronic kidney disease, stage IV (severe) Chronic anticoagulation Heart failure with preserved ejection fraction Echocardiogram in December 2019 showed normal LV size, mild concentric hypertrophy, EF estimated at 65 to 70%, hypokinesis of basal inferolateral wall, and grade 2 diastolic dysfunction as well severe pulmonary hypertension. 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 sensorineural hearing loss Edema of both lower legs due to peripheral venous insufficiency Osteoarthritis Hypertension GERD (gastroesophageal reflux disease) Varicose veins of bilateral lower extremities with pain Pre-diabetes Obesity Depression Surgical History Surgical History History of arthroplasty of left hip History of arthroscopic knee surgery History of arthroscopy of hip History of bilateral cataract extraction (2015) History of cardiac cath (05/2020) History of cardioversion (~05/2023) History of cholecystectomy (1990) History of hysterectomy (1977) History of left breast biopsy (1997) History of tonsillectomy History of tubal ligation (1977) Hx of cholecystectomy (~1990) Hx of colonoscopy Internal hemorrhoids and benign polyp. Family History Family History Father Diabetes mellitus, Onset Age: 89 Hypertension, Onset Age: 89 Cerebrovascular accident, Onset Age: 89 Sibling Diabetes mellitus, Onset Age: 74 Family history of hypercholesterolemia, Onset Age: 74 Hypertension Acute myocardial infarction, Onset Age: 83 Family history of arthritis Family history of malignant neoplasm of urinary bladder, Onset Age: 74 Mother Hypertension, Onset Age: 85 Cerebrovascular accident, Onset Age: 85 Family history of arthritis, Onset Age: 85 Family history of congestive heart failure, Onset Age: 85 Social History Social History Social History: [id number]: Sonu Mcdonald, son. Code status: Modified code, no intubation. Smoking status: Never smoker Second hand tobacco smoke exposure: No Alcohol intake: never Substance use: unknown Substance use type: does not use Do You Feel Safe in your Home?: Yes Lack of Transportation: No Lack of Food: Never True Current Housing: I Have Housing Concerned About Future Housing: No Difficulty Paying Gas/Electric Bills: No Difficulty Paying for Meds: No Currently Unemployed: No Education: High School Diploma/GED Difficulty w/ Childcare or Family Care: No Living arrangements: alone Additional living arrangements comments: . Lives with son in [place]. Gender identity (if verbalized by the patient): Female Spiritual care concerns: No Agree to blood products: Yes Meds Home Medications and Allergies Home Medications ?Medication ?Instructions ?Recorded ?Confirmed ?Type albuterol sulfate 90 mcg/actuation 1 inh inhalation Q4H PRN shortness 03/17/22 01/29/24 Rx aerosol inhaler of breath or wheezing #6.7 grams apixaban 5 mg tablet (Eliquis) 5 mg PO BID 03/30/23 01/29/24 History lisinopril 20 mg tablet 20 mg PO DAILY #30 tabs 04/13/23 01/29/24 Rx spironolactone 25 mg tablet 25 mg PO QAM #30 tabs 04/13/23 01/29/24 Rx nifedipine 60 mg tablet,extended 60 mg PO DAILY #90 tabs 05/24/23 01/29/24 Rx release 24 hr (Procardia XL) amiodarone 200 mg tablet (P[place]one) 200 mg PO DAILY@0800 30 days #30 05/26/23 01/29/24 Rx tabs furosemide 40 mg tablet 40 mg PO BID #60 tabs 10/02/23 01/29/24 Rx cholecalciferol (vitamin D3) 50 50 mcg PO DAILY #90 tabs 10/24/23 01/29/24 Rx mcg (2,000 unit) tablet metoprolol succinate 100 mg 100 mg PO DAILY #90 tabs 01/01/24 01/29/24 Rx tablet,extended release 24 hr Allergies Allergy/AdvReac Type Severity Reaction Status Date / Time Sulfa (Sulfonamide Allergy Unknown unknown Verified 01/29/24 00:16 Antibiotics) tomato Allergy Hives Verified 01/29/24 00:16 Vital Signs Vital Signs - 24 hr 01/29/24 13:23 01/29/24 13:23 01/29/24 13:32 Temperature Pulse Rate 62 68 Respiratory Rate 28 H 28 H Blood Pressure Pulse Oximetry 91 Oxygen Delivery High Flow Nasal Cannula Oxygen Flow Rate 12 Fraction of Inspired Oxygen 01/29/24 13:56 01/29/24 14:00 01/29/24 16:00 Temperature 36.8 C Pulse Rate 64 64 67 Respiratory Rate 30 H 31 H Blood Pressure 149/52 H Pulse Oximetry 94 90 Oxygen Delivery BiPAP Oxygen Flow Rate Fraction of Inspired Oxygen 01/29/24 16:00 01/29/24 16:00 01/29/24 16:27 Temperature Pulse Rate 67 67 67 Respiratory Rate 33 H 33 H Blood Pressure Pulse Oximetry 93 93 Oxygen Delivery BiPAP BiPAP Oxygen Flow Rate Fraction of Inspired Oxygen 55 01/29/24 16:27 01/29/24 18:00 01/29/24 20:00 Temperature Pulse Rate 63 66 Respiratory Rate 32 H Blood Pressure Pulse Oximetry 93 93 Oxygen Delivery BiPAP BiPAP Oxygen Flow Rate Fraction of Inspired Oxygen 55 60 01/29/24 20:00 01/29/24 20:09 01/29/24 20:27 Temperature 36.8 C Pulse Rate 63 64 63 Respiratory Rate 31 H 30 H Blood Pressure 131/55 L Pulse Oximetry 94 93 Oxygen Delivery BiPAP Oxygen Flow Rate Fraction of Inspired Oxygen 01/29/24 20:27 01/29/24 20:35 01/29/24 22:00 Temperature Pulse Rate 63 66 74 Respiratory Rate 30 H 32 H Blood Pressure Pulse Oximetry Oxygen Delivery Oxygen Flow Rate Fraction of Inspired Oxygen 01/30/24 00:00 01/30/24 00:00 01/30/24 00:03 Temperature 37.1 C Pulse Rate 68 70 68 Respiratory Rate 30 H 30 H Blood Pressure 149/66 H Pulse Oximetry 94 94 Oxygen Delivery BiPAP Oxygen Flow Rate Fraction of Inspired Oxygen 60 01/30/24 01:52 01/30/24 01:53 01/30/24 01:56 Temperature Pulse Rate 69 72 68 Respiratory Rate 30 H 30 H Blood Pressure Pulse Oximetry 94 Oxygen Delivery BiPAP Oxygen Flow Rate Fraction of Inspired Oxygen 01/30/24 01:58 01/30/24 07:20 01/30/24 07:20 Temperature Pulse Rate 70 65 65 Respiratory Rate 30 H 20 20 Blood Pressure Pulse Oximetry 95 Oxygen Delivery High Flow Nasal Cannula Oxygen Flow Rate 14 Fraction of Inspired Oxygen 01/30/24 07:30 01/30/24 07:33 01/30/24 10:32 Temperature 36.6 C Pulse Rate 69 66 66 Respiratory Rate 22 H 22 H Blood Pressure 136/47 L Pulse Oximetry 97 Oxygen Delivery Oxygen Flow Rate Fraction of Inspired Oxygen 01/30/24 10:32 01/30/24 11:23 Temperature 36.6 C Pulse Rate 66 63 Respiratory Rate 20 Blood Pressure 138/60 Pulse Oximetry 93 Oxygen Delivery Oxygen Flow Rate Fraction of Inspired Oxygen Exam 2 Const: General: cooperative and comfortable Orientation/consciousness: o riented to person, oriented to place and oriented to time HENMT: Head: normal to inspection Ears: hearing grossly normal bilaterally Eyes: General: appearance normal, both eyes and all related structures Neck: Neck: normal visual inspection Other: positive JVD Chest: Chest palpation & inspection: normal inspection of the chest Resp: Effort & Inspection: normal respiratory effort and able to speak in complete sentences Auscultation: crackles, no rales, no rhonchi, no wheezes and diminished lung sounds Other: Decreased breath sounds in the bases left greater than right Cardio: Jugular venous distension: no JVD GI: Inspection: normal to inspection GI Palp: No abdominal tenderness Skin: General skin exam: normal color Neuro: General: oriented to person, oriented to place and oriented to time Extrem: General: normal to inspection and edema Psych: Appearance: grossly normal Results Laboratory Findings 01/30/24 05:00 01/30/24 05:37 ABG, PT/INR, D-dimer: ABG ABG pH 7.375 (7.350-7.450) 01/28/24 21:09 ABG pCO2 49.0 mmHg (35.0-45.0) H 01/28/24 21:09 ABG pO2 60.0 mmHg (80.0-100.0) L 01/28/24 21:09 ABG O2 Saturation 90.2 % (95.0-100.0) L 01/28/24 21:09 PT/INR, D-dimer PT 19.8 Seconds (11.1-14.7) H D 01/30/24 10:53 INR 1.7 01/30/24 10:53 Abnormal lab findings: Abnormal Labs 01/28/24 01/28/24 01/29/24 20:07 21:09 08:13 WBC 12.6 H 11.8 H RBC 3.45 L 3.24 L Hgb 10.9 L 10.3 L Hct 34.3 L 32.2 L MCV MCHC 31.8 L Immature Gran % (Auto) 0.6 H Neut % (Auto) 85.1 H Lymph % (Auto) 6.3 L Lymph # (Auto) 0.79 L [place] # (Auto) 0.9 H Abs Immat Gran (auto) 0.08 H Absolute Neuts (auto) 10.8 H PT 25.3 H APTT 55.6 H ABG pCO2 49.0 H ABG pO2 60.0 L ABG HCO3 28.0 H ABG O2 Saturation 90.2 L Oxyhemoglobin 89.3 L BUN 57 H 55 H Creatinine 2.50 H 2.50 H Estimated GFR 18 L 18 L Glucose 131 H 121 H NT-Pro-B Natriuret Pep 9000 H 01/30/24 01/30/24 01/30/24 05:00 05:37 10:53 WBC 13.0 H RBC 3.29 L Hgb 10.3 L Hct 33.6 L MCV 102.1 H MCHC 30.7 L Immature Gran % (Auto) Neut % (Auto) Lymph % (Auto) Lymph # (Auto) [place] # (Auto) Abs Immat Gran (auto) Absolute Neuts (auto) PT 19.8 H D APTT ABG pCO2 ABG pO2 ABG HCO3 ABG O2 Saturation Oxyhemoglobin BUN 59 H Creatinine 2.70 H Estimated GFR 17 L Glucose 138 H NT-Pro-B Natriuret Pep Diagnostic Findings Additional studies: ITS Impressions Chest X-Ray 01/28/24 20:59 IMPRESSION: Cirrhosis and central consolidation in the left lower lung Patchy diffuse right lung infiltrate which may be due to pulmonary edema or pneumonia Cardiomegaly, congestive heart failure Chest CT 01/29/24 06:13 Impression: Moderate bilateral pleural effusions with moderate pulmonary edema pattern and extensive bibasilar atelectasis, left worse than right, as detailed above. Correlate clinically for pneumonia.
--- NOTE | 2024-01-30 17:32 | PM.IMPN ---
Progress Note: A&P Assessment and Plan (1) Acute on chronic hypoxic respiratory failure: Code(s): J96.21 - Acute and chronic respiratory failure with hypoxia Status: Acute (2) Acute exacerbation of CHF (congestive heart failure): Qualifiers: Heart failure type: unspecified Qualified Code(s): I50.9 - Heart failure, unspecified Code(s): I50.9 - Heart failure, unspecified Status: Acute (3) GERD (gastroesophageal reflux disease): Qualifiers: Esophagitis presence: without esophagitis Qualified Code(s): K21.9 - Gastro-esophageal reflux disease without esophagitis Code(s): K21.9 - Gastro-esophageal reflux disease without esophagitis Status: Acute (4) Hypertension: Qualifiers: Hypertension type: essential hypertension Qualified Code(s): I10 - Essential (primary) hypertension Code(s): I10 - Essential (primary) hypertension Status: Acute (5) Pulmonary hypertension: Code(s): I27.20 - Pulmonary hypertension, unspecified Status: Acute (6) Chronic anticoagulation: Code(s): Z79.01 - director long term care (current) use of anticoagulants Status: Acute (7) Acute kidney injury superimposed on stage 4 chronic kidney disease: Code(s): N17.9 - Acute kidney failure, unspecified; N18.4 - Chronic kidney disease, stage 4 (severe) Status: Acute (8) Chronic obstructive pulmonary disease: Qualifiers: COPD type: unspecified COPD Qualified Code(s): J44.9 - Chronic obstructive pulmonary disease, unspecified Code(s): J44.9 - Chronic obstructive pulmonary disease, unspecified Status: Acute Plan Acute respiratory failure with hypoxia -possibly secondary to CHF exacerbation -BL moderate pleural effusion -pulmonary edema -Lasix 80 mg IV b.i.d. -continue ceftriaxone and doxycycline -pulmonology eval noted CHF -BNP -cardiology consulted -IV Lasix 80 mg b.i.d. -monitor renal function during diuresis -Echocardiogram :The left ventricle is moderately dilated with normal systolic function. There is severe eccentric left ventricular hypertrophy. The left ventricular ejection fraction is visually estimated to be 60-65% -EKG sinus rhythm, LAD, LBB -chest x-ray Pulmonary edema -Daily weights. -Strict I&O's AFib -continue Eliquis 2.5 mg p.o. b.i.d. -amiodarone 200 mg p.o. q.d. -Toprol 100 mg p.o. q.d. Pleural effusion -bilateral pleural effusion -IV diuretics -incentive spirometer -May need thoracentesis if no improvement chronic renal failure Stage 4 -monitor closely during diuresis -Avoid nephrotoxic drugs. -holding lisinopril and spironolactone. -added hydralazine 12.5 q.i.d. and will increase as needed -Monitor antihypertensive drug therapy. -Avoid NSAIDs. -Routine CMP monitoring GFR. -Monitor electrolytes especially potassium. -Cr 2.50-->1.4 ,base line 1.60 -possible cardiorenal syndrome -nephro consult HTN -holding home medication lisinopril and spironolactone due to KAY -ordered hydralazine 12.5 mg p.o. q.i.d. Code status: Modified Code DVT prophylaxis: hadley Subjective Date/time seen: 01/30/24 17:32 Interval history: Comfortable at bedside Continue lasix and monitor currently on 15L HFNC, baseline oxygen 3 liters Review of Systems Review of Systems: Review of systems limited due to patient being on BiPAP in difficult to understand her speech. Exam Narrative: Weight 89.5 kg BMI 36.1 Const: Other: BiPAP in place, lying in bed with head of bed at 40?, no acute distress, appears stated age HENMT: Other: Head is normocephalic atraumatic, pupils are equal and reactive, positive conjunctival pallor, mucous membranes are tacky, BiPAP in place which limits exam Eyes: Other: See above Neck: Other: No JVD, supple, no lymphadenopathy Resp: Other: Crackles at the bases bilaterally, no tachypnea or increased work of breathing on BiPAP Cardio: Other: Occasionally irregular rate, 2+ bilateral radial pedal pulses, mild JVD GI: Other: Soft, distended, nontender Back/Spine/Pelvis: Other: Moderate thoracic kyphosis Skin: Other: Chronic venous stasis changes of bilateral lower extremities, normal cap refill, marked varicose veins of lower extremities across the tops of the feet and calves Neuro: Other: Alert oriented person, place and month and day but confused as to the year she stated the year was 2024, patient is markedly hard of hearing and the BiPAP and ambient noise exam or difficult, patient was moving all extremities equally and had no obvious localizing neurologic deficits cranial nerve exam was further limited by presence of BiPAP mask Extrem: Other: non pitting edema to lower extremities, no cyanosis, no clubbing Psych: Other: Pleasant, cooperative Objective Data Vital Signs Vital Signs: Vital Signs - 24 hr 01/29/24 18:00 01/29/24 20:00 01/29/24 20:00 Temperature Pulse Rate 63 66 63 Respiratory Rate 32 H Blood Pressure Pulse Oximetry 93 Oxygen Delivery BiPAP Oxygen Flow Rate Fraction of Inspired Oxygen 60 01/29/24 20:09 01/29/24 20:27 01/29/24 20:27 Temperature 98.3 F Pulse Rate 64 63 63 Respiratory Rate 31 H 30 H 30 H Blood Pressure 131/55 L Pulse Oximetry 94 93 Oxygen Delivery BiPAP Oxygen Flow Rate Fraction of Inspired Oxygen 01/29/24 20:35 01/29/24 22:00 01/30/24 00:00 Temperature Pulse Rate 66 74 68 Respiratory Rate 32 H 30 H Blood Pressure Pulse Oximetry 94 Oxygen Delivery BiPAP Oxygen Flow Rate Fraction of Inspired Oxygen 60 01/30/24 00:00 01/30/24 00:03 01/30/24 01:52 Temperature 98.8 F Pulse Rate 70 68 69 Respiratory Rate 30 H 30 H Blood Pressure 149/66 H Pulse Oximetry 94 Oxygen Delivery Oxygen Flow Rate Fraction of Inspired Oxygen 01/30/24 01:53 01/30/24 01:56 01/30/24 01:58 Temperature Pulse Rate 72 68 70 Respiratory Rate 30 H 30 H Blood Pressure Pulse Oximetry 94 Oxygen Delivery BiPAP Oxygen Flow Rate Fraction of Inspired Oxygen 01/30/24 07:20 01/30/24 07:20 01/30/24 07:30 Temperature Pulse Rate 65 65 69 Respiratory Rate 20 20 22 H Blood Pressure Pulse Oximetry 95 Oxygen Delivery High Flow Nasal Cannula Oxygen Flow Rate 14 Fraction of Inspired Oxygen 01/30/24 07:33 01/30/24 08:00 01/30/24 08:00 Temperature 97.8 F Pulse Rate 66 68 Respiratory Rate 22 H Blood Pressure 136/47 L Pulse Oximetry 97 97 Oxygen Delivery High Flow Nasal Cannula Oxygen Flow Rate 15 Fraction of Inspired Oxygen 01/30/24 10:00 01/30/24 10:32 01/30/24 10:32 Temperature Pulse Rate 70 66 66 Respiratory Rate Blood Pressure Pulse Oximetry Oxygen Delivery Oxygen Flow Rate Fraction of Inspired Oxygen 01/30/24 11:23 01/30/24 12:00 01/30/24 12:00 Temperature 97.9 F Pulse Rate 63 66 Respiratory Rate 20 Blood Pressure 138/60 Pulse Oximetry 93 93 Oxygen Delivery High Flow Nasal Cannula Oxygen Flow Rate 15 Fraction of Inspired Oxygen 01/30/24 13:05 01/30/24 13:15 01/30/24 14:00 Temperature Pulse Rate 61 64 62 Respiratory Rate 22 H 21 H Blood Pressure Pulse Oximetry Oxygen Delivery Oxygen Flow Rate Fraction of Inspired Oxygen 01/30/24 16:00 01/30/24 16:00 Temperature Pulse Rate 62 Respiratory Rate Blood Pressure Pulse Oximetry 91 Oxygen Delivery High Flow Nasal Cannula Oxygen Flow Rate 15 Fraction of Inspired Oxygen Intake/Output Intake/Output: Intake & Output 01/27/24 01/28/24 01/29/24 01/30/24 23:59 23:59 23:59 23:59 Intake Total 300 1130 500 Output Total 1100 350 Balance 300 30 150 Meds/Results Medications: Active Medications Generic Name Dose Route Start Last Admin Trade Name Freq PRN Reason Stop Dose Admin Albuterol/Ipratropium 3 ml 01/29/24 08:00 01/30/24 13:05 Ipratropium 0.5 Mg/Albuterol Sulfate 2.5 Mg Ampul.Neb 3 Ml INHALATION 3 ml Q6HRT ERYN Administration Amiodarone HCl 200 mg 01/29/24 08:00 01/30/24 10:32 Amiodarone Hcl 200 Mg Tablet PO 200 mg DAILY@0800 ERYN Administration Apixaban 2.5 mg 01/29/24 09:00 01/29/24 10:19 Apixaban 2.5 Mg Tablet PO 2.5 mg Q12HR ERYN Administration Doxycycline Hyclate 100 mg 01/29/24 09:00 01/30/24 10:33 Doxycycline Hyclate 100 Mg Tablet PO 100 mg Q12HR ERYN Administration Furosemide 80 mg 01/29/24 21:00 01/30/24 10:44 Furosemide Inj 100 Mg/10 Ml Vial IV PUSH 80 mg Q12HR ERYN Administration Hydralazine HCl 12.5 mg 01/29/24 17:00 01/30/24 13:47 Hydralazine 12.5 Mg Tablet PO 12.5 mg QID ERYN Administration Ceftriaxone Sodium 2 gm in 100 mls @ 200 mls/hr 01/29/24 08:00 01/30/24 10:33 Rocephin 2 Gm/Ns 100 Ml IVPB 200 mls/hr Q24H ERYN Administration Lisinopril 20 mg 01/29/24 09:00 Lisinopril 20 Mg Tablet PO DAILY ERYN Metoprolol Succinate 100 mg 01/29/24 09:00 01/30/24 10:32 Metoprolol Succinate Ext Rel 100 Mg Tabcr PO 100 mg DAILY ERYN Administration Nifedipine 60 mg 01/29/24 09:00 01/30/24 10:32 Nifedipine 30 Mg Tab.Er.24 PO 60 mg DAILY ERYN Administration Spironolactone 25 mg 01/29/24 09:00 Spironolactone 25 Mg Tablet PO QAM [facility] Vitamin D 2,000 units 01/29/24 09:00 01/30/24 10:32 Cholecalciferol 1,000 Units Tablet PO 2,000 units DAILY ERYN Administration Radiology Results: ITS Impressions Chest X-Ray 01/28/24 20:59 IMPRESSION: Cirrhosis and central consolidation in the left lower lung Patchy diffuse right lung infiltrate which may be due to pulmonary edema or pneumonia Cardiomegaly, congestive heart failure Chest CT 01/29/24 06:13 Impression: Moderate bilateral pleural effusions with moderate pulmonary edema pattern and extensive bibasilar atelectasis, left worse than right, as detailed above. Correlate clinically for pneumonia. Labs Labs: Laboratory Results - last 24 hr 01/30/24 01/30/24 01/30/24 05:00 05:37 10:53 WBC 13.0 H RBC 3.29 L Hgb 10.3 L Hct 33.6 L MCV 102.1 H MCH 31.3 MCHC 30.7 L RDW 13.9 Plt Count 337 MPV 9.9 PT 19.8 H D INR 1.7 Sodium 137 Potassium 4.3 Chloride 102 Carbon Dioxide 28 Anion Gap 7 BUN 59 H Creatinine 2.70 H Estim Creat Clear Calc 14 Estimated GFR 17 L Glucose 138 H Calcium 9.5 Total Bilirubin 0.8 AST 25 ALT 18 Alkaline Phosphatase 87 Total Protein 7.0 Albumin 3.6 Quality VTE Prophylaxis VTE prophylaxis: pharmacologic ordered (Continue home Eliquis but will decrease dose due to patient's renal function and age)
[2024-01-31] VITALS (27 sets, daily range): BP systolic 116–146; BP diastolic 36–70; PULSE 53–82; RESP 17–36; TEMP 35.9–37.1; O2SAT 80–100
[2024-01-31] MEDS: LORazepam INJ (*CRX) 2 MG/ML VIAL 1 MG IV PUSH (00:51)
[2024-01-31] MEDS: IPRATROPIUM 0.5 MG/ALBUTEROL SULFATE 2.5 MG AMPUL.NEB 3 ML INHALATION ×3 (03:11→13:04)
[2024-01-31 05:18] LABS: Basophils Percent Auto 0.2 % (0.2-1.2); Eosinophils Percent Auto 0.2 % (0-4.4); Hematocrit 29.2 % (37.0-47.0); Hemoglobin 9.3 g/dL (12.0-15.0); Immature Granulocyte Absolute 0.06 K/mm3 (0.00-0.031); Immature Granulocyte Percent A 0.5 % (0-0.5); Lymphocytes Absolute Auto 0.52 K/mm3 (0.9-3.2); Lymphocytes Percent Auto 4.6 % (18.3-44.2); Mean Corpuscular HGB Conc 31.8 g/dl (32-36); Mean Corpuscular Hemoglobin 31.8 pg (26-34); Mean Platelet Volume 9.6 fl (7.4-10.4); Monocytes Absolute Auto 0.8 K/mm3 (0.1-0.6); Neutrophils Percent Auto 87.5 % (45.5-73.1); Platelet Count Result 267 k/mm3 (150-375); Red Blood Count 2.92 M/mm3 (4.2-5.4); Red Cell Distribution Width 14.2 % (11.5-14.5); White Blood Count 11.4 K/mm3 (4.5-10.0)
[2024-01-31 05:57] LABS: Alanine Aminotransferase 18 U/L (6-35); Albumin Level 3.1 g/dL (3.5-5.1); Alkaline Phosphatase 75 U/L (38-126); Anion Gap 6 mmol/L (4-12); Aspartate Amino Transferase 22 U/L (14-36); Bilirubin,Total 0.5 mg/dL (0.2-1.3); Blood Urea Nitrogen 68 mg/dL (7-17); Calcium 8.9 mg/dL (8.4-10.2); Carbon Dioxide 29 mmol/L (22-30); Chloride 102 mmol/L (98-107); Estimated CRCL calculation 13 ml/min; Estimated Glomerular Filt Rate 15; Glucose 137 mg/dL (65-110); Potassium 4.1 mmol/L (3.4-5.0); Sodium 137 mmol/L (137-145)
[2024-01-31 08:09] LABS: NT Pro B Type Natriuretic Pept 11800 pg/mL (19.9-100)
[2024-01-31] MEDS: FUROSEMIDE INJ 100 MG/10 ML VIAL 80 MG IV PUSH (08:44)
[2024-01-31 09:35] LABS: Alveolar/Arterial O2 Gradient 402.5 mmHg; Base Excess ABG 1.4 mEq/l (+/-2.0); Fractional Inspired Oxygen 75 %; HCO3 ABG 26.6 mEq/l (22.0-26.0); Oxygen Content ABG 13.8 %vol (16.0-22.0); Oxygen Saturation ABG 96.3 % (95.0-100.0); Oxyhemoglobin 95.8 % THb (90.0-100.0); PCO2 ABG 44.7 mmHg (35.0-45.0); PO2 ABG 84.8 mmHg (80.0-100.0); PO2 FiO2 Ratio Arterial Blood 1.13 %; Site Drawn RIGHT BRACHIAL; Total Hemoglobin 10.2 g/dL (12.0-18.0); pH ABG 7.392 (7.350-7.450)
[2024-01-31 09:36] LABS: Device NON-INVASIVE VENT; Non-Invasive Vent Rate 16 /MIN
[2024-01-31 09:37] LABS: Non-Invasive Expiratory Pressure 5 CMH2O
[2024-01-31] MEDS: cefTRIAXone 2 GM/NS 100 ML 2 GM/100 ML BAG IVPB (10:00)
--- NOTE | 2024-01-31 10:04 | PCRCNOTE ---
STAT ABG delayed per Dr. Green due to NIV setting changes.
[2024-01-31 10:16] LABS: INR 1.4; Prothrombin Time 17.6 Seconds (11.1-14.7)
[2024-01-31 10:17] LABS: Partial Thromboplastin Time 41.8 Seconds (22.3-36.8)
--- NOTE | 2024-01-31 10:33 | PM.PNPUL ---
Progress Note: A&P Assessment and Plan (1) Acute on chronic hypoxic respiratory failure: Code(s): J96.21 - Acute and chronic respiratory failure with hypoxia Status: Acute Assessment and Plan: patient with chronic hypoxemic respiratory failure requiring 4 L nasal cannula at home which she wears 24-7. she is a never smoker with no history of asthma, COPD or recurrent infections. Patient presents now with worsening hypoxemic respiratory failure, fluid overload, BNP 9000, chest x-ray consistent with congestive heart failure, CT scan with congestion and left greater than right pleural effusion. Patient does have a white blood cell count 12.6, her procalcitonin is 0.4 which is low, she is afebrile with no pulmonary infectious complaints. Her COVID, influenza and RSV RT PCR study are negative. Etiology of patient's acute on chronic hypoxemic respiratory failure include fluid overload, bilateral pleural effusions with compressive atelectasis, possible pneumonia, and severe pulmonary hypertension. Plan: Currently the patient is on 15 L nasal cannula with saturations 93%. Goal saturation 90-94%. Agree with as aggressive diuresis as possible as tolerated by her cardiac and renal systems As per hospitalist and Cardiology teams.. currently the patient is on Lasix 80 IV q.12 hours. Recommended left thoracentesis since she is so symptomatic and requiring high oxygen levels. This has been a transudate in the past and suspected is a transudate but will send full set of chemistries, cell count, microbiology and cytology studies. Lows clinical suspicion for pneumonia but she does have a leukocytosis. She is afebrile with a low procalcitonin currently on ceftriaxone day 3 status post azithromycin 01/27 and 01/28 and switched to doxycycline on 01/29/2024. 01/31/2024: This morning the nurse tried to remove the patient's BiPAP and she was placed on 15 L and after 10 minutes her saturations were 78-82. Patient had a more confusion through the night attempting to remove her BiPAP. Currently she is on BiPAP and tells me her name but does not follow simple commands. Currently she is on BiPAP 14 pressures 10/5 in 75%. I switched her to an AVAPS mode with a rate of 16, tidal volume 500, EPAP 5, minimal inspiratory pressure 6, maximal inspiratory pressure 25, inspiratory time 1.0, rise of 3 and 75% FiO2. ABG on these settings 7.39/ 45/85. White blood cell count is 11.4, creatinine is 3.0, chest x-ray shows bilateral diffuse interstitial infiltrates and a left pleural effusion occupying approximately 50% of her left hemithorax. Her BNP has increased from 9000-06963. Yesterday she was +610 mL and is +640 mL since admission. Her weight today is 89.7 with an admission weight of 90. Plan: Patient more respiratory distress this morning. Thoracentesis has been ordered and hopefully this will perform today. She has been off Eliquis for 48 hours now. Current noninvasive ventilator settings with the AVAPS mode provide adequate oxygenation and ventilation. Continue ceftriaxone day 4 status post azithromycin 01/27 and 01/28 and switched to doxycycline on 01/29/2024, day 3. Discussed with Dr. Augustin. Will follow with you. (2) Pleural effusion: Code(s): J90 - Pleural effusion, not elsewhere classified Status: Acute Assessment and Plan: Previously the patient had a left transudative pleural effusion related to fluid overload. 04/09/2023: Left thoracentesis with 650 mL of red fluid. PH greater than 7.50, white blood cells count 871 with neutrophils 23%, lymphocytes 60%, macrophages 14%, mesothelial cells 3%. Her total protein ratio was less than 0.5. Her total LDH in the pleural fluid was 156 and her serum to pleural albumin gradient was 2.0. Her BNP at that time was 5740. Cytology was negative. Bacterial, AFB cultures negative. This represents a transudative, noninfected, cytology negative pleural effusion. Plan: Recommended left thoracentesis since she is so symptomatic and requiring high oxygen levels. This has been a transudate in the past and suspected is a transudate but will send full set of chemistries, cell count, microbiology and cytology studies. Patient received her Eliquis on 01/29/2024 and radiologist will attempt to do procedure on 01/31/2024. 01/31/24: plan: Thoracentesis with full set of chemistries, cell count, microbiology and cytology. Subjective Date/time seen: 01/31/24 10:33 Interval history: 12/02/2023: This is a new pulmonary consult for hypoxemic respiratory failure and pleural effusions. 88-year-old with a history of paroxysmal AFib on Eliquis, status post cardioversion May 2023, hypertension, CKD, pulmonary hypertension with heart failure with preserved ejection fraction and transudative left pleural effusion on 04/09/2023, Chronic hypoxemic respiratory failure requiring 4 L nasal cannula / since 09/2023. She was a never smoker and not on any inhaled medications. Patient is followed in the [facility] in last seen on 11/22/2023. At that time she was not walking much using a Rollator she had previously declined pulmonary rehabilitation. On 04/24/2023 chest x-ray demonstrated a chronic left pleural effusion occupying approximately 30% of the left team hemithorax. 04/09/2023: Left thoracentesis with 650 mL of red fluid. PH greater than 7.50, white blood cells count 871 with neutrophils 23%, lymphocytes 60%, macrophages 14%, mesothelial cells 3%. Her total protein ratio was less than 0.5. Her total LDH in the pleural fluid was 156 and her serum to pleural albumin gradient was 2.0. Her BNP at that time was 5740. Cytology was negative. Bacterial, AFB cultures negative. This represents a transudative, noninfected, cytology negative pleural effusion. Patient presented to the hospital ED on 01/28/2024 and the son who she lives with was in the room and provided additional history. EMS was called and her saturations were in the 70s on 4 L nasal cannula. For few weeks she had worsening swelling of the lower extremities and denied any fever. She does complain of intermittent chills and shakes. She had no hemoptysis and no phlegm production. In the emergency room her blood pressure is 158/68, heart rate 68, respiratory rate 30, saturations on 10 L nasal cannula is 96%. Her white blood cell count was 12.6, her creatinine was 2.50, her BNP was 9000, her chest x-ray showed congestive heart failure. COVID, influenza, RSV RT PCR studies negative. ABG on 10 L non-rebreather 7.38/49/60. Patient had increased work of breathing was placed on BiPAP. Patient was treated for fluid overload with IV Lasix and started on ceftriaxone and azithromycin for possible pneumonia. 01/29/24: Patient had an echocardiogram with the EF of 60-65%, severe pulmonary hypertension with the estimated PASP of 77, normal RV size and function, dilated right atrium, severely dilated left atrium, large left pleural effusion. Procalcitonin was 0.[address] scan of the chest showed left greater than right effusions with complete collapse of the left lower lobe and congestive heart failure. Patient received her morning dose of Eliquis. Azithromycin was changed to doxycycline. 01/30/24: The patient has a hard time describing her symptoms. The son tells me overall she looks as if she is breathing better in less respiratory distress. Currently she is on 415 L nasal cannula with saturations 93%. She says the BiPAP is uncomfortable. Her white blood cell count is 13.0, creatinine is 2.70, her BNP is 59. 01/31/2024: This morning the nurse tried to remove the patient's BiPAP and she was placed on 15 L and after 10 minutes her saturations were 78-82. Patient had a more confusion through the night attempting to remove her BiPAP. Currently she is on BiPAP and tells me her name but does not follow simple commands. Currently she is on BiPAP 14 pressures 10/5 in 75%. I switched her to an AVAPS mode with a rate of 16, tidal volume 500, EPAP 5, minimal inspiratory pressure 6, maximal inspiratory pressure 25, inspiratory time 1.0, rise of 3 and 75% FiO2. ABG on these settings 7.39/ 45/85. White blood cell count is 11.4, creatinine is 3.0, chest x-ray shows bilateral diffuse interstitial infiltrates and a left pleural effusion occupying approximately 50% of her left hemithorax. Her BNP has increased from 9000-39188. Yesterday she was +610 mL and is +640 mL since admission. Her weight today is 89.7 with an admission weight of 90. DATA: 01/29/24: CT Scan of the Chest without Contrast: Clinical Indication: Shortness of breath, hypoxia Technique: Contiguous sections were acquired throughout the chest without intravenous contrast. Dose reduction technique was used on this scan by utilizing automated exposure control and iterative reconstruction technique. The dose-length product (DLP) was 608.06 mGy-cm. COMPARISON: 04/06/2023 Findings: There is no evidence of any significant mediastinal, hilar or axillary lymphadenopathy. There are mild atherosclerotic calcifications of the aorta and coronary arteries. There is cardiomegaly. No pericardial effusion present. Moderate bilateral pleural effusions are present, with near complete left lower lobe atelectasis, and partial right lower lobe atelectasis. There is patchy groundglass opacity and slightly more confluent areas of airspace consolidation aerated lungs, most compatible with pulmonary edema. There is additional partial lingular atelectasis. Images through the upper abdomen reveal no abnormalities. Impression: Moderate bilateral pleural effusions with moderate pulmonary edema pattern and extensive bibasilar atelectasis, left worse than right, as detailed above. Correlate clinically for pneumonia. 01/29/24: Echo Summary 1. The left ventricle is moderately dilated with normal systolic function. There is severe eccentric left ventricular hypertrophy. The left ventricular ejection fraction is visually estimated to be 60-65%. 2. There is normal wall motion. 3. There is severe pulmonary hypertension. 4. Pulmonary arterial systolic pressure is estimated at 77 mmHg. 5. Large left pleural effusion. Left Ventricle The left ventricle is moderately dilated with normal systolic function. There is severe eccentric left ventricular hypertrophy. The left ventricular ejection fraction is visually estimated to be 60-65%. There is normal wall motion. Right Ventricle The right ventricle is normal in size and systolic function. Left Atria The left atrium is severely dilated. Right Atria The right atrium is dilated. 11/28/2023 WISAM on room air; caitlyn 75%, KANIKA 26; 1 hour 25 minutes spent below 88%; plan: please set up O2 3 L/min, WISAM in 2 weeks on 3 L/min. * 04/07/2023, echocardiogram; Summary ? 1. Normal left ventricular size and systolic contractility. ? 2. Right ventricular enlargement. ? 3. Biatrial dilation. ? 4. Sclerotic aortic valve with good leaflet separation. ? 5. Mild mitral regurgitation. ? 6. Moderate tricuspid regurgitation, velocity suggests PA pressures are severely elevated, 78 mm Hg. * 04/06/2023, chest CTA' There is mild respiratory motion which decreases sensitivity in some of the smaller subsegmental pulmonary arteries at the lung bases. No pulmonary embolism. There are diffuse groundglass opacities and some smooth septal line thickening consistent with mild pulmonary edema. Small bilateral pleural effusions with collapse of the basilar segments of the left lower lobe and dependent passive atelectasis in the bilateral upper lobes, lingula and right lower lobe. Cardiomegaly with biatrial enlargement. No pericardial effusion. There is reflux of contrast into the inferior vena cava and hepatic veins consistent with tricuspid regurgitation. Thoracic aorta is normal in caliber with no dissection. Atherosclerotic calcific a cyst along the aortic arch and the great vessels arising from the arch. No pathologically enlarged thoracic lymphadenopathy. Cholecystectomy clips at the gallbladder fossa. There are bridging osteophytes at multiple levels consistent with diffuse idiopathic skeletal hyperostosis (DISH). Sclerotic likely bone island at T10. IMPRESSION: 1. No pulmonary embolism with sensitivity decreased in some of the smaller basilar subsegmental pulmonary arteries due to some motion artifact. 2. Cardiomegaly with biatrial enlargement. 3. Mild pulmonary edema and small to moderate-sized posterior layering bilateral pleural effusions with associated compressive atelectasis in the dependent lungs. Review of Systems Review of Systems: ROS unobtainable: Yes unobtainable due to mental status Exam Const: General: comfortable and in distress Orientation/consciousness: oriented to person, oriented to place and oriented to time Other: on BiPAP HENMT: Head: normal to inspection Ears: hearing grossly normal bilaterally Eyes: General: appearance normal, both eyes and all related structures Neck: Neck: normal visual inspection Other: positive JVD Chest: Chest palpation & inspection: normal inspection of the chest Resp: Effort & Inspection: normal respiratory effort and able to speak in complete sentences Auscultation: crackles, no rales, no rhonchi, no wheezes and diminished lung sounds Other: Decreased breath sounds in the bases left greater than right Cardio: Jugular venous distension: no JVD GI: Inspection: normal to inspection Skin: General skin exam: normal color Neuro: General: oriented to person, oriented to place and oriented to time Extrem: General: normal to inspection and edema Psych: Appearance: grossly normal Objective Data Vital Signs Vital Signs: Vital Signs - 24 hr 01/30/24 11:23 01/30/24 12:00 01/30/24 12:00 Temperature 36.6 C Pulse Rate 63 66 Respiratory Rate 20 Blood Pressure 138/60 Pulse Oximetry 93 93 Oxygen Delivery High Flow Nasal Cannula Oxygen Flow Rate 15 Fraction of Inspired Oxygen 01/30/24 13:05 01/30/24 13:15 01/30/24 14:00 Temperature Pulse Rate 61 64 62 Respiratory Rate 22 H 21 H Blood Pressure Pulse Oximetry Oxygen Delivery Oxygen Flow Rate Fraction of Inspired Oxygen 01/30/24 16:00 01/30/24 16:00 01/30/24 16:00 Temperature 36.3 C L Pulse Rate 62 65 Respiratory Rate 20 Blood Pressure 117/51 L Pulse Oximetry 91 91 Oxygen Delivery High Flow Nasal Cannula Oxygen Flow Rate 15 Fraction of Inspired Oxygen 01/30/24 18:00 01/30/24 20:00 01/30/24 20:00 Temperature Pulse Rate 69 72 Respiratory Rate Blood Pressure Pulse Oximetry 93 Oxygen Delivery BiPAP Oxygen Flow Rate Fraction of Inspired Oxygen 60 01/30/24 21:18 01/30/24 21:22 01/30/24 21:28 Temperature 36.4 C Pulse Rate 71 71 71 Respiratory Rate 26 H 28 H 23 H Blood Pressure 118/38 L Pulse Oximetry 96 97 Oxygen Delivery BiPAP Oxygen Flow Rate Fraction of Inspired Oxygen 01/30/24 21:29 01/31/24 00:00 01/31/24 00:00 Temperature Pulse Rate 69 77 Respiratory Rate 23 H Blood Pressure Pulse Oximetry 94 Oxygen Delivery BiPAP Oxygen Flow Rate Fraction of Inspired Oxygen 60 01/31/24 00:25 01/31/24 03:12 01/31/24 03:15 Temperature 36.5 C Pulse Rate 82 59 L 59 L Respiratory Rate 26 H 19 19 Blood Pressure 146/45 H Pulse Oximetry 96 97 Oxygen Delivery BiPAP Oxygen Flow Rate Fraction of Inspired Oxygen 01/31/24 03:20 01/31/24 04:00 01/31/24 04:00 Temperature Pulse Rate 62 60 Respiratory Rate 20 Blood Pressure Pulse Oximetry 96 Oxygen Delivery BiPAP Oxygen Flow Rate Fraction of Inspired Oxygen 40 01/31/24 05:49 01/31/24 06:00 01/31/24 07:53 Temperature 37.1 C 36.4 C Pulse Rate 56 L 60 67 Respiratory Rate 17 22 H Blood Pressure 140/70 117/45 L Pulse Oximetry 94 98 Oxygen Delivery Oxygen Flow Rate Fraction of Inspired Oxygen 01/31/24 09:18 01/31/24 09:20 01/31/24 09:31 Temperature Pulse Rate 53 L 53 L 60 Respiratory Rate 18 18 23 H Blood Pressure Pulse Oximetry 100 Oxygen Delivery Oxygen Flow Rate Fraction of Inspired Oxygen Intake/Output Intake/Output: Intake & Output 01/28/24 01/29/24 01/30/24 01/31/24 23:59 23:59 23:59 23:59 Intake Total 300 1130 960 Output Total 1100 350 300 Balance 300 30 610 -300 Meds/Results Medications: Active Medications Generic Name Dose Route Start Last Admin Trade Name Freq PRN Reason Stop Dose Admin Albuterol/Ipratropium 3 ml 01/29/24 08:00 01/31/24 09:16 Ipratropium 0.5 Mg/Albuterol Sulfate 2.5 Mg Ampul.Neb 3 Ml INHALATION 3 ml Q6HRT ERYN Administration Amiodarone HCl 200 mg 01/29/24 08:00 01/30/24 10:32 Amiodarone Hcl 200 Mg Tablet PO 200 mg DAILY@0800 ERYN Administration Apixaban 2.5 mg 01/29/24 09:00 01/29/24 10:19 Apixaban 2.5 Mg Tablet PO 2.5 mg Q12HR ERYN Administration Doxycycline Hyclate 100 mg 01/29/24 09:00 01/30/24 20:34 Doxycycline Hyclate 100 Mg Tablet PO 100 mg Q12HR ERYN Administration Furosemide 80 mg 01/29/24 21:00 01/31/24 08:44 Furosemide Inj 100 Mg/10 Ml Vial IV PUSH 80 mg Q12HR ERYN Administration Hydralazine HCl 12.5 mg 01/29/24 17:00 01/30/24 20:34 Hydralazine 12.5 Mg Tablet PO 12.5 mg QID ERYN Administration Ceftriaxone Sodium 2 gm in 100 mls @ 200 mls/hr 01/29/24 08:00 01/30/24 20:27 Rocephin 2 Gm/Ns 100 Ml IVPB Infused Q24H ERYN Infusion Lisinopril 20 mg 01/29/24 09:00 Lisinopril 20 Mg Tablet PO DAILY [facility] Metoprolol Succinate 100 mg 01/29/24 09:00 01/30/24 10:32 Metoprolol Succinate Ext Rel 100 Mg Tabcr PO 100 mg DAILY ERYN Administration Nifedipine 60 mg 01/29/24 09:00 01/30/24 10:32 Nifedipine 30 Mg Tab.Er.24 PO 60 mg DAILY ERYN Administration Spironolactone 25 mg 01/29/24 09:00 Spironolactone 25 Mg Tablet PO QAM [facility] Vitamin D 2,000 units 01/29/24 09:00 01/30/24 10:32 Cholecalciferol 1,000 Units Tablet PO 2,000 units DAILY ERYN Administration Radiology Results: ITS Impressions Chest CT 01/29/24 06:13 Impression: Moderate bilateral pleural effusions with moderate pulmonary edema pattern and extensive bibasilar atelectasis, left worse than right, as detailed above. Correlate clinically for pneumonia. Chest X-Ray 01/31/24 08:17 IMPRESSION: Left lower lobe atelectasis versus pneumonia with pleural effusion. Cardiac decompensation with pulmonary edema. Superimposed pneumonia is not excluded. Labs Labs: Laboratory Results - last 24 hr 01/30/24 01/31/24 01/31/24 10:53 05:05 09:31 WBC 11.4 H RBC 2.92 L Hgb 9.3 L Hct 29.2 L MCV 100.0 MCH 31.8 MCHC 31.8 L RDW 14.2 Plt Count 267 MPV 9.6 Immature Gran % (Auto) 0.5 Neut % (Auto) 87.5 H Lymph % (Auto) 4.6 L [place] % (Auto) 7.0 Eos % (Auto) 0.2 Baso % (Auto) 0.2 Lymph # (Auto) 0.52 L [place] # (Auto) 0.8 H Eos # (Auto) 0.0 Baso # (Auto) 0.0 Abs Immat Gran (auto) 0.06 H Absolute Neuts (auto) 10.0 H Absolute Nucleated RBC 0.000 Nucleated RBC % 0.0 PT 19.8 H D INR 1.7 APTT Puncture Site Right brachial ABG pH 7.392 ABG pCO2 44.7 ABG pO2 84.8 ABG PO2/FiO2 Ratio 1.13 ABG HCO3 26.6 H ABG O2 Saturation 96.3 ABG O2 Content 13.8 L ABG Base Excess 1.4 A-a Gradient 402.5 Oxyhemoglobin 95.8 Total Hemoglobin 10.2 L O2 Delivery Device Non-invasive vent O2 Liters/Min Not Reportable Vent Rate 16 FiO2 75 Expiratory Pressure 5 Inspiratory Pressure Not Reportable Sodium 137 Potassium 4.1 Chloride 102 Carbon Dioxide 29 Anion Gap 6 BUN 68 H Creatinine 3.00 H Estim Creat Clear Calc 13 Estimated GFR 15 L Glucose 137 H Calcium 8.9 Magnesium 2.0 Total Bilirubin 0.5 AST 22 ALT 18 Alkaline Phosphatase 75 NT-Pro-B Natriuret Pep 31671 H Total Protein 6.0 L Albumin 3.1 L 01/31/24 09:35 WBC RBC Hgb Hct MCV MCH MCHC RDW Plt Count MPV Immature Gran % (Auto) Neut % (Auto) Lymph % (Auto) [place] % (Auto) Eos % (Auto) Baso % (Auto) Lymph # (Auto) [place] # (Auto) Eos # (Auto) Baso # (Auto) Abs Immat Gran (auto) Absolute Neuts (auto) Absolute Nucleated RBC Nucleated RBC % PT 17.6 H INR 1.4 APTT 41.8 H Puncture Site ABG pH ABG pCO2 ABG pO2 ABG PO2/FiO2 Ratio ABG HCO3 ABG O2 Saturation ABG O2 Content ABG Base Excess A-a Gradient Oxyhemoglobin Total Hemoglobin O2 Delivery Device O2 Liters/Min Vent Rate FiO2 Expiratory Pressure Inspiratory Pressure Sodium Potassium Chloride Carbon Dioxide Anion Gap BUN Creatinine Estim Creat Clear Calc Estimated GFR Glucose Calcium Magnesium Total Bilirubin AST ALT Alkaline Phosphatase NT-Pro-B Natriuret Pep Total Protein Albumin
[2024-01-31 11:47] LABS: Procalcitonin 0.4 ng/mL
--- NOTE | 2024-01-31 13:19 | P.PNIM_ITS ---
Progress Note: A&P Assessment and Plan (1) Acute on chronic hypoxic respiratory failure: Code(s): J96.21 - Acute and chronic respiratory failure with hypoxia Status: Acute (2) Acute exacerbation of CHF (congestive heart failure): Qualifiers: Heart failure type: unspecified Qualified Code(s): I50.9 - Heart failure, unspecified Code(s): I50.9 - Heart failure, unspecified Status: Acute (3) GERD (gastroesophageal reflux disease): Qualifiers: Esophagitis presence: without esophagitis Qualified Code(s): K21.9 - Gastro-esophageal reflux disease without esophagitis Code(s): K21.9 - Gastro-esophageal reflux disease without esophagitis Status: Acute (4) Hypertension: Qualifiers: Hypertension type: essential hypertension Qualified Code(s): I10 - Essential (primary) hypertension Code(s): I10 - Essential (primary) hypertension Status: Acute (5) Pulmonary hypertension: Code(s): I27.20 - Pulmonary hypertension, unspecified Status: Acute (6) Chronic anticoagulation: Code(s): Z79.01 - ocean transportation intermediary (current) use of anticoagulants Status: Acute (7) Acute kidney injury superimposed on stage 4 chronic kidney disease: Code(s): N17.9 - Acute kidney failure, unspecified; N18.4 - Chronic kidney disease, stage 4 (severe) Status: Acute (8) Chronic obstructive pulmonary disease: Qualifiers: COPD type: unspecified COPD Qualified Code(s): J44.9 - Chronic obstructive pulmonary disease, unspecified Code(s): J44.9 - Chronic obstructive pulmonary disease, unspecified Status: Acute Plan Acute respiratory failure with hypoxia -possibly secondary to CHF exacerbation -BL moderate pleural effusion -pulmonary edema -For thoracentesis today -continue ceftriaxone and doxycycline Diuretics on hold Continue AVAPS and titrate oxygen -pulmonology following a CHF -BNP -cardiology consulted -monitor renal function during diuresis -Echocardiogram :The left ventricle is moderately dilated with normal systolic function. There is severe eccentric left ventricular hypertrophy. The left ventricular ejection fraction is visually estimated to be 60-65% -EKG sinus rhythm, LAD, LBB -chest x-ray Pulmonary edema -Daily weights. -Strict I&O's Lasix, spironolactone on hold due to worsening renal function AFib -continue Eliquis 2.5 mg p.o. b.i.d. -amiodarone 200 mg p.o. q.d. -Toprol 100 mg p.o. q.d. Pleural effusion -bilateral pleural effusion -IV diuretics -incentive spirometer -For thoracentesis today chronic renal failure Stage 4 -monitor closely during diuresis -Avoid nephrotoxic drugs. -holding lisinopril and spironolactone. -added hydralazine 12.5 q.i.d. and will increase as needed -Monitor antihypertensive drug therapy. -Avoid NSAIDs. -Routine CMP monitoring GFR. -Monitor electrolytes especially potassium. -Cr 3.0 ,base line 1.60 -possible cardiorenal syndrome -nephro following HTN -holding home medication lisinopril and spironolactone due to KAY -ordered hydralazine 12.5 mg p.o. q.i.d. Code status: Modified Code DVT prophylaxis: hadley Subjective Date/time seen: 01/31/24 13:19 Interval history: Patient requiring escalation of oxygen requirement today Changed to AVAPS with 75% FiO2 For thoracentesis today Review of Systems Review of Systems: Review of systems limited due to patient being on BiPAP in difficult to understand her speech. Exam Narrative: Weight 89.5 kg BMI 36.1 Const: Other: BiPAP in place, lying in bed with head of bed at 40?, no acute distress, appears stated age HENMT: Other: Head is normocephalic atraumatic, pupils are equal and reactive, positive conjunctival pallor, mucous membranes are tacky, BiPAP in place which limits exam Eyes: Other: See above Neck: Other: No JVD, supple, no lymphadenopathy Resp: Other: Crackles at the bases bilaterally, no tachypnea or increased work of breathing on BiPAP Cardio: Other: Occasionally irregular rate, 2+ bilateral radial pedal pulses, mild JVD GI: Other: Soft, distended, nontender Back/Spine/Pelvis: Other: Moderate thoracic kyphosis Skin: Other: Chronic venous stasis changes of bilateral lower extremities, normal cap refill, marked varicose veins of lower extremities across the tops of the feet and calves Neuro: Other: Alert oriented person, place and month and day but confused as to the year she stated the year was 2024, patient is markedly hard of hearing and the BiPAP and ambient noise exam or difficult, patient was moving all extremities equally and had no obvious localizing neurologic deficits cranial nerve exam was further limited by presence of BiPAP mask Extrem: Other: non pitting edema to lower extremities, no cyanosis, no clubbing Psych: Other: Pleasant, cooperative Objective Data Vital Signs Vital Signs: Vital Signs - 24 hr 01/30/24 14:00 01/30/24 16:00 01/30/24 16:00 Temperature Pulse Rate 62 62 Respiratory Rate Blood Pressure Pulse Oximetry 91 Oxygen Delivery High Flow Nasal Cannula Oxygen Flow Rate 15 Fraction of Inspired Oxygen 01/30/24 16:00 01/30/24 18:00 01/30/24 20:00 Temperature 97.4 F L Pulse Rate 65 69 Respiratory Rate 20 Blood Pressure 117/51 L Pulse Oximetry 91 93 Oxygen Delivery BiPAP Oxygen Flow Rate Fraction of Inspired Oxygen 60 01/30/24 20:00 01/30/24 21:18 01/30/24 21:22 Temperature 97.6 F Pulse Rate 72 71 71 Respiratory Rate 26 H 28 H Blood Pressure 118/38 L Pulse Oximetry 96 Oxygen Delivery Oxygen Flow Rate Fraction of Inspired Oxygen 01/30/24 21:28 01/30/24 21:29 01/31/24 00:00 Temperature Pulse Rate 71 69 Respiratory Rate 23 H 23 H Blood Pressure Pulse Oximetry 97 94 Oxygen Delivery BiPAP BiPAP Oxygen Flow Rate Fraction of Inspired Oxygen 60 01/31/24 00:00 01/31/24 00:25 01/31/24 03:12 Temperature 97.7 F Pulse Rate 77 82 59 L Respiratory Rate 26 H 19 Blood Pressure 146/45 H Pulse Oximetry 96 Oxygen Delivery Oxygen Flow Rate Fraction of Inspired Oxygen 01/31/24 03:15 01/31/24 03:20 01/31/24 04:00 Temperature Pulse Rate 59 L 62 Respiratory Rate 19 20 Blood Pressure Pulse Oximetry 97 96 Oxygen Delivery BiPAP BiPAP Oxygen Flow Rate Fraction of Inspired Oxygen 40 01/31/24 04:00 01/31/24 05:49 01/31/24 06:00 Temperature 98.7 F Pulse Rate 60 56 L 60 Respiratory Rate 17 Blood Pressure 140/70 Pulse Oximetry 94 Oxygen Delivery Oxygen Flow Rate Fraction of Inspired Oxygen 01/31/24 07:53 01/31/24 09:18 01/31/24 09:20 Temperature 97.6 F Pulse Rate 67 53 L 53 L Respiratory Rate 22 H 18 18 Blood Pressure 117/45 L Pulse Oximetry 98 100 Oxygen Delivery Oxygen Flow Rate Fraction of Inspired Oxygen 01/31/24 09:31 01/31/24 11:42 01/31/24 13:07 Temperature 96.7 F L Pulse Rate 60 59 L 56 L Respiratory Rate 23 H 22 H 19 Blood Pressure 119/39 L Pulse Oximetry 100 100 Oxygen Delivery Oxygen Flow Rate Fraction of Inspired Oxygen 01/31/24 13:08 Temperature Pulse Rate 56 L Respiratory Rate 19 Blood Pressure Pulse Oximetry Oxygen Delivery Oxygen Flow Rate Fraction of Inspired Oxygen Intake/Output Intake/Output: Intake & Output 01/28/24 01/29/24 01/30/24 01/31/24 23:59 23:59 23:59 23:59 Intake Total 300 1130 960 Output Total 1100 350 300 Balance 300 30 610 -300 Meds/Results Medications: Active Medications Generic Name Dose Route Start Last Admin Trade Name Freq PRN Reason Stop Dose Admin Albuterol/Ipratropium 3 ml 01/29/24 08:00 01/31/24 13:04 Ipratropium 0.5 Mg/Albuterol Sulfate 2.5 Mg Ampul.Neb 3 Ml INHALATION 3 ml Q6HRT ERYN Administration Amiodarone HCl 200 mg 01/29/24 08:00 01/30/24 10:32 Amiodarone Hcl 200 Mg Tablet PO 200 mg DAILY@0800 ERYN Administration Apixaban 2.5 mg 01/29/24 09:00 01/29/24 10:19 Apixaban 2.5 Mg Tablet PO 2.5 mg Q12HR ERYN Administration Doxycycline Hyclate 100 mg 01/29/24 09:00 01/30/24 20:34 Doxycycline Hyclate 100 Mg Tablet PO 100 mg Q12HR ERYN Administration Furosemide 80 mg 01/29/24 21:00 01/31/24 08:44 Furosemide Inj 100 Mg/10 Ml Vial IV PUSH 80 mg Q12HR ERYN Administration Hydralazine HCl 12.5 mg 01/29/24 17:00 01/30/24 20:34 Hydralazine 12.5 Mg Tablet PO 12.5 mg QID ERYN Administration Ceftriaxone Sodium 2 gm in 100 mls @ 200 mls/hr 01/29/24 08:00 01/30/24 20:27 Rocephin 2 Gm/Ns 100 Ml IVPB Infused Q24H ERYN Infusion Lisinopril 20 mg 01/29/24 09:00 Lisinopril 20 Mg Tablet PO DAILY ERYN Metoprolol Succinate 100 mg 01/29/24 09:00 01/30/24 10:32 Metoprolol Succinate Ext Rel 100 Mg Tabcr PO 100 mg DAILY ERYN Administration Nifedipine 60 mg 01/29/24 09:00 01/30/24 10:32 Nifedipine 30 Mg Tab.Er.24 PO 60 mg DAILY ERYN Administration Spironolactone 25 mg 01/29/24 09:00 Spironolactone 25 Mg Tablet PO QAM ERYN Vitamin D 2,000 units 01/29/24 09:00 01/30/24 10:32 Cholecalciferol 1,000 Units Tablet PO 2,000 units DAILY ERYN Administration Radiology Results: ITS Impressions Chest CT 01/29/24 06:13 Impression: Moderate bilateral pleural effusions with moderate pulmonary edema pattern and extensive bibasilar atelectasis, left worse than right, as detailed above. Correlate clinically for pneumonia. Chest X-Ray 01/31/24 08:17 IMPRESSION: Left lower lobe atelectasis versus pneumonia with pleural effusion. Cardiac decompensation with pulmonary edema. Superimposed pneumonia is not excluded. Labs Labs: Laboratory Results - last 24 hr 01/31/24 01/31/24 01/31/24 05:05 09:31 09:35 WBC 11.4 H RBC 2.92 L Hgb 9.3 L Hct 29.2 L MCV 100.0 MCH 31.8 MCHC 31.8 L RDW 14.2 Plt Count 267 MPV 9.6 Immature Gran % (Auto) 0.5 Neut % (Auto) 87.5 H Lymph % (Auto) 4.6 L [place] % (Auto) 7.0 Eos % (Auto) 0.2 Baso % (Auto) 0.2 Lymph # (Auto) 0.52 L [place] # (Auto) 0.8 H Eos # (Auto) 0.0 Baso # (Auto) 0.0 Abs Immat Gran (auto) 0.06 H Absolute Neuts (auto) 10.0 H Absolute Nucleated RBC 0.000 Nucleated RBC % 0.0 PT 17.6 H INR 1.4 APTT 41.8 H Puncture Site Right brachial ABG pH 7.392 ABG pCO2 44.7 ABG pO2 84.8 ABG PO2/FiO2 Ratio 1.13 ABG HCO3 26.6 H ABG O2 Saturation 96.3 ABG O2 Content 13.8 L ABG Base Excess 1.4 A-a Gradient 402.5 Oxyhemoglobin 95.8 Total Hemoglobin 10.2 L O2 Delivery Device Non-invasive vent O2 Liters/Min Not Reportable Vent Rate 16 FiO2 75 Expiratory Pressure 5 Inspiratory Pressure Not Reportable Sodium 137 Potassium 4.1 Chloride 102 Carbon Dioxide 29 Anion Gap 6 BUN 68 H Creatinine 3.00 H Estim Creat Clear Calc 13 Estimated GFR 15 L Glucose 137 H Calcium 8.9 Magnesium 2.0 Total Bilirubin 0.5 AST 22 ALT 18 Alkaline Phosphatase 75 NT-Pro-B Natriuret Pep 12445 H Total Protein 6.0 L Albumin 3.1 L Procalcitonin 0.4 Quality VTE Prophylaxis VTE prophylaxis: pharmacologic ordered (Continue home Eliquis but will decrease dose due to patient's renal function and age)
--- NOTE | 2024-01-31 14:26 | P.PNNP_ITS ---
Progress Note: A&P Assessment and Plan (1) KAY (acute kidney injury): Code(s): N17.9 - Acute kidney failure, unspecified Status: Acute Assessment and Plan: * suspect due to the necessity of IV diuresis * holding diuretics at this time (but will likely need to restart eventually) * TRAMAINE-I on hold as well * complex situation.... * we may have to accept a higher creatinine to help optimize her respiratory status * follow trend of repeat labs and UOP (2) Chronic kidney disease, stage IV (severe): Code(s): N18.4 - Chronic kidney disease, stage 4 (severe) Status: Chronic Assessment and Plan: * baseline creatinine WAS running ~ 1.3 - 1.6mg/ld * however, since last May 2023, it has been now running closer to 2.0 - 2.5mg/dl * due to hypertension, vascular disease, pulmonary hypertension, and age-related change along with the need for more aggressive diuretic therapy to maintain her respiratory/volume status (3) Acute on chronic hypoxic respiratory failure: Code(s): J96.21 - Acute and chronic respiratory failure with hypoxia Status: Acute Assessment and Plan: * multifactorial etiology: * volume overload * acute CHF * pleural effusions * compressive atelectasis * pneumonia(?) * known severe pulmonary hypertension * viral testing for RSV/influenza/COVID negative * imaging to date noted * on antibiotics * diuresis as tolerated (on hold currently) * noted plans for thoracentesis (hopefully today) * continue BIPAP support and supplemental oxygen * Pulmonary following (4) Acute exacerbation of CHF (congestive heart failure): Qualifiers: Heart failure type: unspecified Qualified Code(s): I50.9 - Heart failure, unspecified Code(s): I50.9 - Heart failure, unspecified Status: Acute Assessment and Plan: * as noted by clincal presentation, BNP, and imaging to date * felt to be acute on chronic diastolic heart failure * last Echo noted (on 01/28) * left ventricle is moderately dilated with normal systolic function * severe eccentric left ventricular hypertrophy * left ventricularejection fraction is visually estimated to be 60-65% * severe pulmonary hypertension -- pulmonary arterial systolic pressure is estimated at 77 mmHg * large left pleural effusion. * Cardiology following * limited diuresis noted despite therapy to date * now with #1, diuretics on hold * follow daily weights, I/Os, and respiratory/volume status (5) Pleural effusion: Code(s): J90 - Pleural effusion, not elsewhere classified Status: Acute Assessment and Plan: * as noted by recent imaging * given respiratory status and limited diuresis, thoracentesis planned * follow-up on pleural fluid analysis (6) Atrial fibrillation: Qualifiers: Atrial fibrillation type: paroxysmal Qualified Code(s): I48.0 - Paroxysmal atrial fibrillation Code(s): I48.91 - Unspecified atrial fibrillation Status: Chronic Assessment and Plan: * rate control strategy * on metoprolol and amiodaraone * anticoagulation on hold for planned thoracentesis (7) Hypertension: Qualifiers: Hypertension type: unspecified Qualified Code(s): I10 - Essential (primary) hypertension Code(s): I10 - Essential (primary) hypertension Status: Chronic Assessment and Plan: * reasonable control at this time * TRAMAINE-I on hold given #1 Will continue to follow. Subjective Date/time seen: 01/31/24 14:26 Interval history: Follow-up for acute kidney injury on chronic kidney disease. Respiratory status remains somewhat tenuous -- BiPAP in place when seen and attempts to wean resulted in significant hypoxia; despite IV diuretic therapy, she is not making much urine and her renal function/creatinine continues to worsen; diuretics placed on hold currently; tentatively planned for thoracentesis today; fluctuating mental status noted as well. Exam 2 Narrative: General: elderly but WD/WN female in NAD Heart: normal S1 and S2; no rub Lungs: coarse breath sounds with scattered crackles; decreased at bases Abdomen: soft, nontender, nondistended, positive bowel sounds Extremities: no cyanosis or clubbing; 1+ edema Skin: chronic changes noted Objective Data Vital Signs Vital Signs: Vital Signs Temp Pulse Resp BP Pulse Ox O2 Del Method FiO2 01/31/24 13:19 62 01/31/24 13:08 56 L 19 01/31/24 13:07 56 L 19 100 01/31/24 11:42 96.7 F L 59 L 22 H 119/39 L 100 01/31/24 09:31 60 23 H 01/31/24 09:20 53 L 18 01/31/24 09:18 53 L 18 100 01/31/24 07:53 97.6 F 67 22 H 117/45 L 98 01/31/24 06:00 60 01/31/24 05:49 98.7 F 56 L 17 140/70 94 01/31/24 04:00 60 01/31/24 04:00 96 BiPAP 40 01/31/24 03:20 62 20 01/31/24 03:15 59 L 19 97 BiPAP 01/31/24 03:12 59 L 19 01/31/24 00:25 97.7 F 82 26 H 146/45 H 96 01/31/24 00:00 77 01/31/24 00:00 94 BiPAP 60 01/30/24 21:29 69 23 H 01/30/24 21:28 71 23 H 97 BiPAP 01/30/24 21:22 97.6 F 71 28 H 118/38 L 96 01/30/24 21:18 71 26 H 01/30/24 20:00 72 01/30/24 20:00 93 BiPAP 60 Intake/Output Intake/Output: Intake & Output 01/28/24 01/29/24 01/30/24 01/31/24 23:59 23:59 23:59 23:59 Intake Total 300 1130 960 Output Total 7308 077 8118 Balance 300 30 610 -1000 Meds/Results Medications: Active Medications Generic Name Dose Route Start Last Admin Trade Name Freq PRN Reason Stop Dose Admin Albuterol/Ipratropium 3 ml 01/29/24 08:00 01/31/24 13:04 Ipratropium 0.5 Mg/Albuterol Sulfate 2.5 Mg Ampul.Neb 3 Ml INHALATION 3 ml Q6HRT ERYN Administration Amiodarone HCl 200 mg 01/29/24 08:00 01/31/24 17:55 Amiodarone Hcl 200 Mg Tablet PO Not Given DAILY@0800 ERYN Apixaban 2.5 mg 01/29/24 09:00 01/29/24 10:19 Apixaban 2.5 Mg Tablet PO 2.5 mg Q12HR ERYN Administration Doxycycline Hyclate 100 mg 01/29/24 09:00 01/31/24 17:56 Doxycycline Hyclate 100 Mg Tablet PO Not Given Q12HR ERYN Furosemide 80 mg 01/29/24 21:00 01/31/24 08:44 Furosemide Inj 100 Mg/10 Ml Vial IV PUSH 80 mg Q12HR ERYN Administration Hydralazine HCl 12.5 mg 01/29/24 17:00 01/31/24 17:58 Hydralazine 12.5 Mg Tablet PO Not Given QID [facility] Ceftriaxone Sodium 2 gm in 100 mls @ 200 mls/hr 01/29/24 08:00 01/31/24 10:00 Rocephin 2 Gm/Ns 100 Ml IVPB 100 mls/hr Q24H [facility] Administration Lisinopril 20 mg 01/29/24 09:00 Lisinopril 20 Mg Tablet PO DAILY [facility] Metoprolol Succinate 100 mg 01/29/24 09:00 01/31/24 17:56 Metoprolol Succinate Ext Rel 100 Mg Tabcr PO Not Given DAILY [facility] Nifedipine 60 mg 01/29/24 09:00 01/31/24 17:56 Nifedipine 30 Mg Tab.Er.24 PO Not Given DAILY [facility] Spironolactone 25 mg 01/29/24 09:00 Spironolactone 25 Mg Tablet PO QAM [facility] Vitamin D 2,000 units 01/29/24 09:00 01/31/24 17:55 Cholecalciferol 1,000 Units Tablet PO Not Given DAILY [facility] Radiology Results: ITS Impressions Chest CT 01/29/24 06:13 Impression: Moderate bilateral pleural effusions with moderate pulmonary edema pattern and extensive bibasilar atelectasis, left worse than right, as detailed above. Correlate clinically for pneumonia. Thoracentesis Ultrasound 01/31/24 15:20 IMPRESSION: 1. Successful ultrasound-guided thoracentesis yielding 600 mL of dark reddish fluid. Chest X-Ray 01/31/24 15:33 IMPRESSION: 1. Small bilateral pleural effusions with improvement on the left. 2. Diffuse lung disease with mild worsening on the right, likely a combination of pulmonary edema pneumonia. 3. Cardiomegaly. Labs Labs: Laboratory Tests 01/31/24 05:05 01/31/24 05:05 Calcium 8.9 Magnesium 2.0 Total Bilirubin 0.5 AST 22 ALT 18 Alkaline Phosphatase 75 NT-Pro-B Natriuret Pep 52667 H Total Protein 6.0 L Albumin 3.1 L Procalcitonin 0.4
--- NOTE | 2024-01-31 15:07 | P.PNCA_ITS ---
Progress Note: A&P Assessment and Plan (1) Acute exacerbation of CHF (congestive heart failure): Qualifiers: Heart failure type: unspecified Qualified Code(s): I50.9 - Heart failure, unspecified Code(s): I50.9 - Heart failure, unspecified Status: Acute Plan Acute on chronic diastolic heart failure -Will hold lasix and aldactone because of worsening renal function Pleural effusion -For thoracentesis today Paroxysmal atrial fibrillation -Continue amiodarone 200 mg p.o. daily, and Toprol 100 mg p.o. daily - Eliquis on hold for thoracentesis Hypertension -On toprol-XL - Acei/MRA on hold Subjective Date/time seen: 01/31/24 15:07 Interval history: Requiring more oxygen, for thoracentesis today Renal function worsening Review of Systems Cardiovascular: Cardiovascular: Reports as per HPI Respiratory: Respiratory: Reports as per HPI Exam Const: General: comfortable HENMT: Mouth: Yes moist mucous membranes Eyes: EOM: EOMs intact bilaterally Neck: Neck: no JVD Resp: Auscultation: rales Cardio: Rate: regular rate Rhythm: regular rhythm GI: Inspection: distended Extrem: General: edema Objective Data Vital Signs Vital Signs: Vital Signs - 24 hr 01/30/24 16:00 01/30/24 16:00 01/30/24 16:00 Temperature 36.3 C L Pulse Rate 62 65 Respiratory Rate 20 Blood Pressure 117/51 L Pulse Oximetry 91 91 Oxygen Delivery High Flow Nasal Cannula Oxygen Flow Rate 15 Fraction of Inspired Oxygen 01/30/24 18:00 01/30/24 20:00 01/30/24 20:00 Temperature Pulse Rate 69 72 Respiratory Rate Blood Pressure Pulse Oximetry 93 Oxygen Delivery BiPAP Oxygen Flow Rate Fraction of Inspired Oxygen 60 01/30/24 21:18 01/30/24 21:22 01/30/24 21:28 Temperature 36.4 C Pulse Rate 71 71 71 Respiratory Rate 26 H 28 H 23 H Blood Pressure 118/38 L Pulse Oximetry 96 97 Oxygen Delivery BiPAP Oxygen Flow Rate Fraction of Inspired Oxygen 01/30/24 21:29 01/31/24 00:00 01/31/24 00:00 Temperature Pulse Rate 69 77 Respiratory Rate 23 H Blood Pressure Pulse Oximetry 94 Oxygen Delivery BiPAP Oxygen Flow Rate Fraction of Inspired Oxygen 60 01/31/24 00:25 01/31/24 03:12 01/31/24 03:15 Temperature 36.5 C Pulse Rate 82 59 L 59 L Respiratory Rate 26 H 19 19 Blood Pressure 146/45 H Pulse Oximetry 96 97 Oxygen Delivery BiPAP Oxygen Flow Rate Fraction of Inspired Oxygen 01/31/24 03:20 01/31/24 04:00 01/31/24 04:00 Temperature Pulse Rate 62 60 Respiratory Rate 20 Blood Pressure Pulse Oximetry 96 Oxygen Delivery BiPAP Oxygen Flow Rate Fraction of Inspired Oxygen 40 01/31/24 05:49 01/31/24 06:00 01/31/24 07:53 Temperature 37.1 C 36.4 C Pulse Rate 56 L 60 67 Respiratory Rate 17 22 H Blood Pressure 140/70 117/45 L Pulse Oximetry 94 98 Oxygen Delivery Oxygen Flow Rate Fraction of Inspired Oxygen 01/31/24 09:18 01/31/24 09:20 01/31/24 09:31 Temperature Pulse Rate 53 L 53 L 60 Respiratory Rate 18 18 23 H Blood Pressure Pulse Oximetry 100 Oxygen Delivery Oxygen Flow Rate Fraction of Inspired Oxygen 01/31/24 11:42 01/31/24 13:07 01/31/24 13:08 Temperature 35.9 C L Pulse Rate 59 L 56 L 56 L Respiratory Rate 22 H 19 19 Blood Pressure 119/39 L Pulse Oximetry 100 100 Oxygen Delivery Oxygen Flow Rate Fraction of Inspired Oxygen 01/31/24 13:19 Temperature Pulse Rate 62 Respiratory Rate Blood Pressure Pulse Oximetry Oxygen Delivery Oxygen Flow Rate Fraction of Inspired Oxygen Intake/Output Intake/Output: Intake & Output 01/28/24 01/29/24 01/30/24 01/31/24 23:59 23:59 23:59 23:59 Intake Total 300 1130 960 Output Total 1100 350 300 Balance 300 30 610 -300 Meds/Results Medications: Active Medications Generic Name Dose Route Start Last Admin Trade Name Freq PRN Reason Stop Dose Admin Albuterol/Ipratropium 3 ml 01/29/24 08:00 01/31/24 13:04 Ipratropium 0.5 Mg/Albuterol Sulfate 2.5 Mg Ampul.Neb 3 Ml INHALATION 3 ml Q6HRT ERYN Administration Amiodarone HCl 200 mg 01/29/24 08:00 01/30/24 10:32 Amiodarone Hcl 200 Mg Tablet PO 200 mg DAILY@0800 ERYN Administration Apixaban 2.5 mg 01/29/24 09:00 01/29/24 10:19 Apixaban 2.5 Mg Tablet PO 2.5 mg Q12HR ERYN Administration Doxycycline Hyclate 100 mg 01/29/24 09:00 01/30/24 20:34 Doxycycline Hyclate 100 Mg Tablet PO 100 mg Q12HR ERYN Administration Furosemide 80 mg 01/29/24 21:00 01/31/24 08:44 Furosemide Inj 100 Mg/10 Ml Vial IV PUSH 80 mg Q12HR ERYN Administration Hydralazine HCl 12.5 mg 01/29/24 17:00 01/30/24 20:34 Hydralazine 12.5 Mg Tablet PO 12.5 mg QID ERYN Administration Ceftriaxone Sodium 2 gm in 100 mls @ 200 mls/hr 01/29/24 08:00 01/30/24 20:27 Rocephin 2 Gm/Ns 100 Ml IVPB Infused Q24H ERYN Infusion Lisinopril 20 mg 01/29/24 09:00 Lisinopril 20 Mg Tablet PO DAILY [facility] Metoprolol Succinate 100 mg 01/29/24 09:00 01/30/24 10:32 Metoprolol Succinate Ext Rel 100 Mg Tabcr PO 100 mg DAILY ERYN Administration Nifedipine 60 mg 01/29/24 09:00 01/30/24 10:32 Nifedipine 30 Mg Tab.Er.24 PO 60 mg DAILY [facility] Administration Spironolactone 25 mg 01/29/24 09:00 Spironolactone 25 Mg Tablet PO QAM [facility] Vitamin D 2,000 units 01/29/24 09:00 01/30/24 10:32 Cholecalciferol 1,000 Units Tablet PO 2,000 units DAILY ERYN Administration Radiology Results: ITS Impressions Chest CT 01/29/24 06:13 Impression: Moderate bilateral pleural effusions with moderate pulmonary edema pattern and extensive bibasilar atelectasis, left worse than right, as detailed above. Correlate clinically for pneumonia. Chest X-Ray 01/31/24 08:17 IMPRESSION: Left lower lobe atelectasis versus pneumonia with pleural effusion. Cardiac decompensation with pulmonary edema. Superimposed pneumonia is not excluded. Labs Labs: Laboratory Results - last 24 hr 01/31/24 01/31/24 01/31/24 05:05 09:31 09:35 WBC 11.4 H RBC 2.92 L Hgb 9.3 L Hct 29.2 L MCV 100.0 MCH 31.8 MCHC 31.8 L RDW 14.2 Plt Count 267 MPV 9.6 Immature Gran % (Auto) 0.5 Neut % (Auto) 87.5 H Lymph % (Auto) 4.6 L [place] % (Auto) 7.0 Eos % (Auto) 0.2 Baso % (Auto) 0.2 Lymph # (Auto) 0.52 L [place] # (Auto) 0.8 H Eos # (Auto) 0.0 Baso # (Auto) 0.0 Abs Immat Gran (auto) 0.06 H Absolute Neuts (auto) 10.0 H Absolute Nucleated RBC 0.000 Nucleated RBC % 0.0 PT 17.6 H INR 1.4 APTT 41.8 H Puncture Site Right brachial ABG pH 7.392 ABG pCO2 44.7 ABG pO2 84.8 ABG PO2/FiO2 Ratio 1.13 ABG HCO3 26.6 H ABG O2 Saturation 96.3 ABG O2 Content 13.8 L ABG Base Excess 1.4 A-a Gradient 402.5 Oxyhemoglobin 95.8 Total Hemoglobin 10.2 L O2 Delivery Device Non-invasive vent O2 Liters/Min Not Reportable Vent Rate 16 FiO2 75 Expiratory Pressure 5 Inspiratory Pressure Not Reportable Sodium 137 Potassium 4.1 Chloride 102 Carbon Dioxide 29 Anion Gap 6 BUN 68 H Creatinine 3.00 H Estim Creat Clear Calc 13 Estimated GFR 15 L Glucose 137 H Calcium 8.9 Magnesium 2.0 Total Bilirubin 0.5 AST 22 ALT 18 Alkaline Phosphatase 75 NT-Pro-B Natriuret Pep 08584 H Total Protein 6.0 L Albumin 3.1 L Procalcitonin 0.4
[2024-01-31 15:40] LABS: pH Pleural Fluid > 7.500 (7.210-7.500)
[2024-01-31 16:05] LABS: Appearance Pleural Fluid Bloody (Clear); Color Pleural Fluid Red (Colorless); Lymphocytes Pleural Fluid 24 %; Monocytes Pleural Fluid 22 %; Neutrophils Pleural Fluid 33 % (0-25); Nucleated Cell Pleural Fluid 1325 /uL (0-1000); Pleural fluid source Pleural fluid; RBC Pleural Fluid 67000 /uL (0-10000)
[2024-01-31 16:06] LABS: Macrophages Pleural Fluid 16 %; Mesothelial Cells Pleural Flui 5 %
[2024-01-31] MEDS: DOXYCYCLINE HYCLATE 100 MG TABLET PO (20:45)
[2024-02-01] VITALS (23 sets, daily range): BP systolic 111–138; BP diastolic 34–61; PULSE 60–87; RESP 20–33; TEMP 36.2–36.8; O2SAT 91–100
[2024-02-01] MEDS: IPRATROPIUM 0.5 MG/ALBUTEROL SULFATE 2.5 MG AMPUL.NEB 3 ML INHALATION ×4 (02:00→21:12)
[2024-02-01 05:02] LABS: Base Excess ABG 2.4 mEq/l (+/-2.0); Fractional Inspired Oxygen 75 %; HCO3 ABG 27.4 mEq/l (22.0-26.0); Oxygen Content ABG 15.7 %vol (16.0-22.0); Oxygen Saturation ABG 95.8 % (95.0-100.0); Oxyhemoglobin 95.8 % THb (90.0-100.0); PCO2 ABG 44.4 mmHg (35.0-45.0); PO2 ABG 79.6 mmHg (80.0-100.0); PO2 FiO2 Ratio Arterial Blood 1.06 %; Total Hemoglobin 11.6 g/dL (12.0-18.0); pH ABG 7.409 (7.350-7.450)
[2024-02-01 05:03] LABS: Modified Allen's Test Pass; Site Drawn RIGHT RADIAL
[2024-02-01 05:04] LABS: Device NON-INVASIVE VENT; Non-Invasive Vent Rate 16 /MIN
[2024-02-01 05:05] LABS: Non-Invasive Inspiratory Pressure 25 CMH2O
[2024-02-01 05:06] LABS: Non-Invasive Expiratory Pressure 6 CMH2O
[2024-02-01 05:08] LABS: Basophils Percent Auto 0.3 % (0.2-1.2); Eosinophils Absolute Auto 0.3 K/mm3 (0-0.3); Eosinophils Percent Auto 2.9 % (0-4.4); Hematocrit 28.5 % (37.0-47.0); Hemoglobin 9.1 g/dL (12.0-15.0); Immature Granulocyte Absolute 0.04 K/mm3 (0.00-0.031); Immature Granulocyte Percent A 0.5 % (0-0.5); Lymphocytes Absolute Auto 0.71 K/mm3 (0.9-3.2); Lymphocytes Percent Auto 8.1 % (18.3-44.2); Mean Corpuscular HGB Conc 31.9 g/dl (32-36); Mean Corpuscular Hemoglobin 31.8 pg (26-34); Mean Corpuscular Volume 99.7 fl (80-100); Mean Platelet Volume 9.3 fl (7.4-10.4); Monocytes Absolute Auto 0.7 K/mm3 (0.1-0.6); Monocytes Percent Auto 7.8 % (2.6-8.5); Neutrophils Percent Auto 80.4 % (45.5-73.1); Platelet Count Result 266 k/mm3 (150-375); Red Blood Count 2.86 M/mm3 (4.2-5.4); Red Cell Distribution Width 14.2 % (11.5-14.5); White Blood Count 8.8 K/mm3 (4.5-10.0)
[2024-02-01 05:15] LABS: Alanine Aminotransferase 17 U/L (6-35); Albumin Level 2.8 g/dL (3.5-5.1); Alkaline Phosphatase 74 U/L (38-126); Anion Gap 5 mmol/L (4-12); Aspartate Amino Transferase 21 U/L (14-36); Bilirubin,Total 0.5 mg/dL (0.2-1.3); Blood Urea Nitrogen 70 mg/dL (7-17); Calcium 8.6 mg/dL (8.4-10.2); Carbon Dioxide 29 mmol/L (22-30); Chloride 105 mmol/L (98-107); Estimated CRCL calculation 13 ml/min; Estimated Glomerular Filt Rate 15; Glucose 99 mg/dL (65-110); Magnesium 2.2 mg/dL (1.6-2.3); Potassium 4.2 mmol/L (3.4-5.0); Sodium 139 mmol/L (137-145)
--- NOTE | 2024-02-01 09:17 | PM.PNCARD ---
Progress Note: A&P Assessment and Plan (1) Acute exacerbation of CHF (congestive heart failure): Qualifiers: Heart failure type: unspecified Qualified Code(s): I50.9 - Heart failure, unspecified Code(s): I50.9 - Heart failure, unspecified Status: Acute Plan Acute on chronic diastolic heart failure -Continue to hold lasix and aldactone because of worsening renal function Pleural effusion -s/p thoracentesis yesterday with 600mL fluid removed Paroxysmal atrial fibrillation -Amiodarone has been discontinued by pulmonology because of concern for pulmonary toxicity -Continue Toprol 100 mg p.o. daily -Eliquis can be resumed at 2.5mg b.i.d. (dose adjusted for age and renal function). Hypertension - On toprol-XL, nifedipine - Acei/MRA on hold Subjective Date/time seen: 02/01/24 09:17 Interval history: Requiring more oxygen, for thoracentesis today Renal function worsening Date of service 02/01/2024: Reports less shortness of breath today. Denies any palpitations, chest pain Review of Systems Cardiovascular: Cardiovascular: Reports as per HPI Respiratory: Respiratory: Reports as per HPI Exam Const: General: comfortable HENMT: Mouth: Yes moist mucous membranes Eyes: EOM: EOMs intact bilaterally Neck: Neck: no JVD Resp: Auscultation: not clear to auscultation bilaterally, rales and diminished lung sounds Cardio: Rate: regular rate Rhythm: regular rhythm GI: Inspection: distended Urinary Catheter: Urinary Catheter: patent and draining Extrem: General: no edema Objective Data Vital Signs Vital Signs: Vital Signs - 24 hr 01/31/24 09:18 01/31/24 09:20 01/31/24 09:31 Temperature Pulse Rate 53 L 53 L 60 Respiratory Rate 18 18 23 H Blood Pressure Pulse Oximetry 100 Oxygen Delivery Oxygen Flow Rate Fraction of Inspired Oxygen 01/31/24 10:00 01/31/24 11:42 01/31/24 12:00 Temperature 35.9 C L Pulse Rate 72 59 L Respiratory Rate 22 H Blood Pressure 119/39 L Pulse Oximetry 100 Oxygen Delivery BiPAP Oxygen Flow Rate Fraction of Inspired Oxygen 01/31/24 12:00 01/31/24 13:07 01/31/24 13:08 Temperature Pulse Rate 59 L 56 L 56 L Respiratory Rate 19 19 Blood Pressure Pulse Oximetry 100 Oxygen Delivery Oxygen Flow Rate Fraction of Inspired Oxygen 01/31/24 13:19 01/31/24 15:10 01/31/24 15:21 Temperature 36.7 C Pulse Rate 62 66 59 L Respiratory Rate 29 H 36 H Blood Pressure 120/63 Pulse Oximetry 98 100 Oxygen Delivery BiPAP Oxygen Flow Rate Fraction of Inspired Oxygen 01/31/24 16:00 01/31/24 18:00 01/31/24 20:00 Temperature Pulse Rate 66 66 Respiratory Rate Blood Pressure Pulse Oximetry 98 Oxygen Delivery High Flow Nasal Cannula Oxygen Flow Rate 12 Fraction of Inspired Oxygen 01/31/24 20:00 01/31/24 20:00 01/31/24 23:35 Temperature 36.7 C Pulse Rate 65 64 Respiratory Rate 20 Blood Pressure 116/36 L Pulse Oximetry 96 98 Oxygen Delivery High Flow Nasal Cannula Oxygen Flow Rate 12 Fraction of Inspired Oxygen 02/01/24 00:00 02/01/24 00:00 02/01/24 02:00 Temperature 36.8 C Pulse Rate 67 67 60 Respiratory Rate 20 20 Blood Pressure 113/36 L Pulse Oximetry 95 Oxygen Delivery Oxygen Flow Rate Fraction of Inspired Oxygen 02/01/24 02:11 02/01/24 02:11 02/01/24 04:00 Temperature Pulse Rate 68 87 Respiratory Rate 28 H 20 Blood Pressure Pulse Oximetry 98 100 Oxygen Delivery BiPAP Oxygen Flow Rate Fraction of Inspired Oxygen 75 02/01/24 04:00 02/01/24 04:00 02/01/24 08:00 Temperature 36.2 C L 36.6 C Pulse Rate 65 61 76 Respiratory Rate 33 H 24 H Blood Pressure 122/61 138/47 L Pulse Oximetry 100 94 Oxygen Delivery Oxygen Flow Rate Fraction of Inspired Oxygen Intake/Output Intake/Output: Intake & Output 01/29/24 01/30/24 01/31/24 02/01/24 23:59 23:59 23:59 23:59 Intake Total 1130 960 100 150 Output Total 6596 106 5279 350 Balance 30 610 -900 -200 Meds/Results Medications: Active Medications Generic Name Dose Route Start Last Admin Trade Name Freq PRN Reason Stop Dose Admin Albuterol/Ipratropium 3 ml 01/29/24 08:00 02/01/24 02:00 Ipratropium 0.5 Mg/Albuterol Sulfate 2.5 Mg Ampul.Neb 3 Ml INHALATION 3 ml Q6HRT ERYN Administration Apixaban 2.5 mg 01/29/24 09:00 01/29/24 10:19 Apixaban 2.5 Mg Tablet PO 2.5 mg Q12HR ERYN Administration Doxycycline Hyclate 100 mg 01/29/24 09:00 01/31/24 20:45 Doxycycline Hyclate 100 Mg Tablet PO 02/04/24 21:01 100 mg Q12HR ERYN Administration Furosemide 80 mg 01/29/24 21:00 01/31/24 08:44 Furosemide Inj 100 Mg/10 Ml Vial IV PUSH 80 mg Q12HR ERYN Administration Hydralazine HCl 12.5 mg 01/29/24 17:00 01/31/24 20:44 Hydralazine 12.5 Mg Tablet PO Not Given QID [facility] Ceftriaxone Sodium 2 gm in 100 mls @ 200 mls/hr 01/29/24 08:00 01/31/24 19:45 Rocephin 2 Gm/Ns 100 Ml IVPB 02/04/24 23:59 Infused Q24H [facility] Infusion Lisinopril 20 mg 01/29/24 09:00 Lisinopril 20 Mg Tablet PO DAILY [facility] Metoprolol Succinate 100 mg 01/29/24 09:00 01/31/24 17:56 Metoprolol Succinate Ext Rel 100 Mg Tabcr PO Not Given DAILY [facility] Nifedipine 60 mg 01/29/24 09:00 01/31/24 17:56 Nifedipine 30 Mg Tab.Er.24 PO Not Given DAILY [facility] Spironolactone 25 mg 01/29/24 09:00 Spironolactone 25 Mg Tablet PO QAM [facility] Vitamin D 2,000 units 01/29/24 09:00 01/31/24 17:55 Cholecalciferol 1,000 Units Tablet PO Not Given DAILY [facility] Radiology Results: ITS Impressions Chest CT 01/29/24 06:13 Impression: Moderate bilateral pleural effusions with moderate pulmonary edema pattern and extensive bibasilar atelectasis, left worse than right, as detailed above. Correlate clinically for pneumonia. Thoracentesis Ultrasound 01/31/24 15:20 IMPRESSION: 1. Successful ultrasound-guided thoracentesis yielding 600 mL of dark reddish fluid. Chest X-Ray 01/31/24 15:33 IMPRESSION: 1. Small bilateral pleural effusions with improvement on the left. 2. Diffuse lung disease with mild worsening on the right, likely a combination of pulmonary edema pneumonia. 3. Cardiomegaly. Labs Labs: Laboratory Results - last 24 hr 01/31/24 01/31/24 01/31/24 05:05 09:31 09:35 WBC RBC Hgb Hct MCV MCH MCHC RDW Plt Count MPV Immature Gran % (Auto) Neut % (Auto) Lymph % (Auto) [place] % (Auto) Eos % (Auto) Baso % (Auto) Lymph # (Auto) [place] # (Auto) Eos # (Auto) Baso # (Auto) Abs Immat Gran (auto) Absolute Neuts (auto) Absolute Nucleated RBC Nucleated RBC % PT 17.6 H INR 1.4 APTT 41.8 H Puncture Site Right brachial ABG pH 7.392 ABG pCO2 44.7 ABG pO2 84.8 ABG PO2/FiO2 Ratio 1.13 ABG HCO3 26.6 H ABG O2 Saturation 96.3 ABG O2 Content 13.8 L ABG Base Excess 1.4 A-a Gradient 402.5 Oxyhemoglobin 95.8 Total Hemoglobin 10.2 L O2 Delivery Device Non-invasive vent O2 Liters/Min Not Reportable Vent Rate 16 FiO2 75 Expiratory Pressure 5 Inspiratory Pressure Not Reportable Sodium Potassium Chloride Carbon Dioxide Anion Gap BUN Creatinine Estim Creat Clear Calc Estimated GFR Glucose Calcium Magnesium Total Bilirubin AST ALT Alkaline Phosphatase Total Protein Albumin Procalcitonin 0.4 Pleural Fluid Source Pleural Color Pleural Appearance Pleural pH Pleural RBC Pleural Nuc Cells Pleural Neutrophils Pleural Lymphocytes Pleural Monocytes Pleural Macrophages Pleural Mesothelial 01/31/24 01/31/24 02/01/24 14:39 15:00 04:47 WBC RBC Hgb Hct MCV MCH MCHC RDW Plt Count MPV Immature Gran % (Auto) Neut % (Auto) Lymph % (Auto) [place] % (Auto) Eos % (Auto) Baso % (Auto) Lymph # (Auto) [place] # (Auto) Eos # (Auto) Baso # (Auto) Abs Immat Gran (auto) Absolute Neuts (auto) Absolute Nucleated RBC Nucleated RBC % PT INR APTT Puncture Site Right radial ABG pH 7.409 ABG pCO2 44.4 ABG pO2 79.6 L ABG PO2/FiO2 Ratio 1.06 ABG HCO3 27.4 H ABG O2 Saturation 95.8 ABG O2 Content 15.7 L ABG Base Excess 2.4 A-a Gradient 408.0 Oxyhemoglobin 95.8 Total Hemoglobin 11.6 L O2 Delivery Device Non-invasive vent O2 Liters/Min Not Reportable Vent Rate 16 FiO2 75 Expiratory Pressure 6 Inspiratory Pressure 25 Sodium Potassium Chloride Carbon Dioxide Anion Gap BUN Creatinine Estim Creat Clear Calc Estimated GFR Glucose Calcium Magnesium Total Bilirubin AST ALT Alkaline Phosphatase Total Protein Albumin Procalcitonin Pleural Fluid Source Pleural fluid Pleural Color Red Pleural Appearance Bloody Pleural pH > 7.500 H Pleural RBC 34001 H Pleural Nuc Cells 1325 H Pleural Neutrophils 33 H Pleural Lymphocytes 24 Pleural Monocytes 22 Pleural Macrophages 16 Pleural Mesothelial 5 02/01/24 04:59 WBC 8.8 RBC 2.86 L Hgb 9.1 L Hct 28.5 L MCV 99.7 MCH 31.8 MCHC 31.9 L RDW 14.2 Plt Count 266 MPV 9.3 Immature Gran % (Auto) 0.5 Neut % (Auto) 80.4 H Lymph % (Auto) 8.1 L [place] % (Auto) 7.8 Eos % (Auto) 2.9 Baso % (Auto) 0.3 Lymph # (Auto) 0.71 L [place] # (Auto) 0.7 H Eos # (Auto) 0.3 Baso # (Auto) 0.0 Abs Immat Gran (auto) 0.04 H Absolute Neuts (auto) 7.0 H Absolute Nucleated RBC 0.000 Nucleated RBC % 0.0 PT INR APTT Puncture Site ABG pH ABG pCO2 ABG pO2 ABG PO2/FiO2 Ratio ABG HCO3 ABG O2 Saturation ABG O2 Content ABG Base Excess A-a Gradient Oxyhemoglobin Total Hemoglobin O2 Delivery Device O2 Liters/Min Vent Rate FiO2 Expiratory Pressure Inspiratory Pressure Sodium 139 Potassium 4.2 Chloride 105 Carbon Dioxide 29 Anion Gap 5 BUN 70 H Creatinine 3.00 H Estim Creat Clear Calc 13 Estimated GFR 15 L Glucose 99 Calcium 8.6 Magnesium 2.2 Total Bilirubin 0.5 AST 21 ALT 17 Alkaline Phosphatase 74 Total Protein 6.0 L Albumin 2.8 L Procalcitonin Pleural Fluid Source Pleural Color Pleural Appearance Pleural pH Pleural RBC Pleural Nuc Cells Pleural Neutrophils Pleural Lymphocytes Pleural Monocytes Pleural Macrophages Pleural Mesothelial Quality VTE Prophylaxis VTE prophylaxis: pharmacologic ordered (Continue home Eliquis but will decrease dose due to patient's renal function and age)
[2024-02-01] MEDS: NIFEdipine 30 MG TAB.ER.24 60 MG PO (10:04)
[2024-02-01] MEDS: DOXYCYCLINE HYCLATE 100 MG TABLET PO (10:04)
[2024-02-01] MEDS: hydrALAZINE 12.5 MG TABLET PO ×4 (10:04→21:07)
[2024-02-01] MEDS: METOPROLOL SUCCINATE EXT REL 100 MG TABCR PO (10:05)
[2024-02-01] MEDS: CHOLECALCIFEROL 1,000 UNITS TABLET 2000 UNITS PO (10:05)
--- NOTE | 2024-02-01 10:06 | P.PNPL_ITS ---
Progress Note: A&P Assessment and Plan (1) Acute on chronic hypoxic respiratory failure: Code(s): J96.21 - Acute and chronic respiratory failure with hypoxia Status: Acute Assessment and Plan: patient with chronic hypoxemic respiratory failure requiring 4 L nasal cannula at home which she wears 24-7. she is a never smoker with no history of asthma, COPD or recurrent infections. Patient presents now with worsening hypoxemic respiratory failure, fluid overload, BNP 9000, chest x-ray consistent with congestive heart failure, CT scan with congestion and left greater than right pleural effusion. Patient does have a white blood cell count 12.6, her procalcitonin is 0.4 which is low, she is afebrile with no pulmonary infectious complaints. Her COVID, influenza and RSV RT PCR study are negative. Etiology of patient's acute on chronic hypoxemic respiratory failure include fluid overload, bilateral pleural effusions with compressive atelectasis, possible pneumonia, and severe pulmonary hypertension. Plan: Currently the patient is on 15 L nasal cannula with saturations 93%. Goal saturation 90-94%. Agree with as aggressive diuresis as possible as tolerated by her cardiac and renal systems As per hospitalist and Cardiology teams.. currently the patient is on Lasix 80 IV q.12 hours. Recommended left thoracentesis since she is so symptomatic and requiring high oxygen levels. This has been a transudate in the past and suspected is a transudate but will send full set of chemistries, cell count, microbiology and cytology studies. Lows clinical suspicion for pneumonia but she does have a leukocytosis. She is afebrile with a low procalcitonin currently on ceftriaxone day 3 status post azithromycin 01/27 and 01/28 and switched to doxycycline on 01/29/2024. 01/31/2024: This morning the nurse tried to remove the patient's BiPAP and she was placed on 15 L and after 10 minutes her saturations were 78-82. Patient had a more confusion through the night attempting to remove her BiPAP. Currently she is on BiPAP and tells me her name but does not follow simple commands. Currently she is on BiPAP 14 pressures 10/5 in 75%. I switched her to an AVAPS mode with a rate of 16, tidal volume 500, EPAP 5, minimal inspiratory pressure 6, maximal inspiratory pressure 25, inspiratory time 1.0, rise of 3 and 75% FiO2. ABG on these settings 7.39/ 45/85. White blood cell count is 11.4, creatinine is 3.0, chest x-ray shows bilateral diffuse interstitial infiltrates and a left pleural effusion occupying approximately 50% of her left hemithorax. Her BNP has increased from 9000-89714. Yesterday she was +610 mL and is +640 mL since admission. Her weight today is 89.7 with an admission weight of 90. Plan: Patient more respiratory distress this morning. Thoracentesis has been ordered and hopefully this will perform today. She has been off Eliquis for 48 hours now. Current noninvasive ventilator settings with the AVAPS mode provide adequate oxygenation and ventilation. Continue ceftriaxone day 4 status post azithromycin 01/27 and 01/28 and switched to doxycycline on 01/29/2024, day 3. 02/01/2024. The patient is more awake this morning. She wore the hospital noninvasive ventilator with the AVAPS mode for about 6 hours and did better last night. She has minimal cough and phlegm production. White blood cell count is 8.8, creatinine is 3.0 she is afebrile. Currently she is on 12 L nasal cannula saturations 92%. ABG on the noninvasive ventilator with 75% FiO2 is 7.41/44/80. Plan: I still believe the etiology of the patient's hypoxemic respiratory failure is fluid overload with pulmonary edema and bilateral pleural effusions. She did improve with thoracentesis. But she remains with hypoxemic failure. I will look for alternate etiologies of her bilateral interstitial alveolar infiltrates and will repeat COVID, influenza, RSV RT PCR, I will send a nasal swab for MRSA, respiratory pathogen panel, urine for Legionella and pneumococ lori antigens, mycoplasma IgM on 02/02/2024. It appears the patient was started on amiodarone sometime between 05/26/2023 her cardioversion and office note on 07/06/2023. I will discontinue amiodarone at this time. current noninvasive ventilator settings provide adequate oxygenation and ventilation. Goal saturation 90-94% and titer oxygen accordingly. Agree with as aggressive diuresis as tolerated by her cardiac and renal systems per hospitalist team, Cardiology and Nephrology. Discussed with Dr. Augustin. Will follow with you. (2) Pleural effusion: Code(s): J90 - Pleural effusion, not elsewhere classified Status: Acute Assessment and Plan: Previously the patient had a left transudative pleural effusion related to fluid overload. 04/09/2023: Left thoracentesis with 650 mL of red fluid. PH greater than 7.50, white blood cells count 871 with neutrophils 23%, lymphocytes 60%, macrophages 14%, mesothelial cells 3%. Her total protein ratio was less than 0.5. Her total LDH in the pleural fluid was 156 and her serum to pleural albumin gradient was 2.0. Her BNP at that time was 5740. Cytology was negative. Bacterial, AFB cultures negative. This represents a transudative, noninfected, cytology negative pleural effusion. Plan: Recommended left thoracentesis since she is so symptomatic and requiring high oxygen levels. This has been a transudate in the past and suspected is a transudate but will send full set of chemistries, cell count, microbiology and cytology studies. Patient received her Eliquis on 01/29/2024 and radiologist will attempt to do procedure on 01/31/2024. 01/31/24: plan: Thoracentesis with full set of chemistries, cell count, microbiology and cytology. Later in the day the patient underwent a left thoracentesis with removal of 600 mL of dark red fluid. G stain with few white blood cells, no organism seen. PH greater than 7.50. White blood cell count is 1325 with differential neutrophils 33%, lymphocytes 24%, monocytes 22%, macrophages 16%, mesothelial cells 5%. Chest x-ray postprocedure with small bilateral pleural effusions and diffuse interstitial and alveolar infiltrates right greater than left. After the procedure the patient was able to come off of BiPAP and was placed on 12 L nasal cannula. 02/02/24: Patient's oxygenation did improve after the thoracentesis. She does not remember the procedure to tell me if she had any symptomatic improvement. Plan: I will repeat a chest x-ray today to assess for rapid reaccumulation of the left effusion. Subjective Date/time seen: 02/01/24 10:06 Interval history: 12/02/2023: This is a new pulmonary consult for hypoxemic respiratory failure and pleural effusions. 88-year-old with a history of paroxysmal AFib on Eliquis, status post cardioversion May 2023, hypertension, CKD, pulmonary hypertension with heart failure with preserved ejection fraction and transudative left pleural effusion on 04/09/2023, Chronic hypoxemic respiratory failure requiring 4 L nasal cannula / since 09/2023. She was a never smoker and not on any inhaled medic ations. Patient is followed in the [facility] in last seen on 11/22/2023. At that time she was not walking much using a Rollator she had previously declined pulmonary rehabilitation. On 04/24/2023 chest x-ray demonstrated a chronic left pleural effusion occupying approximately 30% of the left team hemithorax. 04/09/2023: Left thoracentesis with 650 mL of red fluid. PH greater than 7.50, white blood cells count 871 with neutrophils 23%, lymphocytes 60%, macrophages 14%, mesothelial cells 3%. Her total protein ratio was less than 0.5. Her total LDH in the pleural fluid was 156 and her serum to pleural albumin gradient was 2.0. Her BNP at that time was 5740. Cytology was negative. Bacterial, AFB cultures negative. This represents a transudative, noninfected, cytology negative pleural effusion. Patient presented to the hospital ED on 01/28/2024 and the son who she lives with was in the room and provided additional history. EMS was called and her saturations were in the 70s on 4 L nasal cannula. For few weeks she had worsening swelling of the lower extremities and denied any fever. She does complain of intermittent chills and shakes. She had no hemoptysis and no phlegm production. In the emergency room her blood pressure is 158/68, heart rate 68, respiratory rate 30, saturations on 10 L nasal cannula is 96%. Her white blood cell count was 12.6, her creatinine was 2.50, her BNP was 9000, her chest x-ray showed congestive heart failure. COVID, influenza, RSV RT PCR studies negative. ABG on 10 L non-rebreather 7.38/49/60. Patient had increased work of breathing was placed on BiPAP. Patient was treated for fluid overload with IV Lasix and started on ceftriaxone and azithromycin for possible pneumonia. 01/29/24: Patient had an echocardiogram with the EF of 60-65%, severe pulmonary hypertension with the estimated PASP of 77, normal RV size and function, dilated right atrium, severely dilated left atrium, large left pleural effusion. Procalcitonin was 0.[address] scan of the chest showed left greater than right effusions with complete collapse of the left lower lobe and congestive heart failure. Patient received her morning dose of Eliquis. Azithromycin was changed to doxycycline. 01/30/24: The patient has a hard time describing her symptoms. The son tells me overall she looks as if she is breathing better in less respiratory distress. Currently she is on 415 L nasal cannula with saturations 93%. She says the BiPAP is uncomfortable. Her white blood cell count is 13.0, creatinine is 2.70, her BNP is 59. 01/31/2024: This morning the nurse tried to remove the patient's BiPAP and she was placed on 15 L and after 10 minutes her saturations were 78-82. Patient had a more confusion through the night attempting to remove her BiPAP. Currently she is on BiPAP and tells me her name but does not follow simple commands. Currently she is on BiPAP 14 pressures 10/5 in 75%. I switched her to an AVAPS mode with a rate of 16, tidal volume 500, EPAP 5, minimal inspiratory pressure 6, maximal inspiratory pressure 25, inspiratory time 1.0, rise of 3 and 75% FiO2. ABG on these settings 7.39/ 45/85. White blood cell count is 11.4, creatinine is 3.0, chest x-ray shows bilateral diffuse interstitial infiltrates and a left pleural effusion occupying approximately 50% of her left hemithorax. Her BNP has increased from 9000-44072. Yesterday she was +610 mL and is +640 mL since admission. Her weight today is 89.7 with an admission weight of 90. Later in the day the patient underwent a left thoracentesis with removal of 600 mL of dark red fluid. G stain with few white blood cells, no organism seen. PH greater than 7.50. White blood cell count is 1325 with differential neutrophils 33%, lymphocytes 24%, monocytes 22%, macrophages 16%, mesothelial cells 5%. Chest x-ray postprocedure with small bilateral pleural effusions and diffuse interstitial and alveolar infiltrates right greater than left. After the procedure the patient was able to come off of BiPAP and was placed on 12 L nasal cannula. 02/01/2024. The patient is more awake this morning. She wore the hospital noninvasive ventilator with the AVAPS mode for about 6 hours and did better last night. She has minimal cough and phlegm production. White blood cell count is 8.8, creatinine is 3.0 she is afebrile. Currently she is on 12 L nasal cannula saturations 92%. DATA: 01/29/24: CT Scan of the Chest without Contrast: Clinical Indication: Shortness of breath, hypoxia Technique: Contiguous sections were acquired throughout the chest without intravenous contrast. Dose reduction technique was used on this scan by utilizing automated exposure control and iterative reconstruction technique. The dose-length product (DLP) was 608.06 mGy-cm. COMPARISON: 04/06/2023 Findings: There is no evidence of any significant mediastinal, hilar or axillary lymp hadenopathy. There are mild atherosclerotic calcifications of the aorta and coronary arteries. There is cardiomegaly. No pericardial effusion present. Moderate bilateral pleural effusions are present, with near complete left lower lobe atelectasis, and partial right lower lobe atelectasis. There is patchy groundglass opacity and slightly more confluent areas of airspace consolidation aerated lungs, most compatible with pulmonary edema. There is additional partial lingular atelectasis. Images through the upper abdomen reveal no abnormalities. Impression: Moderate bilateral pleural effusions with moderate pulmonary edema pattern and extensive bibasilar atelectasis, left worse than right, as detailed above. Correlate clinically for pneumonia. 01/29/24: Echo Summary 1. The left ventricle is moderately dilated with normal systolic function. There is severe eccentric left ventricular hypertrophy. The left ventricular ejection fraction is visually estimated to be 60-65%. 2. There is normal wall motion. 3. There is severe pulmonary hypertension. 4. Pulmonary arterial systolic pressure is estimated at 77 mmHg. 5. Large left pleural effusion. Left Ventricle The left ventricle is moderately dilated with normal systolic function. There is severe eccentric left ventricular hypertrophy. The left ventricular ejection fraction is visually estimated to be 60-65%. There is normal wall motion. Right Ventricle The right ventricle is normal in size and systolic function. Left Atria The left atrium is severely dilated. Right Atria The right atrium is dilated. 11/28/2023 WISAM on room air; caitlyn 75%, KANIKA 26; 1 hour 25 minutes spent below 88%; plan: please set up O2 3 L/min, WISAM in 2 weeks on 3 L/min. * 04/07/2023, echocardiogram; Summary ? 1. Normal left ventricular size and systolic contractility. ? 2. Right ventricular enlargement. ? 3. Biatrial dilation. ? 4. Sclerotic aortic valve with good leaflet separation. ? 5. Mild mitral regurgitation. ? 6. Moderate tricuspid regurgitation, velocity suggests PA pressures are severely elevated, 78 mm Hg. * 04/06/2023, chest CTA' There is mild respiratory motion which decreases sensitivity in some of the smaller subsegmental pulmonary arteries at the lung bases. No pulmonary embolism. There are diffuse groundglass opacities and some smooth septal line thickening consistent with mild pulmonary edema. Small bilateral pleural effusions with collapse of the basilar segments of the left lower lobe and dependent passive atelectasis in the bilateral upper lobes, lingula and right lower lobe. Cardiomegaly with biatrial enlargement. No pericardial effusion. There is reflux of contrast into the inferior vena cava and hepatic veins consistent with tricuspid regurgitation. Thoracic aorta is normal in caliber with no dissection. Atherosclerotic calcific a cyst along the aortic arch and the great vessels arising from the arch. No pathologically enlarged thoracic lymphadenopathy. Cholecystectomy clips at the gallbladder fossa. There are bridging osteophytes at multiple levels consistent with diffuse idiopathic skeletal hyperostosis (DISH). Sclerotic likely bone island at T10. IMPRESSION: 1. No pulmonary embolism with sensitivity decreased in some of the smaller basilar subsegmental pulmonary arteries due to some motion artifact. 2. Cardiomegaly with biatrial enlargement. 3. Mild pulmonary edema and small to moderate-sized posterior layering bilateral pleural effusions with associated compressive atelectasis in the dependent lungs. Review of Systems Review of Systems: ROS unobtainable: Yes unobtainable due to mental status Exam Const: General: cooperative, comfortable and in distress Orientation/consciousness: oriented to person, oriented to place and oriented to time Other: on BiPAP HENMT: Head: normal to inspection Ears: hearing grossly normal bilaterally Eyes: General: appearance normal, both eyes and all related structures Neck: Neck: normal visual inspection Other: positive JVD Chest: Chest palpation & inspection: normal inspection of the chest Resp: Effort & Inspection: normal respiratory effort and able to speak in complete sentences Auscultation: crackles, no rales, no rhonchi, no wheezes and diminished lung sounds Other: Decreased breath sounds in the bases left greater than right Cardio: Jugular venous distension: no JVD GI: Inspection: normal to inspection Skin: General skin exam: normal color Neuro: General: oriented to person, oriented to place and oriented to time Extrem: General: normal to inspection and edema Psych: Appearance: grossly normal Objective Data Vital Signs Vital Signs: Vital Signs - 24 hr 01/31/24 11:42 01/31/24 12:00 01/31/24 12:00 Temperature 35.9 C L Pulse Rate 59 L 59 L Respiratory Rate 22 H Blood Pressure 119/39 L Pulse Oximetry 100 Oxygen Delivery BiPAP Oxygen Flow Rate Fraction of Inspired Oxygen 01/31/24 13:07 01/31/24 13:08 01/31/24 13:19 Temperature Pulse Rate 56 L 56 L 62 Respiratory Rate 19 19 Blood Pressure Pulse Oximetry 100 Oxygen Delivery Oxygen Flow Rate Fraction of Inspired Oxygen 01/31/24 15:10 01/31/24 15:21 01/31/24 16:00 Temperature 36.7 C Pulse Rate 66 59 L 66 Respiratory Rate 29 H 36 H Blood Pressure 120/63 Pulse Oximetry 98 100 Oxygen Delivery BiPAP Oxygen Flow Rate Fraction of Inspired Oxygen 01/31/24 18:00 01/31/24 20:00 01/31/24 20:00 Temperature 36.7 C Pulse Rate 66 65 Respiratory Rate 20 Blood Pressure 116/36 L Pulse Oximetry 98 96 Oxygen Delivery High Flow Nasal Cannula Oxygen Flow Rate 12 Fraction of Inspired Oxygen 01/31/24 20:00 01/31/24 23:35 02/01/24 00:00 Temperature 36.8 C Pulse Rate 64 67 Respiratory Rate 20 Blood Pressure 113/36 L Pulse Oximetry 98 95 Oxygen Delivery High Flow Nasal Cannula Oxygen Flow Rate 12 Fraction of Inspired Oxygen 02/01/24 00:00 02/01/24 02:00 02/01/24 02:11 Temperature Pulse Rate 67 60 68 Respiratory Rate 20 28 H Blood Pressure Pulse Oximetry 98 Oxygen Delivery Oxygen Flow Rate Fraction of Inspired Oxygen 02/01/24 02:11 02/01/24 04:00 02/01/24 04:00 Temperature 36.2 C L Pulse Rate 87 65 Respiratory Rate 20 33 H Blood Pressure 122/61 Pulse Oximetry 100 100 Oxygen Delivery BiPAP Oxygen Flow Rate Fraction of Inspired Oxygen 75 02/01/24 04:00 02/01/24 08:00 02/01/24 09:39 Temperature 36.6 C Pulse Rate 61 76 Respiratory Rate 24 H Blood Pressure 138/47 L Pulse Oximetry 94 94 Oxygen Delivery High Flow Nasal Cannula Oxygen Flow Rate 12 Fraction of Inspired Oxygen 02/01/24 09:39 02/01/24 09:51 Temperature Pulse Rate 74 76 Respiratory Rate 20 20 Blood Pressure Pulse Oximetry Oxygen Delivery Oxygen Flow Rate Fraction of Inspired Oxygen Intake/Output Intake/Output: Intake & Output 01/29/24 01/30/24 01/31/24 02/01/24 23:59 23:59 23:59 23:59 Intake Total 1130 960 100 150 Output Total 2957 627 2235 350 Balance 30 610 -900 -200 Meds/Results Medications: Active Medications Generic Name Dose Route Start Last Admin Trade Name Freq PRN Reason Stop Dose Admin Albuterol/Ipratropium 3 ml 01/29/24 08:00 02/01/24 09:38 Ipratropium 0.5 Mg/Albuterol Sulfate 2.5 Mg Ampul.Neb 3 Ml INHALATION 3 ml Q6HRT ERYN Administration Apixaban 2.5 mg 01/29/24 09:00 01/29/24 10:19 Apixaban 2.5 Mg Tablet PO 2.5 mg Q12HR ERYN Administration Doxycycline Hyclate 100 mg 01/29/24 09:00 01/31/24 20:45 Doxycycline Hyclate 100 Mg Tablet PO 02/04/24 21:01 100 mg Q12HR ERYN Administration Furosemide 80 mg 01/29/24 21:00 01/31/24 08:44 Furosemide Inj 100 Mg/10 Ml Vial IV PUSH 80 mg Q12HR ERYN Administration Hydralazine HCl 12.5 mg 01/29/24 17:00 01/31/24 20:44 Hydralazine 12.5 Mg Tablet PO Not Given QID [facility] Ceftriaxone Sodium 2 gm in 100 mls @ 200 mls/hr 01/29/24 08:00 01/31/24 19:45 Rocephin 2 Gm/Ns 100 Ml IVPB 02/04/24 23:59 Infused Q24H [facility] Infusion Lisinopril 20 mg 01/29/24 09:00 Lisinopril 20 Mg Tablet PO DAILY [facility] Metoprolol Succinate 100 mg 01/29/24 09:00 01/31/24 17:56 Metoprolol Succinate Ext Rel 100 Mg Tabcr PO Not Given DAILY [facility] Nifedipine 60 mg 01/29/24 09:00 01/31/24 17:56 Nifedipine 30 Mg Tab.Er.24 PO Not Given DAILY [facility] Spironolactone 25 mg 01/29/24 09:00 Spironolactone 25 Mg Tablet PO QAM [facility] Vitamin D 2,000 units 01/29/24 09:00 01/31/24 17:55 Cholecalciferol 1,000 Units Tablet PO Not Given DAILY [facility] Radiology Results: ITS Impressions Chest CT 01/29/24 06:13 Impression: Moderate bilateral pleural effusions with moderate pulmonary edema pattern and extensive bibasilar atelectasis, left worse than right, as detailed above. Correlate clinically for pneumonia. Thoracentesis Ultrasound 01/31/24 15:20 IMPRESSION: 1. Successful ultrasound-guided thoracentesis yielding 600 mL of dark reddish fluid. Chest X-Ray 01/31/24 15:33 IMPRESSION: 1. Small bilateral pleural effusions with improvement on the left. 2. Diffuse lung disease with mild worsening on the right, likely a combination of pulmonary edema pneumonia. 3. Cardiomegaly. Labs Labs: Laboratory Results - last 24 hr 01/31/24 01/31/24 01/31/24 05:05 09:35 14:39 WBC RBC Hgb Hct MCV MCH MCHC RDW Plt Count MPV Immature Gran % (Auto) Neut % (Auto) Lymph % (Auto) [place] % (Auto) Eos % (Auto) Baso % (Auto) Lymph # (Auto) [place] # (Auto) Eos # (Auto) Baso # (Auto) Abs Immat Gran (auto) Absolute Neuts (auto) Absolute Nucleated RBC Nucleated RBC % PT 17.6 H INR 1.4 APTT 41.8 H Puncture Site ABG pH ABG pCO2 ABG pO2 ABG PO2/FiO2 Ratio ABG HCO3 ABG O2 Saturation ABG O2 Content ABG Base Excess A-a Gradient Oxyhemoglobin Total Hemoglobin O2 Delivery Device O2 Liters/Min Vent Rate FiO2 Expiratory Pressure Inspiratory Pressure Sodium Potassium Chloride Carbon Dioxide Anion Gap BUN Creatinine Estim Creat Clear Calc Estimated GFR Glucose Calcium Magnesium Total Bilirubin AST ALT Alkaline Phosphatase Total Protein Albumin Procalcitonin 0.4 Pleural Fluid Source Pleural Color Pleural Appearance Pleural pH > 7.500 H Pleural RBC Pleural Nuc Cells Pleural Neutrophils Pleural Lymphocytes Pleural Monocytes Pleural Macrophages Pleural Mesothelial 01/31/24 02/01/24 02/01/24 15:00 04:47 04:59 WBC 8.8 RBC 2.86 L Hgb 9.1 L Hct 28.5 L MCV 99.7 MCH 31.8 MCHC 31.9 L RDW 14.2 Plt Count 266 MPV 9.3 Immature Gran % (Auto) 0.5 Neut % (Auto) 80.4 H Lymph % (Auto) 8.1 L [place] % (Auto) 7.8 Eos % (Auto) 2.9 Baso % (Auto) 0.3 Lymph # (Auto) 0.71 L [place] # (Auto) 0.7 H Eos # (Auto) 0.3 Baso # (Auto) 0.0 Abs Immat Gran (auto) 0.04 H Absolute Neuts (auto) 7.0 H Absolute Nucleated RBC 0.000 Nucleated RBC % 0.0 PT INR APTT Puncture Site Right radial ABG pH 7.409 ABG pCO2 44.4 ABG pO2 79.6 L ABG PO2/FiO2 Ratio 1.06 ABG HCO3 27.4 H ABG O2 Saturation 95.8 ABG O2 Content 15.7 L ABG Base Excess 2.4 A-a Gradient 408.0 Oxyhemoglobin 95.8 Total Hemoglobin 11.6 L O2 Delivery Device Non-invasive vent O2 Liters/Min Not Reportable Vent Rate 16 FiO2 75 Expiratory Pressure 6 Inspiratory Pressure 25 Sodium 139 Potassium 4.2 Chloride 105 Carbon Dioxide 29 Anion Gap 5 BUN 70 H Creatinine 3.00 H Estim Creat Clear Calc 13 Estimated GFR 15 L Glucose 99 Calcium 8.6 Magnesium 2.2 Total Bilirubin 0.5 AST 21 ALT 17 Alkaline Phosphatase 74 Total Protein 6.0 L Albumin 2.8 L Procalcitonin Pleural Fluid Source Pleural fluid Pleural Color Red Pleural Appearance Bloody Pleural [place] RBC 57031 H Pleural Nuc Cells 1325 H Pleural Neutrophils 33 H Pleural Lymphocytes 24 Pleural Monocytes 22 Pleural Macrophages 16 Pleural Mesothelial 5
[2024-02-01] MEDS: cefTRIAXone 2 GM/NS 100 ML 2 GM/100 ML BAG IVPB (10:08)
[2024-02-01 11:02] LABS: Influenza A QL RT-PCR Negative (Negative); Influenza B QL RT-PCR Negative (Negative); RSV RNA, RT-PCR Negative (Negative); SARS-CoV-2 RNA PCR Negative (Negative)
--- NOTE | 2024-02-01 11:19 | ECG_ITS ---
Test Date: 2024-02-01 11:47:45 Measurements Intervals Bowman Rate: 76 P: 82 MO: 178 QRS: -30 QRSD: 178 T: 87 QT: 438 QTc: 493 Interpretive Statements SINUS RHYTHM LEFT BUNDLE BRANCH BLOCK Compared to ECG 01/28/2024 20:02:31 NO SIGNIFICANT CHANGE SEEN Electronically Signed On 02-01-2024 15:55:48 [employer] by Samantha Villar
[2024-02-01 11:36] LABS: MRSA (PCR) NOT DETECTED (NOT DETECTE)
--- NOTE | 2024-02-01 12:41 | P.PNNP_ITS ---
Progress Note: A&P Assessment and Plan (1) KAY (acute kidney injury): Code(s): N17.9 - Acute kidney failure, unspecified Status: Acute Assessment and Plan: * suspect due to the necessity of IV diuresis * holding diuretics at this time (but will likely need to restart eventually) * TRAMAINE-I on hold as well * complex situation.... * we may have to accept a higher creatinine to help optimize her respiratory status * follow trend of repeat labs and UOP (2) Chronic kidney disease, stage IV (severe): Code(s): N18.4 - Chronic kidney disease, stage 4 (severe) Status: Chronic Assessment and Plan: * baseline creatinine WAS running ~ 1.3 - 1.6mg/ld * however, since last May 2023, it has been now running closer to 2.0 - 2.5mg/dl * due to hypertension, vascular disease, pulmonary hypertension, and age-related change along with the need for more aggressive diuretic therapy to maintain her respiratory/volume status (3) Acute on chronic hypoxic respiratory failure: Code(s): J96.21 - Acute and chronic respiratory failure with hypoxia Status: Acute Assessment and Plan: * multifactorial etiology: * volume overload * acute CHF * pleural effusions * compressive atelectasis * pneumonia(?) * known severe pulmonary hypertension * viral testing for RSV/influenza/COVID negative * imaging to date noted * on antibiotics * diuresis as tolerated (on hold currently) * s/p thoracentesis on 01/30 * continue BIPAP support and supplemental oxygen * Pulmonary following (4) Acute exacerbation of CHF (congestive heart failure): Qualifiers: Heart failure type: unspecified Qualified Code(s): I50.9 - Heart failure, unspecified Code(s): I50.9 - Heart failure, unspecified Status: Acute Assessment and Plan: * as noted by clincal presentation, BNP, and imaging to date * felt to be acute on chronic diastolic heart failure * last Echo noted (on 01/28) * left ventricle is moderately dilated with normal systolic function * severe eccentric left ventricular hypertrophy * left ventricularejection fraction is visually estimated to be 60-65% * severe pulmonary hypertension -- pulmonary arterial systolic pressure is estimated at 77 mmHg * large left pleural effusion. * Cardiology following * limited diuresis noted despite therapy to date * now with #1, diuretics on hold * follow daily weights, I/Os, and respiratory/volume status (5) Pleural effusion: Code(s): J90 - Pleural effusion, not elsewhere classified Status: Acute Assessment and Plan: * as noted by recent imaging * given respiratory status and limited diuresis, s/p thoracentesis on 01/30 * follow-up on pleural fluid analysis (6) Atrial fibrillation: Qualifiers: Atrial fibrillation type: paroxysmal Qualified Code(s): I48.0 - Paroxysmal atrial fibrillation Code(s): I48.91 - Unspecified atrial fibrillation Status: Chronic Assessment and Plan: * rate control strategy * on metoprolol and amiodarone * anticoagulation on hold for thoracentesis done on 01/30 (7) Hypertension: Qualifiers: Hypertension type: unspecified Qualified Code(s): I10 - Essential (primary) hypertension Code(s): I10 - Essential (primary) hypertension Status: Chronic Assessment and Plan: * reasonable control at this time * TRAMAINE-I on hold given #1 Will continue to follow. Subjective Date/time seen: 02/01/24 12:41 Interval history: Follow-up for acute kidney injury on chronic kidney disease. S/p thoracentesis yesterday and tolerated procedure reasonably well; mentation seems to be doing better as well; respiratory status/breathing remains tenuous and still requiring significant oxygen support; renal function/creatinine remains about the same in the last 24 hours with reasonable urine output (diuretics currently on hold); Exam 2 Narrative: General: elderly but WD/WN female in NAD Heart: normal S1 and S2; no rub Lungs: coarse breath sounds with scattered crackles; decreased at bases Abdomen: soft, nontender, nondistended, positive bowel sounds Extremities: no cyanosis or clubbing; 1+ edema Skin: chronic changes present Objective Data Vital Signs Vital Signs: Vital Signs Temp Pulse Resp BP Pulse Ox O2 Del Method O2 Flow Rate 02/01/24 12:00 97.9 F 79 28 H 134/56 L 91 02/01/24 10:05 77 02/01/24 09:51 76 20 02/01/24 09:39 74 20 02/01/24 09:39 94 High Flow Nasal Cannula 12 02/01/24 08:00 97.8 F 76 24 H 138/47 L 94 02/01/24 04:00 61 02/01/24 04:00 97.2 F L 65 33 H 122/61 100 02/01/24 04:00 100 BiPAP 02/01/24 02:11 87 20 02/01/24 02:11 68 28 H 98 02/01/24 02:00 60 20 02/01/24 00:00 67 02/01/24 00:00 98.3 F 67 20 113/36 L 95 01/31/24 23:35 98 High Flow Nasal Cannula 12 01/31/24 20:00 64 01/31/24 20:00 98.1 F 65 20 116/36 L 96 01/31/24 20:00 98 High Flow Nasal Cannula 12 01/31/24 18:00 66 01/31/24 16:00 66 01/31/24 15:21 98.1 F 59 L 36 H 120/63 100 01/31/24 15:10 66 29 H 98 BiPAP 01/31/24 13:19 62 01/31/24 13:08 56 L 19 01/31/24 13:07 56 L 19 100 Intake/Output Intake/Output: Intake & Output 01/29/24 01/30/24 01/31/24 02/01/24 23:59 23:59 23:59 23:59 Intake Total 1130 960 100 150 Output Total 7613 783 1244 350 Balance 30 610 -900 -200 Meds/Results Medications: Active Medications Generic Name Dose Route Start Last Admin Trade Name Freq PRN Reason Stop Dose Admin Albuterol/Ipratropium 3 ml 01/29/24 08:00 02/01/24 09:38 Ipratropium 0.5 Mg/Albuterol Sulfate 2.5 Mg Ampul.Neb 3 Ml INHALATION 3 ml Q6HRT ERYN Administration Apixaban 2.5 mg 01/29/24 09:00 01/29/24 10:19 Apixaban 2.5 Mg Tablet PO 2.5 mg Q12HR ERYN Administration Furosemide 80 mg 01/29/24 21:00 01/31/24 08:44 Furosemide Inj 100 Mg/10 Ml Vial IV PUSH 80 mg Q12HR ERYN Administration Hydralazine HCl 12.5 mg 01/29/24 17:00 02/01/24 10:04 Hydralazine 12.5 Mg Tablet PO 12.5 mg QID ERYN Administration Meropenem 500 mg in 100 mls @ 200 mls/hr 02/01/24 12:45 IVPB BID@1200,0000 [facility] Doxycycline Hyclate 100 mg in 100 mls @ 100 mls/hr 02/01/24 21:00 Vibramycin 100 Mg/Ns 100 Ml IVPB Q12HR [facility] Lisinopril 20 mg 01/29/24 09:00 Lisinopril 20 Mg Tablet PO DAILY [facility] Metoprolol Succinate 100 mg 01/29/24 09:00 02/01/24 10:05 Metoprolol Succinate Ext Rel 100 Mg Tabcr PO 100 mg DAILY ERYN Administration Nifedipine 60 mg 01/29/24 09:00 02/01/24 10:04 Nifedipine 30 Mg Tab.Er.24 PO 60 mg DAILY ERYN Administration Spironolactone 25 mg 01/29/24 09:00 Spironolactone 25 Mg Tablet PO QAM [facility] Vitamin D 2,000 units 01/29/24 09:00 02/01/24 10:05 Cholecalciferol 1,000 Units Tablet PO 2,000 units DAILY ERYN Administration Radiology Results: ITS Impressions Chest CT 01/29/24 06:13 Impression: Moderate bilateral pleural effusions with moderate pulmonary edema pattern and extensive bibasilar atelectasis, left worse than right, as detailed above. Correlate clinically for pneumonia. Thoracentesis Ultrasound 01/31/24 15:20 IMPRESSION: 1. Successful ultrasound-guided thoracentesis yielding 600 mL of dark reddish fluid. Chest X-Ray 01/31/24 15:33 IMPRESSION: 1. Small bilateral pleural effusions with improvement on the left. 2. Diffuse lung disease with mild worsening on the right, likely a combination of pulmonary edema pneumonia. 3. Cardiomegaly. Labs Labs: Laboratory Tests 02/01/24 04:59 02/01/24 04:59 Calcium 8.6 Magnesium 2.2 Total Bilirubin 0.5 AST 21 ALT 17 Alkaline Phosphatase 74 Total Protein 6.0 L Albumin 2.8 L Microbiology 01/31/24 15:00 Pleural Fluid Anaerobic Culture - Preliminary 01/31/24 15:00 Pleural Fluid Gram Stain - Final
--- NOTE | 2024-02-01 16:56 | P.PNIM_ITS ---
Progress Note: A&P Assessment and Plan (1) Acute on chronic hypoxic respiratory failure: Code(s): J96.21 - Acute and chronic respiratory failure with hypoxia Status: Acute (2) Acute exacerbation of CHF (congestive heart failure): Qualifiers: Heart failure type: unspecified Qualified Code(s): I50.9 - Heart failure, unspecified Code(s): I50.9 - Heart failure, unspecified Status: Acute (3) GERD (gastroesophageal reflux disease): Qualifiers: Esophagitis presence: without esophagitis Qualified Code(s): K21.9 - Gastro-esophageal reflux disease without esophagitis Code(s): K21.9 - Gastro-esophageal reflux disease without esophagitis Status: Acute (4) Hypertension: Qualifiers: Hypertension type: essential hypertension Qualified Code(s): I10 - Essential (primary) hypertension Code(s): I10 - Essential (primary) hypertension Status: Acute (5) Pulmonary hypertension: Code(s): I27.20 - Pulmonary hypertension, unspecified Status: Acute (6) Chronic anticoagulation: Code(s): Z79.01 - terminal operator (current) use of anticoagulants Status: Acute (7) Acute kidney injury superimposed on stage 4 chronic kidney disease: Code(s): N17.9 - Acute kidney failure, unspecified; N18.4 - Chronic kidney disease, stage 4 (severe) Status: Acute (8) Chronic obstructive pulmonary disease: Qualifiers: COPD type: unspecified COPD Qualified Code(s): J44.9 - Chronic obstructive pulmonary disease, unspecified Code(s): J44.9 - Chronic obstructive pulmonary disease, unspecified Status: Acute Plan Acute respiratory failure with hypoxia -possibly secondary to CHF exacerbation -BL moderate pleural effusion -pulmonary edema -For thoracentesis today -continue ceftriaxone and doxycycline Diuretics on hold Continue AVAPS and titrate oxygen -pulmonology following a CHF -BNP -cardiology consulted -monitor renal function during diuresis -Echocardiogram :The left ventricle is moderately dilated with normal systolic function. There is severe eccentric left ventricular hypertrophy. The left ventricular ejection fraction is visually estimated to be 60-65% -EKG sinus rhythm, LAD, LBB -chest x-ray Pulmonary edema -Daily weights. -Strict I&O's Lasix, spironolactone on hold due to worsening renal function Cardiology following AFib -continue Eliquis 2.5 mg p.o. b.i.d. -amiodarone 200 mg p.o. q.d. -Toprol 100 mg p.o. q.d. Pleural effusion s/p thoracentesis [place] [address], with WBC 1325 Cytology pending -incentive spirometer chronic renal failure Stage 4 -monitor closely during diuresis -Avoid nephrotoxic drugs. -holding lisinopril and spironolactone. -added hydralazine 12.5 q.i.d. and will increase as needed -Monitor antihypertensive drug therapy. -Avoid NSAIDs. -Routine CMP monitoring GFR. -Monitor electrolytes especially potassium. -Cr 3.0 ,base line 1.60 -possible cardiorenal syndrome -nephro following HTN -holding home medication lisinopril and spironolactone due to KAY -ordered hydralazine 12.5 mg p.o. q.i.d. Code status: DNI, discussed with who was at bedside and he noted that patient is DNI and she elected for CPR and no Intubation. I advised that CPR without Intubation may be futile, he noted he will discussed with patient when she is awake and get back to us. DVT prophylaxis: [email or web address] Subjective Date/time seen: 02/01/24 16:56 Interval history: Still on BiPAP S/p thoracentesis Nephrology consulted for worsening renal function Review of Systems Review of Systems: Review of systems limited due to patient being on BiPAP in difficult to understand her speech. Exam Narrative: Weight 89.5 kg BMI 36.1 Const: Other: BiPAP in place, lying in bed with head of bed at 40?, no acute distress, appears stated age HENMT: Other: Head is normocephalic atraumatic, pupils are equal and reactive, positive conjunctival pallor, mucous membranes are tacky, BiPAP in place which limits exam Eyes: Other: See above Neck: Other: No JVD, supple, no lymphadenopathy Resp: Other: Crackles at the bases bilaterally, no tachypnea or increased work of breathing on BiPAP Cardio: Other: Occasionally irregular rate, 2+ bilateral radial pedal pulses, mild JVD GI: Other: Soft, distended, nontender Back/Spine/Pelvis: Other: Moderate thoracic kyphosis Skin: Other: Chronic venous stasis changes of bilateral lower extremities, normal cap refill, marked varicose veins of lower extremities across the tops of the feet and calves Neuro: Other: Alert oriented person, place and month and day but confused as to the year she stated the year was 2024, patient is markedly hard of hearing and the BiPAP and ambient noise exam or difficult, patient was moving all extremities equally and had no obvious localizing neurologic deficits cranial nerve exam was further limited by presence of BiPAP mask Extrem: Other: non pitting edema to lower extremities, no cyanosis, no clubbing Psych: Other: Pleasant, cooperative Objective Data Vital Signs Vital Signs: Vital Signs - 24 hr 01/31/24 18:00 01/31/24 20:00 01/31/24 20:00 Temperature 98.1 F Pulse Rate 66 65 Respiratory Rate 20 Blood Pressure 116/36 L Pulse Oximetry 98 96 Oxygen Delivery High Flow Nasal Cannula Oxygen Flow Rate 12 Fraction of Inspired Oxygen 01/31/24 20:00 01/31/24 23:35 02/01/24 00:00 Temperature 98.3 F Pulse Rate 64 67 Respiratory Rate 20 Blood Pressure 113/36 L Pulse Oximetry 98 95 Oxygen Delivery High Flow Nasal Cannula Oxygen Flow Rate 12 Fraction of Inspired Oxygen 02/01/24 00:00 02/01/24 02:00 02/01/24 02:11 Temperature Pulse Rate 67 60 68 Respiratory Rate 20 28 H Blood Pressure Pulse Oximetry 98 Oxygen Delivery Oxygen Flow Rate Fraction of Inspired Oxygen 02/01/24 02:11 02/01/24 04:00 02/01/24 04:00 Temperature 97.2 F L Pulse Rate 87 65 Respiratory Rate 20 33 H Blood Pressure 122/61 Pulse Oximetry 100 100 Oxygen Delivery BiPAP Oxygen Flow Rate Fraction of Inspired Oxygen 75 02/01/24 04:00 02/01/24 08:00 02/01/24 09:39 Temperature 97.8 F Pulse Rate 61 76 Respiratory Rate 24 H Blood Pressure 138/47 L Pulse Oximetry 94 94 Oxygen Delivery High Flow Nasal Cannula Oxygen Flow Rate 12 Fraction of Inspired Oxygen 02/01/24 09:39 02/01/24 09:51 02/01/24 10:05 Temperature Pulse Rate 74 76 77 Respiratory Rate 20 20 Blood Pressure Pulse Oximetry Oxygen Delivery Oxygen Flow Rate Fraction of Inspired Oxygen 02/01/24 12:00 02/01/24 14:54 02/01/24 15:01 Temperature 97.9 F Pulse Rate 79 70 68 Respiratory Rate 28 H 28 H 26 H Blood Pressure 134/56 L Pulse Oximetry 91 95 Oxygen Delivery Oxygen Flow Rate Fraction of Inspired Oxygen 02/01/24 15:08 02/01/24 16:00 Temperature 98.0 F Pulse Rate 65 69 Respiratory Rate 23 H 28 H Blood Pressure 136/50 L Pulse Oximetry 92 Oxygen Delivery Oxygen Flow Rate Fraction of Inspired Oxygen Intake/Output Intake/Output: Intake & Output 01/29/24 01/30/24 01/31/24 02/01/24 23:59 23:59 23:59 23:59 Intake Total 1130 960 100 390 Output Total 0042 358 5944 350 Balance 30 610 -900 40 Meds/Results Medications: Active Medications Generic Name Dose Route Start Last Admin Trade Name Freq PRN Reason Stop Dose Admin Albuterol/Ipratropium 3 ml 01/29/24 08:00 02/01/24 14:54 Ipratropium 0.5 Mg/Albuterol Sulfate 2.5 Mg Ampul.Neb 3 Ml INHALATION 3 ml Q6HRT ERYN Administration Apixaban 2.5 mg 01/29/24 09:00 01/29/24 10:19 Apixaban 2.5 Mg Tablet PO 2.5 mg Q12HR ERYN Administration Furosemide 80 mg 01/29/24 21:00 01/31/24 08:44 Furosemide Inj 100 Mg/10 Ml Vial IV PUSH 80 mg Q12HR ERYN Administration Hydralazine HCl 12.5 mg 01/29/24 17:00 02/01/24 10:04 Hydralazine 12.5 Mg Tablet PO 12.5 mg QID ERYN Administration Meropenem 500 mg in 100 mls @ 200 mls/hr 02/01/24 12:45 IVPB BID@1200,0000 ERYN Doxycycline Hyclate 100 mg in 100 mls @ 100 mls/hr 02/01/24 21:00 Vibramycin 100 Mg/Ns 100 Ml IVPB Q12HR ERYN Lisinopril 20 mg 01/29/24 09:00 Lisinopril 20 Mg Tablet PO DAILY ERYN Metoprolol Succinate 100 mg 01/29/24 09:00 02/01/24 10:05 Metoprolol Succinate Ext Rel 100 Mg Tabcr PO 100 mg DAILY ERYN Administration Nifedipine 60 mg 01/29/24 09:00 02/01/24 10:04 Nifedipine 30 Mg Tab.Er.24 PO 60 mg DAILY ERYN Administration Spironolactone 25 mg 01/29/24 09:00 Spironolactone 25 Mg Tablet PO QAM [facility] Vitamin D 2,000 units 01/29/24 09:00 02/01/24 10:05 Cholecalciferol 1,000 Units Tablet PO 2,000 units DAILY ERYN Administration Radiology Results: ITS Impressions Chest CT 01/29/24 06:13 Impression: Moderate bilateral pleural effusions with moderate pulmonary edema pattern and extensive bibasilar atelectasis, left worse than right, as detailed above. Correlate clinically for pneumonia. Thoracentesis Ultrasound 01/31/24 15:20 IMPRESSION: 1. Successful ultrasound-guided thoracentesis yielding 600 mL of dark reddish fluid. Chest X-Ray 02/01/24 14:07 Impression: Moderate to severe pulmonary edema pattern with bilateral pleural effusions, as above. Fracture the proximal right humerus, unchanged. Labs Labs: Laboratory Results - last 24 hr 02/01/24 02/01/24 02/01/24 04:47 04:59 09:56 WBC 8.8 RBC 2.86 L Hgb 9.1 L Hct 28.5 L MCV 99.7 MCH 31.8 MCHC 31.9 L RDW 14.2 Plt Count 266 MPV 9.3 Immature Gran % (Auto) 0.5 Neut % (Auto) 80.4 H Lymph % (Auto) 8.1 L [place] % (Auto) 7.8 Eos % (Auto) 2.9 Baso % (Auto) 0.3 Lymph # (Auto) 0.71 L [place] # (Auto) 0.7 H Eos # (Auto) 0.3 Baso # (Auto) 0.0 Abs Immat Gran (auto) 0.04 H Absolute Neuts (auto) 7.0 H Absolute Nucleated RBC 0.000 Nucleated RBC % 0.0 Puncture Site Right radial ABG pH 7.409 ABG pCO2 44.4 ABG pO2 79.6 L ABG PO2/FiO2 Ratio 1.06 ABG HCO3 27.4 H ABG O2 Saturation 95.8 ABG O2 Content 15.7 L ABG Base Excess 2.4 A-a Gradient 408.0 Oxyhemoglobin 95.8 Total Hemoglobin 11.6 L O2 Delivery Device Non-invasive vent O2 Liters/Min Not Reportable Vent Rate 16 FiO2 75 Expiratory Pressure 6 Inspiratory Pressure 25 Sodium 139 Potassium 4.2 Chloride 105 Carbon Dioxide 29 Anion Gap 5 BUN 70 H Creatinine 3.00 H Estim Creat Clear Calc 13 Estimated GFR 15 L Glucose 99 Calcium 8.6 Magnesium 2.2 Total Bilirubin 0.5 AST 21 ALT 17 Alkaline Phosphatase 74 Total Protein 6.0 L Albumin 2.8 L Nasal MRSA (PCR) Not detected Influenza A (RT-PCR) Negative Influenza B (RT-PCR) Negative RSV (RT-PCR) Negative SARS-CoV-2 RNA (RT-PCR) Negative Quality VTE Prophylaxis VTE prophylaxis: pharmacologic ordered (Continue home Eliquis but will decrease dose due to patient's renal function and age)
[2024-02-01] MEDS: MEROPENEM 500 MG/NS 100 ML 500 MG/100 ML BAG 200 MG IVPB (18:16)
[2024-02-01] MEDS: DOXYCYCLINE 100 MG/NS 100 ML 100 MG/100 ML BAG IVPB (21:07)
[2024-02-02] VITALS (31 sets, daily range): BP systolic 113–152; BP diastolic 45–85; PULSE 55–78; RESP 20–262; TEMP 36.4–36.7; O2SAT 90–96
[2024-02-02] MEDS: MEROPENEM 500 MG/NS 100 ML 500 MG/100 ML BAG 200 MG IVPB ×2 (00:59→13:39)
[2024-02-02] MEDS: IPRATROPIUM 0.5 MG/ALBUTEROL SULFATE 2.5 MG AMPUL.NEB 3 ML INHALATION ×4 (03:25→20:39)
[2024-02-02 06:35] LABS: Basophils Percent Auto 0.2 % (0.2-1.2); Eosinophils Absolute Auto 0.1 K/mm3 (0-0.3); Eosinophils Percent Auto 0.6 % (0-4.4); Hematocrit 31.2 % (37.0-47.0); Hemoglobin 9.7 g/dL (12.0-15.0); Immature Granulocyte Absolute 0.12 K/mm3 (0.00-0.031); Lymphocytes Absolute Auto 0.55 K/mm3 (0.9-3.2); Lymphocytes Percent Auto 4.6 % (18.3-44.2); Mean Corpuscular HGB Conc 31.1 g/dl (32-36); Mean Corpuscular Hemoglobin 31.4 pg (26-34); Mean Platelet Volume 9.3 fl (7.4-10.4); Monocytes Absolute Auto 0.8 K/mm3 (0.1-0.6); Monocytes Percent Auto 6.3 % (2.6-8.5); Neutrophils Absolute Auto 10.5 K/mm3 (1.3-6.7); Neutrophils Percent Auto 87.3 % (45.5-73.1); Platelet Count Result 312 k/mm3 (150-375); Red Blood Count 3.09 M/mm3 (4.2-5.4); Red Cell Distribution Width 14.3 % (11.5-14.5)
[2024-02-02 06:45] LABS: Alanine Aminotransferase 18 U/L (6-35); Albumin Level 3.1 g/dL (3.5-5.1); Alkaline Phosphatase 88 U/L (38-126); Anion Gap 4 mmol/L (4-12); Aspartate Amino Transferase 22 U/L (14-36); Bilirubin,Total 0.7 mg/dL (0.2-1.3); Blood Urea Nitrogen 71 mg/dL (7-17); Calcium 8.8 mg/dL (8.4-10.2); Carbon Dioxide 30 mmol/L (22-30); Chloride 105 mmol/L (98-107); Estimated CRCL calculation 14 ml/min; Estimated Glomerular Filt Rate 17; Glucose 138 mg/dL (65-110); Magnesium 2.2 mg/dL (1.6-2.3); Potassium 4.2 mmol/L (3.4-5.0); Sodium 139 mmol/L (137-145)
[2024-02-02 06:52] LABS: INR 1.4; Prothrombin Time 17.4 Seconds (11.1-14.7)
[2024-02-02 06:53] LABS: Partial Thromboplastin Time 48.3 Seconds (22.3-36.8)
[2024-02-02 08:46] LABS: NT Pro B Type Natriuretic Pept 9050 pg/mL (19.9-100)
[2024-02-02 09:24] LABS: Procalcitonin 0.3 ng/mL
[2024-02-02] MEDS: hydrALAZINE 12.5 MG TABLET PO ×4 (09:50→20:08)
[2024-02-02] MEDS: DOXYCYCLINE 100 MG/NS 100 ML 100 MG/100 ML BAG IVPB ×2 (09:50→20:08)
[2024-02-02] MEDS: CHOLECALCIFEROL 1,000 UNITS TABLET 2000 UNITS PO (09:50)
[2024-02-02] MEDS: NIFEdipine 30 MG TAB.ER.24 60 MG PO (09:50)
[2024-02-02] MEDS: METOPROLOL SUCCINATE EXT REL 100 MG TABCR PO (09:50)
--- NOTE | 2024-02-02 10:29 | P.PNNP_ITS ---
Progress Note: A&P Assessment and Plan (1) KAY (acute kidney injury): Code(s): N17.9 - Acute kidney failure, unspecified Status: Acute Assessment and Plan: * suspect due to the necessity of IV diuresis * holding diuretics at this time (but will likely need to restart eventually) * TRAMAINE-I on hold as well * complex situation.... * we may have to accept a higher creatinine to help optimize her respiratory status * with the limitations of diuresis, may need to discuss with family the issues of [place] [facility]/dialysis... * follow trend of repeat labs and UOP (2) Chronic kidney disease, stage IV (severe): Code(s): N18.4 - Chronic kidney disease, stage 4 (severe) Status: Chronic Assessment and Plan: * baseline creatinine WAS running ~ 1.3 - 1.6mg/ld * however, since last May 2023, it has been now running closer to 2.0 - 2.5mg/dl * due to hypertension, vascular disease, pulmonary hypertension, and age-related change along with the need for more aggressive diuretic therapy to maintain her respiratory/volume status (3) Acute on chronic hypoxic respiratory failure: Code(s): J96.21 - Acute and chronic respiratory failure with hypoxia Status: Acute Assessment and Plan: * multifactorial etiology: * volume overload * acute CHF * pleural effusions * compressive atelectasis * pneumonia(?) * known severe pulmonary hypertension * viral testing for RSV/influenza/COVID negative * imaging to date noted * on antibiotics * diuresis as tolerated (on hold currently) * s/p thoracentesis on 01/30 * continue BIPAP support and supplemental oxygen * Pulmonary following (4) Acute exacerbation of CHF (congestive heart failure): Qualifiers: Heart failure type: unspecified Qualified Code(s): I50.9 - Heart failure, unspecified Code(s): I50.9 - Heart failure, unspecified Status: Acute Assessment and Plan: * as noted by clincal presentation, BNP, and imaging to date * felt to be acute on chronic diastolic heart failure * last Echo noted (on 01/28) * left ventricle is moderately dilated with normal systolic function * severe eccentric left ventricular hypertrophy * left ventricularejection fraction is visually estimated to be 60-65% * severe pulmonary hypertension -- pulmonary arterial systolic pressure is estimated at 77 mmHg * large left pleural effusion. * Cardiology following * limited diuresis noted despite therapy to date * now with #1, diuretics on hold * follow daily weights, I/Os, and respiratory/volume status (5) Pleural effusion: Code(s): J90 - Pleural effusion, not elsewhere classified Status: Acute Assessment and Plan: * as noted by recent imaging * given respiratory status and limited diuresis, s/p thoracentesis on 01/30 * follow-up on pleural fluid analysis (6) Atrial fibrillation: Qualifiers: Atrial fibrillation type: paroxysmal Qualified Code(s): I48.0 - Paroxysmal atrial fibrillation Code(s): I48.91 - Unspecified atrial fibrillation Status: Chronic Assessment and Plan: * rate control strategy * on metoprolol and amiodarone * anticoagulation on hold for thoracentesis done on 01/30 (7) Hypertension: Qualifiers: Hypertension type: unspecified Qualified Code(s): I10 - Essential (primary) hypertension Code(s): I10 - Essential (primary) hypertension Status: Chronic Assessment and Plan: * reasonable control at this time * TRAMAINE-I on hold given #1 Will continue to follow. Subjective Date/time seen: 02/02/24 10:29 Interval history: Follow-up for acute kidney injury on chronic kidney disease. Respiratory status/breathing seems about the same at the time of my visit; renal function/creatinine a bit better with holding diuretic therapy and still making reasonable urine output; no acute distress noted. Exam 2 Narrative: General: elderly but WD/WN female in NAD Heart: normal S1 and S2; no rub Lungs: coarse breath sounds with scattered crackles; decreased at bases Abdomen: soft, nontender, nondistended, positive bowel sounds Extremities: no cyanosis or clubbing; 1+ edema Skin: chronic changes apparent Objective Data Vital Signs Vital Signs: Vital Signs Temp Pulse Resp BP Pulse Ox O2 Del Method O2 Flow Rate 02/02/24 10:00 58 L 02/02/24 08:34 77 26 H 95 02/02/24 08:15 92 High Flow Therapy with Na 35 02/02/24 08:00 91 High Flow Therapy with Na 35 02/02/24 08:00 71 02/02/24 07:59 98.0 F 70 29 H 132/45 L 95 02/02/24 07:42 72 24 H 02/02/24 07:33 70 24 H 92 02/02/24 07:32 70 24 H 02/02/24 06:00 70 02/02/24 04:19 98.0 F 72 22 H 134/45 L 96 02/02/24 04:00 72 02/02/24 04:00 94 BiPAP 02/02/24 03:34 69 24 H 02/02/24 03:25 68 25 H 02/02/24 02:00 70 02/02/24 01:00 78 26 H 96 02/02/24 00:00 70 02/02/24 00:00 94 BiPAP 02/01/24 23:42 97.8 F 66 28 H 115/39 L 94 02/01/24 22:00 70 02/01/24 21:19 71 31 H 96 02/01/24 21:16 71 26 H 02/01/24 20:19 97.8 F 67 26 H 111/34 L 94 02/01/24 20:00 67 02/01/24 20:00 96 BiPAP 02/01/24 18:00 71 02/01/24 17:01 65 30 H 96 02/01/24 16:00 65 02/01/24 16:00 94 High Flow Nasal Cannula 15 02/01/24 16:00 98.0 F 69 28 H 136/50 L 92 02/01/24 15:08 65 23 H 02/01/24 15:01 68 26 H 95 02/01/24 14:54 70 28 H 02/01/24 14:00 62 Intake/Output Intake/Output: Intake & Output 01/30/24 01/31/24 02/01/24 02/02/24 23:59 23:59 23:59 23:59 Intake Total 960 100 840 120 Output Total 350 1000 850 300 Balance 610 -900 -10 -180 Meds/Results Medications: Active Medications Generic Name Dose Route Start Last Admin Trade Name Freq PRN Reason Stop Dose Admin Acetaminophen 650 mg 02/01/24 22:01 Acetaminophen 325 Mg Tablet PO Q4H PRN Mild Pain (1-3) or Fever Albuterol/Ipratropium 3 ml 01/29/24 08:00 02/02/24 07:32 Ipratropium 0.5 Mg/Albuterol Sulfate 2.5 Mg Ampul.Neb 3 Ml INHALATION 3 ml Q6HRT ERYN Administration Furosemide 80 mg 01/29/24 21:00 01/31/24 08:44 Furosemide Inj 100 Mg/10 Ml Vial IV PUSH 80 mg Q12HR ERYN Administration Guaifenesin 1,200 mg 02/02/24 12:20 Guaifenesin 12 Hr 600 Mg Tabcr PO Q12HR [facility] Hydralazine HCl 12.5 mg 01/29/24 17:00 02/02/24 09:50 Hydralazine 12.5 Mg Tablet PO 12.5 mg QID ERYN Administration Meropenem 500 mg in 100 mls @ 200 mls/hr 02/01/24 12:45 02/02/24 00:59 IVPB 200 mls/hr BID@1200,0000 ERYN Administration Doxycycline Hyclate 100 mg in 100 mls @ 100 mls/hr 02/01/24 21:00 02/02/24 09:50 Vibramycin 100 Mg/Ns 100 Ml IVPB 100 mls/hr Q12HR ERYN Administration Lisinopril 20 mg 01/29/24 09:00 Lisinopril 20 Mg Tablet PO DAILY [facility] Metoprolol Succinate 100 mg 01/29/24 09:00 02/02/24 09:50 Metoprolol Succinate Ext Rel 100 Mg Tabcr PO 100 mg DAILY [facility] Administration Nifedipine 60 mg 01/29/24 09:00 02/02/24 09:50 Nifedipine 30 Mg Tab.Er.24 PO 60 mg DAILY [facility] Administration Spironolactone 25 mg 01/29/24 09:00 Spironolactone 25 Mg Tablet PO QAM [facility] Vitamin D 2,000 units 01/29/24 09:00 02/02/24 09:50 Cholecalciferol 1,000 Units Tablet PO 2,000 units DAILY ERYN Administration Radiology Results: ITS Impressions Chest CT 01/29/24 06:13 Impression: Moderate bilateral pleural effusions with moderate pulmonary edema pattern and extensive bibasilar atelectasis, left worse than right, as detailed above. Correlate clinically for pneumonia. Thoracentesis Ultrasound 01/31/24 15:20 IMPRESSION: 1. Successful ultrasound-guided thoracentesis yielding 600 mL of dark reddish fluid. Chest X-Ray 02/02/24 07:07 IMPRESSION: 1. Increasing diffuse bilateral interstitial and airspace opacities consistent with worsening pulmonary edema and/or pneumonia. 2. Unchanged small to moderate left and small right pleural effusions. 3. Cardiomegaly. Labs Labs: Laboratory Tests 02/02/24 06:28 02/02/24 06:28 Calcium 8.8 Magnesium 2.2 Total Bilirubin 0.7 AST 22 ALT 18 Alkaline Phosphatase 88 Total Protein 6.0 L Albumin 3.1 L Microbiology 02/01/24 19:24 Sputum Sputum Culture - Final 01/31/24 15:00 Pleural Fluid Anaerobic Culture - Preliminary 01/31/24 15:00 Pleural Fluid Aerobic Culture - Preliminary
--- NOTE | 2024-02-02 12:09 | P.PNPL_ITS ---
Progress Note: A&P Assessment and Plan (1) Acute on chronic hypoxic respiratory failure: Code(s): J96.21 - Acute and chronic respiratory failure with hypoxia Status: Acute Assessment and Plan: patient with chronic hypoxemic respiratory failure requiring 4 L nasal cannula at home which she wears 24-7. she is a never smoker with no history of asthma, COPD or recurrent infections. Patient presents now with worsening hypoxemic respiratory failure, fluid overload, BNP 9000, chest x-ray consistent with congestive heart failure, CT scan with congestion and left greater than right pleural effusion. Patient does have a white blood cell count 12.6, her procalcitonin is 0.4 which is low, she is afebrile with no pulmonary infectious complaints. Her COVID, influenza and RSV RT PCR study are negative. Etiology of patient's acute on chronic hypoxemic respiratory failure include fluid overload, bilateral pleural effusions with compressive atelectasis, possible pneumonia, and severe pulmonary hypertension. Plan: Currently the patient is on 15 L nasal cannula with saturations 93%. Goal saturation 90-94%. Agree with as aggressive diuresis as possible as tolerated by her cardiac and renal systems As per hospitalist and Cardiology teams.. currently the patient is on Lasix 80 IV q.12 hours. Recommended left thoracentesis since she is so symptomatic and requiring high oxygen levels. This has been a transudate in the past and suspected is a transudate but will send full set of chemistries, cell count, microbiology and cytology studies. Lows clinical suspicion for pneumonia but she does have a leukocytosis. She is afebrile with a low procalcitonin currently on ceftriaxone day 3 status post azithromycin 01/27 and 01/28 and switched to doxycycline on 01/29/2024. 01/31/2024: This morning the nurse tried to remove the patient's BiPAP and she was placed on 15 L and after 10 minutes her saturations were 78-82. Patient had a more confusion through the night attempting to remove her BiPAP. Currently she is on BiPAP and tells me her name but does not follow simple commands. Currently she is on BiPAP 14 pressures 10/5 in 75%. I switched her to an AVAPS mode with a rate of 16, tidal volume 500, EPAP 5, minimal inspiratory pressure 6, maximal inspiratory pressure 25, inspiratory time 1.0, rise of 3 and 75% FiO2. ABG on these settings 7.39/ 45/85. White blood cell count is 11.4, creatinine is 3.0, chest x-ray shows bilateral diffuse interstitial infiltrates and a left pleural effusion occupying approximately 50% of her left hemithorax. Her BNP has increased from 9000-37435. Yesterday she was +610 mL and is +640 mL since admission. Her weight today is 89.7 with an admission weight of 90. Plan: Patient more respiratory distress this morning. Thoracentesis has been ordered and hopefully this will perform today. She has been off Eliquis for 48 hours now. Current noninvasive ventilator settings with the AVAPS mode provide adequate oxygenation and ventilation. Continue ceftriaxone day 4 status post azithromycin 01/27 and 01/28 and switched to doxycycline on 01/29/2024, day 3. 02/01/2024. The patient is more awake this morning. She wore the hospital noninvasive ventilator with the AVAPS mode for about 6 hours and did better last night. She has minimal cough and phlegm production. White blood cell count is 8.8, creatinine is 3.0 she is afebrile. Currently she is on 12 L nasal cannula saturations 92%. ABG on the noninvasive ventilator with 75% FiO2 is 7.41/44/80. Plan: I still believe the etiology of the patient's hypoxemic respiratory failure is fluid overload with pulmonary edema and bilateral pleural effusions. She did improve with thoracentesis. But she remains with hypoxemic failure. I will look for alternate etiologies of her bilateral interstitial alveolar infiltrates and will repeat COVID, influenza, RSV RT PCR, I will send a nasal swab for MRSA, respiratory pathogen panel, urine for Legionella and pneumococ lori antigens, mycoplasma IgM on 02/02/2024. It appears the patient was started on amiodarone sometime between 05/26/2023 her cardioversion and office note on 07/06/2023. I will discontinue amiodarone at this time. Later in the day MRSA swab negative and patient ceftriaxone changed to meropenem. current noninvasive ventilator settings provide adequate oxygenation and ventilation. Goal saturation 90-94% and titer oxygen accordingly. Agree with as aggressive diuresis as tolerated by her cardiac and renal systems per hospitalist team, Cardiology and Nephrology. 02/02/24: Patient is awake. Says that her breathing remain short and is about the same. She said is difficult to expectorate her phlegm. With the end and room she was on noninvasive ventilation with the AVAPS mode on 75% FI O2 with saturations 93%. She said the air was getting pushed into fast and I decreased her inspiratory time from 1 to 1.2 seconds. I decreased her rise from 3 to a value of 5. I decreased her FiO2 to 60% and her saturations remained 93%. I then placed her on Vapotherm 35 L 100% under saturations were 97%. I decreased her FiO2 sequentially to 75% in after 8 minutes her saturations were 94%. She felt comfortable on the Vapotherm. Lasix has been held yesterday she was -110 mL on since admission she is minus 370 mL. Her weight today was 87.5. Her creatinine is is 2.7, BUN 71. Her BNP has [place] 0[address]14 to 9050. Her procalcitonin is decreased from 0.4 to 0.3. her hemoglobin has increased from 9.1 yesterday to 9.7. Her INR is 1.4. Her chest x-ray shows no change in her moderate left and small right pleural effusion with worsening diffuse interstitial infiltrates. Plan: I believe the etiology of the patient's hypoxic respiratory failures fluid overload and pulmonary Edema. She has essentially been BiPAP dependent for the last 6 days with failure to diurese secondary to acute on chronic kidney disease. Her creatinine is improved today to 2.7 and hopefully diuresis can be re-initiated. in my opinion, if she does not aggressively diurese will need to consider a trial of dialysis if continued aggressive care is pursued. I have added guaifenesin 1200 mg p.o. b.i.d. to help her expectorate.continue treatment for possible pneumonia with meropenem started 02/01/2024, doxycycline started on 01/29/2024 and s/p ceftriaxone 01/27 to 02/01 and s/p azithromycin 01/27 and 01/28. She is afebrile and procalcitonin remains low. Repeat COVID, RSV and influenza RT PCR study negative. urine Legionella, urine pneumococcal, mycoplasma IgM, respiratory pathogen panel pending. Goal saturation 90-94% and will use Vapotherm as tolerated and currently on 35 L with 75% FiO2. Pulmonary inpatient consult services will resume on 02/05/2024, call with questions. Discussed with Dr. Augustin. (2) Pleural effusion: Code(s): J90 - Pleural effusion, not elsewhere classified Status: Acute Assessment and Plan: Previously the patient had a left transudative pleural effusion related to fluid overload. 04/09/2023: Left thoracentesis with 650 mL of red fluid. PH greater than 7.50, white blood cells count 871 with neutrophils 23%, lymphocytes 60%, macrophages 14%, mesothelial cells 3%. Her total protein ratio was less than 0.5. Her total LDH in the pleural fluid was 156 and her serum to pleural albumin gradient was 2.0. Her BNP at that time was 5740. Cytology was negative. Bacterial, AFB cultures negative. This represents a transudative, noninfected, cytology negative pleural effusion. Plan: Recommended left thoracentesis since she is so symptomatic and requiring high oxygen levels. This has been a transudate in the past and suspected is a transudate but will send full set of chemistries, cell count, microbiology and cytology studies. Patient received her Eliquis on 01/29/2024 and radiologist will attempt to do procedure on 01/31/2024. 01/31/24: plan: Thoracentesis with full set of chemistries, cell count, microbiology and cytology. Later in the day the patient underwent a left thoracentesis with removal of 600 mL of dark red fluid. G stain with few white blood cells, no organism seen. PH greater than 7.50. White blood cell count is 1325 with differential neutrophils 33%, lymphocytes 24%, monocytes 22%, macrophages 16%, mesothelial cells 5%. Chest x-ray postprocedure with small bilateral pleural effusions and diffuse interstitial and alveolar infiltrates right greater than left. After the procedure the patient was able to come off of BiPAP and was placed on 12 L nasal cannula. 02/02/24: Patient's oxygenation did improve after the thoracentesis. She does not remember the procedure to tell me if she had any symptomatic improvement. Plan: I will repeat a chest x-ray today to assess for rapid reaccumulation of the left effusion. later in the day chest x-ray demonstrated mildly increased left pleural e ffusion. 02/03/24: Chest x-ray shows no change in her moderate left and small right pleural effusion with worsening diffuse interstitial infiltrates. Plan: Will follow pleural effusions with serial chest x-rays. Subjective Date/time seen: 02/02/24 12:09 Interval history: 12/02/2023: This is a new pulmonary consult for hypoxemic respiratory failure and pleural effusions. 88-year-old with a history of paroxysmal AFib on Eliquis, status post cardioversion May 2023, hypertension, CKD, pulmonary hypertension with heart failure with preserved ejection fraction and transudative left pleural effusion on 04/09/2023, Chronic hypoxemic respiratory failure requiring 4 L nasal cannula / since 09/2023. She was a never smoker and not on any inhaled medications. Patient is followed in the [facility] in last seen on 11/22/2023. At that time she was not walking much using a Rollator she had previously declined pulmonary rehabilitation. On 04/24/2023 chest x-ray demonstrated a chronic left pleural effusion occupying approximately 30% of the left team hemithorax. 04/09/2023: Left thoracentesis with 650 mL of red fluid. PH greater than 7.50, white blood cells count 871 with neutrophils 23%, lymphocytes 60%, macrophages 14%, mesothelial cells 3%. Her total protein ratio was less than 0.5. Her total LDH in the pleural fluid was 156 and her serum to pleural albumin gradient was 2.0. Her BNP at that time was 5740. Cytology was negative. Bacterial, AFB cultures negative. This represents a transudative, noninfected, cytology negative pleural effusion. Patient presented to the hospital ED on 01/28/2024 and the son who she lives with was in the room and provided additional history. EMS was called and her saturations were in the 70s on 4 L nasal cannula. For few weeks she had worsening swelling of the lower extremities and denied any fever. She does complain of intermittent chills and shakes. She had no hemoptysis and no phlegm production. In the emergency room her blood pressure is 158/68, heart rate 68, respiratory rate 30, saturations on 10 L nasal cannula is 96%. Her white blood cell count was 12.6, her creatinine was 2.50, her BNP was 9000, her chest x-ray showed congestive heart failure. COVID, influenza, RSV RT PCR studies negative. ABG on 10 L non-rebreather 7.38/49/60. Patient had increased work of breathing was placed on BiPAP. Patient was treated for fluid overload with IV Lasix and started on ceftriaxone and azithromycin for possible pneumonia. 01/29/24: Patient had an echocardiogram with the EF of 60-65%, severe pulmonary hypertension with the estimated PASP of 77, normal RV size and function, dilated right atrium, severely dilated left atrium, large left pleural effusion. Procalcitonin was 0.[address] scan of the chest showed left greater than right effusions with complete collapse of the left lower lobe and congestive heart failure. Patient received her morning dose of Eliquis. Azithromycin was changed to doxycycline. 01/30/24: The patient has a hard time describing her symptoms. The son tells me overall she looks as if she is breathing better in less respiratory distress. Currently she is on 415 L nasal cannula with saturations 93%. She says the BiPAP is uncomfortable. Her white blood cell count is 13.0, creatinine is 2.70, her BNP is 59. 01/31/2024: This morning the nurse tried to remove the patient's BiPAP and sh e was placed on 15 L and after 10 minutes her saturations were 78-82. Patient had a more confusion through the night attempting to remove her BiPAP. Currently she is on BiPAP and tells me her name but does not follow simple commands. Currently she is on BiPAP 14 pressures 10/5 in 75%. I switched her to an AVAPS mode with a rate of 16, tidal volume 500, EPAP 5, minimal inspiratory pressure 6, maximal inspiratory pressure 25, inspiratory time 1.0, rise of 3 and 75% FiO2. ABG on these settings 7.39/ 45/85. White blood cell count is 11.4, creatinine is 3.0, chest x-ray shows bilateral diffuse interstitial infiltrates and a left pleural effusion occupying approximately 50% of her left hemithorax. Her BNP has increased from 9000-08444. Yesterday she was +610 mL and is +640 mL since admission. Her weight today is 89.7 with an admission weight of 90. Later in the day the patient underwent a left thoracentesis with removal of 600 mL of dark red fluid. G stain with few white blood cells, no organism seen. PH greater than 7.50. White blood cell count is 1325 with differential neutrophils 33%, lymphocytes 24%, monocytes 22%, macrophages 16%, mesothelial cells 5%. Chest x-ray postprocedure with small bilateral pleural effusions and diffuse interstitial and alveolar infiltrates right greater than left. After the procedure the patient was able to come off of BiPAP and was placed on 12 L nasal cannula. 02/01/2024. The patient is more awake this morning. She wore the hospital noninvasive ventilator with the AVAPS mode for about 6 hours and did better last night. She has minimal cough and phlegm production. White blood cell count is 8.8, creatinine is 3.0 she is afebrile. Currently she is on 12 L nasal cannula saturations 92%. Only remained on nasal cannula for few hours and then required AVAPS during the day. chest x-ray worsening interstitial infiltrates suspected fluid. Repeat COVID, influenza, RSV RT PCR negative. MRSA swab negative. Ceftriaxone changed to meropenem. Amiodarone discontinued. 02/02/24: Patient is awake. Says that her breathing remain short and is about the same. She said is difficult to expectorate her phlegm. With the end and room she was on noninvasive ventilation with the AVAPS mode on 75% FI O2 with saturations 93%. She said the air was getting pushed into fast and I decreased her inspiratory time from 1 to 1.2 seconds. I decreased her rise from 3 to a value of 5. I decreased her FiO2 to 60% and her saturations remained 93%. I then placed her on Vapotherm 35 L 100% under saturations were 97%. I decreased her FiO2 sequentially to 75% in after 8 minutes her saturations were 94%. She felt comfortable on the Vapotherm. Lasix has been held yesterday she was -110 mL on since admission she is minus 370 mL. Her weight today was 87.5. Her creatinine is is 2.7, BUN 71. Her BNP has [place] from 10590 to 9050. Her procalcitonin is decreased from 0.4 to 0.3. her hemoglobin has increased from 9.1 yesterday to 9.7. Her INR is 1.4. Her chest x-ray shows no change in her moderate left and small right pleural effusion with worsening diffuse interstitial infiltrates. DATA: 01/29/24: CT Scan of the Chest without Contrast: Clinical Indication: Shortness of breath, hypoxia Technique: Contiguous sections were acquired throughout the chest without intravenous contrast. Dose reduction technique was used on this scan by utilizing automated exposure control and iterative reconstruction technique. The dose-length product (DLP) was 608.06 mGy-cm. COMPARISON: 04/06/2023 Findings: There is no evidence of any significant mediastinal, hilar or axillary lymphadenopathy. There are mild atherosclerotic calcifications of the aorta and coronary arteries. There is cardiomegaly. No pericardial effusion present. Moderate bilateral pleural effusions are present, with near complete left lower lobe atelectasis, and partial right lower lobe atelectasis. There is patchy groundglass opacity and slightly more confluent areas of airspace consolidation aerated lungs, most compatible with pulmonary edema. There is additional partial lingular atelectasis. Images through the upper abdomen reveal no abnormalities. Impression: Moderate bilateral pleural effusions with moderate pulmonary edema pattern and extensive bibasilar atelectasis, left worse than right, as detailed above. Correlate clinically for pneumonia. 01/29/24: Echo Summary 1. The left ventricle is moderately dilated with normal systolic function. There is severe eccentric left ventricular hypertrophy. The left ventricular ejection fraction is visually estimated to be 60-65%. 2. There is normal wall motion. 3. There is severe pulmonary hypertension. 4. Pulmonary arterial systolic pressure is estimated at 77 mmHg. 5. Large left pleural effusion. Left Ventricle The left ventricle is moderately dilated with normal systolic function. There is severe eccentric left ventricular hypertrophy. The left ventricular ejection fraction is visually estimated to be 60-65%. There is normal wall motion. Right Ventricle The right ventricle is normal in size and systolic function. Left Atria The left atrium is severely dilated. Right Atria The right atrium is dilated. 11/28/2023 WISAM on room air; caitlyn 75%, KANIKA 26; 1 hour 25 minutes spent below 88%; plan: please set up O2 3 L/min, WISAM in 2 weeks on 3 L/min. * 04/07/2023, echocardiogram; Summary ? 1. Normal left ventricular size and systolic contractility. ? 2. Right ventricular enlargement. ? 3. Biatrial dilation. ? 4. Sclerotic aortic valve with good leaflet separation. ? 5. Mild mitral regurgitation. ? 6. Moderate tricuspid regurgitation, velocity suggests PA pressures are severely elevated, 78 mm Hg. * 04/06/2023, chest CTA' There is mild respiratory motion which decreases sensitivity in some of the smaller subsegmental pulmonary arteries at the lung bases. No pulmonary embolism. There are diffuse groundglass opacities and some smooth septal line thickening consistent with mild pulmonary edema. Small bilateral pleural effusions with collapse of the basilar segments of the left lower lobe and dependent passive atelectasis in the bilateral upper lobes, lingula and right lower lobe. Cardiomegaly with biatrial enlargement. No pericardial effusion. There is reflux of contrast into the inferior vena cava and hepatic veins consistent with tricuspid regurgitation. Thoracic aorta is normal in caliber with no dissection. Atherosclerotic calcific a cyst along the aortic arch and the great vessels arising from the arch. No pathologically enlarged thoracic lymphadenopathy. Cholecystectomy clips at the gallbladder fossa. There are bridging osteophytes at multiple levels consistent with diffuse idiopathic skeletal hyperostosis (DISH). Sclerotic likely bone island at T10. IMPRESSION: 1. No pulmonary embolism with sensitivity decreased in some of the smaller basilar subsegmental pulmonary arteries due to some motion artifact. 2. Cardiomegaly with biatrial enlargement. 3. Mild pulmonary edema and small to moderate-sized posterior layering bilateral pleural effusions with associated compressive atelectasis in the dependent lungs. Review of Systems Constitutional: Constitutional: Reports no additional constitutional complaints Eyes: Eyes: Reports no additional eye complaints ENT: Reports system reviewed and no additional complaints, except as documented Cardiovascular: Cardiovascular: Reports no additional cardiovascular complaints Respiratory: Respiratory: Reports no additional respiratory complaints Gastrointestinal: Gastrointestinal: Reports no additional gastrointestinal complaints Musculoskeletal: Musculoskeletal: Reports no additional musculoskeletal complaints Neurologic: Reports system reviewed and no additional complaints, except as documented Psychiatric: Psychiatric: Reports no additional psychiatric complaints Endocrine: Endocrine: Reports no additional endocrine complaints Hematologic/Lymphatic: Hematologic/Lymphatic: Reports no additional hematologic/lymphatic complaints Allergic/Immunologic: Allergic/Immunologic: Reports no additional allergic/immunologic complaints Exam Const: General: cooperative, comfortable and in distress Orientation/consciousness: oriented to person, oriented to place and oriented to time Other: on BiPAP HENMT: Head: normal to inspection Ears: hearing grossly normal bilaterally Eyes: General: appearance normal, both eyes and all related structures Neck: Neck: normal visual inspection Other: positive JVD Chest: Chest palpation & inspection: normal inspection of the chest Resp: Effort & Inspection: normal respiratory effort and able to speak in complete sentences Auscultation: crackles, no rales, no rhonchi, no wheezes and diminished lung sounds Other: Decreased breath sounds in the bases Cardio: Jugular venous distension: no JVD GI: Inspection: normal to inspection Skin: General skin exam: normal color Neuro: General: oriented to person, oriented to place and oriented to time Extrem: General: normal to inspection and edema Psych: Appearance: grossly normal Objective Data Vital Signs Vital Signs: Vital Signs - 24 hr 02/01/24 14:00 02/01/24 14:54 02/01/24 15:01 Temperature Pulse Rate 62 70 68 Respiratory Rate 28 H 26 H Blood Pressure Pulse Oximetry 95 Oxygen Delivery Oxygen Flow Rate Fraction of Inspired Oxygen 02/01/24 15:08 02/01/24 16:00 02/01/24 16:00 Temperature 36.7 C Pulse Rate 65 69 Respiratory Rate 23 H 28 H Blood Pressure 136/50 L Pulse Oximetry 92 94 Oxygen Delivery High Flow Nasal Cannula Oxygen Flow Rate 15 Fraction of Inspired Oxygen 02/01/24 16:00 02/01/24 17:01 02/01/24 18:00 Temperature Pulse Rate 65 65 71 Respiratory Rate 30 H Blood Pressure Pulse Oximetry 96 Oxygen Delivery Oxygen Flow Rate Fraction of Inspired Oxygen 02/01/24 20:00 02/01/24 20:00 02/01/24 20:19 Temperature 36.6 C Pulse Rate 67 67 Respiratory Rate 26 H Blood Pressure 111/34 L Pulse Oximetry 96 94 Oxygen Delivery BiPAP Oxygen Flow Rate Fraction of Inspired Oxygen 02/01/24 21:16 02/01/24 21:19 02/01/24 22:00 Temperature Pulse Rate 71 71 70 Respiratory Rate 26 H 31 H Blood Pressure Pulse Oximetry 96 Oxygen Delivery Oxygen Flow Rate Fraction of Inspired Oxygen 02/01/24 23:42 02/02/24 00:00 02/02/24 00:00 Temperature 36.6 C Pulse Rate 66 70 Respiratory Rate 28 H Blood Pressure 115/39 L Pulse Oximetry 94 94 Oxygen Delivery BiPAP Oxygen Flow Rate Fraction of Inspired Oxygen 02/02/24 01:00 02/02/24 02:00 02/02/24 03:25 Temperature Pulse Rate 78 70 68 Respiratory Rate 26 H 25 H Blood Pressure Pulse Oximetry 96 Oxygen Delivery Oxygen Flow Rate Fraction of Inspired Oxygen 02/02/24 03:34 02/02/24 04:00 02/02/24 04:00 Temperature Pulse Rate 69 72 Respiratory Rate 24 H Blood Pressure Pulse Oximetry 94 Oxygen Delivery BiPAP Oxygen Flow Rate Fraction of Inspired Oxygen 02/02/24 04:19 02/02/24 06:00 02/02/24 07:32 Temperature 36.7 C Pulse Rate 72 70 70 Respiratory Rate 22 H 24 H Blood Pressure 134/45 L Pulse Oximetry 96 Oxygen Delivery Oxygen Flow Rate Fraction of Inspired Oxygen 02/02/24 07:33 02/02/24 07:42 02/02/24 07:59 Temperature 36.7 C Pulse Rate 70 72 70 Respiratory Rate 24 H 24 H 29 H Blood Pressure 132/45 L Pulse Oximetry 92 95 Oxygen Delivery Oxygen Flow Rate Fraction of Inspired Oxygen 02/02/24 08:00 02/02/24 08:00 02/02/24 08:15 Temperature Pulse Rate 71 Respiratory Rate Blood Pressure Pulse Oximetry 91 92 Oxygen Delivery High Flow Therapy with Na High Flow Therapy with Na Oxygen Flow Rate 35 35 Fraction of Inspired Oxygen 75 100 02/02/24 08:34 02/02/24 10:00 02/02/24 11:42 Temperature 36.6 C Pulse Rate 77 58 L 68 Respiratory Rate 26 H 29 H Blood Pressure 152/47 H Pulse Oximetry 95 91 Oxygen Delivery Oxygen Flow Rate Fraction of Inspired Oxygen Intake/Output Intake/Output: Intake & Output 01/30/24 01/31/24 02/01/24 02/02/24 23:59 23:59 23:59 23:59 Intake Total 960 100 840 120 Output Total 350 1000 850 300 Balance 610 -900 -10 -180 Meds/Results Medications: Active Medications Generic Name Dose Route Start Last Admin Trade Name Freq PRN Reason Stop Dose Admin Acetaminophen 650 mg 02/01/24 22:01 Acetaminophen 325 Mg Tablet PO Q4H PRN Mild Pain (1-3) or Fever Albuterol/Ipratropium 3 ml 01/29/24 08:00 02/02/24 07:32 Ipratropium 0.5 Mg/Albuterol Sulfate 2.5 Mg Ampul.Neb 3 Ml INHALATION 3 ml Q6HRT ERYN Administration Furosemide 80 mg 01/29/24 21:00 01/31/24 08:44 Furosemide Inj 100 Mg/10 Ml Vial IV PUSH 80 mg Q12HR ERYN Administration Hydralazine HCl 12.5 mg 01/29/24 17:00 02/02/24 09:50 Hydralazine 12.5 Mg Tablet PO 12.5 mg QID ERYN Administration Meropenem 500 mg in 100 mls @ 200 mls/hr 02/01/24 12:45 02/02/24 00:59 IVPB 200 mls/hr BID@1200,0000 ERYN Administration Doxycycline Hyclate 100 mg in 100 mls @ 100 mls/hr 02/01/24 21:00 02/02/24 09:50 Vibramycin 100 Mg/Ns 100 Ml IVPB 100 mls/hr Q12HR ERYN Administration Lisinopril 20 mg 01/29/24 09:00 Lisinopril 20 Mg Tablet PO DAILY [facility] Metoprolol Succinate 100 mg 01/29/24 09:00 02/02/24 09:50 Metoprolol Succinate Ext Rel 100 Mg Tabcr PO 100 mg DAILY ERYN Administration Nifedipine 60 mg 01/29/24 09:00 02/02/24 09:50 Nifedipine 30 Mg Tab.Er.24 PO 60 mg DAILY ERYN Administration Spironolactone 25 mg 01/29/24 09:00 Spironolactone 25 Mg Tablet PO QAM [facility] Vitamin D 2,000 units 01/29/24 09:00 02/02/24 09:50 Cholecalciferol 1,000 Units Tablet PO 2,000 units DAILY ERYN Administration Radiology Results: ITS Impressions Chest CT 01/29/24 06:13 Impression: Moderate bilateral pleural effusions with moderate pulmonary edema pattern and extensive bibasilar atelectasis, left worse than right, as detailed above. Correlate clinically for pneumonia. Thoracentesis Ultrasound 01/31/24 15:20 IMPRESSION: 1. Successful ultrasound-guided thoracentesis yielding 600 mL of dark reddish fluid. Chest X-Ray 02/02/24 07:07 IMPRESSION: 1. Increasing diffuse bilateral interstitial and airspace opacities consistent with worsening pulmonary edema and/or pneumonia. 2. Unchanged small to moderate left and small right pleural effusions. 3. Cardiomegaly. Labs Labs: Laboratory Results - last 24 hr 02/02/24 02/02/24 06:23 06:28 WBC 12.0 H RBC 3.09 L Hgb 9.7 L Hct 31.2 L MCV 101.0 H MCH 31.4 MCHC 31.1 L RDW 14.3 Plt Count 312 MPV 9.3 Immature Gran % (Auto) 1.0 H Neut % (Auto) 87.3 H Lymph % (Auto) 4.6 L [place] % (Auto) 6.3 Eos % (Auto) 0.6 Baso % (Auto) 0.2 Lymph # (Auto) 0.55 L [place] # (Auto) 0.8 H Eos # (Auto) 0.1 Baso # (Auto) 0.0 Abs Immat Gran (auto) 0.12 H Absolute Neuts (auto) 10.5 H Absolute Nucleated RBC 0.000 Nucleated RBC % 0.0 PT 17.4 H INR 1.4 APTT 48.3 H Sodium 139 Potassium 4.2 Chloride 105 Carbon Dioxide 30 Anion Gap 4 BUN 71 H Creatinine 2.70 H Estim Creat Clear Calc 14 Estimated GFR 17 L Glucose 138 H Calcium 8.8 Magnesium 2.2 Total Bilirubin 0.7 AST 22 ALT 18 Alkaline Phosphatase 88 NT-Pro-B Natriuret Pep 9050 H Total Protein 6.0 L Albumin 3.1 L Procalcitonin 0.3
[2024-02-02 12:59] LABS: Lactate Dehydrogenase 280 U/L (120-246)
[2024-02-02] MEDS: guaiFENesin 12 HR 600 MG TABCR 1200 MG PO ×2 (13:39→20:08)
--- NOTE | 2024-02-02 16:21 | P.PNIM_ITS ---
Progress Note: A&P Assessment and Plan (1) Acute on chronic hypoxic respiratory failure: Code(s): J96.21 - Acute and chronic respiratory failure with hypoxia Status: Acute (2) Acute exacerbation of CHF (congestive heart failure): Qualifiers: Heart failure type: unspecified Qualified Code(s): I50.9 - Heart failure, unspecified Code(s): I50.9 - Heart failure, unspecified Status: Acute (3) GERD (gastroesophageal reflux disease): Qualifiers: Esophagitis presence: without esophagitis Qualified Code(s): K21.9 - Gastro-esophageal reflux disease without esophagitis Code(s): K21.9 - Gastro-esophageal reflux disease without esophagitis Status: Acute (4) Hypertension: Qualifiers: Hypertension type: essential hypertension Qualified Code(s): I10 - Essential (primary) hypertension Code(s): I10 - Essential (primary) hypertension Status: Acute (5) Pulmonary hypertension: Code(s): I27.20 - Pulmonary hypertension, unspecified Status: Acute (6) Chronic anticoagulation: 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 Status: Acute (7) Acute kidney injury superimposed on stage 4 chronic kidney disease: Code(s): N17.9 - Acute kidney failure, unspecified; N18.4 - Chronic kidney disease, stage 4 (severe) Status: Acute (8) Chronic obstructive pulmonary disease: Qualifiers: COPD type: unspecified COPD Qualified Code(s): J44.9 - Chronic obstructive pulmonary disease, unspecified Code(s): J44.9 - Chronic obstructive pulmonary disease, unspecified Status: Acute Plan Acute respiratory failure with hypoxia -possibly secondary to CHF exacerbation -BL moderate pleural effusion -pulmonary edema -For thoracentesis today -continue ceftriaxone and doxycycline Diuretics on hold on HFNC 100 FiO2 and 35L -pulmonology following CHF -BNP -cardiology consulted -monitor renal function during diuresis -Echocardiogram :The left ventricle is moderately dilated with normal systolic function. There is severe eccentric left ventricular hypertrophy. The left ventricular ejection fraction is visually estimated to be 60-65% -EKG sinus rhythm, LAD, LBB -chest x-ray Pulmonary edema -Daily weights. -Strict I&O's Lasix, spironolactone on hold due to worsening renal function Cardiology following AFib -continue Eliquis 2.5 mg p.o. b.i.d. -amiodarone 200 mg p.o. q.d. -Toprol 100 mg p.o. q.d. Pleural effusion s/p thoracentesis [place] [address], with WBC 1325 Cytology negative for malignancy and no inflammation -incentive spirometer KAY on chronic renal failure Stage 4 -monitor closely during diuresis -Avoid nephrotoxic drugs. -holding lisinopril and spironolactone. -added hydralazine 12.5 q.i.d. and will increase as needed -Monitor antihypertensive drug therapy. -Avoid NSAIDs. -Routine CMP monitoring GFR. -Monitor electrolytes especially potassium. -Cr 3.0--> 2.7 ,base line 1.60 -possible cardiorenal syndrome -nephro following HTN -holding home medication lisinopril and spironolactone due to KAY -ordered hydralazine 12.5 mg p.o. q.i.d. Code status: full code, (changed last night by her son). DVT prophylaxis: [email or web address] Subjective Date/time seen: 02/02/24 16:21 Interval history: Patient comfortable at bedside now on HFNC 100% FiO2 35L renal function improved Cr 2.7 Nephrology on board Review of Systems Review of Systems: Review of systems limited due to patient being on BiPAP in difficult to understand her speech. Exam Narrative: Weight 89.5 kg BMI 36.1 Const: Other: BiPAP in place, lying in bed with head of bed at 40?, no acute distress, appears stated age HENMT: Other: Head is normocephalic atraumatic, pupils are equal and reactive, positive conjunctival pallor, mucous membranes are tacky, BiPAP in place which limits exam Eyes: Other: See above Neck: Other: No JVD, supple, no lymphadenopathy Resp: Other: Crackles at the bases bilaterally, no tachypnea or increased work of breathing on BiPAP Cardio: Other: Occasionally irregular rate, 2+ bilateral radial pedal pulses, mild JVD GI: Other: Soft, distended, nontender Back/Spine/Pelvis: Other: Moderate thoracic kyphosis Skin: Other: Chronic venous stasis changes of bilateral lower extremities, normal cap refill, marked varicose veins of lower extremities across the tops of the feet and calves Neuro: Other: Alert oriented person, place and month and day but confused as to the year she stated the year was 2024, patient is markedly hard of hearing and the BiPAP and ambient noise exam or difficult, patient was moving all extremities equally and had no obvious localizing neurologic deficits cranial nerve exam was further limited by presence of BiPAP mask Extrem: Other: non pitting edema to lower extremities, no cyanosis, no clubbing Psych: Other: Pleasant, cooperative Objective Data Vital Signs Vital Signs: Vital Signs - 24 hr 02/01/24 17:01 02/01/24 18:00 02/01/24 20:00 Temperature Pulse Rate 65 71 Respiratory Rate 30 H Blood Pressure Pulse Oximetry 96 96 Oxygen Delivery BiPAP Oxygen Flow Rate Fraction of Inspired Oxygen 02/01/24 20:00 02/01/24 20:19 02/01/24 21:16 Temperature 97.8 F Pulse Rate 67 67 71 Respiratory Rate 26 H 26 H Blood Pressure 111/34 L Pulse Oximetry 94 Oxygen Delivery Oxygen Flow Rate Fraction of Inspired Oxygen 02/01/24 21:19 02/01/24 22:00 02/01/24 23:42 Temperature 97.8 F Pulse Rate 71 70 66 Respiratory Rate 31 H 28 H Blood Pressure 115/39 L Pulse Oximetry 96 94 Oxygen Delivery Oxygen Flow Rate Fraction of Inspired Oxygen 02/02/24 00:00 02/02/24 00:00 02/02/24 01:00 Temperature Pulse Rate 70 78 Respiratory Rate 26 H Blood Pressure Pulse Oximetry 94 96 Oxygen Delivery BiPAP Oxygen Flow Rate Fraction of Inspired Oxygen 02/02/24 02:00 02/02/24 03:25 02/02/24 03:34 Temperature Pulse Rate 70 68 69 Respiratory Rate 25 H 24 H Blood Pressure Pulse Oximetry Oxygen Delivery Oxygen Flow Rate Fraction of Inspired Oxygen 02/02/24 04:00 02/02/24 04:00 02/02/24 04:19 Temperature 98.0 F Pulse Rate 72 72 Respiratory Rate 22 H Blood Pressure 134/45 L Pulse Oximetry 94 96 Oxygen Delivery BiPAP Oxygen Flow Rate Fraction of Inspired Oxygen 02/02/24 06:00 02/02/24 07:32 02/02/24 07:33 Temperature Pulse Rate 70 70 70 Respiratory Rate 24 H 24 H Blood Pressure Pulse Oximetry 92 Oxygen Delivery Oxygen Flow Rate Fraction of Inspired Oxygen 02/02/24 07:42 02/02/24 07:59 02/02/24 08:00 Temperature 98.0 F Pulse Rate 72 70 71 Respiratory Rate 24 H 29 H Blood Pressure 132/45 L Pulse Oximetry 95 Oxygen Delivery Oxygen Flow Rate Fraction of Inspired Oxygen 02/02/24 08:00 02/02/24 08:15 02/02/24 08:34 Temperature Pulse Rate 77 Respiratory Rate 26 H Blood Pressure Pulse Oximetry 91 92 95 Oxygen Delivery High Flow Therapy with Na High Flow Therapy with Na Oxygen Flow Rate 35 35 Fraction of Inspired Oxygen 75 100 02/02/24 10:00 02/02/24 11:42 02/02/24 12:00 Temperature 97.9 F Pulse Rate 58 L 68 Respiratory Rate 29 H Blood Pressure 152/47 H Pulse Oximetry 91 91 Oxygen Delivery High Flow Therapy with Na Oxygen Flow Rate 35 Fraction of Inspired Oxygen 75 02/02/24 12:00 02/02/24 13:35 02/02/24 13:35 Temperature Pulse Rate 56 L 60 61 Respiratory Rate 262 H 29 H Blood Pressure Pulse Oximetry 92 Oxygen Delivery Oxygen Flow Rate Fraction of Inspired Oxygen 02/02/24 13:42 02/02/24 13:48 02/02/24 14:00 Temperature Pulse Rate 60 59 L Respiratory Rate 28 H Blood Pressure Pulse Oximetry 90 Oxygen Delivery High Flow Therapy with Na Oxygen Flow Rate 35 Fraction of Inspired Oxygen 100 02/02/24 16:00 Temperature 97.5 F L Pulse Rate 58 L Respiratory Rate 25 H Blood Pressure 113/81 Pulse Oximetry 94 Oxygen Delivery Oxygen Flow Rate Fraction of Inspired Oxygen Intake/Output Intake/Output: Intake & Output 01/30/24 01/31/24 02/01/24 02/02/24 23:59 23:59 23:59 23:59 Intake Total 960 100 840 460 Output Total 350 1000 850 300 Balance 610 -900 -10 160 Meds/Results Medications: Active Medications Generic Name Dose Route Start Last Admin Trade Name Freq PRN Reason Stop Dose Admin Acetaminophen 650 mg 02/01/24 22:01 Acetaminophen 325 Mg Tablet PO Q4H PRN Mild Pain (1-3) or Fever Albuterol/Ipratropium 3 ml 01/29/24 08:00 02/02/24 13:35 Ipratropium 0.5 Mg/Albuterol Sulfate 2.5 Mg Ampul.Neb 3 Ml INHALATION 3 ml Q6HRT ERYN Administration Furosemide 80 mg 01/29/24 21:00 01/31/24 08:44 Furosemide Inj 100 Mg/10 Ml Vial IV PUSH 80 mg Q12HR ERYN Administration Guaifenesin 1,200 mg 02/02/24 12:20 02/02/24 13:39 Guaifenesin 12 Hr 600 Mg Tabcr PO 1,200 mg Q12HR ERYN Administration Hydralazine HCl 12.5 mg 01/29/24 17:00 02/02/24 13:39 Hydralazine 12.5 Mg Tablet PO 12.5 mg QID ERYN Administration Meropenem 500 mg in 100 mls @ 200 mls/hr 02/01/24 12:45 02/02/24 13:39 IVPB 200 mls/hr BID@1200,0000 ERYN Administration Doxycycline Hyclate 100 mg in 100 mls @ 100 mls/hr 02/01/24 21:00 02/02/24 09:50 Vibramycin 100 Mg/Ns 100 Ml IVPB 100 mls/hr Q12HR ERYN Administration Lisinopril 20 mg 01/29/24 09:00 Lisinopril 20 Mg Tablet PO DAILY ERYN Metoprolol Succinate 100 mg 01/29/24 09:00 02/02/24 09:50 Metoprolol Succinate Ext Rel 100 Mg Tabcr PO 100 mg DAILY ERYN Administration Nifedipine 60 mg 01/29/24 09:00 02/02/24 09:50 Nifedipine 30 Mg Tab.Er.24 PO 60 mg DAILY ERYN Administration Spironolactone 25 mg 01/29/24 09:00 Spironolactone 25 Mg Tablet PO QAM [facility] Vitamin D 2,000 units 01/29/24 09:00 02/02/24 09:50 Cholecalciferol 1,000 Units Tablet PO 2,000 units DAILY ERYN Administration Radiology Results: ITS Impressions Chest CT 01/29/24 06:13 Impression: Moderate bilateral pleural effusions with moderate pulmonary edema pattern and extensive bibasilar atelectasis, left worse than right, as detailed above. Correlate clinically for pneumonia. Thoracentesis Ultrasound 01/31/24 15:20 IMPRESSION: 1. Successful ultrasound-guided thoracentesis yielding 600 mL of dark reddish fluid. Chest X-Ray 02/02/24 07:07 IMPRESSION: 1. Increasing diffuse bilateral interstitial and airspace opacities consistent with worsening pulmonary edema and/or pneumonia. 2. Unchanged small to moderate left and small right pleural effusions. 3. Cardiomegaly. Labs Labs: Laboratory Results - last 24 hr 02/02/24 02/02/24 06:23 06:28 WBC 12.0 H RBC 3.09 L Hgb 9.7 L Hct 31.2 L MCV 101.0 H MCH 31.4 MCHC 31.1 L RDW 14.3 Plt Count 312 MPV 9.3 Immature Gran % (Auto) 1.0 H Neut % (Auto) 87.3 H Lymph % (Auto) 4.6 L [place] % (Auto) 6.3 Eos % (Auto) 0.6 Baso % (Auto) 0.2 Lymph # (Auto) 0.55 L [place] # (Auto) 0.8 H Eos # (Auto) 0.1 Baso # (Auto) 0.0 Abs Immat Gran (auto) 0.12 H Absolute Neuts (auto) 10.5 H Absolute Nucleated RBC 0.000 Nucleated RBC % 0.0 PT 17.4 H INR 1.4 APTT 48.3 H Sodium 139 Potassium 4.2 Chloride 105 Carbon Dioxide 30 Anion Gap 4 BUN 71 H Creatinine 2.70 H Estim Creat Clear Calc 14 Estimated GFR 17 L Glucose 138 H Calcium 8.8 Magnesium 2.2 Total Bilirubin 0.7 AST 22 ALT 18 Alkaline Phosphatase 88 Lactate Dehydrogenase 280 H NT-Pro-B Natriuret Pep 9050 H Total Protein 6.0 L Albumin 3.1 L Procalcitonin 0.3 Quality VTE Prophylaxis VTE prophylaxis: pharmacologic ordered (Continue home Eliquis but will decrease dose due to patient's renal function and age)
[2024-02-02 22:50] LABS: Alveolar/Arterial O2 Gradient 602.9 mmHg; Base Excess ABG -0.2 mEq/l (+/-2.0); Fractional Inspired Oxygen 100 %; HCO3 ABG 26.1 mEq/l (22.0-26.0); Oxygen Content ABG 13.2 %vol (16.0-22.0); Oxyhemoglobin 90.3 % THb (90.0-100.0); PCO2 ABG 50.2 mmHg (35.0-45.0); PO2 ABG 59.9 mmHg (80.0-100.0); Total Hemoglobin 10.4 g/dL (12.0-18.0); pH ABG 7.333 (7.350-7.450)
[2024-02-02 22:53] LABS: Site Drawn LEFT BRACHIAL
[2024-02-02 22:54] LABS: Device OTHER DEVICE
--- NOTE | 2024-02-02 23:05 | PC.NURSE ---
At approximately 2210 tonight the patient started to run in the low 80s on SpO2, she became more confused trying to remove the BIPAP mask and other equipment, and was clearly doing more work of breathing. This RN notified the AUTHORIZATION SPECIALIST, Pulmonology, and called the POA around 2219. At around 0 Pulmonology changed the AVAPs settings and ordered an ABG. The AUTHORIZATION SPECIALIST assessed the patient and carried out orders. The POA arrived a brief time later and this RN along with another operations staff specialist security had a detailed discussion with him about the patient's condition and code status. The decision has been made to change the patient's code status to DNR at this time. The POA will confer with family about comfort care/hospice or pursuing the current course tomorrow. The hospitalist service was notified of these events as well as the ABG results.
[2024-02-03] VITALS (24 sets, daily range): BP systolic 114–135; BP diastolic 42–68; PULSE 51–66; RESP 25–30; TEMP 36.3–36.4; O2SAT 90–97
[2024-02-03] MEDS: MEROPENEM 500 MG/NS 100 ML 500 MG/100 ML BAG 200 MG IVPB ×3 (01:26→23:47)
[2024-02-03] MEDS: IPRATROPIUM 0.5 MG/ALBUTEROL SULFATE 2.5 MG AMPUL.NEB 3 ML INHALATION ×3 (02:25→20:22)
[2024-02-03 04:42] LABS: Basophils Percent Auto 0.2 % (0.2-1.2); Eosinophils Absolute Auto 0.1 K/mm3 (0-0.3); Eosinophils Percent Auto 0.5 % (0-4.4); Hematocrit 28.8 % (37.0-47.0); Hemoglobin 9.2 g/dL (12.0-15.0); Immature Granulocyte Percent A 0.9 % (0-0.5); Lymphocytes Absolute Auto 0.61 K/mm3 (0.9-3.2); Lymphocytes Percent Auto 5.5 % (18.3-44.2); Mean Corpuscular HGB Conc 31.9 g/dl (32-36); Mean Corpuscular Hemoglobin 31.9 pg (26-34); Mean Platelet Volume 9.3 fl (7.4-10.4); Monocytes Absolute Auto 0.9 K/mm3 (0.1-0.6); Monocytes Percent Auto 7.9 % (2.6-8.5); Neutrophils Absolute Auto 9.4 K/mm3 (1.3-6.7); Platelet Count Result 264 k/mm3 (150-375); Red Blood Count 2.88 M/mm3 (4.2-5.4); Red Cell Distribution Width 14.1 % (11.5-14.5); White Blood Count 11.1 K/mm3 (4.5-10.0)
[2024-02-03 05:33] LABS: Alanine Aminotransferase 17 U/L (6-35); Albumin Level 2.9 g/dL (3.5-5.1); Alkaline Phosphatase 80 U/L (38-126); Anion Gap 4 mmol/L (4-12); Aspartate Amino Transferase 20 U/L (14-36); Bilirubin,Total 0.5 mg/dL (0.2-1.3); Blood Urea Nitrogen 84 mg/dL (7-17); Calcium 8.8 mg/dL (8.4-10.2); Carbon Dioxide 29 mmol/L (22-30); Chloride 105 mmol/L (98-107); Estimated CRCL calculation 13 ml/min; Estimated Glomerular Filt Rate 16; Glucose 89 mg/dL (65-110); Magnesium 2.4 mg/dL (1.6-2.3); Phosphorus 4.6 mg/dL (2.5-4.5); Potassium 4.4 mmol/L (3.4-5.0); Sodium 138 mmol/L (137-145)
[2024-02-03] MEDS: hydrALAZINE 12.5 MG TABLET PO ×3 (09:11→17:44)
[2024-02-03] MEDS: guaiFENesin 12 HR 600 MG TABCR 1200 MG PO (09:11)
[2024-02-03] MEDS: CHOLECALCIFEROL 1,000 UNITS TABLET 2000 UNITS PO (09:11)
[2024-02-03] MEDS: NIFEdipine 30 MG TAB.ER.24 60 MG PO (09:11)
[2024-02-03] MEDS: DOXYCYCLINE 100 MG/NS 100 ML 100 MG/100 ML BAG IVPB ×2 (09:12→21:54)
[2024-02-03] MEDS: METOPROLOL SUCCINATE EXT REL 100 MG TABCR PO (09:12)
--- NOTE | 2024-02-03 09:45 | P.PNNP_ITS ---
Progress Note: A&P Assessment and Plan (1) KAY (acute kidney injury): Code(s): N17.9 - Acute kidney failure, unspecified Status: Acute Assessment and Plan: * suspect due to the necessity of IV diuresis * holding diuretics at this time (but will likely need to restart eventually) * TRAMAINE-I on hold as well * complex situation.... * we may have to accept a higher creatinine to help optimize her respiratory status * with the limitations of diuresis, discussed with family the issues of [employer]/dialysis...(see discussion below) * follow trend of repeat labs and UOP (2) Chronic kidney disease, stage IV (severe): Code(s): N18.4 - Chronic kidney disease, stage 4 (severe) Status: Chronic Assessment and Plan: * baseline creatinine WAS running ~ 1.3 - 1.6mg/ld * however, since last May 2023, it has been now running closer to 2.0 - 2.5mg/dl * due to hypertension, vascular disease, pulmonary hypertension, and age-related change along with the need for more aggressive diuretic therapy to maintain her respiratory/volume status (3) Acute on chronic hypoxic respiratory failure: Code(s): J96.21 - Acute and chronic respiratory failure with hypoxia Status: Acute Assessment and Plan: * multifactorial etiology: * volume overload * acute CHF * pleural effusions * compressive atelectasis * pneumonia(?) * known severe pulmonary hypertension * viral testing for RSV/influenza/COVID negative * imaging to date noted * on antibiotics * diuresis as tolerated (on hold currently) * s/p thoracentesis on 01/30 * continue BIPAP support and supplemental oxygen * Pulmonary following (4) Acute exacerbation of CHF (congestive heart failure): Qualifiers: Heart failure type: unspecified Qualified Code(s): I50.9 - Heart failure, unspecified Code(s): I50.9 - Heart failure, unspecified Status: Acute Assessment and Plan: * as noted by clincal presentation, BNP, and imaging to date * felt to be acute on chronic diastolic heart failure * last Echo noted (on 01/28) * left ventricle is moderately dilated with normal systolic function * severe eccentric left ventricular hypertrophy * left ventricularejection fraction is visually estimated to be 60-65% * severe pulmonary hypertension -- pulmonary arterial systolic pressure is estimated at 77 mmHg * large left pleural effusion. * Cardiology following * limited diuresis noted despite therapy to date * now with #1, diuretics on hold * follow daily weights, I/Os, and respiratory/volume status (5) Pleural effusion: Code(s): J90 - Pleural effusion, not elsewhere classified Status: Acute Assessment and Plan: * as noted by recent imaging * given respiratory status and limited diuresis, s/p thoracentesis on 01/30 * follow-up on pleural fluid analysis (6) Atrial fibrillation: Qualifiers: Atrial fibrillation type: paroxysmal Qualified Code(s): I48.0 - Paroxysmal atrial fibrillation Code(s): I48.91 - Unspecified atrial fibrillation Status: Chronic Assessment and Plan: * rate control strategy * on metoprolol and amiodarone * anticoagulation on hold for thoracentesis done on 01/30 (7) Hypertension: Qualifiers: Hypertension type: unspecified Qualified Code(s): I10 - Essential (primary) hypertension Code(s): I10 - Essential (primary) hypertension Status: Chronic Assessment and Plan: * reasonable control at this time * TRAMAINE-I on hold given #1 Long extensive discussion (> 25minutes) with the patient's family at bedside regarding her renal dysfunction in association with acute respiratory failure as well as her limited response to conservative therapy to date including IV diuresis /diuretics. Unfortunately, it would seem that conservative therapy has failed to improve her clinical situation in the only other option to consider would be renal replacement therapy / dialysis. I discussed in detail with the patient's family what this would entail, the need for placement of a dialysis catheter, the pros, cons, risks, and benefits. I also informed them that although dialysis may improve her fluid status, is difficult to say foot really improve her overall respiratory status and for that matter, which even tolerate such a therapy both acutely and possibly chronically if her kidney function continues to deteriorate. The family seem to be well aware of all these issues and they seem to be leaning towards comfort care measures as they do not want a put their mother through this and the patient herself is not interested in such therapy either. Will continue to follow. Subjective Date/time seen: 02/03/24 09:45 Interval history: Follow-up for acute kidney injury on chronic kidney disease. Respiratory status/breathing appears unchanged when seen -- still requiring BiPAP support overnight and this morning; renal function/creatinine only marginally better with holding diuretics and urine out remains on the low side as well; change in code status noted; family at bedside and discussed current situation. Exam 2 Narrative: General: elderly but WD/WN female in NAD Heart: normal S1 and S2; no rub Lungs: coarse breath sounds with scattered crackles; decreased at bases Abdomen: soft, nontender, nondistended, positive bowel sounds Extremities: no cyanosis or clubbing; 1+ edema Skin: chronic changes noted Objective Data Vital Signs Vital Signs: Vital Signs Temp Pulse Resp BP Pulse Ox O2 Del Method O2 Flow Rate 02/03/24 08:16 62 27 H 02/03/24 08:06 60 28 H 02/03/24 08:06 95 BiPAP 02/03/24 08:06 60 28 H 95 BiPAP 02/03/24 08:00 61 02/03/24 08:00 95 BiPAP 02/03/24 08:00 97.3 F L 61 29 H 117/68 96 02/03/24 06:00 66 02/03/24 05:55 63 25 H 02/03/24 04:00 97.5 F L 58 L 25 H 114/49 L 94 02/03/24 04:00 91 BiPAP 02/03/24 04:00 53 L 02/03/24 02:30 59 L 25 H 91 02/03/24 02:30 59 L 25 H 02/03/24 02:00 51 L 02/03/24 00:00 91 BiPAP 02/03/24 00:00 56 L 02/03/24 00:00 97.4 F L 57 L 27 H 123/59 L 97 02/02/24 22:20 63 25 H 90 02/02/24 22:00 66 02/02/24 20:53 69 20 02/02/24 20:43 67 20 02/02/24 20:42 90 High Flow Therapy with Na 35 02/02/24 20:00 62 02/02/24 20:00 92 BiPAP 02/02/24 19:06 97.5 F L 62 27 H 137/85 91 02/02/24 18:00 61 02/02/24 16:00 91 BiPAP 02/02/24 16:00 55 L 02/02/24 16:00 97.5 F L 58 L 25 H 113/81 94 02/02/24 14:00 59 L 02/02/24 13:48 90 High Flow Therapy with Na 35 02/02/24 13:42 60 28 H 02/02/24 13:35 61 29 H 02/02/24 13:35 60 262 H 92 Intake/Output Intake/Output: Intake & Output 01/31/24 02/01/24 02/02/24 02/03/24 23:59 23:59 23:59 23:59 Intake Total 321 787 6739 250 Output Total 1000 850 550 275 [facility] -900 -10 730 -25 Meds/Results Medications: Active Medications Generic Name Dose Route Start Last Admin Trade Name Freq PRN Reason Stop Dose Admin Acetaminophen 650 mg 02/01/24 22:01 Acetaminophen 325 Mg Tablet PO Q4H PRN Mild Pain (1-3) or Fever Albuterol/Ipratropium 3 ml 01/29/24 08:00 02/03/24 08:07 Ipratropium 0.5 Mg/Albuterol Sulfate 2.5 Mg Ampul.Neb 3 Ml INHALATION 3 ml Q6HRT ERYN Administration Furosemide 80 mg 01/29/24 21:00 01/31/24 08:44 Furosemide Inj 100 Mg/10 Ml Vial IV PUSH 80 mg Q12HR ERYN Administration Guaifenesin 1,200 mg 02/02/24 12:20 02/03/24 09:11 Guaifenesin 12 Hr 600 Mg Tabcr PO 1,200 mg Q12HR ERYN Administration Hydralazine HCl 12.5 mg 01/29/24 17:00 02/03/24 13:11 Hydralazine 12.5 Mg Tablet PO 12.5 mg QID ERYN Administration Meropenem 500 mg in 100 mls @ 200 mls/hr 02/01/24 12:45 02/03/24 13:10 IVPB 200 mls/hr BID@1200,0000 ERYN Administration Doxycycline Hyclate 100 mg in 100 mls @ 100 mls/hr 02/01/24 21:00 02/03/24 09:12 Vibramycin 100 Mg/Ns 100 Ml IVPB 100 mls/hr Q12HR ERYN Administration Lisinopril 20 mg 01/29/24 09:00 Lisinopril 20 Mg Tablet PO DAILY ERYN Metoprolol Succinate 100 mg 01/29/24 09:00 02/03/24 09:12 Metoprolol Succinate Ext Rel 100 Mg Tabcr PO 100 mg DAILY ERYN Administration Nifedipine 60 mg 01/29/24 09:00 02/03/24 09:11 Nifedipine 30 Mg Tab.Er.24 PO 60 mg DAILY ERYN Administration Spironolactone 25 mg 01/29/24 09:00 Spironolactone 25 Mg Tablet PO QAM [facility] Vitamin D 2,000 units 01/29/24 09:00 02/03/24 09:11 Cholecalciferol 1,000 Units Tablet PO 2,000 units DAILY ERYN Administration Radiology Results: ITS Impressions Chest CT 01/29/24 06:13 Impression: Moderate bilateral pleural effusions with moderate pulmonary edema pattern and extensive bibasilar atelectasis, left worse than right, as detailed above. Correlate clinically for pneumonia. Thoracentesis Ultrasound 01/31/24 15:20 IMPRESSION: 1. Successful ultrasound-guided thoracentesis yielding 600 mL of dark reddish fluid. Chest X-Ray 02/03/24 08:56 IMPRESSION: 1. No significant change in interstitial and airspace opacities throughout the right lung and in the left mid and lower lung zones which could represent pulmonary edema and/or pneumonia. 2. Unchanged small right and [id number] left pleural effusions. 3. Cardiomegaly. Labs Labs: Laboratory Tests 02/03/24 04:33 02/03/24 04:33 Calcium 8.8 Phosphorus 4.6 H Magnesium 2.4 H Total Bilirubin 0.5 AST 20 ALT 17 Alkaline Phosphatase 80 Total Protein 6.0 L Albumin 2.9 L Microbiology 01/28/24 21:52 Blood Blood Culture - Final 01/28/24 20:07 Blood Blood Culture - Final 01/31/24 15:00 Pleural Fluid Anaerobic Culture - Preliminary 01/31/24 15:00 Pleural Fluid Aerobic Culture - Preliminary 01/31/24 15:00 Pleural Fluid Fungal Culture - Preliminary 02/01/24 19:24 Sputum Sputum Culture - Final
--- NOTE | 2024-02-03 16:06 | PCPTNOTE ---
attempted PT eval, per RN, pt is maxed out on bipap and not appropriate for physical therapy eval today, will follow
--- NOTE | 2024-02-03 17:40 | P.PNIM_ITS ---
Progress Note: A&P Assessment and Plan (1) Acute on chronic hypoxic respiratory failure: Code(s): J96.21 - Acute and chronic respiratory failure with hypoxia Status: Acute (2) Acute exacerbation of CHF (congestive heart failure): Qualifiers: Heart failure type: unspecified Qualified Code(s): I50.9 - Heart failure, unspecified Code(s): I50.9 - Heart failure, unspecified Status: Acute (3) GERD (gastroesophageal reflux disease): Qualifiers: Esophagitis presence: without esophagitis Qualified Code(s): K21.9 - Gastro-esophageal reflux disease without esophagitis Code(s): K21.9 - Gastro-esophageal reflux disease without esophagitis Status: Acute (4) Hypertension: Qualifiers: Hypertension type: essential hypertension Qualified Code(s): I10 - Essential (primary) hypertension Code(s): I10 - Essential (primary) hypertension Status: Acute (5) Pulmonary hypertension: Code(s): I27.20 - Pulmonary hypertension, unspecified Status: Acute (6) Chronic anticoagulation: Code(s): 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 Status: Acute (7) Acute kidney injury superimposed on stage 4 chronic kidney disease: Code(s): N17.9 - Acute kidney failure, unspecified; N18.4 - Chronic kidney disease, stage 4 (severe) Status: Acute (8) Chronic obstructive pulmonary disease: Qualifiers: COPD type: unspecified COPD Qualified Code(s): J44.9 - Chronic obstructive pulmonary disease, unspecified Code(s): J44.9 - Chronic obstructive pulmonary disease, unspecified Status: Acute Plan Acute respiratory failure with hypoxia -possibly secondary to CHF exacerbation -BL moderate pleural effusion -pulmonary edema s/p thoracentesis -continue ceftriaxone and doxycycline Diuretics on hold BiPAP dependent -pulmonology following CHF -BNP -cardiology consulted -monitor renal function during diuresis -Echocardiogram :The left ventricle is moderately dilated with normal systolic function. There is severe eccentric left ventricular hypertrophy. The left ventricular ejection fraction is visually estimated to be 60-65% -EKG sinus rhythm, LAD, LBB -chest x-ray Pulmonary edema -Daily weights. -Strict I&O's Lasix, spironolactone on hold due to worsening renal function Cardiology following AFib -continue Eliquis 2.5 mg p.o. b.i.d. -amiodarone 200 mg p.o. q.d. -Toprol 100 mg p.o. q.d. Pleural effusion s/p thoracentesis PF [place] [address], with WBC 1325 Cytology negative for malignancy and no inflammation -incentive spirometer KAY on chronic renal failure Stage 4 -monitor closely during diuresis -Avoid nephrotoxic drugs. -holding lisinopril and spironolactone. -added hydralazine 12.5 q.i.d. and will increase as needed -Monitor antihypertensive drug therapy. -Avoid NSAIDs. -Routine CMP monitoring GFR. -Monitor electrolytes especially potassium. -Cr 3.0--> 2.7-->2.8 ,base line 1.60 -possible cardiorenal syndrome -nephro following HTN -holding home medication lisinopril and spironolactone due to KAY -ordered hydralazine 12.5 mg p.o. q.i.d. DVT prophylaxis: Eliquis Discussed with family today, they have changes code status to DNR/DNI last night However they are waiting to discuss dialysis option with Nephrology prior to further discussion of goals of care. Subjective Date/time seen: 02/03/24 17:40 Interval history: Patient comfortable at bedside Still BiPAP dependent Family wants to discuss Dialysis with Nephrology before reaching decision of goals of care Patient is currently DNR/DNI Review of Systems Review of Systems: Review of systems limited due to patient being on BiPAP in difficult to understand her speech. Exam Narrative: Weight 89.5 kg BMI 36.1 Const: Other: BiPAP in place, lying in bed with head of bed at 40?, no acute distress, appears stated age HENMT: Other: Head is normocephalic atraumatic, pupils are equal and reactive, positive conjunctival pallor, mucous membranes are tacky, BiPAP in place which limits exam Eyes: Other: See above Neck: Other: No JVD, supple, no lymphadenopathy Resp: Other: Crackles at the bases bilaterally, no tachypnea or increased work of breathing on BiPAP Cardio: Other: Occasionally irregular rate, 2+ bilateral radial pedal pulses, mild JVD GI: Other: Soft, distended, nontender Back/Spine/Pelvis: Other: Moderate thoracic kyphosis Skin: Other: Chronic venous stasis changes of bilateral lower extremities, normal cap refill, marked varicose veins of lower extremities across the tops of the feet and calves Neuro: Other: Alert oriented person, place and month and day but confused as to the year she stated the year was 2024, patient is markedly hard of hearing and the BiPAP and ambient noise exam or difficult, patient was moving all extremities equally and had no obvious localizing neurologic deficits cranial nerve exam was further limited by presence of BiPAP mask Extrem: Other: non pitting edema to lower extremities, no cyanosis, no clubbing Psych: Other: Pleasant, cooperative Objective Data Vital Signs Vital Signs: Vital Signs - 24 hr 02/02/24 18:00 02/02/24 19:06 02/02/24 20:00 Temperature 97.5 F L Pulse Rate 61 62 Respiratory Rate 27 H Blood Pressure 137/85 Pulse Oximetry 91 92 Oxygen Delivery BiPAP Oxygen Flow Rate Fraction of Inspired Oxygen 70 02/02/24 20:00 02/02/24 20:42 02/02/24 20:43 Temperature Pulse Rate 62 67 Respiratory Rate 20 Blood Pressure Pulse Oximetry 90 Oxygen Delivery High Flow Therapy with Na Oxygen Flow Rate 35 Fraction of Inspired Oxygen 100 02/02/24 20:53 02/02/24 22:00 02/02/24 22:20 Temperature Pulse Rate 69 66 63 Respiratory Rate 20 25 H Blood Pressure Pulse Oximetry 90 Oxygen Delivery Oxygen Flow Rate Fraction of Inspired Oxygen 02/03/24 00:00 02/03/24 00:00 02/03/24 00:00 Temperature 97.4 F L Pulse Rate 57 L 56 L Respiratory Rate 27 H Blood Pressure 123/59 L Pulse Oximetry 97 91 Oxygen Delivery BiPAP Oxygen Flow Rate Fraction of Inspired Oxygen 100 02/03/24 02:00 02/03/24 02:30 02/03/24 02:30 Temperature Pulse Rate 51 L 59 L 59 L Respiratory Rate 25 H 25 H Blood Pressure Pulse Oximetry 91 Oxygen Delivery Oxygen Flow Rate Fraction of Inspired Oxygen 02/03/24 04:00 02/03/24 04:00 02/03/24 04:00 Temperature 97.5 F L Pulse Rate 53 L 58 L Respiratory Rate 25 H Blood Pressure 114/49 L Pulse Oximetry 91 94 Oxygen Delivery BiPAP Oxygen Flow Rate Fraction of Inspired Oxygen 100 02/03/24 05:55 02/03/24 06:00 02/03/24 08:00 Temperature 97.3 F L Pulse Rate 63 66 61 Respiratory Rate 25 H 29 H Blood Pressure 117/68 Pulse Oximetry 96 Oxygen Delivery Oxygen Flow Rate Fraction of Inspired Oxygen 02/03/24 08:00 02/03/24 08:00 02/03/24 08:06 Temperature Pulse Rate 61 60 Respiratory Rate 28 H Blood Pressure Pulse Oximetry 95 95 Oxygen Delivery BiPAP BiPAP Oxygen Flow Rate Fraction of Inspired Oxygen 100 02/03/24 08:06 02/03/24 08:06 02/03/24 08:16 Temperature Pulse Rate 60 62 Respiratory Rate 28 H 27 H Blood Pressure Pulse Oximetry 95 Oxygen Delivery BiPAP Oxygen Flow Rate Fraction of Inspired Oxygen 100 02/03/24 10:00 02/03/24 11:05 02/03/24 11:53 Temperature 97.6 F Pulse Rate 58 L 60 59 L Respiratory Rate 29 H 28 H Blood Pressure 124/42 L Pulse Oximetry 93 94 Oxygen Delivery BiPAP Oxygen Flow Rate Fraction of Inspired Oxygen 02/03/24 12:00 02/03/24 12:00 02/03/24 14:00 Temperature Pulse Rate 57 L 60 Respiratory Rate Blood Pressure Pulse Oximetry 95 Oxygen Delivery BiPAP Oxygen Flow Rate Fraction of Inspired Oxygen 100 02/03/24 14:37 02/03/24 15:55 02/03/24 16:00 Temperature 97.4 F L Pulse Rate 62 62 Respiratory Rate 27 H 30 H Blood Pressure 135/63 Pulse Oximetry 93 94 95 Oxygen Delivery BiPAP BiPAP Oxygen Flow Rate Fraction of Inspired Oxygen 100 02/03/24 16:11 Temperature Pulse Rate 61 Respiratory Rate 28 H Blood Pressure Pulse Oximetry 92 Oxygen Delivery BiPAP Oxygen Flow Rate Fraction of Inspired Oxygen Intake/Output Intake/Output: Intake & Output 01/31/24 02/01/24 02/02/24 02/03/24 23:59 23:59 23:59 23:59 Intake Total 588 111 1450 250 Output Total 1000 850 550 275 Balance -900 -10 730 -25 Meds/Results Medications: Active Medications Generic Name Dose Route Start Last Admin Trade Name Freq PRN Reason Stop Dose Admin Acetaminophen 650 mg 02/01/24 22:01 Acetaminophen 325 Mg Tablet PO Q4H PRN Mild Pain (1-3) or Fever Albuterol/Ipratropium 3 ml 01/29/24 08:00 02/03/24 08:07 Ipratropium 0.5 Mg/Albuterol Sulfate 2.5 Mg Ampul.Neb 3 Ml INHALATION 3 ml Q6HRT ERYN Administration Furosemide 80 mg 01/29/24 21:00 01/31/24 08:44 Furosemide Inj 100 Mg/10 Ml Vial IV PUSH 80 mg Q12HR ERYN Administration Guaifenesin 1,200 mg 02/02/24 12:20 02/03/24 09:11 Guaifenesin 12 Hr 600 Mg Tabcr PO 1,200 mg Q12HR ERYN Administration Hydralazine HCl 12.5 mg 01/29/24 17:00 02/03/24 13:11 Hydralazine 12.5 Mg Tablet PO 12.5 mg QID ERYN Administration Meropenem 500 mg in 100 mls @ 200 mls/hr 02/01/24 12:45 02/03/24 13:10 IVPB 200 mls/hr BID@1200,0000 ERYN Administration Doxycycline Hyclate 100 mg in 100 mls @ 100 mls/hr 02/01/24 21:00 02/03/24 09:12 Vibramycin 100 Mg/Ns 100 Ml IVPB 100 mls/hr Q12HR ERYN Administration Lisinopril 20 mg 01/29/24 09:00 Lisinopril 20 Mg Tablet PO DAILY [facility] Metoprolol Succinate 100 mg 01/29/24 09:00 02/03/24 09:12 Metoprolol Succinate Ext Rel 100 Mg Tabcr PO 100 mg DAILY ERYN Administration Nifedipine 60 mg 01/29/24 09:00 02/03/24 09:11 Nifedipine 30 Mg Tab.Er.24 PO 60 mg DAILY ERYN Administration Spironolactone 25 mg 01/29/24 09:00 Spironolactone 25 Mg Tablet PO QAM [facility] Vitamin D 2,000 units 01/29/24 09:00 02/03/24 09:11 Cholecalciferol 1,000 Units Tablet PO 2,000 units DAILY ERYN Administration Radiology Results: ITS Impressions Chest CT 01/29/24 06:13 Impression: Moderate bilateral pleural effusions with moderate pulmonary edema pattern and extensive bibasilar atelectasis, left worse than right, as detailed above. Correlate clinically for pneumonia. Thoracentesis Ultrasound 01/31/24 15:20 IMPRESSION: 1. Successful ultrasound-guided thoracentesis yielding 600 mL of dark reddish fluid. Chest X-Ray 02/03/24 08:56 IMPRESSION: 1. No significant change in interstitial and airspace opacities throughout the right lung and in the left mid and lower lung zones which could represent pulmonary edema and/or pneumonia. 2. Unchanged small right and [id number] left pleural effusions. 3. Cardiomegaly. Labs Labs: Laboratory Results - last 24 hr 02/02/24 02/03/24 22:39 04:33 WBC 11.1 H RBC 2.88 L Hgb 9.2 L Hct 28.8 L MCV 100.0 MCH 31.9 MCHC 31.9 L RDW 14.1 Plt Count 264 MPV 9.3 Immature Gran % (Auto) 0.9 H Neut % (Auto) 85.0 H Lymph % (Auto) 5.5 L [place] % (Auto) 7.9 Eos % (Auto) 0.5 Baso % (Auto) 0.2 Lymph # (Auto) 0.61 L [place] # (Auto) 0.9 H Eos # (Auto) 0.1 Baso # (Auto) 0.0 Abs Immat Gran (auto) 0.10 H Absolute Neuts (auto) 9.4 H Absolute Nucleated RBC 0.000 Nucleated RBC % 0.0 Puncture Site Left brachial ABG pH 7.333 L ABG pCO2 50.2 H ABG pO2 59.9 L ABG PO2/FiO2 Ratio 0.60 ABG HCO3 26.1 H ABG O2 Saturation 89.0 L ABG O2 Content 13.2 L ABG Base Excess -0.2 A-a Gradient 602.9 Oxyhemoglobin 90.3 Total Hemoglobin 10.4 L O2 Delivery Device Other device O2 Liters/Min FiO2 100 Sodium 138 Potassium 4.4 Chloride 105 Carbon Dioxide 29 Anion Gap 4 BUN 84 H D Creatinine 2.80 H Estim Creat Clear Calc 13 Estimated GFR 16 L Glucose 89 Calcium 8.8 Phosphorus 4.6 H Magnesium 2.4 H Total Bilirubin 0.5 AST 20 ALT 17 Alkaline Phosphatase 80 Total Protein 6.0 L Albumin 2.9 L Quality VTE Prophylaxis VTE prophylaxis: pharmacologic ordered (Continue home Eliquis but will decrease dose due to patient's renal function and age)
[2024-02-04] VITALS (7 sets, daily range): BP systolic 133; BP diastolic 50; PULSE 52–89; RESP 21–26; TEMP 36.4; O2SAT 83–91
[2024-02-04] MEDS: IPRATROPIUM 0.5 MG/ALBUTEROL SULFATE 2.5 MG AMPUL.NEB 3 ML INHALATION (02:04)
[2024-02-04] MEDS: LORazepam INJ (*CRX) 2 MG/ML VIAL IV PUSH (03:51)
[2024-02-04] MEDS: MORPHINE SULFATE INJ (*CRX) 10 MG/ML AMP IV PUSH (03:53)
--- NOTE | 2024-02-04 04:48 | PC.NURSE ---
0350 Patient's son at bedside and decided to make patient comfort measures and remove patient's bipap. Dr. Munoz called and updated on patient's condition. New orders received for comfort measures. 0355 Patient given IV Ativan and IV morphine as ordered. Bipap removed and patient placed on 2L NC for comfort. 0448 Patient .
--- NOTE | 2024-02-04 08:57 | PM.DDS ---
Discharge Summary Date and Time Date of : 02/04/24 Time of : 04:48 Provider Pronounced By: 2 RNs Name of First RN That Pronounced: Naida Diaz Name of Second RN That Pronounced: Janeth Hernandez Probable Cause of Probable Cause of : Acute respiratory failure with hypoxia Acute exacerbation of CHF (congestive heart failure): KAY on chronic renal failure Stage 4 Summary Hospital Course: 88-year-old female with past medical history of paroxysmal AFib, status post cardioversion 05/2023, essential hypertension, chronic kidney disease stage 3, pulmonary hypertension and heart failure with preserved ejection fraction who presented ER from home via EMS with shortness of breath. Patient reports she has been short of breath for about 3 days. She wears 4 L of home O2 at all times. When EMS arrived the patient's home she was satting 78% on her home O2. They increased her oxygen is 6 L and oxygen saturations improved to 80 8/89. Patient received DuoNeb in route to the hospital and on arrival to the hospital she was still hypoxic. She was placed on 10 L non-rebreather and was satting 95%. She denies any fevers or chills. She has been having some cough productive of frothy liquid. She also noticed that her eyes were watering and her nose as well. She denies any ill contacts. She has been having some lower extremity swelling it is not been getting better with elevating her legs. She denies any chest pain or palpitations. She was in sinus rhythm on presentation the hospital. She has been compliant with her cardiac medications and her diuretics. According to review of records the patient's weight is up 4 kg compared to Healthcare recent visit. The patient reports that she does not like are BiPAP because it rubs her nose more than her machine at home. Patient was started on Diuresis and placed on BiPAP, however kidney function worsened and diuretics were held hoping for recovery of renal function. Patient also underwent thoracentesis however respiratory status did not improve. Cardiology, nephrology and pulmonology were involved in her care. Patient continued to be BiPAP dependent. Nephrology noted patient would not benefit from dialysis and it will change clinicla course. Family eventually made patient comfort care and she passed th morning at about 0448. Additional Data Confirmation of as documented by pronouncing clinician: Pupillary Reflex, Palpable Pulses, Response to Stimuli, Heart Tones and Breath Sounds Name of Provider Notified: Tammy Time Provider Notified: 05:27 Provider Requests Autopsy: No Family Requests Autopsy: No [employer] Party Manager Notified: Yes Date [facility] Notified of : 02/04/24 Time [facility] Notified of : 05:21
[2024-02-05 08:25] LABS: Mycoplasma IgM Antibody Titer 183
[2024-02-05 14:33] LABS: Adenovirus DNA Not Detected (Not Detected); Chlamydophila pneumoniae Not Detected (Not Detected); Coronavirus 229E Not Detected (Not Detected); Coronavirus HKU1 Not Detected (Not Detected); Coronavirus NL63 Not Detected (Not Detected); Coronavirus OC43 Not Detected (Not Detected); Human Metapneumovirus Not Detected (Not Detected); Human Parainfluenza Virus 1 Not Detected (Not Detected); Human Parainfluenza Virus 2 Not Detected (Not Detected); Human Parainfluenza Virus 3 Not Detected (Not Detected); Human Parainfluenza Virus 4 Not Detected (Not Detected); Human RSV B Not Detected (Not Detected); Influenza A Not Detected (Not Detected); Influenza B Not Detected (Not Detected); Mycoplasma pneumoniae Not Detected (Not Detected); Rhinovirus/Enterovirus Not Detected (Not Detected)
[2024-02-05 18:53] LABS: Pneumococcal Antigen Urine NOT DETECTED
[2024-02-06 17:13] LABS: Albumin Pleural Fluid 1.1 g/dL; Amylase, Pleural Fluid 16 U/L; Glucose Pleural Fluid 120 mg/dL; Total Protein Pleural Fluid <3.0 g/dL
[2024-02-10 20:23] LABS: Legionella pneumophila Ag Ur NOT DETECTED
== END 2024-02-04 04:48 | disposition expired | DRG 291 ==
LOC: ANHED 01-29 00:11 → ANHIMU 01-29 00:29
PROVIDERS: General Practice; Internal Medicine Pulmonary Disease; Admitting Provider Internal Medicine; Emergency Provider Physician Assistant; PCP Family Medicine; Visit Provider Internal Medicine
DX: I13.0 Hypertensive heart and chronic kidney disease with heart failure and stage 1 through stage 4 chronic kidney disease, or unspecified chronic kidney disease (principal); I50.33 Acute on chronic diastolic (congestive) heart failure; J96.21 Acute and chronic respiratory failure with hypoxia; N17.9 Acute kidney failure, unspecified; N18.4 Chronic kidney disease, stage 4 (severe); J90 Pleural effusion, not elsewhere classified; I48.0 Paroxysmal atrial fibrillation; I27.20 Pulmonary hypertension, unspecified; I89.0 Lymphedema, not elsewhere classified; K21.9 Gastro-esophageal reflux disease without esophagitis; N18.30 Chronic kidney disease, stage 3 unspecified; M19.90 Unspecified osteoarthritis, unspecified site; M85.80 Other specified disorders of bone density and structure, unspecified site; R73.03 Prediabetes; F32.A Depression, unspecified; Z20.822 Contact with and (suspected) exposure to COVID-19; Z99.81 Dependence on supplemental oxygen; Z79.01 Long term (current) use of anticoagulants
CPT/HCPCS: 32555; 36415; 36600; 71045; 71250; 80048; 80053; 81003; 82042; 82150; 82805; 82945; 83605; 83615; 83735; 83880; 83986; 84100; 84145; 84157; 84311; 84478; 84484; 85018; 85025; 85027; 85610; 85730; 86738; 87015; 87040; 87070; 87075; 87102; 87116; 87205; 87206; 87449; 87633; 87637; 87641; 87899; 88108; 88305; 89051; 93005; 94002; 94003; 94640; 96376; 99285; A9270; C8929; G0378; J0456; J0696; J1940; J2060; J2185; J2270; Q9957